=== PATIENT | female | born 1945 | race Caucasian/White ===

== ENCOUNTER 2016-04-09 09:36 | Inpatient (IN) | payer OTHER, MEDICARE ==
[~2016-04-09] VITALS: Ht 157.5 cm; Wt 69.3 kg
[2016-04-09] VITALS (13 sets, daily range): BP systolic 173–199; BP diastolic 67–123; PULSE 68–102; RESP 16–20; TEMP 97.8–98.7; O2SAT 93–98
[~2016-04-09 09:36] MED LIST: ACET5SOL5 PO; ASPI325T PO; DIABETES MED
[2016-04-09] MEDS ORDERED: ASPI325T PO (10:23)
[2016-04-09] MEDS ORDERED: SODIUM CHLOR 0.9% 1000 ML INJ 1,000 ML IV ONE (10:30)
[2016-04-09] MEDS ORDERED: SODIUM CHLORIDE 0.9% FLUSH 5 ML FLUSH IVF PRN ×2 (10:30→12:15)
[2016-04-09 10:47] LABS: AUTOMATED NEUTROPHIL # 6.1 TH/MM3 (1.8-7.7); BASOPHIL % 0.6 % (0.0-2.0); EOSINOPHIL # 0.1 TH/MM3 (0-0.4); EOSINOPHIL % 1.2 % (0.0-4.0); HEMATOCRIT 29.4 % (35.0-46.0); HEMO FLAGS DIFF FINAL; LYMPH % 15.7 % (9.0-44.0); LYMPHOCYTE # 1.2 TH/MM3 (1.0-4.8); MEAN CELL VOLUME 88.8 FL (80.0-100.0); MEAN CORPUSCULAR HEMOGLOBIN 30.4 PG (27.0-34.0); MEAN CORPUSCULAR HGB CONC 34.2 % (32.0-36.0); MONO % 6.6 % (0.0-8.0); NEUT % 75.9 % (16.0-70.0); PLATELET COUNT 222 TH/MM3 (150-450); RED BLOOD COUNT 3.32 MIL/MM3 (4.00-5.30); RED CELL DISTRIBUTION WIDTH 11.9 % (11.6-17.2); WHITE BLOOD COUNT 7.9 TH/MM3 (4.0-11.0)
[2016-04-09 10:57] LABS: CHLORIDE 104 MEQ/L (98-107); POTASSIUM 3.7 MEQ/L (3.5-5.1); SODIUM (NA) 141 MEQ/L (136-145)
[2016-04-09 11:00] LABS: ANION GAP 9 MEQ/L (5-15); APTT (PATIENT) 24.4 SEC (24.3-30.1); BLOOD UREA NITROGEN 15 MG/DL (7-18); INTERNATIONAL NORMALIZED RATIO 0.9 RATIO; MAGNESIUM 1.9 MG/DL (1.5-2.5); PROTHROMBIN TIME - PATIENT 9.9 SEC (9.8-11.6)
[2016-04-09 11:03] LABS: ALT (GPT) 12 U/L (10-53); AST (GOT) 12 U/L (15-37)
[2016-04-09 11:04] LABS: GLOMERULAR FILTRATION RATE 93 ML/MIN (>89)
[2016-04-09 11:05] LABS: TOTAL BILIRUBIN ADULT 0.4 MG/DL (0.2-1.0)
[2016-04-09 11:06] LABS: ALKALINE PHOSPHATASE 55 U/L (45-117)
--- NOTE | 2016-04-09 11:14 | RADHPO ---
EXAM DATE/TIME: 04/09/2016 10:49 [facility] COMPARISON: No previous studies available for comparison. INDICATIONS : Dizziness today and bilateral ear pain. RADIATION DOSE: 59.65 CTDIvol (mGy) MEDICAL HISTORY : Stroke. Hypertension. diabetes SURGICAL HISTORY : None. ENCOUNTER: Initial ACUITY: 1 day PAIN SCALE: 1/10 LOCATION: Bilateral ear TECHNIQUE: Multiple contiguous axial images were obtained of the head. Using automated exposure control and adj ustment of the mA and/or kV according to patient size, radiation dose was kept as low as reasonably a chievable to obtain optimal diagnostic quality images. FINDINGS: The examination demonstrates an old area of infarct involving the left temporal cortex. There is colp ocephalic dilation of the anterior horn of the left lateral ventricle. There is no acute intracranial hemorrhage. No mass lesion is identified. The appearance of the posterior fossa is unremarkable. The sinuses are clear. The mastoid air cells are clear. The osseous structures of the skull are intac t. CONCLUSION: Old area of cortical infarct involving the left temporal and parietal cortex. No acute intracranial a bnormality identified. Johnnie Bains MD on April 09, 2016 at 11:10 Board Certified Radiologist. This report was verified electronically.
[2016-04-09] MEDS ORDERED: ASPIRIN 81 MG CHEW TAB CHEW ONE (11:30)
[2016-04-09] MEDS ORDERED: HEPARIN SODIUM - IV 10,000 UNITS/10 ML VIAL IV ONE (11:30)
[2016-04-09] MEDS: HEPARIN-D5W INJ 250 ML IV SCH (12:06)
[2016-04-09] MEDS ORDERED: NITROGLYCERIN-DEXTROSE INJ 250 ML IV SCH (12:15)
[2016-04-09] MEDS ORDERED: DOCUSATE SODIUM 100 MG CAP PO PRN (12:15)
[2016-04-09] MEDS ORDERED: ONDANSETRON HCL 4 MG/2 ML VIAL IV PRN (12:15)
[2016-04-09] MEDS ORDERED: ACETAMINOPHEN 325 MG TAB PO PRN (12:15)
[2016-04-09] MEDS ORDERED: MORPHINE SULFATE 4 MG/ML INJ IV PRN (12:15)
--- NOTE | 2016-04-09 12:16 | PD ---
HPI Chief Complaint: Dizziness Time Seen by Provider: 10:20 Travel History International Travel<30 days: No Contact w/Intl Traveler<30days: No Traveled to known affect area: No History of Present Illness HPI Patient is a 70 year old female who comes in complaining of dizziness. She says that this started yesterday and it has caused her to feel off balance. She says it is a lightheaded feeling and denies a spinning sensation. She says she started to have some ear pain this morning, but she says this has gone away. She also seems to be having some confusion. She denies chest pain or SOB. She has a history of DM and HTN as well as stroke, but she has not been taking any medication for the past 2 years. She denies fever or chills, nausea or vomiting. PFSH Past Medical History Hx Anticoagulant Therapy: Yes (asa 325mg ) Cardiovascular Problems: Yes (htn on meds out of blood pressure meds) High Cholesterol: Yes Cerebrovascular Accident: Yes (CVA) Diabetes: Yes (out of medication) Patient Takes Glucophage: No Diminished Hearing: No Hypertension: Yes Immunizations Current: Yes ?: Not Menopausal: Yes Past Surgical History Surgical History: No Previous Surgery Social History Alcohol Use: No Tobacco Use: No Substance Use: No Allergies-Medications (Allergen,Severity, Reaction): Uncoded Allergies: MOTREL (Allergy, Severe, Rash, 04/09/16) . Reported Meds & Prescriptions Reported Meds & Active Scripts Active Reported Aspirin 325 Mg Tab 325 Mg PO DAILY Review of Systems Except as stated in HPI: all other systems reviewed are Neg General / Constitutional: No: Fever, Chills Eyes: No: Blurred Vision HENT: Positive: Lightheadedness, No: Headaches Cardiovascular: No: Chest Pain or Discomfort Respiratory: No: Shortness of Breath Gastrointestinal: No: Nausea, Vomiting Musculoskeletal: No: Myalgias, Edema Skin: No Rash, No Change in Pigmentation Neurologic: Positive: Dizziness Physical Exam Narrative GENERAL: Awake and alert, in no acute distress. SKIN: Warm and dry. HEAD: Atraumatic. Normocephalic. EYES: Pupils equal and round. No scleral icterus. Extraocular movements intact. Right horizontal nystagmus, extinguishing. ENT: Mucous membranes pink and moist. NECK: Trachea midline. No JVD. CARDIOVASCULAR: Regular rate and rhythm. No murmur appreciated. RESPIRATORY: No accessory muscle use. Clear to auscultation. Breath sounds equal bilaterally. GASTROINTESTINAL: Abdomen soft, non-tender, nondistended. MUSCULOSKELETAL: No obvious deformities. No clubbing. No cyanosis. No edema. NEUROLOGICAL: Awake and alert. No obvious cranial nerve deficits. Motor grossly within normal limits. Normal speech. [id number] test within normal limits. PSYCHIATRIC: Appropriate mood and affect; insight and judgment normal. Data Data Last Documented VS Vital Signs Date Time Temp Pulse Resp B/P Pulse Ox O2 Delivery O2 Flow Rate FiO2 04/09/16 12:31 98 Room Air 04/09/16 12:09 87 18 192/123 04/09/16 10:07 98.7 Orders Electrocardiogram (04/09/16 10:30) Complete Blood Count With Diff (04/09/16 10:30) Comprehensive Metabolic Panel (04/09/16 10:30) Magnesium (Mg) (04/09/16 10:30) Troponin I (04/09/16 10:30) Act Partial Throm Time (Ptt) (04/09/16 10:30) Prothrombin Time / Inr (Pt) (04/09/16 10:30) Urinalysis - C+S If Indicated (04/09/16 10:30) Ua Includes Microscopic (04/09/16 10:30) Chest, Pa & Lat (04/09/16 10:30) Ct Brain W/O Iv Contrast(Rout) (04/09/16 10:30) Ecg Monitoring (04/09/16 10:30) Iv Access Insert/Monitor (04/09/16 10:30) Oximetry (04/09/16 10:30) Sodium Chloride 0.9% Flush (Ns Flush) (04/09/16 10:30) Sodium Chlor 0.9% 1000 Ml Inj (Ns 1000 M (04/09/16 10:30) Aspirin Chew (Aspirin Chew) (04/09/16 11:30) Heparin Infusion DAO.Q1H (04/09/16 11:17) Heparin Inj (Heparin Inj) (04/09/16 11:30) Heparin Inj (Heparin Inj) (04/09/16 17:30) Heparin Inj (Heparin Inj) (04/09/16 17:30) Heparin-D5w Inj (Heparin-D5w Inj) (04/09/16 11:30) Cbc No Diff, Includes Plts (04/12/16 06:00) Act Partial Throm Time (Ptt) (04/09/16 18:17) Occult Blood (Hemoccult) Stool (04/09/16 11:17) Admit To Inpatient (04/09/16 ) Ckmb (Isoenzyme) Profile (04/09/16 12:12) Ckmb (Isoenzyme) Profile (04/09/16 18:12) Ckmb (Isoenzyme) Profile (04/10/16 00:12) Troponin I (04/09/16 12:12) Troponin I (04/09/16 18:12) Troponin I (04/10/16 00:12) Basic Metabolic Panel (Bmp) (04/10/16 06:00) Thyroid Stimulating Hormone (04/09/16 12:12) Lipid Profile (04/09/16 12:12) Complete Blood Count With Diff (04/10/16 06:00) ^ Obtain As Needed (04/09/16 12:12) Diet Full Liquid (04/09/16 Lunch) Activity Bed Rest With Brp (04/09/16 12:12) ^ Notify Of These Side Effects (04/09/16 12:12) ^ Notify Dr: Blood Pressure (04/09/16 12:12) ^ Notify Dr: Heart Rate (04/09/16 12:12) Teaching Record: Cardiac Educa DAO.Q12H (04/09/16 12:12) Sodium Chloride 0.9% Flush (Ns Flush) (04/09/16 21:00) Sodium Chloride 0.9% Flush (Ns Flush) (04/09/16 12:15) Nitroglycerin-Dextrose Inj (Nitroglyceri (04/09/16 12:15) Aspirin Ec (Ecotrin Ec) (04/10/16 09:00) Morphine Inj (Morphine Inj) (04/09/16 12:15) Acetaminophen (Tylenol) (04/09/16 12:15) Docusate Sodium (Colace) (04/09/16 12:15) Ondansetron Inj (Zofran Inj) (04/09/16 12:15) Vital Signs (Adult) DAO.Q4H (04/09/16 12:12) Consult Cardiology (04/09/16 ) Executive Vice President Of Sales / Telemetry (04/09/16 12:12) Metoprolol Tartrate (Lopressor) (04/09/16 21:00) Lisinopril (Prinivil) (04/10/16 09:00) Atorvastatin (Lipitor) (04/09/16 21:00) Scd Bilateral/Knee High DAO.BID (04/09/16 12:12) Inpatient Certification (04/09/16 ) Consult Pt Eval & Tx Oob (04/09/16 12:12) Admit Order (Ed Use Only) (04/09/16 ) Consult Cardiology (04/09/16 ) Pill Splitter (Pill Splitter) (04/09/16 12:45) Labs Laboratory Tests Test 04/09/16 04/09/16 10:40 12:20 White Blood Count 7.9 TH/MM3 Red Blood Count 3.32 MIL/MM3 Hemoglobin 10.1 GM/DL Hematocrit 29.4 % Mean Corpuscular Volume 88.8 FL Mean Corpuscular Hemoglobin 30.4 PG Mean Corpuscular Hemoglobin 34.2 % Concent Red Cell Distribution Width 11.9 % Platelet Count 222 TH/MM3 Mean Platelet Volume 7.8 FL Neutrophils (%) (Auto) 75.9 % Lymphocytes (%) (Auto) 15.7 % Monocytes (%) (Auto) 6.6 % Eosinophils (%) (Auto) 1.2 % Basophils (%) (Auto) 0.6 % Neutrophils # (Auto) 6.1 TH/MM3 Lymphocytes # (Auto) 1.2 TH/MM3 Monocytes # (Auto) 0.5 TH/MM3 Eosinophils # (Auto) 0.1 TH/MM3 Basophils # (Auto) 0.0 TH/MM3 CBC Comment DIFF FINAL Differential Comment Prothrombin Time 9.9 SEC Prothromb Time International 0.9 RATIO Ratio Activated Partial 24.4 SEC Thromboplast Time Sodium Level 141 MEQ/L Potassium Level 3.7 MEQ/L Chloride Level 104 MEQ/L Carbon Dioxide Level 28.0 MEQ/L Anion Gap 9 MEQ/L Blood Urea Nitrogen 15 MG/DL Creatinine 0.63 MG/DL Estimat Glomerular Filtration 93 ML/MIN Rate Random Glucose 282 MG/DL Calcium Level 8.3 MG/DL Magnesium Level 1.9 MG/DL Total Bilirubin 0.4 MG/DL Aspartate Amino Transf 12 U/L (AST/SGOT) Alanine Aminotransferase 12 U/L (ALT/SGPT) Alkaline Phosphatase 55 U/L Troponin I 0.86 NG/ML Total Protein 6.4 GM/DL Albumin 3.2 GM/DL Urine Collection Type CLEAN CATCH Urine Color YELLOW Urine Turbidity SLIGHTY CLOUDY Urine pH 6.0 Urine Specific [place] 1.020 Urine Protein 100 mg/dL Urine Glucose (UA) 1000 OR GREATER mg/dL Urine Ketones TRACE mg/dL Urine Occult Blood LARGE Urine Nitrite NEG Urine Bilirubin NEG Urine Leukocyte Esterase TRACE Urine RBC 25-49 /hpf Urine WBC 3-5 /hpf Urine Squamous Epithelial 0-5 /hpf Cells Microscopic Urinalysis Comment CULT NOT INDICATED MDM Medical Decision Making Medical Screen Exam Complete: Yes Emergency Medical Condition: Yes Medical Record Reviewed: Yes Interpretation(s) ECG shows normal sinus rhythm at 83, T-wave inversions in V3 through V6 as well as 1 and aVL, no ST elevation. Differential Diagnosis Electrolyte abnormality versus ICH versus ACS Narrative Course Patient is a 70-year-old female who comes in complaining of dizziness. She has history of diabetes, hypertension, stroke, but she is not taking any medications. Exam shows no neurologic abnormalities. IV established, patient connected to the security monitor. Labs sent. Head shows no acute abnormalities. Labs concerning for an elevated troponin to 0.86. Patient given aspirin and started on heparin. I spoke with Dr. Alvarez of cardiology, who agrees this plan, but would like the patient transferred to the main hospital for possible catheter. Patient admitted to medicine for further management. Diagnosis Primary Impression: NSTEMI (non-ST elevated myocardial infarction) Admitting Information Admitting Physician Requests: Admit Elva Carbajal MD Apr 09, 2016 12:16
--- NOTE | 2016-04-09 12:27 | RADHPO ---
EXAM DATE/TIME: 04/09/2016 11:33 [facility] COMPARISON: No previous studies available for comparison. INDICATIONS : Chest discomfort. MEDICAL HISTORY : None. SURGICAL HISTORY : None. ENCOUNTER: Initial ACUITY: 1 day PAIN SCORE: 5/10 LOCATION: Bilateral chest FINDINGS: PA and lateral views of the chest. Lung volumes are low. The lungs are clear. Cardiac silhouette mild ly enlarged.. No evidence of pleural effusion or pneumothorax. CONCLUSION: Mildly enlarged cardiac silhouette and low lung volumes. Harry Paredes MD on April 09, 2016 at 12:24 Board Certified Radiologist. This report was verified electronically.
[2016-04-09 12:31] LABS: BLOOD, URINE LARGE (NEG); KETONE, URINE TRACE mg/dL (NEG); NITRITE,URINE NEG (NEG)
[2016-04-09 12:37] LABS: GLUCOSE,URINE 1000 OR GREATER mg/dL (NEG); METHOD OF COLLECTION CLEAN CATCH; URINE COLOR YELLOW (YELLW/STRAW)
[2016-04-09 12:38] LABS: COMMENT (UR) CULT NOT INDICATED; CULTURE IF INDICATED CULT NOT INDICATED; SQUAMOUS EPITHELIAL CELL URINE 0-5 /hpf (0-5)
[2016-04-09] MEDS ORDERED: PILL SPLITTER OTHER PRN (12:45)
[2016-04-09] MEDS ORDERED: HEPARIN SODIUM - IV 10,000 UNITS/10 ML VIAL IV PRN ×2 (17:30)
[2016-04-09 18:28] LABS: APTT (PATIENT) 28.8 SEC (24.3-30.1)
[2016-04-09] MEDS: METOPROLOL TARTRATE 25 MG TAB PO SCH (20:49)
[2016-04-09] MEDS: SODIUM CHLORIDE 0.9% FLUSH 5 ML FLUSH IVF SCH (20:50)
[2016-04-09] MEDS: ATORVASTATIN 10 MG TAB PO SCH (20:50)
[2016-04-09] MEDS ORDERED: GLUCAGON 1 MG/ML VIAL OTHER PRN (21:15)
[2016-04-09] MEDS ORDERED: DEXTROSE 50% IN WATER 50 ML VIAL(D50) IV PUSH PRN (21:15)
--- NOTE | 2016-04-09 22:29 | HHI.HP ---
[facility] Physician Breana Russell Admission Diagnosis NSTEMI Diagnoses: (1) NSTEMI (non-ST elevated myocardial infarction) (2) Type 2 diabetes mellitus (3) Hypertension (4) Hyperlipidemia (5) Anemia Chief Complaint: Dizziness Travel History International Travel<30 Days: No Contact w/Intl Traveler <30 Da: No Traveled to Known Affected Are: No History of Present Illness Ms. Villa is a 70 year-old female with a past medical history of hypertension, hyperlipidemia, CVA, and type 2 diabetes mellitus who presented to the [place] emergency department 04/09/2016 complaining of dizziness. Initial testing in the ER showed T-wave inversions on 12-lead EKG in V3 through V6 as well as lead I and aVL, no ST elevation - 12 lead EKG personally reviewed by me. Troponin I elevated at 0.86 and patient was started on aspirin and heparin. Dr. Arrington, fitter type bar and segment, was notified and had patient transferred to the main hospital for possible cardiac catheterization. Subsequent Troponin I levels were 0.79 and 0.60. Patient also noted to have anemia with hemoglobin 10.1 and hematocrit 29.4. The patient is seen in her room. She states that she was very dizzy earlier today and drove herself to the ER in [place]; she denies any other symptoms - such as chest pain, shortness of breath, paresthesias, or weakness (see ros for full review). States she does not take medications other than aspirin for the past two years and has not seen her primary care physician in 2 years either. She says she treats her diabetes with diet. She reports she had a CVA in 1999 and denies residual weakness from the CVA. Denies cardiac disease, atrial fibrillation, copd, asthma, kidney problems, or blood clots in legs or lungs. Has a history of hepatitis- told she'd have it forever. . Review of Systems Constitutional: COMPLAINS OF: Dizziness, DENIES: Fever Respiratory: DENIES: Cough, Shortness of breath Cardiovascular: DENIES: Chest pain, Dyspnea on Exertion Gastrointestinal: DENIES: Abdominal pain, Black stools, Bloody stools, Nausea, Vomiting Genitourinary: DENIES: Hematuria, Dysuria Neurologic: DENIES: Abnormal gait, Localized weakness, Paresthesias, Seizures Except as stated in HPI: all other systems reviewed are Neg Past Family Social History Past Medical History CVA - 1999 Hypertension Hyperlipidemia Hypertension Type 2 diabetes mellitus Polio . Past Surgical History Denies any prior surgeries . Reported Medications Reported Meds & Active Scripts Active Reported Aspirin 325 Mg Tab 325 Mg PO DAILY . Allergies: Uncoded Allergies: MOTREL (Allergy, Severe, Rash, 04/09/16) . Active Ordered Medications Current Medications IV Flush 2 ml 2 ml UNSCH PRN IVF FLUSH AFTER USING IV ACCESS; Start 04/09/16 at 10:30; Stop 04/09/16 at 12:31; Status DC Sodium Chloride (NS 1000 ml Inj) 1,000 ml @ 1,000 mls/hr Q1H ONCE IV Last administered on 04/09/16 10:43; Start 04/09/16 at 10:30; Stop 04/09/16 at 11:29 ; Status DC Aspirin (Aspirin Chew) 324 mg ONCE ONCE CHEW Last administered on 04/09/16 11 :55; Start 04/09/16 at 11:30; Stop 04/09/16 at 11:31; Status DC Heparin Sodium (Porcine) (Heparin Inj) 3,600 units ONCE ONCE IV Last administered on 04/09/16 11:57; Start 04/09/16 at 11:30; Stop 04/09/16 at 11:31 ; Status DC Heparin Sodium (Porcine) (Heparin Inj) 5,000 units UNSCH PRN IV APTT LESS THAN 25; Start 04/09/16 at 17:30 Heparin Sodium (Porcine) 2500 units 2,500 units UNSCH PRN IV APTT 25 TO 39 Last administered on 04/09/16 18:39; Start 04/09/16 at 17:30 Heparin Sodium/ Dextrose (Heparin-D5W Inj) 250 ml @ 0 mls/hr TITRATE IV Last administered on 04/09/16 12:06; Start 04/09/16 at 11:30 IV Flush (NS Flush) 2 ml BID IVF Last administered on 04/09/16 20:50; Start at 21:00 IV Flush 2 ml 2 ml UNSCH PRN IVF FLUSH AFTER USING IV ACCESS; Start 04/09/16 at 12:15 Nitroglycerin/ Dextrose (Nitroglycerin-Dextrose Inj) 250 ml @ 0 mls/hr TITRATE IV Last administered on 04/09/16 18:56; Start 04/09/16 at 12:15 Aspirin (Ecotrin Ec) 325 mg DAILY PO ; Start 04/10/16 at 09:00 Morphine Sulfate (Morphine Inj) 2 mg Q30M PRN IV CHEST PAIN; Start 04/09/16 at 12:15 Acetaminophen (Tylenol) 650 mg Q6H PRN PO HEADACHE OR TEMP > 101 F; Start 04/09 at 12:15 Docusate Sodium (Colace) 100 mg BID PRN PO CONSTIPATION; Start 04/09/16 at 12: 15 Ondansetron HCl (Zofran Inj) 4 mg Q6H PRN IV NAUSEA OR VOMITING; Start at 12:15 Metoprolol Tartrate (Lopressor) 12.5 mg BID PO Last administered on 04/09/16 20:49; Start 04/09/16 at 21:00 Lisinopril (Prinivil) 5 mg DAILY PO ; Start 04/10/16 at 09:00 Atorvastatin Calcium (Lipitor) 40 mg HS PO Last administered on 04/09/16 20:50 ; Start 04/09/16 at 21:00 Miscellaneous (Pill Splitter) 1 ea UNSCH PRN OTHER SEE LABEL COMMENTS; Start at 12:45 Dextrose (D50w (Vial) Inj) 25 ml UNSCH PRN IV PUSH HYPOGLYCEMIA-SEE COMMENTS; Start 04/09/16 at 21:15 Glucagon (Glucagon Inj) 1 mg UNSCH PRN OTHER HYPOGLYCEMIA-SEE COMMENTS; Start 04/09/16 at 21:15 Insulin Aspart (NovoLOG SUPPLEMENTAL SCALE) 1 ACHS SLIDING SCALE SQ ; Start at 07:00 . Family History Denies any family history of medical problems. . Social History Tobacco: Denies Alcohol: Denies . Physical Exam Vital Signs Vital Signs Date Time Temp Pulse Resp B/P Pulse Ox O2 Delivery O2 Flow Rate FiO2 04/09/16 21:39 97.8 84 191/88 93 04/09/16 17:19 78 18 173/76 94 Room Air 04/09/16 15:56 82 18 182/74 96 Room Air 04/09/16 15:03 95 18 199/80 98 Room Air 04/09/16 12:54 79 20 184/67 97 Room Air 04/09/16 12:31 98 Room Air 04/09/16 12:09 87 18 192/123 95 Room Air 04/09/16 10:19 16 95 Room Air 04/09/16 10:07 98.7 96 16 177/85 Physical Exam GENERAL: This is an elderly female patient, in no apparent distress. SKIN: No lesions noted in areas not covered. Skin is cool and dry. HEAD: Atraumatic. Normocephalic. EYES: No scleral icterus. No injection or drainage. ENT: Nose without bleeding, purulent drainage. NECK: Trachea midline. No JVD or lymphadenopathy. CARDIOVASCULAR: Regular rate and rhythm without gallops or rubs. Systolic murmur auscultated; over tricuspid area and radiating to neck RESPIRATORY: Clear to auscultation. Breath sounds equal bilaterally. No wheezes , rales, or rhonchi. GASTROINTESTINAL: Abdomen soft, non-tender, nondistended. No guarding. MUSCULOSKELETAL: Extremities without clubbing, cyanosis, or edema. No calf tenderness. Left lower extremity with calf muscle atrophy; patient states from polio NEUROLOGICAL: Awake and alert. Motor and sensory grossly within normal limits. Normal speech. . Laboratory Laboratory Tests Test 04/09/16 04/09/16 04/09/16 04/09/16 10:40 12:20 12:48 18:00 White Blood Count 7.9 Red Blood Count 3.32 Hemoglobin 10.1 Hematocrit 29.4 Mean Corpuscular Volume 88.8 Mean Corpuscular Hemoglobin 30.4 Mean Corpuscular Hemoglobin 34.2 Concent Red Cell Distribution Width 11.9 Platelet Count 222 Mean Platelet Volume 7.8 Neutrophils (%) (Auto) 75.9 Lymphocytes (%) (Auto) 15.7 Monocytes (%) (Auto) 6.6 Eosinophils (%) (Auto) 1.2 Basophils (%) (Auto) 0.6 Neutrophils # (Auto) 6.1 Lymphocytes # (Auto) 1.2 Monocytes # (Auto) 0.5 Eosinophils # (Auto) 0.1 Basophils # (Auto) 0.0 CBC Comment DIFF FINAL Differential Comment Prothrombin Time 9.9 Prothromb Time International 0.9 Ratio Activated Partial 24.4 28.8 Thromboplast Time Sodium Level 141 Potassium Level 3.7 Chloride Level 104 Carbon Dioxide Level 28.0 Anion Gap 9 Blood Urea Nitrogen 15 Creatinine 0.63 Estimat Glomerular Filtration 93 Rate Random Glucose 282 Calcium Level 8.3 Magnesium Level 1.9 Total Bilirubin 0.4 Aspartate Amino Transf 12 (AST/SGOT) Alanine Aminotransferase 12 (ALT/SGPT) Alkaline Phosphatase 55 Troponin I 0.86 0.79 0.60 Total Protein 6.4 Albumin 3.2 Urine Collection Type CLEAN CATCH Urine Color YELLOW Urine Turbidity SLIGHTY CLOUDY Urine pH 6.0 Urine Specific [place] 1.020 Urine Protein 100 Urine Glucose (UA) 1000 OR GREATER Urine Ketones TRACE Urine Occult Blood LARGE Urine Nitrite NEG Urine Bilirubin NEG Urine Leukocyte Esterase TRACE Urine RBC 25-49 Urine WBC 3-5 Urine Squamous Epithelial 0-5 Cells Microscopic Urinalysis Comment CULT NOT INDICATED Total Creatine Kinase 57 49 Triglycerides Level 269 Cholesterol Level 191 LDL Cholesterol 91 HDL Cholesterol 46.0 Cholesterol/HDL Ratio 4.15 Thyroid Stimulating Hormone 1.560 3rd Gen Result Diagram: 04/09/16 1040 04/09/16 1040 Imaging Last Impressions Head CT 04/09/16 1030 Signed Impressions: Service Date/Time: Saturday, April 09, 2016 10:49 - CONCLUSION: Old area of cortical infarct involving the left temporal and parietal cortex. No acute intracranial abnormality identified. Johnnie Bains MD Chest X-Ray 04/09/16 1030 Signed Impressions: Service Date/Time: Saturday, April 09, 2016 11:33 - CONCLUSION: Mildly enlarged cardiac silhouette and low lung volumes. Harry Paredes MD . Assessment and Plan Problem List: (1) NSTEMI (non-ST elevated myocardial infarction) ICD Code: I21.4 Status: Acute (2) Type 2 diabetes mellitus ICD Code: E11.9 Status: Chronic (3) Hypertension ICD Code: I10 Status: Chronic (4) Hyperlipidemia ICD Code: E78.5 Status: Chronic (5) Anemia ICD Code: D64.9 Status: Acute Assessment and Plan NSTEMI - Dr. Arrington, fitter type bar and segment, consulted possible cath in a.m. - Nitroglycerin drip - Heparin drip - Continue home aspirin 325 mg by mouth daily - Patient started on Metoprolol 12.5 mg by mouth twice a day beta dhiraj tx - Morphine 2 mg IV every 30 minutes when necessary for chest pain Type 2 diabetes mellitus - Patient has not been taking medications for the management of her diabetes mellitus - Random glucose on admission 282 - Check HgbA1C - Consult machine cell tuber - Accu-Cheks before meals and at bedtime with low-dose NovoLog sliding scale coverage - Protocol for treatment of hypoglycemia ordered Hypertension - Blood pressure 177/85 on arrival with maximum of 199/80 today - Patient started on Lisinopril 5 mg by mouth daily - anticipate decrease with nitroglycerin drip Hyperlipidemia - Patient started on Lipitor 40 mg by mouth daily at bedtime Anemia - Hemoglobin 10.1 and hematocrit 29.4 - no prior labs available for comparison - Recheck CBC in a.m. and follow trends - Check iron profile and ferritin follow results SCD prophylaxis - On heparin drip for now Written by Loyda Ragsdale, acting as scribe for Dr. Terrell on 04/09/16 at 22:27. The documentation accurately reflects the work performed [id number] by me on at 2227 . Discussed Condition With patient, RN, ER physician Physician Certification 2 Midnight Certification Type: Admission for Inpatient Services Order for Inpatient Services The services are ordered in accordance with Medicare regulations or non- Medicare payer requirements, as applicable. In the case of services not specified as inpatient-only, they are appropriately provided as inpatient services in accordance with the 2-midnight benchmark. Estimated LOS (days): 3 days is the estimated time the patient will need to remain in the hospital, assuming treatment plan goals are met and no additional complications. Post-Hospital Plan: Not yet determined Problem Qualifiers (1) Hypertension: Qualified Code: I10 - Essential hypertension (2) Hyperlipidemia: Qualified Code: E78.5 - Hyperlipidemia, unspecified hyperlipidemia type (3) Anemia: Qualified Code: D64.9 - Anemia, unspecified type Loyda Ragsdale Apr 09, 2016 22:29 Lenny Terrell MD Apr 10, 2016 07:37
[2016-04-10] VITALS (27 sets, daily range): BP systolic 130–193; BP diastolic 60–89; PULSE 62–112; RESP 18–20; TEMP 97.4–98.6; O2SAT 93–99
[2016-04-10 01:10] LABS: APTT (PATIENT) 47.6 SEC (24.3-30.1)
[2016-04-10] MEDS: INSULIN ASPART SUPPLEMENTAL SCALE SQ SCH ×4 (06:02→21:00)
[2016-04-10 07:32] LABS: AUTOMATED NEUTROPHIL # 5.7 TH/MM3 (1.8-7.7); BASOPHIL # 0.1 TH/MM3 (0-0.2); EOSINOPHIL # 0.1 TH/MM3 (0-0.4); EOSINOPHIL % 1.7 % (0.0-4.0); HEMATOCRIT 26.1 % (35.0-46.0); HEMO FLAGS DIFF FINAL; LYMPH % 18.3 % (9.0-44.0); LYMPHOCYTE # 1.5 TH/MM3 (1.0-4.8); MEAN CORPUSCULAR HEMOGLOBIN 31.6 PG (27.0-34.0); MEAN CORPUSCULAR HGB CONC 35.5 % (32.0-36.0); MONO % 7.8 % (0.0-8.0); NEUT % 71.2 % (16.0-70.0); PLATELET COUNT 211 TH/MM3 (150-450); RED BLOOD COUNT 2.94 MIL/MM3 (4.00-5.30); RED CELL DISTRIBUTION WIDTH 12.9 % (11.6-17.2)
[2016-04-10 07:35] LABS: APTT (PATIENT) 46.7 SEC (24.3-30.1)
[2016-04-10 07:53] LABS: ANION GAP 6 MEQ/L (5-15); BLOOD UREA NITROGEN 9 MG/DL (7-18); CHLORIDE 105 MEQ/L (98-107); GLOMERULAR FILTRATION RATE 97 ML/MIN (>89); POTASSIUM 3.5 MEQ/L (3.5-5.1); SODIUM (NA) 140 MEQ/L (136-145)
[2016-04-10 07:59] LABS: FERRITIN 53 NG/ML (8-252); TRANSFERRIN IRON PROFILE 198 MG/DL (200-360)
[2016-04-10] MEDS ORDERED: LISINOPRIL 5 MG TAB PO SCH (09:00)
[2016-04-10] MEDS: METOPROLOL TARTRATE 25 MG TAB PO SCH (09:10)
[2016-04-10] MEDS: SODIUM CHLORIDE 0.9% FLUSH 5 ML FLUSH IVF SCH ×2 (09:10→21:00)
[2016-04-10] MEDS: ASPIRIN EC 325 MG TABEC PO SCH (09:10)
--- NOTE | 2016-04-10 14:18 | EKG ---
Date Performed: 04/10/2016 Time Performed: 06:17:06 PTAGE: 70 years EKG: Sinus rhythm . Extensive ST-T changes may be due to myocardial ischemia Abnormal ECG PREVIOUS TRACING : 04/10/2016 00.06 DOCTOR: Miko Snyder Interpretating Date/Time 04/10/2016 14:14:36
--- NOTE | 2016-04-10 14:23 | EKG ---
Date Performed: 04/10/2016 Time Performed: 00:06:44 PTAGE: 70 years EKG: Sinus rhythm . Extensive ST-T changes may be due to myocardial ischemia Abnormal ECG PREVIOUS TRACING : 04/09/2016 10.37 DOCTOR: Miko Snyder Interpretating Date/Time 04/10/2016 14:18:41
--- NOTE | 2016-04-10 14:41 | EKG ---
Date Performed: 04/09/2016 Time Performed: 10:37:40 PTAGE: 70 years EKG: Sinus rhythm Left ventricular hypertrophy Extensive ST-T changes may be due to hypertrophy and/or ischemia Abnorm al ECG PREVIOUS TRACING : 08/14/1999 16.57 DOCTOR: Miko Snyder Interpretating Date/Time 04/10/2016 14:34:56
--- NOTE | 2016-04-10 15:12 | HHI.PR ---
Subjective Remarks Follow-up for dizziness, troponin elevation Patient still complaining of lightheadedness, more confused today than yesterday. Denies any urinary symptoms, cough, diarrhea, abdominal pain, chest pain or palpitations. No headache or neck stiffness. Oriented to place but not to date. He does not know her according to the patient's sister, mildly short of breath. Objective Vitals Vital Signs Date Time Temp Pulse Resp B/P Pulse Ox O2 Delivery O2 Flow Rate FiO2 04/10/16 11:00 97.7 72 20 171/82 96 04/10/16 08:11 97.4 80 20 162/71 97 04/10/16 06:00 74 04/10/16 05:00 66 04/10/16 04:15 97.5 79 166/89 95 04/10/16 04:00 80 04/10/16 03:00 81 04/10/16 02:00 64 04/10/16 01:00 76 04/10/16 00:00 98.0 83 193/86 93 04/10/16 00:00 74 04/09/16 23:00 68 04/09/16 22:00 74 04/09/16 21:39 97.8 84 191/88 93 04/09/16 21:00 96 04/09/16 20:00 86 04/09/16 19:00 102 04/09/16 17:19 78 18 173/76 94 Room Air 04/09/16 15:56 82 18 182/74 96 Room Air I/O 04/09/16 04/09/16 04/09/16 04/10/16 04/10/16 04/10/16 07:00 15:00 23:00 07:00 15:00 23:00 Intake Total 2000 ml 480 ml Output Total 400 ml 200 ml Balance 1600 ml 280 ml Intake Oral 480 ml IV Total 2000 ml Output Urine Total 400 ml 200 ml Result Diagram: 04/10/1634 04/10/1634 Objective Remarks GENERAL: This is an elderly female patient, in no apparent distress. SKIN: No lesions noted in areas not covered. Skin is cool and dry. HEAD: Atraumatic. Normocephalic. EYES: No scleral icterus. No injection or drainage. ENT: Nose without bleeding, purulent drainage. NECK: Trachea midline. No JVD or lymphadenopathy. CARDIOVASCULAR: Regular rate and rhythm without gallops or rubs. Systolic murmur auscultated; 3/6, over tricuspid area and radiating to neck RESPIRATORY: Decreased breath sounds, crackles in the left. GASTROINTESTINAL: Abdomen soft, non-tender, nondistended. No guarding. MUSCULOSKELETAL: Extremities without clubbing, cyanosis, trace edema. No calf tenderness. Left lower extremity with calf muscle atrophy; patient states from [place] NEUROLOGICAL: Awake and alert, oriented to self and place but not to time. Moves extremities, no focal deficits. A/P Problem List: (1) NSTEMI (non-ST elevated myocardial infarction) ICD Code: I21.4 Status: Acute (2) Type 2 diabetes mellitus ICD Code: E11.9 Status: Chronic (3) Hypertension ICD Code: I10 Status: Chronic (4) Hyperlipidemia ICD Code: E78.5 Status: Chronic (5) Anemia ICD Code: D64.9 Status: Acute Assessment and Plan This is a 70-year-old female who presented to the hospital with dizziness NSTEMI - troponin maxed at 0.8, continue heparin drip and nitroglycerin drip, continue aspirin, metoprolol, morphine for pain. Cardiology consulted, awaiting for possible cardiac catheterization. Dizziness and lightheadedness-check echocardiogram, possible aortic stenosis. Congestive heart failure, acute exacerbation-we'll give a dose of Lasix, add BNP , monitor urine output, recheck BMP tomorrow, echocardiogram as above. Type 2 diabetes mellitus-noncompliant with medications, follow up hemoglobin A1c , Accu-Cheks with sliding scale. Acute delirium-patient still dizzy, lightheaded and disoriented, check MRI of the head, patient had a stroke about [address] scan of the head showed old left parietal temporal infarct, continue aspirin and statins. Check TSH, NH4 , LFTs. Hypertension - continue lisinopril, increase metoprolol Hyperlipidemia -continue Lipitor Iron deficiency anemia-iron panel indicates iron deficiency, start ferrous sulfate SCD prophylaxis - On heparin drip for now Discussed with sister Problem Qualifiers (1) Hypertension: Qualified Code: I10 - Essential hypertension (2) Hyperlipidemia: Qualified Code: E78.5 - Hyperlipidemia, unspecified hyperlipidemia type (3) Anemia: Qualified Code: D64.9 - Anemia, unspecified type Miguel Florse MD Apr 10, 2016 15:12
[2016-04-10] MEDS ORDERED: FUROSEMIDE 20 MG/2 ML VIAL IV PUSH ONE (15:15)
[2016-04-10] MEDS: HEPARIN-D5W INJ 250 ML IV SCH (15:45)
[2016-04-10 16:32] LABS: INDIRECT BILIRUBIN 0.2 MG/DL (0.0-0.8); TOTAL BILIRUBIN ADULT 0.3 MG/DL (0.2-1.0)
[2016-04-10 16:43] LABS: HEMOGLOBIN A1a 1.2 %; HEMOGLOBIN A1b 0.9 %; HEMOGLOBIN Ao 77.6 %; HEMOGLOBIN F 1.6 %; HEMOGLOBIN P3 4.9 %
[2016-04-10 17:09] LABS: I-STAT POTASSIUM 3.5 MMOL/L (3.5-4.9)
[2016-04-10 17:14] LABS: AUTOMATED NEUTROPHIL # 9.1 TH/MM3 (1.8-7.7); BASOPHIL % 0.3 % (0.0-2.0); EOSINOPHIL # 0.1 TH/MM3 (0-0.4); EOSINOPHIL % 0.9 % (0.0-4.0); HEMATOCRIT 29.2 % (35.0-46.0); HEMO FLAGS DIFF FINAL; LYMPHOCYTE # 1.8 TH/MM3 (1.0-4.8); MEAN CELL VOLUME 88.3 FL (80.0-100.0); MEAN CORPUSCULAR HEMOGLOBIN 31.3 PG (27.0-34.0); MEAN CORPUSCULAR HGB CONC 35.4 % (32.0-36.0); MONO % 8.7 % (0.0-8.0); NEUT % 75.1 % (16.0-70.0); PLATELET COUNT 257 TH/MM3 (150-450); RED BLOOD COUNT 3.31 MIL/MM3 (4.00-5.30); RED CELL DISTRIBUTION WIDTH 13.3 % (11.6-17.2); WHITE BLOOD COUNT 12.2 TH/MM3 (4.0-11.0)
--- NOTE | 2016-04-10 17:14 | RADRPT ---
EXAM DATE/TIME: 04/10/2016 16:58 [facility] COMPARISON: CT BRAIN W/O CONTRAST, April 09, 2016, 10:49. INDICATIONS : Weakness both lower extremity,slight left facial droop. RADIATION DOSE: 42.91 CTDIvol (mGy) This report was called by Dr Coker to Dr Navarro at 1711 MEDICAL HISTORY : Unable to obtain SURGICAL HISTORY : Unable to obtain ENCOUNTER: Initial ACUITY: 1 day PAIN SCALE: Non-responsive LOCATION: cranial TECHNIQUE: Multiple contiguous axial images were obtained of the head. Using automated exposure control and adj ustment of the mA and/or kV according to patient size, radiation dose was kept as low as reasonably a chievable to obtain optimal diagnostic quality images. 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 Expected dilatation of the left lateral ventricle. The ventricles are normal for age. No misha dence of midline shift, mass lesion, hemorrhage or acute infarction. No extra-axial fluid collection s are seen. POSTERIOR FOSSA: The cerebellum and brainstem are intact. The 4th ventricle is midline. The cerebellopontine angle i s unremarkable. EXTRACRANIAL: The visualized portion of the orbits is intact. SKULL: The calvaria is intact. No evidence of skull fracture. CONCLUSION: 1. No hemorrhage or midline shift. 2. Old left MCA territory infarction. Andre Coker Jr., MD on April 10, 2016 at 17:08 Board Certified Radiologist. This report was verified electronically.
[2016-04-10 17:21] LABS: BLOOD, URINE LARGE (NEG); COMMENT (UR) CULT NOT INDICATED; CULTURE IF INDICATED CULT NOT INDICATED; GLUCOSE,URINE 1000 mg/dL (NEG); KETONE, URINE NEG (NEG); MUCUS URINE FEW /lpf (OCC); NITRITE,URINE NEG (NEG); SQUAMOUS EPITHELIAL CELL URINE <1 /hpf (0-5); URINE COLOR LIGHT-YELLOW (YELLW/STRAW)
[2016-04-10 17:31] LABS: APTT (PATIENT) 32.7 SEC (24.3-30.1); INTERNATIONAL NORMALIZED RATIO 0.9 RATIO
[2016-04-10] MEDS ORDERED: [UNRECOGNIZED DRUG - CODE] (17:54)
[2016-04-10] MEDS ORDERED: METOPROLOL TARTRATE 25 MG TAB PO SCH (21:00)
[2016-04-10] MEDS: ATORVASTATIN 10 MG TAB PO SCH (21:00)
[2016-04-10] MEDS: FERROUS SULFATE 325 MG (65 MG ELEMENTAL IRON) TAB PO SCH (21:00)
--- NOTE | 2016-04-10 23:18 | RADRPT ---
EXAM DATE/TIME: 04/10/2016 21:37 [facility] COMPARISON: No previous studies available for comparison. INDICATIONS : Cerebrovascular accident. MEDICAL HISTORY : Hypercholesterolemia. Hypertension. Myocardial infarction. Anticoagulant therapy, Aspirin. Diabetes. Cerebrovascular accident. Anemia. SURGICAL HISTORY : None. ENCOUNTER: Initial ACUITY: 2 days PAIN SCORE: 0/10 LOCATION: Bilateral neck PEAK SYSTOLIC VELOCITIES (cm/sec): ICA/CCA RATIO: Right: 1.6 Left: Unable to determine. ICA: Right: 123 Left: Occluded. CCA: Right: 76 Left: 70 ECA: Right: 105 Left: 151 VERTEBRAL: Right: 61 antegrade Left: 93 antegrade Elevated flow velocities and ICA/CCA ratios have been found to correlate with increased degrees of vessel stenosis, calculated as percentage of diameter relative to a normal segment of distal ICA/CCA FINDINGS: RIGHT CAROTID: There is mild to moderate plaque at the carotid bulb region. No significant stenosis is visualized. The waveforms are within normal limits. Elevated peak systolic velocity is not seen. LEFT CAROTID: Left internal carotid artery appears occluded. VERTEBRAL ARTERIES: Antegrade flow is seen in both vertebral arteries. MISCELLANEOUS: None. CONCLUSION: 1. Occlusion of the left internal carotid artery 2. Mild to moderate plaque in the carotid bulb region on the grayscale images but not confirmed with elevated velocity. This suggests this is likely not hemodynamically significant. Darion Rodriguez MD on April 10, 2016 at 23:15 Board Certified Radiologist. This report was verified electronically.
[2016-04-11] VITALS (28 sets, daily range): BP systolic 148–184; BP diastolic 70–85; PULSE 56–87; RESP 16–18; TEMP 93.7–98.7; O2SAT 93–98
[2016-04-11 01:10] LABS: APTT (PATIENT) 41.5 SEC (24.3-30.1)
[2016-04-11 06:20] LABS: AUTOMATED NEUTROPHIL # 7.1 TH/MM3 (1.8-7.7); BASOPHIL # 0.1 TH/MM3 (0-0.2); BASOPHIL % 0.7 % (0.0-2.0); EOSINOPHIL # 0.1 TH/MM3 (0-0.4); EOSINOPHIL % 1.3 % (0.0-4.0); HEMATOCRIT 28.2 % (35.0-46.0); HEMO FLAGS DIFF FINAL; LYMPH % 16.1 % (9.0-44.0); LYMPHOCYTE # 1.6 TH/MM3 (1.0-4.8); MEAN CELL VOLUME 88.5 FL (80.0-100.0); MEAN CORPUSCULAR HEMOGLOBIN 31.5 PG (27.0-34.0); MEAN CORPUSCULAR HGB CONC 35.6 % (32.0-36.0); MONO % 9.3 % (0.0-8.0); NEUT % 72.6 % (16.0-70.0); PLATELET COUNT 236 TH/MM3 (150-450); RED BLOOD COUNT 3.18 MIL/MM3 (4.00-5.30); RED CELL DISTRIBUTION WIDTH 13.5 % (11.6-17.2); WHITE BLOOD COUNT 9.8 TH/MM3 (4.0-11.0)
[2016-04-11 06:30] LABS: APTT (PATIENT) 44.6 SEC (24.3-30.1)
[2016-04-11 06:51] LABS: BICARBONATE 29.3 MEQ/L (21.0-32.0); MAGNESIUM 1.8 MG/DL (1.5-2.5); POTASSIUM 3.4 MEQ/L (3.5-5.1)
[2016-04-11] MEDS: INSULIN ASPART SUPPLEMENTAL SCALE SQ SCH ×4 (07:00→22:40)
--- NOTE | 2016-04-11 07:10 | MB ---
cc: JOHN PRATER M.D. DATE OF CONSULTATION 04/10/2016 DATE OF 1945 AGE [age] years old REASON FOR CONSULTATION Stroke Alert. HISTORY OF PRESENT ILLNESS The patient is a 70-year-old woman who was admitted with a non-ST elevated PA on 04/09. Today she was in her usual state of health, sitting in a chair, all of a sudden became weak, was unable to stand, slumped over to the left side. A Stroke Alert was called. She was taken to CT, placed back on the bed, head of bed flat. Labs were ordered. Patient is already on standing order of heparin. PTT was 46.7 and on full-dose aspirin. Hence, she is not a candidate for T-PA due to be on anticoagulation. First CT of the head on 04/09 showed old left temporal parietal infarct. CT today shows the same, no acute findings. She was noted in the chair to be hypotensive 81/51 and then lying down systolic was 111. Currently her blood pressure went up into the 140s. PAST MEDICAL HISTORY 1. She has a history of type 2 diabetes. 2. Hypertension. 3. Hyperlipidemia 4. Anemia. 5. History of polio. SOCIAL HISTORY No tobacco or alcohol. FAMILY HISTORY Noncontributory. PHYSICAL EXAMINATION VITALS: As stated. NECK: Supple. No bruits. HEART: She has a diffuse murmur best auscultated over the right sternal border, 3-4/6. No radiation to the carotids, regular. NEUROLOGIC: She is awake and alert, somewhat slow to respond. She was able to tell me her name. She knows it is March 2016. She follows simple commands. She has maybe an attenuated left nasolabial fold. She can close her eyes and maintain against resistance. Tongue is midline. Motor: No drift. Upper extremities 5/5. Questionable leg lag on the left but at best she is a 5-/5. Sensory is normal to all modalities. Gait is withheld. LABS White count is 12.2, hemoglobin 10.3, platelets 257,000. PTT is 46.7, then it and came down to 32.7. INR 0.9. antigen 389. Urine culture is not indicated. Her glucose also was 335. IMPRESSION A 70-year-old woman with what sounds like stroke-like symptoms, likely due to hypoperfusion. However, certainly with a little facial asymmetry. She may have had a small infarct. RECOMMENDATIONS 1. Recommend at this point in time bedrest. 2. Maintain adequate blood pressure. Keep her blood pressure over 130 systolic, 130-140. 3. Keep her on the heparin as well as her aspirin. 4. We will get an MRI of the brain. 5. Monitor her neuro status. 6. Maintain bed rest today. 7. MRI is already on order. Depending on what that shows, further recommendations will be made accordingly. As stated, she is not a T-PA candidate due to already being on heparin infusion. I believe most of her symptoms were from her hypoperfusion. I believe she already had an echo ordered. We will get that report. Continue current recommendations. MD DENILSON Winters/SINCERE /5:42 PM /7:01 AM
[2016-04-11] MEDS: FERROUS SULFATE 325 MG (65 MG ELEMENTAL IRON) TAB PO SCH ×2 (08:48→22:35)
[2016-04-11] MEDS: ASPIRIN EC 325 MG TABEC PO SCH (08:48)
[2016-04-11] MEDS: SODIUM CHLORIDE 0.9% FLUSH 5 ML FLUSH IVF SCH ×2 (08:54→22:35)
[2016-04-11] MEDS: LISINOPRIL 5 MG TAB PO SCH (10:52)
--- NOTE | 2016-04-11 10:59 | HHI.PR ---
Subjective Remarks f/u dizziness, weakness, ams AMS resolved, back to baseline per sister, not confused anymore, no focal weakness, no dizziness or lightheadedness, numbness, headache, nausea or vomiting. A stroke alert was called yesterday, seen by neurology. Patient denies any chest pain, shortness of breath. Objective Vitals Vital Signs Date Time Temp Pulse Resp B/P Pulse Ox O2 Delivery O2 Flow Rate FiO2 04/11/16 08:55 97.3 78 18 176/75 97 04/11/16 06:00 71 18 153/74 94 04/11/16 06:00 83 04/11/16 05:00 70 04/11/16 04:00 84 04/11/16 04:00 97.6 72 16 164/84 96 04/11/16 03:00 74 04/11/16 02:00 84 16 159/85 97 04/11/16 02:00 64 04/11/16 01:00 77 04/11/16 00:53 97.5 80 18 163/76 97 04/11/16 00:43 94 Nasal Cannula 1.50 04/11/16 00:00 72 04/10/16 23:00 70 04/10/16 23:00 62 18 161/82 04/10/16 22:00 74 04/10/16 21:00 98.1 77 18 141/76 98 04/10/16 21:00 74 04/10/16 20:00 74 04/10/16 19:00 70 04/10/16 19:00 98.0 84 18 130/60 99 04/10/16 18:00 85 04/10/16 17:50 185/83 04/10/16 17:00 89 04/10/16 16:00 112 04/10/16 15:38 91 04/10/16 15:38 98.6 100 18 168/83 97 04/10/16 14:00 87 04/10/16 13:00 76 04/10/16 12:00 74 04/10/16 11:00 73 04/10/16 11:00 97.7 72 20 171/82 96 I/O 04/10/16 04/10/16 04/10/16 04/11/16 04/11/16 04/11/16 07:00 15:00 23:00 07:00 15:00 23:00 Intake Total 600 ml Balance 600 ml Intake Oral 600 ml # Voids 1 1 # Bowel Movements 0 Result Diagram: 04/11/16 0606 04/11/16 0606 Imaging Last Impressions Head CT 04/10/16 0000 Signed Impressions: Service Date/Time: Sunday, April 10, 2016 16:58 - CONCLUSION: 1. No hemorrhage or midline shift. 2. Old left MCA territory infarction. Andre Coker Jr., MD Carotid Artery Ultrasound 04/10/16 0000 Signed Impressions: Service Date/Time: Sunday, April 10, 2016 21:37 - CONCLUSION: 1. Occlusion of the left internal carotid artery 2. Mild to moderate plaque in the carotid bulb region on the grayscale images but not confirmed with elevated velocity. This suggests this is likely not hemodynamically significant. Darion Rodriguez MD Chest X-Ray 04/09/16 1030 Signed Impressions: Service Date/Time: Saturday, April 09, 2016 11:33 - CONCLUSION: Mildly enlarged cardiac silhouette and low lung volumes. Harry Paredes MD Objective Remarks GENERAL: This is an elderly female patient, in no apparent distress. SKIN: No lesions noted in areas not covered. Skin is cool and dry. HEAD: Atraumatic. Normocephalic. EYES: No scleral icterus. No injection or drainage. ENT: Nose without bleeding, purulent drainage. NECK: Trachea midline. No JVD or lymphadenopathy. CARDIOVASCULAR: Regular rate and rhythm without gallops or rubs. Systolic murmur auscultated; 3/6, over tricuspid area and radiating to neck RESPIRATORY: Decreased breath sounds, crackles in the left -better. GASTROINTESTINAL: Abdomen soft, non-tender, nondistended. No guarding. MUSCULOSKELETAL: Extremities without clubbing, cyanosis, trace edema. No calf tenderness. Left lower extremity with calf muscle atrophy; patient states from [place] NEUROLOGICAL: Awake and alert, oriented to self, place, time. Moves extremities , positive for generalized weakness but symmetrical over, no sensory deficits. No meningeal signs. No cranial nerve deficits, no facial asymmetry. A/P Problem List: (1) NSTEMI (non-ST elevated myocardial infarction) ICD Code: I21.4 Status: Acute (2) Type 2 diabetes mellitus ICD Code: E11.9 Status: Chronic (3) Hypertension ICD Code: I10 Status: Chronic (4) Hyperlipidemia ICD Code: E78.5 Status: Chronic (5) Anemia ICD Code: D64.9 Status: Acute Assessment and Plan This is a 70-year-old female who presented to the hospital with dizziness NSTEMI - troponin maxed at 0.8, continue heparin drip and nitroglycerin drip, continue aspirin, restart metoprolol, morphine for pain. Cardiology consulted, awaiting for possible cardiac catheterization. Reconsult cardiology if it didnt got through Dizziness and lightheadedness-check echocardiogram, possible aortic stenosis. Echocardiogram pending. Congestive heart failure, acute exacerbation- fair response to Lasix, BNP is elevated, will give a dose of Lasix today, follow-up echocardiogram, recheck BMP tomorrow. Type 2 diabetes mellitus-noncompliant with medications, hemoglobin A1c is 10.7, continue sliding scale insulin, will start Levemir 10 units. Possibly start metformin on discharge. Acute delirium- mental status better, ammonia is normal, TSH is normal. CT scan of the head unremarkable other than old left parietal temporal infarct. Stroke alert was called yesterday, rule out CVA, neurology consulted, for MRI, MRA of the head and neck. Continue aspirin and statin. Keep blood pressure between 130 to 140 per neurology. Could be from hypoperfusion. Continue heparin Possible hypertensive emergency- uncontrolled, per neurology, keep blood pressure between 130 to 140. Antihypertensives were held because of transient hypotension, could be vasovagal, restart lisinopril and metoprolol. T Hyperlipidemia -continue Lipitor Iron deficiency anemia-iron panel indicates iron deficiency, continue ferrous sulfate SCD prophylaxis - On heparin drip for now Discussed with sisters Problem Qualifiers (1) Hypertension: Qualified Code: I10 - Essential hypertension (2) Hyperlipidemia: Qualified Code: E78.5 - Hyperlipidemia, unspecified hyperlipidemia type (3) Anemia: Qualified Code: D64.9 - Anemia, unspecified type Miguel Flores MD Apr 11, 2016 10:59
[2016-04-11] MEDS ORDERED: FUROSEMIDE 20 MG/2 ML VIAL IV PUSH ONE (11:00)
[2016-04-11] MEDS ORDERED: POTASSIUM CL 40 MEQ/30 ML LIQ UDC PO ONE (11:00)
[2016-04-11] MEDS: METOPROLOL TARTRATE 25 MG TAB PO SCH ×2 (11:00→22:35)
[2016-04-11] MEDS: INSULIN DETEMIR 100 UNITS/ML VIAL SQ SCH (11:47)
--- NOTE | 2016-04-11 12:29 | EC ---
Study Study Date:04/10/2016 STUDY CONCLUSIONS SUMMARY - Left ventricle: The cavity size was normal. Wall thickness was normal. Systolic function was normal. The estimated ejection fraction was in the range of 55% to 60%. Wall motion was normal; there were no regional wall motion abnormalities. - Aortic valve: Moderately calcified annulus. Trileaflet; normal thickness leaflets. Transvalvular velocity was increased. There was mild to moderate stenosis. Trace regurgitation. Valve area: 0.56cm^2(VTI). Valve area: 0.56cm^2 (Vmax). - Pulmonary arteries: PA peak pressure: 39mm Hg (S). If LV function is below 40, please consider prescribing an ACEI or ARB or document rationale for non-use. PROCEDURE DATA STUDY STATUS: Elective. Procedure: Transthoracic echocardiography. Image quality was good. Scanning was performed from the parasternal, apical, and subcostal acoustic windows. Study completion: The patient tolerated the procedure well. Transthoracic echocardiography. M-mode, complete 2D, complete spectral Doppler, and color Doppler. Height: Height: 62in. Weight: Weight: 148.7lb. Body mass index: BMI: 27.3kg/m^2. Body surface area: BSA: 1.69m^2. Patient status: Inpatient. CARDIAC ANATOMY LEFT VENTRICLE: The cavity size was normal. Wall thickness was normal. Systolic function was normal. The estimated ejection fraction was in the range of 55% to 60%. Wall motion was normal; there were no regional wall motion abnormalities. AORTIC VALVE: Moderately calcified annulus. Trileaflet; normal thickness leaflets. Doppler: Transvalvular velocity was increased. There was mild to moderate stenosis. Trace regurgitation. Valve area: 0.56cm^2(VTI). Indexed valve area: 0.33cm^2/m^2 (VTI). Valve area: 0.56cm^2 (Vmax). Indexed valve area: 0.33cm^2/m^2 (Vmax). Mean gradient: 20mm Hg (S). Peak gradient: 50mm Hg (S). AORTA: Aortic root: The aortic root was normal in size. MITRAL VALVE: Structurally normal valve. Doppler: Transvalvular velocity was within the normal range. There was no evidence for stenosis. No regurgitation. Peak gradient: 2mm Hg (D). LEFT ATRIUM: The atrium was normal in size. RIGHT VENTRICLE: The cavity size was normal. Wall thickness was normal. PULMONIC VALVE: Doppler: Transvalvular velocity was within the normal range. There was no evidence for stenosis. No regurgitation. TRICUSPID VALVE: Structurally normal valve. Doppler: Transvalvular velocity was within the normal range. No regurgitation. PULMONARY ARTERY: The main pulmonary artery was normal-sized. Systolic pressure was within the normal range. RIGHT ATRIUM: The atrium was normal in size. PERICARDIUM: There was no pericardial effusion. SYSTEMIC VEINS: Inferior vena cava: The vessel was normal in size. Patient weight: 148.7lb _Ejection fraction:_ 65-75% _Fractional shortening:_ 32% up to 5Kg 5-11.5Kg 11.6-22.9Kg 23-45Kg 45-57Kg Aortic Root 7-13 <17 13-22 17-27 17-27 LA diam 6-13 <23 24-38 33-47 37-40 RVID 10-17 7-15 7-15 7-18 8-17 LVIDd 12-22 <32 24-38 33-47 37-40 LVPW 2-4 3-6 5-7 6-8 7-8 IVS 2-4 3-6 5-7 6-8 7-8 BASIC MEASUREMENTS ADULT NORMAL Left ventricle LV internal dimension, ED, chordal *41.8 mm 43-52 level, PLAX LV internal dimension, ES, chordal 26.2 mm 23-38 level, PLAX Fractional shortening, chordal level, 37 % >29 PLAX LV posterior wall thickness, ED 9.73 mm IVS/LVPW ratio, ED 1 <1.3 Ventricular septum Septal thickness, ED 9.75 mm Aorta Root diameter, ED 23 mm Left atrium Anterior-posterior dimension 31 mm Anterior-posterior dimension index 1.83 cm/m^2 <2.2 DOPPLER MEASUREMENTS ADULT NORMAL Main pulmonary artery Pressure, S *39 mm Hg =30 Aortic valve Peak velocity, S 303 cm/s Mean velocity, S 200 cm/s VTI, S 70.7 cm Mean gradient, S 20 mm Hg Peak gradient, S 50 mm Hg Valve area, VTI 0.56 cm^2 Valve area index, VTI 0.33 cm^2/m^2 Valve area, Vmax 0.56 cm^2 Valve area index, Vmax 0.33 cm^2/m^2 Mitral valve Peak E-wave velocity 73.1 cm/s Peak A-wave velocity 93.3 cm/s Deceleration time 225 ms 150-230 Peak gradient, D 2 mm Hg Peak E/A ratio 0.8 Tricuspid valve Regurgitant peak velocity 303 cm/s Peak RV-RA gradient, S 37 mm Hg Maximal regurgitant velocity 303 cm/s Systemic veins Estimated CVP 5 mm Hg Right ventricle RV pressure, S *42 mm Hg <30 Pulmonic valve Peak velocity, S 85 cm/s LEGEND: Mean values are shown as u=mean value. Asterisk (*) de [place] values outside specified normal range. Prepared and signed by Miko Snyder [id number]
[2016-04-11] MEDS ORDERED: GADODIAMIDE PF 287 MG/ML 20 ML VIAL (for RAD MRI) IV ONE (13:25)
--- NOTE | 2016-04-11 13:29 | RADRPT ---
EXAM DATE/TIME: 04/11/2016 12:30 [facility] COMPARISON: CT BRAIN W/O CONTRAST, April 10, 2016, 16:58. INDICATIONS : Dizziness. CONTRAST: 20 cc Omniscan (gadodiamide) IV MEDICAL HISTORY : Diabetes mellitus type 2. Hypertension. Stroke SURGICAL HISTORY : Tubal ligation. ENCOUNTER: Subsequent ACUITY: 2 day PAIN SCORE: 0/10 LOCATION: cranial TECHNIQUE: Multiplanar, multisequence MRI of the brain was performed both prior to and following the administrat ion of paramagnetic contrast. FINDINGS: CEREBRUM: Old left middle cerebral artery distribution infarct. Small areas of T2 abnormality within the right frontal/parietal parafalcine region consistent with multifocal acute infarcts. The ventricles are nor mal for age. No evidence of mass lesion or hemorrhage. No extraaxial fluid collections are seen. T he pituitary gland and suprasellar cistern are normal in configuration. WHITE MATTER: No significant signal abnormalities are seen in the white matter. POSTERIOR FOSSA: The cerebellum and brainstem are intact. The 4th ventricle is midline. The cerebellopontine angle is unremarkable. The cerebellar tonsils are normal in position. DIFFUSION IMAGING: Multifocal areas of restricted diffusion are seen in the right frontal para falcine region. EXTRACRANIAL: The visualized portions of the orbits and paranasal sinuses are unremarkable. POST-CONTRAST: No abnormal areas of parenchymal or dural enhancement. No evidence of blood-brain barrier breakdown. CONCLUSION: 1. Multifocal acute infarcts in the right frontal/parietal parafalcine region. No midline shift or ma ss effect. 2. Old left MCA distribution infarct. Dexter Pate MD on April 11, 2016 at 13:08 Board Certified Radiologist. This report was verified electronically.
--- NOTE | 2016-04-11 15:09 | RADRPT ---
EXAM DATE/TIME: 04/11/2016 12:30 [facility] COMPARISON: No previous studies available for comparison. INDICATIONS : Dizziness. MEDICAL HISTORY : Diabetes mellitus type 2. Hypertension. Stroke SURGICAL HISTORY : Tubal ligation. ENCOUNTER: Subsequent ACUITY: 2 day PAIN SCORE: 0/10 LOCATION: cranial Please note a normal MRA of the brain does not entirely exclude the possibility of a small aneurysm, nor the possibility of distal intracranial vessel disease. TECHNIQUE: 3D time of flight MRA was performed. Source images, multiplanar STS MIP, and 3D volume MIP reconstru ctions were reviewed. FINDINGS: The left internal carotid artery is totally occluded. The right internal carotid artery is widely pat ent into the brain. The anterior cerebral vessels are unremarkable other than slight relative hypopla mirta of the left A1 segment relative to the right. There is reasonable reconstitution of the left MCA vessels post previous stroke. In the right MCA, a moderate focal concentric stenosis is present just proximal to the bifurcation. The MCA branch vessels are intact and unremarkable. The posterior circul ation vessels are intact. CONCLUSION: Left internal carotid artery is occluded. Moderate focal concentric stenosis in the proximal right MCA. Darion Jefferson MD on April 11, 2016 at 14:43 Board Certified Radiologist. This report was verified electronically.
--- NOTE | 2016-04-11 15:12 | RADRPT ---
EXAM DATE/TIME: 04/11/2016 12:30 [place] COMPARISON: No previous studies available for comparison. INDICATIONS : Dizziness. CONTRAST: 20 cc Omniscan (gadodiamide) IV MEDICAL HISTORY : Diabetes mellitus type 2. Hypertension. Stroke SURGICAL HISTORY : Tubal ligation. ENCOUNTER: Subsequent ACUITY: 2 day PAIN SCORE: 0/10 LOCATION: cranial Percent stenosis is calculated using the diameter of the stenotic region over the diameter of the nor mal distal internal carotid artery. TECHNIQUE: Bolus infused MRA of the extracranial circulation was performed using a neurovascular coil. Post pro cessing was performed including rotationg subvolume maximum intensity projections of each carotid art deepika, rotating full volume maximum intensity projections of both carotid arteries, sagittal and pollack l sliding thin slab reformations of each carotid artery, and left oblique sliding thin slab reformati on through the aortic arch to include the origin of the arch branch vessels. FINDINGS: AORTIC ARCH: There is a three vessel origin of the great vessels from the aorta. No evidence of ostial narrowing. RIGHT CAROTID: The common carotid artery is intact. The carotid bulb has a normal configuration without ulceration or narrowing. The internal carotid artery lumen is smooth without stenosis. The external carotid ar dara is intact. LEFT CAROTID: The left internal carotid artery is totally occluded. VERTEBRALS: The vertebral arteries have a symmetric diameter. No stenotic lesions are seen. 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 No significant right carotid stenosis. Vertebral s are intact. Darion Jefferson MD on April 11, 2016 at 15:08 Board Certified Radiologist. This report was verified electronically.
[2016-04-11] MEDS: HEPARIN-D5W INJ 250 ML IV SCH (18:19)
[2016-04-11] MEDS: ATORVASTATIN 10 MG TAB PO SCH (22:35)
[2016-04-12] VITALS (24 sets, daily range): BP systolic 79–167; BP diastolic 58–87; PULSE 56–86; RESP 16–20; TEMP 97.9–98.6; O2SAT 97–99
[2016-04-12] MEDS: ENALAPRILAT 1.25 MG/ML VIAL IV PUSH PRN (03:27)
[2016-04-12 05:15] LABS: AUTOMATED NEUTROPHIL # 7.7 TH/MM3 (1.8-7.7); BASOPHIL # 0.1 TH/MM3 (0-0.2); EOSINOPHIL # 0.2 TH/MM3 (0-0.4); EOSINOPHIL % 1.7 % (0.0-4.0); HEMATOCRIT 28.2 % (35.0-46.0); HEMO FLAGS DIFF FINAL; LYMPH % 15.6 % (9.0-44.0); LYMPHOCYTE # 1.7 TH/MM3 (1.0-4.8); MEAN CELL VOLUME 89.5 FL (80.0-100.0); MEAN CORPUSCULAR HEMOGLOBIN 31.7 PG (27.0-34.0); MEAN CORPUSCULAR HGB CONC 35.4 % (32.0-36.0); MONO % 10.8 % (0.0-8.0); NEUT % 70.9 % (16.0-70.0); PLATELET COUNT 261 TH/MM3 (150-450); RED BLOOD COUNT 3.15 MIL/MM3 (4.00-5.30); RED CELL DISTRIBUTION WIDTH 13.4 % (11.6-17.2); WHITE BLOOD COUNT 10.9 TH/MM3 (4.0-11.0)
[2016-04-12 05:24] LABS: APTT (PATIENT) 43.1 SEC (24.3-30.1)
--- NOTE | 2016-04-12 05:34 | MB ---
cc: CAITY MUNOZ M.D., MICHELLE S. MD HENSGEN, KELLY J. DATE OF CONSULTATION 04/12/2016 HISTORY OF PRESENT ILLNESS Mrs. Villa is a 70-year-old female with history of CVA admitted at [facility] on Sunday due to dizziness. She states she it felt like no balance, felt like head spinning. During hospitalization troponin was 0.65. There was some the shortness of breath. I was called by the ER doctor. I recommended the patient to be transferred to the main hospital for ischemic workup. Sunday at around 5-6 p.m. the patient was not transferred yet. No official consult was requested. Today I was consulted again for evaluation. The chart was reviewed. The patient was evaluated. I did talk to Mrs. Villa and her sister. Multiple obtained for sister. ALLERGIES MOTRIN. SOCIAL HISTORY Negative for smoking. Drinks occasionally. FAMILY HISTORY noncontributory to her current medical condition. MEDICATIONS 1. Metoprolol 25 mg twice a day. 2. She is on Levemir. 3. Lisinopril 5 mg a day. 4. Ferrous sulfate. 5. Aspirin. 6. Insulin p.r.n. 7. Lipitor 40 mg a day. 8. Tylenol p.r.n. REVIEW OF SYSTEMS The patient refers no chest pain, no chest discomfort, no fever. PHYSICAL EXAMINATION GENERAL: Alert, apparently oriented to person and space. There is some slurring of speech. She is taking a lot of time to structure a phrase. VITAL SIGNS: Blood pressure on evaluation 168/79, pulse 76. Respiratory rate 18. LUNGS: Ventilated. CARDIOVASCULAR: S1, S2, regular. No gallop. I did detect a systolic ejection murmur. ABDOMEN: Soft. No mass. No bruit. EXTREMITIES: With no significant weakness. No edema. ELECTROCARDIOGRAM Sinus rhythm. LVH. Diffuse ST changes. LABORATORY DATA Hemoglobin 10.0, white blood cell 9.8. Potassium 3.4. Troponin yesterday was 0.62. Creatinine 0.65. ASSESSMENT AND RECOMMENDATIONS Mrs. Villa currently has no chest pain, no chest discomfort. She has slurred speech. She was evaluated by Neurology. MRI done today indicated multifocal acute infarct in the right frontal and parietal lobe. Her troponin is coming down. There is no active ST elevation. Echocardiogram indicated an aortic valve area of 0.56 with normal ejection fraction but the gradient is normal. I am not sure this is the real valve area. At this point my recommendation is to continue current management. Repeat echo in six months. No need at this point for ischemic workup. I will follow the patient during her hospitalization. MD JEFFERSON Saenz/SINCERE /11:53 PM /5:15 AM
[2016-04-12 05:40] LABS: BICARBONATE 31.1 MEQ/L (21.0-32.0); POTASSIUM 3.9 MEQ/L (3.5-5.1)
[2016-04-12] MEDS: INSULIN ASPART SUPPLEMENTAL SCALE SQ SCH ×4 (06:21→20:53)
--- NOTE | 2016-04-12 06:57 | EKG ---
Date Performed: 04/10/2016 Time Performed: 17:23:22 PTAGE: 70 years EKG: Sinus rhythm Left ventricular hypertrophy Lateral ST-T changes are probably due to ventricular hypertrophy Consid er anterolateral ischemia Abnormal ECG PREVIOUS TRACING : 04/10/2016 06.17 DOCTOR: Seth Watson Interpretating Date/Time 04/12/2016 06:56:34
--- NOTE | 2016-04-12 06:57 | EKG ---
Date Performed: 04/11/2016 Time Performed: 09:38:36 PTAGE: 70 years EKG: Sinus rhythm Left ventricular hypertrophy Anterolateral ST-T changes may be due to hypertrophy and/or ischemia Co mpared to prior tracing no significant change Abnormal ECG PREVIOUS TRACING : 04/10/2016 17.23 DOCTOR: Seth Watson Interpretating Date/Time 04/12/2016 06:56:46
[2016-04-12] MEDS: LISINOPRIL 5 MG TAB PO SCH (08:31)
[2016-04-12] MEDS: METOPROLOL TARTRATE 25 MG TAB PO SCH ×2 (08:31→20:51)
[2016-04-12] MEDS: FERROUS SULFATE 325 MG (65 MG ELEMENTAL IRON) TAB PO SCH ×2 (08:31→20:51)
[2016-04-12] MEDS: ASPIRIN EC 325 MG TABEC PO SCH (08:31)
[2016-04-12] MEDS: INSULIN DETEMIR 100 UNITS/ML VIAL SQ SCH (08:31)
[2016-04-12] MEDS: SODIUM CHLORIDE 0.9% FLUSH 5 ML FLUSH IVF SCH ×2 (08:32→20:53)
[2016-04-12] MEDS ORDERED: LISINOPRIL 5 MG TAB PO ONE (10:00)
--- NOTE | 2016-04-12 13:01 | HHI.PR ---
Subjective Remarks The patient is hungrily eating lunch and declines to stop eating lunch in order for me to do a neurologic exam. Her sisters are at bedside. The patient denies pain. Her sisters note that she is speaking less than she used to although she has chronic A. fib from her previous stroke. They also note that she seems generally weaker than before. According to her sister she became angry over Drs. Landeros and simply stopped taking any medication 2 years ago and has not seen a physician since. Objective Vitals Vital Signs Date Time Temp Pulse Resp B/P Pulse Ox O2 Delivery O2 Flow Rate FiO2 04/12/16 11:00 97.9 86 18 151/72 97 04/12/16 11:00 71 04/12/16 08:34 56 04/12/16 08:33 98.6 60 16 163/87 99 04/12/16 07:48 97 Nasal Cannula 1.00 04/12/16 07:23 60 04/12/16 04:00 67 04/12/16 03:00 98.6 76 18 151/77 97 04/12/16 00:00 98.3 74 18 167/78 97 04/12/16 00:00 62 04/11/16 20:00 86 04/11/16 19:00 93.7 87 18 148/70 97 04/11/16 18:08 93 21 04/11/16 18:00 84 04/11/16 17:00 76 04/11/16 16:46 98.7 76 17 158/79 93 04/11/16 16:00 76 04/11/16 15:00 80 04/11/16 14:00 68 I/O 04/11/16 04/11/16 04/11/16 04/12/16 04/12/16 04/12/16 07:00 15:00 23:00 07:00 15:00 23:00 Intake Total 400 ml 240 ml Balance 400 ml 240 ml Intake Oral 280 ml 240 ml IV Total 120 ml # Voids 1 2 3 # Bowel Movements 0 1 Result Diagram: 04/12/1644704/12/16447 Objective Remarks GENERAL: Well-nourished, well-developed elderly female patient. SKIN: Warm and dry. HEAD: Normocephalic. EYES: No scleral icterus. No injection or drainage. NECK: Supple, trachea midline. No JVD or lymphadenopathy. CARDIOVASCULAR: Regular rate and rhythm without murmurs, gallops, or rubs. RESPIRATORY: Breath sounds equal and clear to auscultation bilaterally. No accessory muscle use. GASTROINTESTINAL: Bowel sounds present. Abdomen soft, non-tender, nondistended. EXTREMITIES: No cyanosis, or edema. NEUROLOGICAL: Awake, alert. Non-focal. appears to have expressive aphasia but appears to understand. She is feeding herself with her right hand. She will not stop eating to cooperate with neuro exam. A/P Problem List: (1) Acute CVA (cerebrovascular accident) ICD Code: I63.9 Status: Acute (2) Type 2 diabetes mellitus ICD Code: E11.9 Status: Chronic (3) Hypertension ICD Code: I10 Status: Chronic (4) Hyperlipidemia ICD Code: E78.5 Status: Chronic (5) Anemia ICD Code: D64.9 Status: Acute (6) NSTEMI (non-ST elevated myocardial infarction) ICD Code: I21.4 Status: Acute (7) Noncompliance ICD Code: Z91.19 Status: Chronic (8) Elevated troponin ICD Code: R74.8 Status: Acute (9) Vertigo ICD Code: R42 Status: Resolved (10) Aortic stenosis, moderate ICD Code: I35.0 Status: Chronic (11) Aphasia as late effect of cerebrovascular accident ICD Code: I69.320 Status: Chronic (12) Occlusion of left internal carotid artery ICD Code: I65.22 Status: Chronic Assessment and Plan -Acute multiple CVA in the right frontal and right parietal region. Previous history of left MCA stroke with residual aphasia. Noncompliant patient who has not been taking any medications for the past 2 years. Doppler carotid showing occlusion of the left internal carotid artery which was previously known, right internal carotid artery without stenosis. Brain MRA showing stenosis of the right middle cerebral artery. She currently is on heparin drip which was started by cardiology for a possible an STEMI. I discussed with neurology Dr.. She recommended anticoagulation with any of the novel anticoagulates. Patient is a poor Coumadin choice due to her noncompliance. After discussion with her sisters at bedside we will start Eliquis 5 mg twice a day. DC heparin drip. The patient does not have elevated LDL. There is been no A. fib on telemetry. Continue PT OT ST. She will require extended rehabilitation after discharge. -Elevated troponin, possible an STEMI. Seen by cardiology who recommended medical management at this time an outpatient cardiology follow-up. She also has moderate to severe aortic stenosis seen on her 2-D echocardiogram but with preserved left ventricular ejection fraction. Discussed with daughters that she will require outpatient cardiology follow-up. -Type 2 diabetes. Continue Levemir and sliding scale insulin. -Hypertension, uncontrolled. I will increase lisinopril to 10 mg daily and continue metoprolol 25 mg by mouth twice a day. Caution with preload reduction due to the aortic stenosis. -Iron deficiency anemia. Continue iron supplementation. -Vertigo. Was the presenting complaint. Patient not currently complaining of this. -DVT prophylaxis with anticoagulation as above. Discharge Planning Rehabilitation in 1-2 days. Problem Qualifiers (1) Hypertension: Qualified Code: I10 - Essential hypertension (2) Hyperlipidemia: Qualified Code: E78.5 - Hyperlipidemia, unspecified hyperlipidemia type (3) Anemia: Qualified Code: D50.9 - Iron deficiency anemia, unspecified iron deficiency anemia type Janett Covington MD Apr 12, 2016 13:01
--- NOTE | 2016-04-12 14:59 | PD.CARD.PN ---
Subjective Subjective Remarks No chest pain/SOB. Objective Medications Current Medications Medications (Trade) Dose Ordered Sig/Leila Route Start Time Stop Time Status Last Admin (Heparin Inj) 5,000 units UNSCH PRN IV 04/09/16 17:30 04/12/16 21:00 Heparin Sodium (Porcine) 2500 units 2,500 units UNSCH PRN IV 04/09/16 17:30 04/12/16 21:00 04/09/16 18:39 (Heparin-D5W Inj) 250 ml @ 0 mls/hr TITRATE IV 04/09/16 11:30 04/12/16 21:00 04/11/16 18:19 (NS Flush) 2 ml BID IVF 04/09/16 21:00 04/12/16 08:32 (NS Flush) 2 ml UNSCH PRN IVF 04/09/16 12:15 (Ecotrin Ec) 325 mg DAILY PO 04/10/16 09:00 04/12/16 08:31 (Morphine Inj) 2 mg Q30M PRN IV 04/09/16 12:15 (Tylenol) 650 mg Q6H PRN PO 04/09/16 12:15 (Colace) 100 mg BID PRN PO 04/09/16 12:15 (Zofran Inj) 4 mg Q6H PRN IV 04/09/16 12:15 (Lipitor) 40 mg HS PO 04/09/16 21:00 04/11/16 22:35 (Pill Splitter) 1 ea UNSCH PRN OTHER 04/09/16 12:45 (D50w (Vial) Inj) 25 ml UNSCH PRN IV PUSH 04/09/16 21:15 (Glucagon Inj) 1 mg UNSCH PRN OTHER 04/09/16 21:15 (Ferrous Sulfate) 325 mg BID PO 04/10/16 21:00 04/12/16 08:31 (Vasotec Inj) 1.25 mg Q6H PRN IV PUSH 04/10/16 15:15 04/12/16 03:27 (Levemir Inj) 10 units DAILY SQ 04/11/16 11:00 04/12/16 08:31 (Lopressor) 25 mg Q12HR PO 04/11/16 11:00 04/12/16 08:31 (Prinivil) 10 mg DAILY PO 04/13/16 09:00 (Eliquis) 5 mg BID PO 04/12/16 21:00 UNV Vital Signs / I&O Vital Signs Date Time Temp Pulse Resp B/P Pulse Ox O2 Delivery O2 Flow Rate FiO2 04/12/16 14:00 74 04/12/16 13:00 80 04/12/16 12:00 78 04/12/16 11:00 97.9 86 18 151/72 97 04/12/16 11:00 71 04/12/16 10:00 76 04/12/16 09:00 86 04/12/16 08:34 56 04/12/16 08:33 98.6 60 16 163/87 99 04/12/16 08:00 62 04/12/16 07:48 97 Nasal Cannula 1.00 04/12/16 07:23 60 04/12/16 04:00 67 04/12/16 03:00 98.6 76 18 151/77 97 04/12/16 00:00 98.3 74 18 167/78 97 04/12/16 00:00 62 04/11/16 20:00 86 04/11/16 19:00 93.7 87 18 148/70 97 04/11/16 18:08 93 21 04/11/16 18:00 84 04/11/16 17:00 76 04/11/16 16:46 98.7 76 17 158/79 93 04/11/16 16:00 76 04/11/16 15:00 80 I/O 04/11/16 04/11/16 04/11/16 04/12/16 04/12/16 04/12/16 07:00 15:00 23:00 07:00 15:00 23:00 Intake Total 400 ml 240 ml Balance 400 ml 240 ml Intake Oral 280 ml 240 ml IV Total 120 ml # Voids 1 2 3 # Bowel Movements 0 1 Physical Exam GENERAL: Well-nourished, well-developed patient. SKIN: Warm and dry. HEAD: Normocephalic. EYES: No scleral icterus. No injection or drainage. NECK: Supple, trachea midline. No JVD or lymphadenopathy. CARDIOVASCULAR: Regular rate and rhythm without murmurs, gallops, or rubs. RESPIRATORY: Breath sounds equal bilaterally. No accessory muscle use. GASTROINTESTINAL: Abdomen soft, non-tender, nondistended. EXTREMITIES: No cyanosis, or edema. NEUROLOGICAL: Awake, alert, and oriented to self, place.Difficulty with speech, slurred. Laboratory Laboratory Tests Test 04/12/16 04:48 White Blood Count 10.9 TH/MM3 Red Blood Count 3.15 MIL/MM3 Hemoglobin 10.0 GM/DL Hematocrit 28.2 % Mean Corpuscular Volume 89.5 FL Mean Corpuscular Hemoglobin 31.7 PG Mean Corpuscular Hemoglobin 35.4 % Concent Red Cell Distribution Width 13.4 % Platelet Count 261 TH/MM3 Mean Platelet Volume 8.3 FL Neutrophils (%) (Auto) 70.9 % Lymphocytes (%) (Auto) 15.6 % Monocytes (%) (Auto) 10.8 % Eosinophils (%) (Auto) 1.7 % Basophils (%) (Auto) 1.0 % Neutrophils # (Auto) 7.7 TH/MM3 Lymphocytes # (Auto) 1.7 TH/MM3 Monocytes # (Auto) 1.2 TH/MM3 Eosinophils # (Auto) 0.2 TH/MM3 Basophils # (Auto) 0.1 TH/MM3 CBC Comment DIFF FINAL Differential Comment Activated Partial 43.1 SEC Thromboplast Time Sodium Level 140 MEQ/L Potassium Level 3.9 MEQ/L Chloride Level 103 MEQ/L Carbon Dioxide Level 31.1 MEQ/L Anion Gap 6 MEQ/L Blood Urea Nitrogen 13 MG/DL Creatinine 0.70 MG/DL Estimat Glomerular Filtration 83 ML/MIN Rate Random Glucose 197 MG/DL Calcium Level 9.0 MG/DL Imaging Last Impressions Neck Magnetic Resonance Angiography 04/11/16 0056 Signed Impressions: Service Date/Time: Monday, April 11, 2016 12:30 - CONCLUSION: 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 No significant right carotid stenosis. Vertebrals are intact. Darion Jefferson MD Head Magnetic Resonance Angiography 04/11/16 0000 Signed Impressions: Service Date/Time: Monday, April 11, 2016 12:30 - CONCLUSION: Left internal carotid artery is occluded. Moderate focal concentric stenosis in the proximal right MCA. Darion Jefferson MD Brain MRI 04/11/16 0000 Signed Impressions: Service Date/Time: Monday, April 11, 2016 12:30 - CONCLUSION: 1. Multifocal acute infarcts in the right frontal/parietal parafalcine region. No midline shift or mass effect. 2. Old left MCA distribution infarct. Dexter Pate MD Head CT 04/10/16 0000 Signed Impressions: Service Date/Time: Sunday, April 10, 2016 16:58 - CONCLUSION: 1. No hemorrhage or midline shift. 2. Old left MCA territory infarction. Andre Coker Jr., MD Carotid Artery Ultrasound 04/10/16 0000 Signed Impressions: Service Date/Time: Sunday, April 10, 2016 21:37 - CONCLUSION: 1. Occlusion of the left internal carotid artery 2. Mild to moderate plaque in the carotid bulb region on the grayscale images but not confirmed with elevated velocity. This suggests this is likely not hemodynamically significant. Darion Rodriguez MD Chest X-Ray 04/09/16 1030 Signed Impressions: Service Date/Time: Saturday, April 09, 2016 11:33 - CONCLUSION: Mildly enlarged cardiac silhouette and low lung volumes. Harry Paredes MD Assessment and Plan Problem List: (1) Elevated troponin Assessment and Plan: Essentially flat, no ST elevation, no chest pain, pressure or discomfort. EF 55-60% with aortic stenosis, recheck in 6 months. No ischemic workup planned per Dr. Arrington. (2) Acute CVA (cerebrovascular accident) Assessment and Plan: Care per neuro, permissive hypertension. Assessment and Plan Assessment and plan per my d/w Dr. Arrington. Fatemeh Alejandre Apr 12, 2016 14:59
[2016-04-12] MEDS: cloNIDine HCL 0.1 MG TAB PO PRN (17:33)
[2016-04-12] MEDS: ATORVASTATIN 10 MG TAB PO SCH (20:51)
[2016-04-12] MEDS: APIXABAN 5 MG TABLET PO SCH (20:51)
[2016-04-13] VITALS (22 sets, daily range): BP systolic 122–188; BP diastolic 69–86; PULSE 60–100; RESP 16–20; TEMP 98.2–98.7; O2SAT 90–98
[2016-04-13 04:41] LABS: APTT (PATIENT) 27.9 SEC (24.3-30.1)
[2016-04-13] MEDS: INSULIN ASPART SUPPLEMENTAL SCALE SQ SCH ×4 (05:58→21:28)
[2016-04-13] MEDS: METOPROLOL TARTRATE 25 MG TAB PO SCH ×2 (08:52→21:22)
[2016-04-13] MEDS: ASPIRIN EC 325 MG TABEC PO SCH (08:52)
[2016-04-13] MEDS: APIXABAN 5 MG TABLET PO SCH ×2 (08:52→21:22)
[2016-04-13] MEDS: FERROUS SULFATE 325 MG (65 MG ELEMENTAL IRON) TAB PO SCH ×2 (08:52→21:22)
[2016-04-13] MEDS: INSULIN DETEMIR 100 UNITS/ML VIAL SQ SCH ×2 (08:53→21:22)
[2016-04-13] MEDS: SODIUM CHLORIDE 0.9% FLUSH 5 ML FLUSH IVF SCH ×2 (09:00→21:22)
[2016-04-13] MEDS ORDERED: LISINOPRIL 10 MG TAB PO SCH (09:00)
--- NOTE | 2016-04-13 12:44 | HHI.PR ---
Subjective Remarks Patient denies pain. Blood pressure control is improved. She worked with physical therapy this morning and is tired. Discussed with sister at bedside. Objective Vitals Vital Signs Date Time Temp Pulse Resp B/P Pulse Ox O2 Delivery O2 Flow Rate FiO2 04/13/16 12:04 98.4 75 20 169/79 94 04/13/16 09:00 74 04/13/16 08:03 98.7 82 16 156/75 90 04/13/16 06:00 72 04/13/16 05:00 68 04/13/16 04:00 98.4 72 20 122/69 98 04/13/16 04:00 69 04/13/16 03:00 66 04/13/16 02:00 72 04/13/16 01:00 69 04/13/16 00:00 65 04/13/16 00:00 98.2 60 20 145/75 98 04/12/16 23:00 68 04/12/16 22:00 70 04/12/16 21:00 78 04/12/16 20:00 98.5 82 20 113/58 98 04/12/16 20:00 79 04/12/16 19:00 68 04/12/16 18:12 97 Nasal Cannula 1.00 04/12/16 18:00 81 04/12/16 17:00 70 04/12/16 16:34 72 04/12/16 15:00 71 04/12/16 15:00 98.6 76 18 79/ 97 04/12/16 14:00 74 04/12/16 13:00 80 I/O 04/12/16 04/12/16 04/12/16 04/13/16 04/13/16 04/13/16 07:00 15:00 23:00 07:00 15:00 23:00 Intake Total 240 ml 820 ml 320 ml Output Total 1500 ml 3 ml Balance 240 ml -680 ml 317 ml Intake Oral 240 ml 700 ml 320 ml IV Total 120 ml Output Urine Total 1500 ml 3 ml # Voids 3 # Bowel Movements 1 1 0 Result Diagram: 04/12/1644704/12/16447 Objective Remarks GENERAL: Well-nourished, well-developed elderly female patient. SKIN: Warm and dry. HEAD: Normocephalic. EYES: No scleral icterus. No injection or drainage. NECK: Supple, trachea midline. No JVD or lymphadenopathy. CARDIOVASCULAR: Regular rate and rhythm without murmurs, gallops, or rubs. RESPIRATORY: Breath sounds equal and clear to auscultation bilaterally. No accessory muscle use. GASTROINTESTINAL: Bowel sounds present. Abdomen soft, non-tender, nondistended. EXTREMITIES: No cyanosis, or edema. NEUROLOGICAL: Awake, alert. Non-focal. appears to have expressive and receptive aphasia but follows commands slowly, moves all 4 extremities. A/P Problem List: (1) Acute CVA (cerebrovascular accident) ICD Code: I63.9 Status: Acute (2) Type 2 diabetes mellitus ICD Code: E11.9 Status: Chronic (3) Hypertension ICD Code: I10 Status: Chronic (4) Hyperlipidemia ICD Code: E78.5 Status: Chronic (5) Anemia ICD Code: D64.9 Status: Acute (6) NSTEMI (non-ST elevated myocardial infarction) ICD Code: I21.4 Status: Acute (7) Noncompliance ICD Code: Z91.19 Status: Chronic (8) Elevated troponin ICD Code: R74.8 Status: Acute (9) Vertigo ICD Code: R42 Status: Resolved (10) Aortic stenosis, moderate ICD Code: I35.0 Status: Chronic (11) Aphasia as late effect of cerebrovascular accident ICD Code: I69.320 Status: Chronic (12) Occlusion of left internal carotid artery ICD Code: I65.22 Status: Chronic Assessment and Plan -Acute multiple CVA in the right frontal and right parietal region. Previous history of left MCA stroke with residual aphasia. Noncompliant patient who has not been taking any medications for the past 2 years. Doppler carotid showing occlusion of the left internal carotid artery which was previously known, right internal carotid artery without stenosis. Brain MRA showing stenosis of the right middle cerebral artery. She currently is on heparin drip which was started by cardiology for a possible an STEMI. I discussed with neurology DrByron. She recommended anticoagulation with any of the novel anticoagulates. Patient is a poor Coumadin choice due to her noncompliance. After discussion with her sisters, we have initiated Eliquis 5 mg twice a day. The patient does not have elevated LDL. There is been no A. fib on telemetry. Continue PT OT ST. She will require extended rehabilitation after discharge. -Elevated troponin, possible NSTEMI. Seen by cardiology who recommended medical management at this time an outpatient cardiology follow-up. She also has moderate to severe aortic stenosis seen on her 2-D echocardiogram but with preserved left ventricular ejection fraction. Discussed with daughters that she will require outpatient cardiology follow-up. -Type 2 diabetes. Continue Levemir and sliding scale insulin. -Hypertension, uncontrolled, but improving. Increase lisinopril 10->20mg daily and continue metoprolol 25 mg by mouth twice a day. Caution with preload reduction due to the aortic stenosis. -Iron deficiency anemia. Continue iron supplementation. -Vertigo. Was the presenting complaint. Patient not currently complaining of this. -DVT prophylaxis with anticoagulation as above. Discharge Planning [place] versus inpatient rehabilitation. Currently awaiting authorization from [facility] for CIR. Problem Qualifiers (1) Hypertension: Qualified Code: I10 - Essential hypertension (2) Hyperlipidemia: Qualified Code: E78.5 - Hyperlipidemia, unspecified hyperlipidemia type (3) Anemia: Qualified Code: D50.9 - Iron deficiency anemia, unspecified iron deficiency anemia type Janett Covington MD Apr 13, 2016 12:44
[2016-04-13] MEDS: ENALAPRILAT 1.25 MG/ML VIAL IV PUSH PRN (16:27)
[2016-04-13] MEDS: cloNIDine HCL 0.1 MG TAB PO PRN (17:43)
[2016-04-14] VITALS (23 sets, daily range): BP systolic 133–180; BP diastolic 55–78; PULSE 58–88; RESP 16–18; TEMP 98–98.4; O2SAT 96–99
[2016-04-14] MEDS: INSULIN ASPART SUPPLEMENTAL SCALE SQ SCH ×3 (06:42→16:00)
[2016-04-14 07:32] LABS: APTT (PATIENT) 29.2 SEC (24.3-30.1)
[2016-04-14] MEDS: INSULIN DETEMIR 100 UNITS/ML VIAL SQ SCH (09:00)
[2016-04-14] MEDS ORDERED: ASPIRIN EC 81 MG TABEC PO SCH (09:00)
[2016-04-14] MEDS ORDERED: LISINOPRIL 20 MG TAB PO SCH (09:00)
[2016-04-14] MEDS: APIXABAN 5 MG TABLET PO SCH (09:18)
[2016-04-14] MEDS: METOPROLOL TARTRATE 25 MG TAB PO SCH (09:18)
[2016-04-14] MEDS: FERROUS SULFATE 325 MG (65 MG ELEMENTAL IRON) TAB PO SCH (09:18)
[2016-04-14] MEDS: SODIUM CHLORIDE 0.9% FLUSH 5 ML FLUSH IVF SCH (09:19)
--- NOTE | 2016-04-14 13:17 | HHI.PR ---
Subjective Remarks Follow up for multifocal infarction, NSTEMI, severe aortic stenosis. Ms. Villa is doing well. Does not talk much. Denies any chest pain, fever, chills. Objective Vitals Vital Signs Date Time Temp Pulse Resp B/P Pulse Ox O2 Delivery O2 Flow Rate FiO2 04/14/16 07:30 98.4 58 18 142/55 97 04/14/16 06:00 60 04/14/16 05:00 65 04/14/16 04:00 60 04/14/16 03:00 62 16 152/60 99 04/14/16 03:00 76 04/14/16 02:00 60 04/14/16 01:00 62 04/14/16 00:00 70 04/13/16 23:00 78 04/13/16 22:00 98 04/13/16 20:00 100 04/13/16 19:34 90 Nasal Cannula 04/13/16 19:00 98.4 100 16 148/69 94 04/13/16 17:00 92 04/13/16 16:39 97 04/13/16 16:28 98.7 76 20 188/86 98 04/13/16 15:00 98 04/13/16 14:00 96 I/O 04/13/16 04/13/16 04/13/16 04/14/16 04/14/16 04/14/16 07:00 15:00 23:00 07:00 15:00 23:00 Intake Total 320 ml 120 ml 480 ml Output Total 3 ml Balance 317 ml 120 ml 480 ml Intake Oral 320 ml 120 ml 480 ml IV Total 0 ml Output Urine Total 3 ml # Voids 2 2 # Bowel Movements 0 1 1 Result Diagram: 04/12/16 0448 04/12/16 0448 Imaging Last Impressions Neck Magnetic Resonance Angiography 04/11/16 0056 Signed Impressions: Service Date/Time: Monday, April 11, 2016 12:30 - CONCLUSION: 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 No significant right carotid stenosis. Vertebrals are intact. Darion Jefferson MD Head Magnetic Resonance Angiography 04/11/16 0000 Signed Impressions: Service Date/Time: Monday, April 11, 2016 12:30 - CONCLUSION: Left internal carotid artery is occluded. Moderate focal concentric stenosis in the proximal right MCA. Darion Jefferson MD Brain MRI 04/11/16 0000 Signed Impressions: Service Date/Time: Monday, April 11, 2016 12:30 - CONCLUSION: 1. Multifocal acute infarcts in the right frontal/parietal parafalcine region. No midline shift or mass effect. 2. Old left MCA distribution infarct. Dexter Pate MD Head CT 04/10/16 0000 Signed Impressions: Service Date/Time: Sunday, April 10, 2016 16:58 - CONCLUSION: 1. No hemorrhage or midline shift. 2. Old left MCA territory infarction. Andre Coker Jr., MD Carotid Artery Ultrasound 04/10/16 0000 Signed Impressions: Service Date/Time: Sunday, April 10, 2016 21:37 - CONCLUSION: 1. Occlusion of the left internal carotid artery 2. Mild to moderate plaque in the carotid bulb region on the grayscale images but not confirmed with elevated velocity. This suggests this is likely not hemodynamically significant. Darion Rodriguez MD Chest X-Ray 04/09/16 1030 Signed Impressions: Service Date/Time: Saturday, April 09, 2016 11:33 - CONCLUSION: Mildly enlarged cardiac silhouette and low lung volumes. Harry Paredes MD Objective Remarks GENERAL: Alert, NAD. SKIN: Warm and dry. HEAD: Normocephalic. EYES: No scleral icterus. No injection or drainage. NECK: Supple, trachea midline. No JVD or lymphadenopathy. CARDIOVASCULAR: Regular rate and rhythm without, gallops, or rubs. Systolic ejection murmur present. RESPIRATORY: Breath sounds equal bilaterally. No accessory muscle use. GASTROINTESTINAL: Abdomen soft, non-tender, nondistended. MUSCULOSKELETAL: No cyanosis, or edema. BACK: Nontender without obvious deformity. No CVA tenderness. Procedures Echo 04/10/2016 - Left ventricle: The cavity size was normal. Wall thickness was normal. Systolic function was normal. The estimated ejection fraction was in the range of 55% to 60%. Wall motion was normal; there were no regional wall motion abnormalities. - Aortic valve: Moderately calcified annulus. Trileaflet; normal thickness leaflets. Transvalvular velocity was increased. There was mild to moderate stenosis. Trace regurgitation. Valve area: 0.56cm^2(VTI). Valve area: 0.56cm^2 (Vmax). - Pulmonary arteries: PA peak pressure: 39mm Hg (S). A/P Problem List: (1) Acute CVA (cerebrovascular accident) ICD Code: I63.9 Status: Acute (2) Type 2 diabetes mellitus ICD Code: E11.9 Status: Chronic (3) Hypertension ICD Code: I10 Status: Chronic (4) Hyperlipidemia ICD Code: E78.5 Status: Chronic (5) Anemia ICD Code: D64.9 Status: Acute (6) NSTEMI (non-ST elevated myocardial infarction) ICD Code: I21.4 Status: Acute (7) Noncompliance ICD Code: Z91.19 Status: Chronic (8) Elevated troponin ICD Code: R74.8 Status: Acute (9) Vertigo ICD Code: R42 Status: Resolved (10) Aortic stenosis, moderate ICD Code: I35.0 Status: Chronic (11) Aphasia as late effect of cerebrovascular accident ICD Code: I69.320 Status: Chronic (12) 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 Villa is a 70 year-old female with a past medical history of hypertension, hyperlipidemia, CVA, and type 2 diabetes mellitus who presented to the [place] emergency department 04/09/2016 complaining of dizziness. Initial work up indicated troponins 0.79, 0.60. On 04/11/2016, a stroke alert was called after patient became weak, unable to stand and slumped over to the left side. She was hypotensive sitting in her chair (BP around 81/51). Neurology recommended against tPA since patient was already on heparin drip due to NSTEMI. Cardiology evaluated patient after patient and recommended conservative management. Echo showed severe aortic stenosis with preserved EF. Acute right frontal and right parietal multifocal infarction - Per neurology recommendations, continue Apixaban 5mg BID. - NSTEMI - Severe aortic stenosis - No invasive work up. Outpatient follow up with cardiology. - Continue aspirin 81mg Qday - Recheck Echo in 6 months. Diabetes mellitus - Change Levemir from 10mg BID to 15 units QHS and continue sliding scale insulin. - Add pre-meal insulin Aspart 4 units TIDAC. Hypertension Continue Lisinopril 20mg Qday, Metoprolol 25mg Q12hrs Full code. Apixaban. Pending insurance approval, patient can be discharged to [facility]. Problem Qualifiers (1) Hypertension: Qualified Code: I10 - Essential hypertension (2) Hyperlipidemia: Qualified Code: E78.5 - Hyperlipidemia, unspecified hyperlipidemia type (3) Anemia: Qualified Code: D50.9 - Iron deficiency anemia, unspecified iron deficiency anemia type Estephania Hunter DO Apr 14, 2016 1:16 pm
[2016-04-14] MEDS ORDERED: ASPI81TA11 PO (15:08)
[2016-04-14] MEDS ORDERED: FERR325T PO (15:08)
[2016-04-14] MEDS ORDERED: NOVOLOGP2 SQ ×2 (15:08)
[2016-04-14] MEDS ORDERED: METO25TA3 PO (15:08)
[2016-04-14] MEDS ORDERED: APIX5TAB PO (15:08)
[2016-04-14] MEDS ORDERED: LISI-515 PO (15:08)
[2016-04-14] MEDS ORDERED: LEVEMIR SQ (15:08)
--- NOTE | 2016-04-14 15:09 | HHI.DS ---
Discharge Summary Admission Date Apr 09, 2016 at 12:17 Discharge Date: Apr 14, 2016 Admitting Diagnosis NSTEMI (1) Acute CVA (cerebrovascular accident) ICD Code: I63.9 (2) Type 2 diabetes mellitus ICD Code: E11.9 (3) Hypertension ICD Code: I10 (4) Hyperlipidemia ICD Code: E78.5 (5) Anemia ICD Code: D64.9 (6) NSTEMI (non-ST elevated myocardial infarction) ICD Code: I21.4 (7) Noncompliance ICD Code: Z91.19 (8) Elevated troponin ICD Code: R74.8 (9) Vertigo ICD Code: R42 (10) Aortic stenosis, moderate ICD Code: I35.0 (11) Aphasia as late effect of cerebrovascular accident ICD Code: I69.320 (12) Occlusion of left internal carotid artery ICD Code: I65.22 Procedures Echo 04/10/2016 - Left ventricle: The cavity size was normal. Wall thickness was normal. Systolic function was normal. The estimated ejection fraction was in the range of 55% to 60%. Wall motion was normal; there were no regional wall motion abnormalities. - Aortic valve: Moderately calcified annulus. Trileaflet; normal thickness leaflets. Transvalvular velocity was increased. There was mild to moderate stenosis. Trace regurgitation. Valve area: 0.56cm^2(VTI). Valve area: 0.56cm^2 (Vmax). - Pulmonary arteries: PA peak pressure: 39mm Hg (S). Brief History - From Admission Ms. Villa is a 70 year-old female with a past medical history of hypertension, hyperlipidemia, CVA, and type 2 diabetes mellitus who presented to the [place] emergency department 04/09/2016 complaining of dizziness. Initial testing in the ER showed T-wave inversions on 12-lead EKG in V3 through V6 as well as lead I and aVL, no ST elevation - 12 lead EKG personally reviewed by me. Troponin I elevated at 0.86 and patient was started on aspirin and heparin. Dr. Arrington, acute care nurse practitioner, was notified and had patient transferred to the main hospital for possible cardiac catheterization. Subsequent Troponin I levels were 0.79 and 0.60. Patient also noted to have anemia with hemoglobin 10.1 and hematocrit 29.4. The patient is seen in her room. She states that she was very dizzy earlier today and drove herself to the ER in [place]; she denies any other symptoms - such as chest pain, shortness of breath, paresthesias, or weakness (see ros for full review). States she does not take medications other than aspirin for the past two years and has not seen her primary care physician in 2 years either. She says she treats her diabetes with diet. She reports she had a CVA in 1999 and denies residual weakness from the CVA. Denies cardiac disease, atrial fibrillation, copd, asthma, kidney problems, or blood clots in legs or lungs. Has a history of hepatitis- told she'd have it forever. . CBC/BMP: 04/12/168 04/12/168 Significant Findings Laboratory Tests Test 04/12/16 04:48 Red Blood Count 3.15 MIL/MM3 (4.00-5.30) Hemoglobin 10.0 GM/DL (11.6-15.3) Hematocrit 28.2 % (35.0-46.0) Neutrophils (%) (Auto) 70.9 % (16.0-70.0) Monocytes (%) (Auto) 10.8 % (0.0-8.0) Monocytes # (Auto) 1.2 TH/MM3 (0-0.9) Activated Partial 43.1 SEC Thromboplast Time (24.3-30.1) Estimat Glomerular Filtration 83 ML/MIN (>89) Rate Random Glucose 197 MG/DL (74-106) Imaging Last Impressions Neck Magnetic Resonance Angiography 04/11/16 0056 Signed Impressions: Service Date/Time: Monday, April 11, 2016 12:30 - CONCLUSION: 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 No significant right carotid stenosis. Vertebrals are intact. Darion Jefferson MD Head Magnetic Resonance Angiography 04/11/16 0000 Signed Impressions: Service Date/Time: Monday, April 11, 2016 12:30 - CONCLUSION: Left internal carotid artery is occluded. Moderate focal concentric stenosis in the proximal right MCA. Darion Jefferson MD Brain MRI 04/11/16 0000 Signed Impressions: Service Date/Time: Monday, April 11, 2016 12:30 - CONCLUSION: 1. Multifocal acute infarcts in the right frontal/parietal parafalcine region. No midline shift or mass effect. 2. Old left MCA distribution infarct. Dexter Pate MD Head CT 04/10/16 0000 Signed Impressions: Service Date/Time: Sunday, April 10, 2016 16:58 - CONCLUSION: 1. No hemorrhage or midline shift. 2. Old left MCA territory infarction. Andre Coker Jr., MD Carotid Artery Ultrasound 04/10/16 0000 Signed Impressions: Service Date/Time: Sunday, April 10, 2016 21:37 - CONCLUSION: 1. Occlusion of the left internal carotid artery 2. Mild to moderate plaque in the carotid bulb region on the grayscale images but not confirmed with elevated velocity. This suggests this is likely not hemodynamically significant. Darion Rodriguez MD Chest X-Ray 04/09/16 1030 Signed Impressions: Service Date/Time: Saturday, April 09, 2016 11:33 - CONCLUSION: Mildly enlarged cardiac silhouette and low lung volumes. Harry Paredes MD PE at Discharge GENERAL: Alert, NAD. SKIN: Warm and dry. HEAD: Normocephalic. EYES: No scleral icterus. No injection or drainage. NECK: Supple, trachea midline. No JVD or lymphadenopathy. CARDIOVASCULAR: Regular rate and rhythm without, gallops, or rubs. Systolic ejection murmur present. RESPIRATORY: Breath sounds equal bilaterally. No accessory muscle use. GASTROINTESTINAL: Abdomen soft, non-tender, nondistended. MUSCULOSKELETAL: No cyanosis, or edema. BACK: Nontender without obvious deformity. No CVA tenderness. Pt update on day of discharge Patient is doing well. No chest pain, SOB, fever, chills. Hospital Course Ms. Villa is a 70 year-old female with a past medical history of hypertension, hyperlipidemia, CVA, and type 2 diabetes mellitus who presented to the [place] emergency department 04/09/2016 complaining of dizziness. Initial work up indicated troponins 0.79, 0.60. On 04/11/2016, a stroke alert was called after patient became weak, unable to stand and slumped over to the left side. She was hypotensive sitting in her chair (BP around 81/51). Neurology recommended against tPA since patient was already on heparin drip due to NSTEMI. Cardiology evaluated patient after patient and recommended conservative management. Echo showed severe aortic stenosis with preserved EF. Acute right frontal and right parietal multifocal infarction - Per neurology recommendations, continue Apixaban 5mg BID. - NSTEMI - Severe aortic stenosis - No invasive work up. Outpatient follow up with cardiology. - Continue aspirin 81mg Qday - Recheck Echo in 6 months. Diabetes mellitus - Levemir 15 units QHS and continue sliding scale insulin. - Add pre-meal insulin Aspart 4 units TIDAC. Hypertension Continue Lisinopril 20mg Qday, Metoprolol 25mg Q12hrs Patient is discharged to [facility]. Pt Condition on Discharge: Good Discharge Disposition: Rehab Inpatient Discharge Time: > 30 minutes Discharge Instructions DIET: Follow Instructions for: Diabetic Diet Speech Therapy-Diet Recommends: Mechanical Soft Activities you can perform: Regular-No Restrictions New Medications: Insulin Aspart Inj (Novolog Inj) 1,000 Unit/10 Ml Vial 1-9 UNITS SQ ACHS Max dose at bedtime:( )units; sugars less than 70,(0)units; sugars 150-199,(1) unit; sugars 200-249,(3) units; sugars 250-299,(5) units; sugars 300-349,(7) units; sugars greater than 349,(9) units Blood Sugar Management #10 Ref 0 ML Apixaban (Eliquis) 5 Mg Tab 5 MG PO BID Blood Clot Prevention #[address] (Aspirin EC) 81 Mg Tabdr 81 MG PO DAILY Blood Clot Prevention #30 TAB Ferrous Sulfate (Ferrous Sulfate) 325 Mg Tab 325 MG PO BID Iron supp #30 TAB Insulin Aspart Inj (Novolog Inj) 1,000 Unit/10 Ml Vial 4 UNITS SQ TIDAC Blood Sugar Management Days 30 INJECTION Insulin Detemir Inj (Levemir Inj) 1,000 unit/ 10 ML Vial 15 UNITS SQ HS Blood Sugar Management Days 30 INJECTION Lisinopril (Lisinopril) 20 Mg Tab 20 MG PO DAILY Blood Pressure Management #30 TAB Metoprolol Tartrate (Metoprolol Tartrate) 25 Mg Tab 25 MG PO Q12HR Blood Pressure Management #60 TAB Discontinued Medications: Aspirin (Aspirin) 325 Mg Tab 325 MG PO DAILY #30 Ref 0 TAB Phenazopyridine-Cranberry (Azo Urinary Tract Health 95 & 250-30 mg) 1 Tab DAILY Estephania Hunter DO Apr 14, 2016 15:09
[2016-04-14] MEDS ORDERED: INSULIN ASPART 1,000 UNITS/10 ML VIAL SQ SCH (17:00)
[2016-04-14] MEDS ORDERED: INSULIN DETEMIR 100 UNITS/ML VIAL SQ SCH (21:00)
--- NOTE | 2016-04-26 08:27 | PQ ---
Physician Query Response Document PATIENT: RENE PADILLA : 1945 ADMIT DATE: 04/09/2016 12:17 PM DISCH DATE: 04/14/2016 5:29 PM RESPONDING PROVIDER #: [email or web address] QUERY TEXT: Diabetes Type Diabetes is documented in the Medical Record. Please specify the type Such as: -- Type I diabetes mellitus, controlled -- Type I diabetes mellitus, uncontrolled -- Type II diabetes mellitus, contolled -- Type II diabetes mellitus, uncontrolled The patient's Clinical Indicators include: H Type 2 diabetes mellitus - Patient has not been taking medications for the management of her diabetes mellitus - Random glucose on admission 282 Query created by: Khadar Monaco on 04/24/2016 3:23 PM RESPONSE TEXT: Diabetes mellitus type II, uncontrolled. Electronically signed by: Liborio Hunter DO 04/26/2016 8:23 AM
[2016-04-28] MEDS ORDERED: DOCU1CAP39 PO (09:10)
[2016-04-28] MEDS ORDERED: ACET325T PO (09:10)
[2016-04-28] MEDS ORDERED: AMLO5 PO (09:10)
[2016-04-28] MEDS ORDERED: METO25TA3 PO (09:10)
[2016-04-28] MEDS ORDERED: FERR325T PO (09:10)
[2016-04-28] MEDS ORDERED: LEVEMIR SQ (09:10)
[2016-04-28] MEDS ORDERED: Aspirin Chew PO (09:10)
[2016-04-28] MEDS ORDERED: NOVOLOGP2 SQ (09:10)
[2016-04-28] MEDS ORDERED: MILKSUS PO (09:10)
[2016-04-28] MEDS ORDERED: LISI-515 PO (09:10)
[2016-04-28] MEDS ORDERED: APIX5TAB PO (09:10)
== END 2016-04-14 17:29 | DRG 282 ==
LOC: PHED 09:36 → PHEDA 12:17 → HCIS 18:40
PROVIDERS: ADMIT Hospitalist; ATTEND Hospitalist
DX: I21.4 Non-ST elevation (NSTEMI) myocardial infarction (principal); E11.65 Type 2 diabetes mellitus with hyperglycemia; I50.9 Heart failure, unspecified; I10 Essential (primary) hypertension; D50.9 Iron deficiency anemia, unspecified; I65.22 Occlusion and stenosis of left carotid artery; I69.320 Aphasia following cerebral infarction; I35.0 Nonrheumatic aortic (valve) stenosis; E78.00 Pure hypercholesterolemia, unspecified; R47.81 Slurred speech; E78.5 Hyperlipidemia, unspecified; Z86.12 Personal history of poliomyelitis; Z91.19 Patient's noncompliance with other medical treatment and regimen; Z79.4 Long term (current) use of insulin
CPT/HCPCS: 70450; 70544; 70548; 70553; 71020; 80048; 80053; 80061; 80076; 81001; 82140; 82435; 82550; 82565; 82728; 82947; 82948; 83036; 83540; 83550; 83735; 83880; 84132; 84295; 84443; 84484; 84520; 85025; 85384; 85610; 85730; 86850; 86900; 86901; 93005; 93306; 93880; 96361; 96374; 96376; A9579; J1644; J1815; J1940; J7030

== ENCOUNTER 2016-06-05 23:23 | Observation (INO) | payer OTHER ==
[~2016-06-05] VITALS: Ht 157.5 cm; Wt 66.8 kg
[~2016-06-05 23:23] MED LIST changes: +ACET325T PO; -ACET5SOL5 PO; +AMLO5 PO; +APIX5TAB PO; -ASPI325T PO; +ASPI81TA11 PO; +Aspirin Chew PO; -DIABETES MED; +DOCU1CAP39 PO; +FERR325T PO; +LEVEMIR SQ; +LISI-515 PO; +METO25TA3 PO; +MILKSUS PO; +NOVOLOGP2 SQ
[2016-06-05 23:34] VITALS: BP 156/73; PULSE 67; RESP 14; TEMP 98.4; O2SAT 93
[2016-06-06] VITALS (10 sets, daily range): BP systolic 127–210; BP diastolic 60–91; PULSE 72–85; RESP 16–20; TEMP 96–99; O2SAT 92–98
[2016-06-06] MEDS ORDERED: METF500T PO (00:21)
[2016-06-06] MEDS ORDERED: ATOR20TA15 PO (00:21)
[2016-06-06] MEDS ORDERED: NITR1CAP36 PO (00:21)
[2016-06-06] MEDS ORDERED: SODIUM CHLOR 0.9% 1000 ML INJ 1,000 ML IV SCH (00:27)
--- NOTE | 2016-06-06 00:27 | PD ---
HPI Chief Complaint: Abdominal Pain Time Seen by Provider: 00:24 Travel History International Travel<30 days: No Contact w/Intl Traveler<30days: No Traveled to known affect area: No History of Present Illness HPI The patient is a 70-year-old female that complains of midline epigastric pain for approximately 9 hours. She denies any fever, or vomiting but does have nausea. She denies any melanotic or bloody stools. The pain makes the stomach feel like it's bloating operable wound blowing inside and it's a 7/10. She states she has never had this pain before. She still has her gallbladder and appendix. PFSH Past Medical History Hx Anticoagulant Therapy: Yes (asa 325mg ) Arthritis: No Asthma: No Autoimmune Disease: No Heart Rhythm Problems: No Cancer: No Cardiovascular Problems: Yes (HTN and NSTEMI) High Cholesterol: Yes Chemotherapy: No Chest Pain: No Congestive Heart Failure: No COPD: No Cerebrovascular Accident: Yes (CVA) Diabetes: Yes Patient Takes Glucophage: Yes (06/05/16 1800) Diminished Hearing: No GERD: No Genitourinary: No Hiatal Hernia: No Hypertension: Yes Immune Disorder: No Musculoskeletal: No Neurologic: Yes Psychiatric: No Reproductive: No Respiratory: No Immunizations Current: Yes Radiation Therapy: No Renal Failure: No Sickle Cell Disease: No Sleep Apnea: Yes (possible) Thyroid Disease: No Ulcer: No Tetanus Vaccination: > 5 Years Influenza Vaccination: Yes ?: Not Menopausal: Yes Past Surgical History AICD: No Arteriovenous Shunt: No Insulin Pump: No Joint Replacement: No Oral Surgery: Yes (teeth extractions) Social History Alcohol Use: No Tobacco Use: No Substance Use: No Allergies-Medications (Allergen,Severity, Reaction): Uncoded Allergies: MOTREL (Adverse Reaction, Severe, Rash, 06/06/16) . Reported Meds & Prescriptions Reported Meds & Active Scripts Active Zofran (Ondansetron HCl) 8 Mg Tab 8 Mg PO TID Prilosec (Omeprazole) 20 Mg Cap 20 Mg PO DAILY Norvasc (Amlodipine Besylate) 5 Mg Tab 5 Mg PO DAILY 30 Days Novolog Inj (Insulin Aspart) 1,000 Unit/10 Ml Vial 1-9 Units SQ ACHS Max dose at bedtime:( )units; sugars less than 70,(0)units; sugars 150-199,(1) unit; sugars 200-249,(3) units; sugars 250-299,(5) units; sugars 300-349,(7) units; sugars greater than 349,(9) units Metoprolol Tartrate 25 Mg Tab 25 Mg PO Q12HR Lisinopril 20 Mg Tab 20 Mg PO DAILY Eliquis (Apixaban) 5 Mg Tab 5 Mg PO BID Reported Nitrofurantoin Macrocrystal 100 Mg Cap 100 Mg PO BID Atorvastatin (Atorvastatin Calcium) 20 Mg Tab 20 Mg PO HS Metformin (Metformin HCl) 500 Mg Tab 500 Mg PO BIDPC With meals Review of Systems Except as stated in HPI: all other systems reviewed are Neg Physical Exam Narrative GENERAL: The patient is alert, oriented 3 and slight apparent distress with her abdominal discomfort. Her blood pressure is 156/73 and the rest her vital signs are normal. SKIN: Focused skin assessment warm/dry. HEAD: Atraumatic. Normocephalic. EYES: Pupils equal and round. No scleral icterus. No injection or drainage. ENT: No nasal bleeding or discharge. Mucous membranes pink and moist. NECK: Trachea midline. No JVD. CARDIOVASCULAR: Regular rate and rhythm. No murmur appreciated. RESPIRATORY: No accessory muscle use. Clear to auscultation. Breath sounds equal bilaterally. GASTROINTESTINAL: Abdomen soft, with tenderness to direct palpation in the midline epigastrium, nondistended. Hepatic and splenic margins not palpable. No guarding or rebound is present. Palpating the gallbladder and appendix causes no tenderness at all. Thompson sign is negative. MUSCULOSKELETAL: No obvious deformities. No clubbing. No cyanosis. No edema. NEUROLOGICAL: Awake and alert. No obvious cranial nerve deficits. Motor grossly within normal limits. Normal speech. PSYCHIATRIC: Appropriate mood and affect; insight and judgment normal. Data Data Last Documented VS Vital Signs Date Time Temp Pulse Resp B/P Pulse Ox O2 Delivery O2 Flow Rate FiO2 06/06/16 02:28 74 18 159/65 98 Room Air 06/05/16 23:34 98.4 Orders Complete Blood Count With Diff (06/06/16 00:27) Comprehensive Metabolic Panel (06/06/16 00:27) Lipase (06/06/16 00:27) Urinalysis - C+S If Indicated (06/06/16 00:27) Iv Access Insert/Monitor (06/06/16 00:27) Ecg Monitoring (06/06/16 00:27) Oximetry (06/06/16 00:27) Ondansetron Inj (Zofran Inj) (06/06/16 00:30) Pantoprazole Inj (Protonix Inj) (06/06/16 00:30) Sodium Chlor 0.9% 1000 Ml Inj (Ns 1000 M (06/06/16 00:27) Sodium Chloride 0.9% Flush (Ns Flush) (06/06/16 00:30) Famotidine Inj (Pepcid Inj) (06/06/16 00:30) Al-Mag Hy-Si 40-40-4 Mg/Ml Liq (Mag-Al P (06/06/16 00:30) Lidocaine 2% Viscous (Xylocaine 2% Visco (06/06/16 00:30) Ondansetron Inj (Zofran Inj) (06/06/16 02:30) Prochlorperazine Inj (Compazine Inj) (06/06/16 03:45) Labs Laboratory Tests Test 06/06/16 00:40 White Blood Count 14.4 TH/MM3 Red Blood Count 4.22 MIL/MM3 Hemoglobin 13.2 GM/DL Hematocrit 37.5 % Mean Corpuscular Volume 88.8 FL Mean Corpuscular Hemoglobin 31.3 PG Mean Corpuscular Hemoglobin 35.2 % Concent Red Cell Distribution Width 12.3 % Platelet Count 238 TH/MM3 Mean Platelet Volume 8.7 FL Neutrophils (%) (Auto) 87.3 % Lymphocytes (%) (Auto) 6.4 % Monocytes (%) (Auto) 3.9 % Eosinophils (%) (Auto) 0.1 % Basophils (%) (Auto) 2.3 % Neutrophils # (Auto) 12.6 TH/MM3 Lymphocytes # (Auto) 0.9 TH/MM3 Monocytes # (Auto) 0.6 TH/MM3 Eosinophils # (Auto) 0.0 TH/MM3 Basophils # (Auto) 0.3 TH/MM3 CBC Comment DIFF FINAL Differential Comment Sodium Level 140 MEQ/L Potassium Level 4.1 MEQ/L Chloride Level 103 MEQ/L Carbon Dioxide Level 25.6 MEQ/L Anion Gap 11 MEQ/L Blood Urea Nitrogen 23 MG/DL Creatinine 0.96 MG/DL Estimat Glomerular Filtration 57 ML/MIN Rate Random Glucose 197 MG/DL Calcium Level 9.3 MG/DL Total Bilirubin 0.4 MG/DL Aspartate Amino Transf 15 U/L (AST/SGOT) Alanine Aminotransferase 16 U/L (ALT/SGPT) Alkaline Phosphatase 49 U/L Total Protein 7.3 GM/DL Albumin 3.6 GM/DL Lipase 361 U/L MDM Medical Decision Making Medical Screen Exam Complete: Yes Emergency Medical Condition: Yes Medical Record Reviewed: Yes Interpretation(s) The CBC shows a white count of 14,400 with 87% neutrophils but is otherwise unremarkable. The complete metabolic profile shows a BUN of 23, GFR 57, glucose 197 but is otherwise normal. The lipase is normal. Differential Diagnosis Reflux esophagitis, ulcer pain, cholecystitis, colitis Narrative Course It is now 0330 and the patient has no nausea or abdominal pain and wants to go home. It is now 0339 and the patient is developing nausea again. The patient appears to have intractable nausea/vomiting. Plan: The patient will be admitted to the [facility]. Procedures EKG Prior to Arrival: No EKG Not Completed: EKG Not Medically Necessary Physician Communication Physician Communication I discussed the patient with Dr. Terrell. Diagnosis Primary Impression: Intractable nausea and vomiting Additional Impression: GERD (gastroesophageal reflux disease) Additional Instructions: As we discussed, elevate head of the bed so that the acid has to go up towards to get to the esophagus. The Prilosec can be taken one tablet twice daily for the first day or 2 and then it becomes one tablet daily. The Zofran is one tablet 3 times a day for the first day or 2 to avoid nausea and then it becomes a an as needed drug. Follow-up with her primary care physician this week. Med/Other Pt SpecificInfo: Prescription(s) given Scripts Ondansetron (Zofran)8 Mg Tab8 Mg PO TID #28 TAB Ref 0 Prov:Evgeny Tsai MD 06/06/16 Omeprazole (Prilosec)20 Mg Cap20 Mg PO DAILY #30 CAP Ref 0 Prov:Evgeny Tsai MD 06/06/16 Disposition: 01 DISCHARGE HOME Condition: Stable Evgeny Tsai MD Jun 06, 2016 00:27
[2016-06-06] MEDS ORDERED: ALUMINUM/MAGNESIUM/SIMETH 30 ML CUP PO ONE (00:30)
[2016-06-06] MEDS ORDERED: FAMOTIDINE 20 MG/2 ML VIAL IV PUSH ONE (00:30)
[2016-06-06] MEDS ORDERED: SODIUM CHLORIDE 0.9% FLUSH 10 ML FLUSH IV FLUSH PRN ×2 (00:30→04:15)
[2016-06-06] MEDS ORDERED: PANTOPRAZOLE SODIUM 40 MG VIAL IVP ONE (00:30)
[2016-06-06] MEDS ORDERED: ONDANSETRON HCL 4 MG/2 ML VIAL IVP ONE (00:30)
[2016-06-06] MEDS ORDERED: LIDOCAINE VISCOUS 2% SOLN 15 ML UDC PO ONE (00:30)
[2016-06-06 01:17] LABS: CHLORIDE 103 MEQ/L (98-107); POTASSIUM 4.1 MEQ/L (3.5-5.1); SODIUM (NA) 140 MEQ/L (136-145)
[2016-06-06 01:21] LABS: ANION GAP 11 MEQ/L (5-15); AUTOMATED NEUTROPHIL # 12.6 TH/MM3 (1.8-7.7); BASOPHIL # 0.3 TH/MM3 (0-0.2); BASOPHIL % 2.3 % (0.0-2.0); BICARBONATE 25.6 MEQ/L (21.0-32.0); BLOOD UREA NITROGEN 23 MG/DL (7-18); EOSINOPHIL % 0.1 % (0.0-4.0); HEMATOCRIT 37.5 % (35.0-46.0); HEMO FLAGS DIFF FINAL; LYMPH % 6.4 % (9.0-44.0); LYMPHOCYTE # 0.9 TH/MM3 (1.0-4.8); MEAN CELL VOLUME 88.8 FL (80.0-100.0); MEAN CORPUSCULAR HEMOGLOBIN 31.3 PG (27.0-34.0); MEAN CORPUSCULAR HGB CONC 35.2 % (32.0-36.0); MONO % 3.9 % (0.0-8.0); NEUT % 87.3 % (16.0-70.0); PLATELET COUNT 238 TH/MM3 (150-450); RED BLOOD COUNT 4.22 MIL/MM3 (4.00-5.30); RED CELL DISTRIBUTION WIDTH 12.3 % (11.6-17.2); WHITE BLOOD COUNT 14.4 TH/MM3 (4.0-11.0)
[2016-06-06 01:24] LABS: ALT (GPT) 16 U/L (10-53); AST (GOT) 15 U/L (15-37); GLOMERULAR FILTRATION RATE 57 ML/MIN (>89)
[2016-06-06 01:25] LABS: TOTAL BILIRUBIN ADULT 0.4 MG/DL (0.2-1.0)
[2016-06-06 01:26] LABS: ALKALINE PHOSPHATASE 49 U/L (45-117)
[2016-06-06] MEDS ORDERED: ONDANSETRON HCL 4 MG/2 ML VIAL IV ONE (02:30)
[2016-06-06] MEDS ORDERED: ZOFR8TAB PO (03:33)
[2016-06-06] MEDS ORDERED: PRIL20CA9 PO (03:33)
[2016-06-06] MEDS ORDERED: PROCHLORPERAZINE INJ 10 MG/2 ML VIAL IV PUSH ONE (03:45)
[2016-06-06 04:12] LABS: BLOOD, URINE LARGE (NEG); GLUCOSE,URINE 500 mg/dL (NEG); KETONE, URINE 15 mg/dL (NEG); NITRITE,URINE NEG (NEG)
[2016-06-06] MEDS ORDERED: NALOXONE HCL 0.4 MG/ML AMP IV PRN (04:15)
[2016-06-06 04:23] LABS: MUCUS URINE OCC /lpf (OCC); URINE COLOR YELLOW (YELLW/STRAW)
[2016-06-06 04:24] LABS: COMMENT (UR) CULT NOT INDICATED; CULTURE IF INDICATED CULT NOT INDICATED; SQUAMOUS EPITHELIAL CELL URINE 0-5 /hpf (0-5)
[2016-06-06] MEDS ORDERED: DOCUSATE SODIUM 50 MG/SENNA 8.6 MG TAB PO PRN (06:30)
[2016-06-06] MEDS ORDERED: SODIUM CHLOR 0.9% 1000 ML INJ 1,000 ML IV PRN (06:30)
[2016-06-06] MEDS ORDERED: DEXTROSE 50% IN WATER 50 ML VIAL(D50) IV PUSH PRN (06:30)
[2016-06-06] MEDS ORDERED: GLUCAGON 1 MG/ML VIAL OTHER PRN (06:30)
[2016-06-06] MEDS ORDERED: ALUMINUM/MAGNESIUM/SIMETH 30 ML CUP PO PRN (06:30)
[2016-06-06] MEDS ORDERED: MORPHINE SULFATE 4 MG/ML INJ IV PRN (06:30)
[2016-06-06] MEDS ORDERED: ACETAMINOPHEN 325 MG TAB PO PRN (06:30)
[2016-06-06] MEDS ORDERED: ACETAMINOPHEN/HYDROcodone 325 MG/7.5 MG TAB PO PRN (06:30)
[2016-06-06] MEDS ORDERED: ACETAMINOPHEN/HYDROcodone 325 MG/5 MG TAB PO PRN (06:30)
[2016-06-06] MEDS: DEXT 5%-NACL 0.45% 1000 ML INJ 1,000 ML IV SCH ×3 (06:30→18:43)
[2016-06-06] MEDS ORDERED: MAGNESIUM HYDROXIDE SUSP 30 ML CUP PO PRN (06:30)
[2016-06-06] MEDS ORDERED: cloNIDine HCL 0.1 MG TAB PO PRN (06:30)
[2016-06-06] MEDS ORDERED: hydrALAZINE HCL 20 MG/ML VIAL IV PRN (06:30)
[2016-06-06] MEDS ORDERED: ONDANSETRON HCL 4 MG/2 ML VIAL IVP PRN (06:30)
[2016-06-06] MEDS ORDERED: DOCUSATE SODIUM 100 MG CAP PO PRN (06:30)
[2016-06-06] MEDS ORDERED: ENALAPRILAT 1.25 MG/ML VIAL IV PRN (06:30)
[2016-06-06] MEDS: INSULIN ASPART SUPPLEMENTAL SCALE SQ SCH ×4 (06:34→20:46)
[2016-06-06 07:30] LABS: AUTOMATED NEUTROPHIL # 16.1 TH/MM3 (1.8-7.7); BASOPHIL % 0.2 % (0.0-2.0); HEMATOCRIT 38.5 % (35.0-46.0); LYMPH % 2.8 % (9.0-44.0); LYMPHOCYTE # 0.5 TH/MM3 (1.0-4.8); MEAN CELL VOLUME 90.2 FL (80.0-100.0); MEAN CORPUSCULAR HEMOGLOBIN 30.8 PG (27.0-34.0); MEAN CORPUSCULAR HGB CONC 34.1 % (32.0-36.0); MONO % 1.2 % (0.0-8.0); NEUT % 95.8 % (16.0-70.0); PLATELET COUNT 234 TH/MM3 (150-450); RED BLOOD COUNT 4.26 MIL/MM3 (4.00-5.30); RED CELL DISTRIBUTION WIDTH 12.4 % (11.6-17.2); WHITE BLOOD COUNT 16.8 TH/MM3 (4.0-11.0)
[2016-06-06 07:34] LABS: HEMO FLAGS DIFF FINAL
[2016-06-06 07:42] LABS: POTASSIUM 3.6 MEQ/L (3.5-5.1)
[2016-06-06 07:47] LABS: BICARBONATE 21.9 MEQ/L (21.0-32.0); MAGNESIUM 1.5 MG/DL (1.5-2.5)
--- NOTE | 2016-06-06 09:48 | HHI.HP ---
[facility] MANUEL Bennett Admission Diagnosis intractable nausea and vomiting Diagnoses: Chief Complaint: Abdominal pain Travel History International Travel<30 Days: No Contact w/Intl Traveler <30 Da: No Traveled to Known Affected Are: No History of Present Illness 70-year-old female with a past medical history of CVA with dysarthria, DM, CAD, HTN, HLD, arrhythmia presented with abdominal pain. The patient has a history of CVA with residual dysarthria, and does have problems communicating. The patient states that yesterday she began having upper abdominal pain. She has associated nausea which has improved some, no vomiting. She denies any diarrhea , constipation, dark stools. She reports she had urinary symptoms, has been on Macrobid for 2 days, no urinary symptoms currently. She denies any NSAID use. She is unclear when asked if she takes an aspirin. She is on Xarelto. She denies any NSAID use. She denies any heartburn. She denies any PPI use. Review of Systems Except as stated in HPI: all other systems reviewed are Neg Past Family Social History Past Medical History Hypertension Hyperlipidemia Diabetes mellitus Coronary artery disease Stroke with residual dysarthria She reports history of arrhythmia Past Surgical History Oral surgery Reported Medications Zofran (Ondansetron HCl) 8 Mg Tab 8 Mg PO TID Prilosec (Omeprazole) 20 Mg Cap 20 Mg PO DAILY Norvasc (Amlodipine Besylate) 5 Mg Tab 5 Mg PO DAILY 30 Days Novolog Inj (Insulin Aspart) 1,000 Unit/10 Ml Vial 1-9 Units SQ ACHS Max dose at bedtime:( )units; sugars less than 70,(0)units; sugars 150-199,(1) unit; sugars 200-249,(3) units; sugars 250-299,(5) units; sugars 300-349,(7) units; sugars greater than 349,(9) units Metoprolol Tartrate 25 Mg Tab 25 Mg PO Q12HR Lisinopril 20 Mg Tab 20 Mg PO DAILY Eliquis (Apixaban) 5 Mg Tab 5 Mg PO BID Nitrofurantoin Macrocrystal 100 Mg Cap 100 Mg PO BID Atorvastatin (Atorvastatin Calcium) 20 Mg Tab 20 Mg PO HS Metformin (Metformin HCl) 500 Mg Tab 500 Mg PO BIDPC With meals Allergies: Uncoded Allergies: MOTREL (Adverse Reaction, Severe, Rash, 06/06/16) . Active Ordered Medications Current Medications Medications (Trade) Dose Ordered Sig/Leila Route Start Time Stop Time Status Last Admin (NS Flush) 2 ml UNSCH PRN IV FLUSH 06/06/16 04:15 (NS Flush) 2 ml BID IV FLUSH 06/06/16 09:00 Naloxone HCl 0.4 mg 0.4 mg UNSCH PRN IV 06/06/16 04:15 (D5W-02/20 NS 1000 ml Inj) 1,000 ml @ 84 mls/hr [id number] IV 06/06/16 04:15 06/06/16 06:30 (Apresoline Inj) 10 mg Q6H PRN IV 06/06/16 06:30 06/06/16 06:43 (Catapres) 0.1 mg Q6H PRN PO 06/06/16 06:30 (D50w (Vial) Inj) 25 ml UNSCH PRN IV PUSH 06/06/16 06:30 Glucagon 1 mg 1 mg UNSCH PRN OTHER 06/06/16 06:30 (NS 1000 ml Inj) 1,000 ml @ 84 mls/hr [id number] PRN IV 06/06/16 06:30 (Protonix Inj) 40 mg Q24H IV PUSH 06/07/16 08:00 (Zofran Inj) 4 mg Q6H PRN IVP 06/06/16 06:30 (Tylenol) 650 mg Q6H PRN PO 06/06/16 06:30 ([place] 5-325 Mg) 1 tab Q4H PRN PO 06/06/16 06:30 ([place] 7.5-325 Mg) 1 tab Q4H PRN PO 06/06/16 06:30 (Morphine Inj) 1 mg Q3H PRN IV 06/06/16 06:30 (Colace) 100 mg BID PRN PO 06/06/16 06:30 (Mirta-Colace) 1 tab BID PRN PO 06/06/16 06:30 (Milk Of Magnesia Liq) 30 ml DAILY PRN PO 06/06/16 06:30 (Mag-Al Plus Susp Liq) 30 ml Q6H PRN PO 06/06/16 06:30 (Prinivil) 20 mg DAILY PO 06/06/16 09:00 (Norvasc) 5 mg DAILY PO 06/06/16 09:00 (Lipitor) 20 mg HS PO 06/06/16 21:00 (Lopressor) 25 mg Q12HR PO 06/06/16 09:00 (Macrobid) 100 mg BID PO 06/06/16 10:00 Family History Diabetes, high blood pressure Social History Denies alcohol or tobacco use Lives at home with her family Physical Exam Vital Signs Vital Signs Date Time Temp Pulse Resp B/P Pulse Ox O2 Delivery O2 Flow Rate FiO2 06/06/16 08:00 97.9 76 18 147/67 92 06/06/16 06:38 98.6 85 20 210/91 93 06/06/16 05:30 96.0 85 20 194/86 94 06/06/16 05:06 72 16 170/80 95 06/06/16 04:14 98.8 72 20 150/70 96 Room Air 06/06/16 02:28 74 18 159/65 98 Room Air 06/06/16 00:30 96 Room Air 06/05/16 23:34 98.4 67 14 156/73 93 Room Air Physical Exam GENERAL: Well-developed well-nourished. In no acute distress. SKIN: Warm and dry. No lesions noted. HEENT: Normocephalic. Pupils equal and round. Mucous membranes pink and moist. CARDIOVASCULAR: Regular rate and rhythm. No murmur appreciated. RESPIRATORY: No accessory muscle use. Clear to auscultation. Breath sounds equal bilaterally. GASTROINTESTINAL: Abdomen soft, mild epigastric TTP, nondistended. Bowel sounds x4. Negative Thompson sign. MUSCULOSKELETAL: No obvious deformities. No clubbing or cyanosis. No edema. NEUROLOGICAL: Awake and alert. No focal neurological deficits. Moves upper and lower extremities spontaneously. Dysarthria. PSYCHIATRIC: Appropriate mood and affect; insight and judgment normal. Laboratory Laboratory Tests Test 06/06/16 06/06/16 06/06/16 00:40 04:00 07:07 White Blood Count 14.4 16.8 Red Blood Count 4.22 4.26 Hemoglobin 13.2 13.1 Hematocrit 37.5 38.5 Mean Corpuscular Volume 88.8 90.2 Mean Corpuscular Hemoglobin 31.3 30.8 Mean Corpuscular Hemoglobin 35.2 34.1 Concent Red Cell Distribution Width 12.3 12.4 Platelet Count 238 234 Mean Platelet Volume 8.7 8.6 Neutrophils (%) (Auto) 87.3 95.8 Lymphocytes (%) (Auto) 6.4 2.8 Monocytes (%) (Auto) 3.9 1.2 Eosinophils (%) (Auto) 0.1 0.0 Basophils (%) (Auto) 2.3 0.2 Neutrophils # (Auto) 12.6 16.1 Lymphocytes # (Auto) 0.9 0.5 Monocytes # (Auto) 0.6 0.2 Eosinophils # (Auto) 0.0 0.0 Basophils # (Auto) 0.3 0.0 CBC Comment DIFF FINAL DIFF FINAL Differential Comment Sodium Level 140 139 Potassium Level 4.1 3.6 Chloride Level 103 102 Carbon Dioxide Level 25.6 21.9 Anion Gap 11 15 Blood Urea Nitrogen 23 20 Creatinine 0.96 1.10 Estimat Glomerular Filtration 57 49 Rate Random Glucose 197 286 Calcium Level 9.3 9.4 Total Bilirubin 0.4 Aspartate Amino Transf 15 (AST/SGOT) Alanine Aminotransferase 16 (ALT/SGPT) Alkaline Phosphatase 49 Total Protein 7.3 Albumin 3.6 Lipase 361 Urine Color YELLOW Urine Turbidity SLIGHT Urine pH 6.0 Urine Specific [place] 1.011 Urine Protein TRACE Urine Glucose (UA) 500 Urine Ketones 15 Urine Occult Blood LARGE Urine Nitrite NEG Urine Bilirubin NEG Urine Leukocyte Esterase NEG Urine RBC 50-99 Urine Squamous Epithelial 0-5 Cells Urine Mucus OCC Microscopic Urinalysis Comment CULT NOT INDICATED Magnesium Level 1.5 Result Diagram: 06/06/16 0707 06/06/16 0707 Assessment and Plan Assessment and Plan 70-year-old female with a past medical history of CVA with dysarthria, DM, CAD, HTN, HLD, arrhythmia presented with abdominal pain Epigastric pain: Lipase and LFTs within normal limits. Check abdominal ultrasound to assess gallbladder. Consider GI consult, may need EGD. IV Protonix. IVF. Clear liquids for now. Antiemetics as needed. On intravenous narcotics as needed for pain. Subacute UTI with hematuria: Urinary symptoms improving. UA with large occult blood, culture not indicated. Has been on Macrobid for 2 days, will continue. Follow-up renal and bladder findings on ultrasound as above. History of CVA with dysarthria: Hold Eliquis for now, may need EGD. Continue statin. Speech therapy consult. Diabetes mellitus: Hold home metformin for now. SSI with Accu-Cheks. Hypertension: Chronic. Continue home amlodipine, metoprolol, lisinopril. DVT prophylaxis: Eliquis was resumed. SCDs. Written by Panchito Ruff, acting as scribe for Dr. Curtis on 06/06/16 at 09:47. This note was transcribed by scribe []. I, Dr. Farhad Curtis personally performed the history, physical exam, and medical decision making; and confirmed the accuracy of the information in the transcribed note. Authenticated by Dr. Farhad Curtis on 06/06/16 at 21:32. Discussed Condition With Patient Panchito Ruff Jun 06, 2016 09:47 Farhad Curtis MD Jun 06, 2016 21:32
[2016-06-06] MEDS: LISINOPRIL 20 MG TAB PO SCH (10:30)
[2016-06-06] MEDS: METOPROLOL TARTRATE 25 MG TAB PO SCH ×2 (10:31→20:42)
[2016-06-06] MEDS: amLODIPine BESYLATE 5 MG TAB PO SCH (10:31)
[2016-06-06] MEDS: SODIUM CHLORIDE 0.9% FLUSH 10 ML FLUSH IV FLUSH SCH ×2 (10:32→20:41)
[2016-06-06] MEDS: NITROFURANTOIN MONOHYD MACROCR 100 MG CAP PO SCH ×2 (10:37→20:42)
[2016-06-06] MEDS ORDERED: MAGNESIUM SULFATE 1 GM PREMIX 100 ML IV ONE (11:00)
--- NOTE | 2016-06-06 13:57 | RADHPO ---
EXAM DATE/TIME: 06/06/2016 10:08 [facility] COMPARISON: No previous studies available for comparison. INDICATIONS : Abdomen pain. MEDICAL HISTORY : Hypercholesterolemia. Hypertension. Osteoporosis. CVA. Diabetes. SURGICAL HISTORY : Teeth extractions. ENCOUNTER: Initial ACUITY: 2 days PAIN SCORE: 4/10 LOCATION: Bilateral upper quadrant MEASUREMENTS: LIVER: 16.1 cm length COMMON DUCT: 7 mm RIGHT KIDNEY: 12.2 x 6.1 x 6.8 cm LEFT KIDNEY: 12.0 x 7.3 x 6.9 cm SPLEEN: Not visualized. AORTA: 2.3cm maximal FINDINGS: LIVER: The liver is diffusely hyperechoic there is no focal lesions or evidence of biliary duct dilatation. COMMON DUCT: No intraluminal mass or stone visualized. GALLBLADDER: Mild thickening of the gallbladder wall in the fundus is noted. Gallbladder wall is hyperechoic and d emonstrates small bright echoes with comet tail reverberation. There is no evidence of pericholecysti c fluid. PANCREAS: The visualized portions are within normal limits. RIGHT KIDNEY: The right renal collecting system is mildly distended. Hyperechoic structure in the renal pelvis is c haracteristic of a renal stone. It measures 1.4 cm in greatest dimension. A 2.4 cm cyst is noted off the upper pole of the kidney. LEFT KIDNEY: A 2.6 cm cyst is identified centrally in the medullary portion of the kidney. No hydronephrosis, ston e or mass. SPLEEN: No focal lesion. AORTA: Non aneurysmal. IVC: Within normal limits. CONCLUSION: Mild gallbladder wall thickening which is hyperechoic and contains small reverberation artifact asya cteristic of a hyperplastic cholecystosis. Right renal calculus with mild hydronephrosis. Hyperechoic liver characteristic of steatosis. Taj Nicholson MD on June 06, 2016 at 13:36 Board Certified Radiologist. This report was verified electronically.
[2016-06-06] MEDS: SODIUM CHLOR 0.9% 1000 ML INJ 1,000 ML IV SCH ×2 (20:32→21:46)
[2016-06-06] MEDS ORDERED: ATORVASTATIN 20 MG TAB PO SCH (21:00)
[2016-06-07] VITALS: BP 142/68; PULSE 67; RESP 16; TEMP 97.9; O2SAT 93
[2016-06-07 04:03] VITALS: BP 122/63; PULSE 57; RESP 16; TEMP 97.8; O2SAT 95
[2016-06-07] MEDS: INSULIN ASPART SUPPLEMENTAL SCALE SQ SCH ×2 (06:25→11:22)
[2016-06-07 06:39] LABS: AUTOMATED NEUTROPHIL # 7.8 TH/MM3 (1.8-7.7); BASOPHIL # 0.1 TH/MM3 (0-0.2); BASOPHIL % 0.5 % (0.0-2.0); EOSINOPHIL # 0.1 TH/MM3 (0-0.4); HEMATOCRIT 34.4 % (35.0-46.0); HEMO FLAGS DIFF FINAL; LYMPH % 16.3 % (9.0-44.0); LYMPHOCYTE # 1.8 TH/MM3 (1.0-4.8); MEAN CELL VOLUME 91.7 FL (80.0-100.0); MEAN CORPUSCULAR HEMOGLOBIN 31.4 PG (27.0-34.0); MEAN CORPUSCULAR HGB CONC 34.2 % (32.0-36.0); MONO % 10.5 % (0.0-8.0); NEUT % 71.7 % (16.0-70.0); PLATELET COUNT 213 TH/MM3 (150-450); RED BLOOD COUNT 3.76 MIL/MM3 (4.00-5.30); RED CELL DISTRIBUTION WIDTH 12.2 % (11.6-17.2)
[2016-06-07 06:50] LABS: BICARBONATE 26.8 MEQ/L (21.0-32.0)
[2016-06-07 08:00] VITALS: BP 140/93; PULSE 69; RESP 16; TEMP 96.5; O2SAT 90
[2016-06-07] MEDS ORDERED: PANTOPRAZOLE SODIUM 40 MG VIAL IV PUSH SCH (08:00)
[2016-06-07] MEDS: LISINOPRIL 20 MG TAB PO SCH (08:35)
[2016-06-07] MEDS: NITROFURANTOIN MONOHYD MACROCR 100 MG CAP PO SCH (08:35)
[2016-06-07] MEDS: METOPROLOL TARTRATE 25 MG TAB PO SCH (08:36)
[2016-06-07] MEDS: SODIUM CHLORIDE 0.9% FLUSH 10 ML FLUSH IV FLUSH SCH (08:40)
[2016-06-07] MEDS: amLODIPine BESYLATE 5 MG TAB PO SCH (08:43)
[2016-06-07] MEDS ORDERED: POTASSIUM CHLORIDE 10 MEQ CONTROLLED RELEASE TAB PO ONE (08:45)
[2016-06-07] MEDS ORDERED: RESP: ALBUTEROL 0.63 MG/3 ML NEB (PRN) NEB (08:45)
--- NOTE | 2016-06-07 09:15 | RADHPO ---
EXAM DATE/TIME: 06/07/2016 08:53 [facility] COMPARISON: No previous studies available for comparison. INDICATIONS : Congestion. MEDICAL HISTORY : Hypercholesterolemia. Hypertension. Osteoporosis. CVA. Diabetes. SURGICAL HISTORY : Teeth extractions. ENCOUNTER: Subsequent ACUITY: 4 - 6 days PAIN SCORE: 0/10 LOCATION: chest FINDINGS: A single view of the chest demonstrates the lungs to be symmetrically aerated without evidence of mas s, infiltrate or effusion. The cardiomediastinal contours are unremarkable for AP technique. Osseou s structures are intact. CONCLUSION: No infiltrates seen. Andre Garcia MD on June 07, 2016 at 9:13 Board Certified Radiologist. This report was verified electronically.
--- NOTE | 2016-06-07 09:26 | HHI.PR ---
Subjective Remarks Follow-up abdominal pain. She denies any abdominal pain and tolerating diet. She wants to go home. Discussed with RN Objective Vitals Vital Signs Date Time Temp Pulse Resp B/P Pulse Ox O2 Delivery O2 Flow Rate FiO2 06/07/16 04:03 97.8 57 16 122/63 95 06/07/16 00:00 97.9 67 16 142/68 93 06/06/16 20:00 97.6 83 16 127/68 95 06/06/16 16:00 99.0 85 16 160/72 92 06/06/16 12:00 97.0 73 16 141/60 98 I/O 06/06/16 06/06/16 06/06/16 06/07/16 06/07/16 06/07/16 06:59 14:59 22:59 06:59 14:59 22:59 Intake Total 1000 ml 1322 ml 459 ml Balance 1000 ml 1322 ml 459 ml Intake Oral 680 ml IV Total 1000 ml 642 ml 459 ml # Voids 2 3 3 2 # Bowel Movements 0 Result Diagram: 06/07/16 0550 06/07/16 0550 Imaging Last Impressions Chest X-Ray 06/07/16 0000 Signed Impressions: Service Date/Time: Tuesday, June 07, 2016 08:53 - CONCLUSION: No infiltrates seen. Andre Garcia MD Abdomen Ultrasound 06/06/16 0000 Signed Impressions: Service Date/Time: Monday, June 06, 2016 10:08 - CONCLUSION: Mild gallbladder wall thickening which is hyperechoic and contains small reverberation artifact characteristic of a hyperplastic cholecystosis. Right renal calculus with mild hydronephrosis. Hyperechoic liver characteristic of steatosis. Taj Nicholson MD Objective Remarks GENERAL: Well-developed well-nourished. In no acute distress. SKIN: Warm and dry. No lesions noted. HEENT: Normocephalic. Pupils equal and round. Mucous membranes pink and moist. CARDIOVASCULAR: Regular rate and rhythm. No murmur appreciated. RESPIRATORY: No accessory muscle use. Clear to auscultation. Breath sounds equal bilaterally. GASTROINTESTINAL: Abdomen soft, nontender, nondistended. Bowel sounds x4. Negative Thompson sign. MUSCULOSKELETAL: No obvious deformities. No clubbing or cyanosis. No edema. NEUROLOGICAL: Awake and alert. No focal neurological deficits. Moves upper and lower extremities spontaneously. Dysarthria. PSYCHIATRIC: Appropriate mood and affect; insight and judgment normal. Procedures none A/P Problem List: (1) Abdominal pain ICD Code: R10.9 Status: Acute Assessment and Plan 70-year-old female with a past medical history of CVA with dysarthria, DM, CAD , HTN, HLD, arrhythmia presented with abdominal pain Epigastric pain: Lipase and LFTs within normal limits. Abdominal ultrasound to assess gallbladder with Mild gallbladder wall thickening which is hyperechoic and contains small reverberation artifact characteristic of a hyperplastic cholecystosis. She is feeling much better without abdominal pain tolerating diet and wants to go home. Etiology not clear but patient not a good historian also. Discharge home and continue PPI. Antiemetics as needed. Subacute UTI with hematuria: Urinary symptoms improving. UA with large occult blood, culture not indicated. Has been on Macrobid for 2 days, will continue. Sonogram shows Right renal calculus with mild hydronephrosis. Outpatient follow -up History of CVA with dysarthria: Continue statin. Speech therapy consult. Diabetes mellitus: Restart metformin. SSI with Accu-Cheks. Hypertension: Chronic. Continue home amlodipine, metoprolol, lisinopril. DVT prophylaxis: Eliquis was resumed. SCDs. Discharge Planning Discharge patient to home Condition on discharge: Improved Regular Diet as tolerated Ad Shannon activity Rx written: Potassium Follow-up with primary care physician in one week. Repeat BMP and magnesium June 09 Spent over 30 minutes arranging discharge for this patient discussed with correctional counselor/case manager and RN. Farhad Curtis MD Jun 07, 2016 09:26 Monocytes # (Auto) 0.6 0.2 Eosinophils # (Auto) 0.0 0.0 Basophils # (Auto) 0.3 0.0 CBC Comment DIFF FINAL DIFF FINAL Differential Comment Sodium Level 140 139 Potassium Level 4.1 3.6 Chloride Level 103 102 Carbon Dioxide Level 25.6 21.9 Anion Gap 11 15 Blood Urea Nitrogen 23 20 Creatinine 0.96 1.10 Estimat Glomerular Filtration 57 49 Rate Random Glucose 197 286 Calcium Level 9.3 9.4 Total Bilirubin 0.4 Aspartate Amino Transf 15 (AST/SGOT) Alanine Aminotransferase 16 (ALT/SGPT) Alkaline Phosphatase 49 Total Protein 7.3 Albumin 3.6 Lipase 361 Urine Color YELLOW Urine Turbidity SLIGHT Urine pH 6.0 Urine Specific [place] 1.011 Urine Protein TRACE Urine Glucose (UA) 500 Urine Ketones 15 Urine Occult Blood LARGE Urine Nitrite NEG Urine Bilirubin NEG Urine Leukocyte Esterase NEG Urine RBC 50-99 Urine Squamous Epithelial 0-5 Cells Urine Mucus OCC Microscopic Urinalysis Comment CULT NOT INDICATED Magnesium Level 1.5 Result Diagram: 06/06/16 0707 06/06/1607 Septic Shock Reassessment Septic Shock Reassessment Assessment and Plan Assessment and Plan Assessment and Plan Farhad Curtis MD Jun 07, 2016 09:26
[2016-06-07] MEDS ORDERED: APIXABAN 5 MG TABLET PO SCH (10:00)
--- NOTE | 2016-06-07 10:00 | HHI.DCPOC ---
Discharge Care Plan Diagnosis: (1) Abdominal pain Your Health Problems Are: Difficulty with ADL Exercise Tolerance Goals to Promote Your Health * To prevent worsening of your condition and complications * To maintain your health at the optimal level Directions to Meet Your Goals Take your medications as prescribed Follow your dietary instruction Follow activity as directed Keep your appointments as scheduled Take your immunizations and boosters as scheduled If your symptoms worsen call your PCP, if no PCP go to Urgent Care Center or Emergency Room Smoking is Dangerous to Your Health. Avoid second hand smoke Call the 24-hour hour crisis hotline for domestic abuse at Farhad Curtis MD Jun 07, 2016 10:00
[2016-06-07] MEDS ORDERED: POTA10SO12 PO (10:02)
== END 2016-06-07 12:15 | disposition home or self-care (01) ==
LOC: PHED 23:23 → PHEDA 06-06 04:03 → PH3B 06-06 05:15
PROVIDERS: ADMIT Internal Medicine; ATTEND Internal Medicine
DX: R10.13 Epigastric pain (principal); N39.0 Urinary tract infection, site not specified; R31.9 Hematuria, unspecified; I10 Essential (primary) hypertension; I25.10 Atherosclerotic heart disease of native coronary artery without angina pectoris; R47.1 Dysarthria and anarthria; E11.9 Type 2 diabetes mellitus without complications; E78.00 Pure hypercholesterolemia, unspecified; E78.5 Hyperlipidemia, unspecified; K21.9 Gastro-esophageal reflux disease without esophagitis; Z79.4 Long term (current) use of insulin; Z86.73 Personal history of transient ischemic attack (TIA), and cerebral infarction without residual deficits; Z79.01 Long term (current) use of anticoagulants; Z88.8 Allergy status to other drugs, medicaments and biological substances
CPT/HCPCS: 71010; 76700; 80048; 80053; 81001; 82948; 83690; 83735; 85025; 92610; 96361; 96374; 96375; 96376; 99284; C9113; G0378; G8996; G8997; G8998; J0360; J0780; J1815; J2405; J3475; J7030

== ENCOUNTER 2016-07-30 17:33 | Emergency (ER) | payer OTHER ==
[~2016-07-30] VITALS: Ht 157.5 cm; Wt 66.0 kg
[~2016-07-30 17:33] MED LIST changes: -ACET325T PO; -ASPI81TA11 PO; +ATOR20TA15 PO; -Aspirin Chew PO; -DOCU1CAP39 PO; -FERR325T PO; -LEVEMIR SQ; +METF500T PO; -MILKSUS PO; +NITR1CAP36 PO; +POTA10SO12 PO; +PRIL20CA9 PO; +ZOFR8TAB PO
[2016-07-30 17:36] VITALS: BP 172/65; PULSE 67; RESP 18; TEMP 97.6; O2SAT 92
--- NOTE | 2016-07-30 17:57 | PD ---
HPI Chief Complaint: General Weakness Time Seen by Provider: 17:45 Travel History International Travel<30 days: No Contact w/Intl Traveler<30days: No Traveled to known affect area: No History of Present Illness HPI The patient was seen and examined in the presence of the nurse. This patient is brought in by her daughter because the patient has been lethargic today. She has history of CVA with dysarthria and has chronic difficulty communicating. She denies any specific medical complaint other than saying she feels shaky. No pain or headache or injury. She does take Xarelto blood thinner. She is diabetic but sugars have been running normal today, 125 according to the daughter. Symptoms severity is moderate. No alleviating factors. She just seems to have no energy and is sitting around and not doing much. Duration one day PFSH Past Medical History Hx Anticoagulant Therapy: Yes (eliquis) Arthritis: No Asthma: No Autoimmune Disease: No Heart Rhythm Problems: No Cancer: No Cardiovascular Problems: Yes (HTN and NSTEMI) High Cholesterol: Yes Chemotherapy: No Chest Pain: No Congestive Heart Failure: No COPD: No Cerebrovascular Accident: Yes (CVA) Diabetes: Yes Patient Takes Glucophage: Yes Diminished Hearing: No Gastrointestinal Disorders: No GERD: No Genitourinary: No Hiatal Hernia: No Heparin Induced Thrombocytopen: No Hypertension: Yes Immune Disorder: No Implanted Vascular Access Dvce: No Musculoskeletal: No Neurologic: Yes Psychiatric: No Reproductive: No Respiratory: No Immunizations Current: Yes Radiation Therapy: No Renal Failure: No Sickle Cell Disease: No Sleep Apnea: Yes (possible) Thyroid Disease: No Ulcer: No Tetanus Vaccination: < 5 Years ?: Not Menopausal: Yes Past Surgical History AICD: No Arteriovenous Shunt: No Insulin Pump: No Joint Replacement: No Oral Surgery: Yes (teeth extractions) Other Surgery: No Social History Alcohol Use: No Tobacco Use: No Substance Use: No Allergies-Medications (Allergen,Severity, Reaction): Uncoded Allergies: MOTREL (Adverse Reaction, Severe, Rash, 06/06/16) . Reported Meds & Prescriptions Reported Meds & Active Scripts Active Bactrim DS (Sulfamethoxazole-Trimethoprim) 800-160 Mg Tab 1 Tab PO BID Reported Amlodipine (Amlodipine Besylate) 10 Mg Tab 10 Mg PO DAILY Humalog Inj (Insulin Human Lispro) 1,000 Unit/10 Ml Vial 2 Units SQ ACHS Max dose at bedtime:( )units; sugars< 70,(0)units; sugars 150-199,(1)unit; sugars 200-249,(3)units; sugars 250-299,(5)units; sugars 300-349,(7)units; sugars more than 349,(9)units. Lisinopril 20 Mg Tab 20 Mg PO DAILY Eliquis (Apixaban) 5 Mg Tab 5 Mg PO BID Metoprolol Tartrate 25 Mg Tab 25 Mg PO BID Myrbetriq (Mirabegron) 25 Mg Tab 25 Mg PO DAILY Metformin (Metformin HCl) 500 Mg Tab 500 Mg PO BIDPC With meals Paroxetine (Paroxetine HCl) 20 Mg Tab 20 Mg PO DAILY Review of Systems General / Constitutional: No: Fever Eyes: No: Visual changes HENT: No: Headaches Cardiovascular: No: Chest Pain or Discomfort Respiratory: No: Shortness of Breath Gastrointestinal: No: Abdominal Pain Genitourinary: No: Dysuria Musculoskeletal: Positive: Weakness, No: Pain Skin: No Rash Neurologic: Positive: Weakness Psychiatric: No: Depression Endocrine: No: Polydipsia Hematologic/Lymphatic: No: Easy Bruising Physical Exam Narrative GENERAL: Well-nourished, well-developed patient in no apparent distress. SKIN: Focused skin assessment reveals no rash and nodules. Skin is Warm and dry. HEAD: Atraumatic. Normocephalic. EYES: Pupils equal and round. No scleral icterus. No injection or drainage. ENT: No nasal bleeding or discharge. Mucous membranes pink and moist. NECK: Trachea midline. No JVD. No meningeal signs CARDIOVASCULAR: Regular rate and rhythm. No murmur appreciated. RESPIRATORY: No accessory muscle use. Clear to auscultation. Breath sounds equal bilaterally. GASTROINTESTINAL: Abdomen soft, non-tender, nondistended. Hepatic and splenic margins not palpable. MUSCULOSKELETAL: No obvious deformities. No clubbing. No cyanosis. No edema. NEUROLOGICAL: Awake but mildly lethargic. No obvious cranial nerve deficits. Motor grossly within normal limits. Awkward but understandable speech. PSYCHIATRIC: Appropriate mood and affect; insight and judgment reduced . Data Data Last Documented VS Vital Signs Date Time Temp Pulse Resp B/P Pulse Ox O2 Delivery O2 Flow Rate FiO2 07/30/16 18:42 90 Nasal Cannula 2 07/30/16 17:45 18 07/30/16 17:36 97.6 67 172/65 Orders Complete Blood Count With Diff (07/30/16 17:52) Comprehensive Metabolic Panel (07/30/16 17:52) Urinalysis - C+S If Indicated (07/30/16 17:52) Ct Brain W/O Iv Contrast(Rout) (07/30/16 17:52) Iv Access Insert/Monitor (07/30/16 17:52) Cath For Specimen (07/30/16 17:52) Sodium Chloride 0.9% Flush (Ns Flush) (07/30/16 18:00) Urine Culture (07/30/16 18:36) Labs Laboratory Tests Test 07/30/16 07/30/16 18:00 18:36 White Blood Count 10.0 TH/MM3 Red Blood Count 4.11 MIL/MM3 Hemoglobin 12.7 GM/DL Hematocrit 36.2 % Mean Corpuscular Volume 87.9 FL Mean Corpuscular Hemoglobin 30.9 PG Mean Corpuscular Hemoglobin 35.1 % Concent Red Cell Distribution Width 12.0 % Platelet Count 274 TH/MM3 Mean Platelet Volume 8.2 FL Neutrophils (%) (Auto) 72.9 % Lymphocytes (%) (Auto) 15.5 % Monocytes (%) (Auto) 8.4 % Eosinophils (%) (Auto) 2.3 % Basophils (%) (Auto) 0.9 % Neutrophils # (Auto) 7.4 TH/MM3 Lymphocytes # (Auto) 1.5 TH/MM3 Monocytes # (Auto) 0.8 TH/MM3 Eosinophils # (Auto) 0.2 TH/MM3 Basophils # (Auto) 0.1 TH/MM3 CBC Comment DIFF FINAL Differential Comment Sodium Level 136 MEQ/L Potassium Level 4.4 MEQ/L Chloride Level 101 MEQ/L Carbon Dioxide Level 25.7 MEQ/L Anion Gap 9 MEQ/L Blood Urea Nitrogen 29 MG/DL Creatinine 1.00 MG/DL Estimat Glomerular Filtration 55 ML/MIN Rate Random Glucose 144 MG/DL Calcium Level 9.3 MG/DL Total Bilirubin 0.4 MG/DL Aspartate Amino Transf 12 U/L (AST/SGOT) Alanine Aminotransferase 17 U/L (ALT/SGPT) Alkaline Phosphatase 45 U/L Total Protein 7.3 GM/DL Albumin 3.6 GM/DL Urine Collection Type CATH Urine Color YELLOW Urine Turbidity MOD Urine pH 5.5 Urine Specific [place] 1.014 Urine Protein 30 mg/dL Urine Glucose (UA) NEG mg/dL Urine Ketones NEG mg/dL Urine Occult Blood LARGE Urine Nitrite NEG Urine Bilirubin NEG Urine Leukocyte Esterase SMALL Urine RBC 100-200 /hpf Urine WBC 3-5 /hpf Urine Squamous Epithelial 0-5 /hpf Cells Urine Amorphous Sediment FEW Urine Bacteria RARE /hpf Microscopic Urinalysis Comment CATH-CULTURE IND MDM Medical Decision Making Medical Screen Exam Complete: Yes Emergency Medical Condition: Yes Medical Record Reviewed: Yes Differential Diagnosis Hypoglycemia, electrolyte abnormality, UTI Narrative Course I have reviewed the patient's electronic medical record. Was hospitalized for stroke in the past IV placed CBC is normal metabolic profile is normal other than minimal elevation of BUN LFT's are normal Brain CT shows encephalomalacia of old left-sided stroke but no acute findings Catheterized urine shows hematuria but she has a known kidney stone so that is expected. No sign of infection. Patient is awake and talking and following commands. Her lethargy seems very mild and I don't feel it rises to a level of hospitalization. She does not look septic or toxic. No evidence of acute neurologic event. Recommending her daughter called primary physician tomorrow for follow-up. Return should she worsen. She does not take any sedating medication. Discussed at length with family Diagnosis Primary Impression: Lethargy Additional Impression: Generalized weakness Additional Instructions: The patient was advised to follow up with their physician and return if they worsen. Call tomorrow for a follow-up appointment Med/Other Pt SpecificInfo: Other Scripts Sulfamethoxazole-Trimethoprim (Bactrim DS)800-160 Mg Tab1 Tab PO BID #10 TAB Ref 0 Prov:Wil Garcia MD 07/30/16 Disposition: 01 DISCHARGE HOME Condition: Stable Wil Garcia MD Jul 30, 2016 17:57
[2016-07-30] MEDS ORDERED: SODIUM CHLORIDE 0.9% FLUSH 5 ML FLUSH IV FLUSH PRN (18:00)
[2016-07-30 18:08] LABS: AUTOMATED NEUTROPHIL # 7.4 TH/MM3 (1.8-7.7); BASOPHIL # 0.1 TH/MM3 (0-0.2); BASOPHIL % 0.9 % (0.0-2.0); EOSINOPHIL # 0.2 TH/MM3 (0-0.4); EOSINOPHIL % 2.3 % (0.0-4.0); HEMATOCRIT 36.2 % (35.0-46.0); HEMO FLAGS DIFF FINAL; LYMPH % 15.5 % (9.0-44.0); LYMPHOCYTE # 1.5 TH/MM3 (1.0-4.8); MEAN CELL VOLUME 87.9 FL (80.0-100.0); MEAN CORPUSCULAR HEMOGLOBIN 30.9 PG (27.0-34.0); MEAN CORPUSCULAR HGB CONC 35.1 % (32.0-36.0); MONO % 8.4 % (0.0-8.0); NEUT % 72.9 % (16.0-70.0); PLATELET COUNT 274 TH/MM3 (150-450); RED BLOOD COUNT 4.11 MIL/MM3 (4.00-5.30)
[2016-07-30] MEDS ORDERED: APIX5TAB PO (18:17)
[2016-07-30] MEDS ORDERED: PARO20TA2 PO (18:17)
[2016-07-30] MEDS ORDERED: LISI-515 PO (18:17)
[2016-07-30] MEDS ORDERED: METO25TA3 PO (18:17)
[2016-07-30] MEDS ORDERED: HUMALOG SQ (18:17)
[2016-07-30] MEDS ORDERED: METF500T PO (18:17)
[2016-07-30] MEDS ORDERED: AMLO10TA2 PO (18:17)
[2016-07-30] MEDS ORDERED: MIRA25TA PO (18:17)
[2016-07-30 18:19] LABS: CHLORIDE 101 MEQ/L (98-107); POTASSIUM 4.4 MEQ/L (3.5-5.1); SODIUM (NA) 136 MEQ/L (136-145)
[2016-07-30 18:22] LABS: ANION GAP 9 MEQ/L (5-15); BICARBONATE 25.7 MEQ/L (21.0-32.0)
[2016-07-30 18:23] LABS: BLOOD UREA NITROGEN 29 MG/DL (7-18)
[2016-07-30 18:25] LABS: ALT (GPT) 17 U/L (10-53); AST (GOT) 12 U/L (15-37)
--- NOTE | 2016-07-30 18:25 | RADHPO ---
EXAM DATE/TIME: 07/30/2016 18:08 [facility] COMPARISON: MRI BRAIN W & W/O CONTRAST, April 11, 2016, 12:30. CT BRAIN W/O CONTRAST, April 10, 2016, 16: 58. INDICATIONS : Weakness. RADIATION DOSE: 59.63 CTDIvol (mGy) MEDICAL HISTORY : Cerebrovascular disease. Hypertension. Myocardial infarction.Diabetes. SURGICAL HISTORY : None. ENCOUNTER: Initial ACUITY: 1 day PAIN SCALE: 0/10 LOCATION: cranial TECHNIQUE: Multiple contiguous axial images were obtained of the head. Using automated exposure control and adj ustment of the mA and/or kV according to patient size, radiation dose was kept as low as reasonably a chievable to obtain optimal diagnostic quality images. FINDINGS: CEREBRUM: The ventricles are normal for age. No evidence of midline shift, mass lesion, hemorrhage or acute in farction. No extra-axial fluid collections are seen. Encephalomalacia related to an old infarct agai n seen of the left frontal lobe. There are scattered small foci of chronic white matter ischemic flowers ge. POSTERIOR FOSSA: The cerebellum and brainstem are intact. The 4th ventricle is midline. The cerebellopontine angle i s unremarkable. EXTRACRANIAL: The visualized portion of the orbits is intact. SKULL: The calvaria is intact. No evidence of skull fracture. CONCLUSION: 1. No bleed or other acute intracranial abnormality demonstrated. 2. Chronic infarct changes as above. No convincing evidence of an acute ischemic event. Darion Aldrich MD on July 30, 2016 at 18:22 Board Certified Radiologist. This report was verified electronically.
[2016-07-30 18:26] LABS: GLOMERULAR FILTRATION RATE 55 ML/MIN (>89)
[2016-07-30 18:27] LABS: TOTAL BILIRUBIN ADULT 0.4 MG/DL (0.2-1.0)
[2016-07-30 18:28] LABS: ALKALINE PHOSPHATASE 45 U/L (45-117)
[2016-07-30] MEDS ORDERED: BACT800T5 PO (18:46)
[2016-07-30 18:47] LABS: BLOOD, URINE LARGE (NEG); GLUCOSE,URINE NEG (NEG); KETONE, URINE NEG (NEG); NITRITE,URINE NEG (NEG); PH, URINE 5.5 (5.0-8.5)
[2016-07-30 18:53] LABS: METHOD OF COLLECTION CATH; URINE COLOR YELLOW (YELLW/STRAW)
[2016-07-30 18:54] LABS: RBC, URINE 100-200 /hpf (0-3)
[2016-07-30 18:55] LABS: SQUAMOUS EPITHELIAL CELL URINE 0-5 /hpf (0-5)
[2016-07-30 18:56] LABS: BACTERIA, URINE RARE /hpf; COMMENT (UR) CATH-CULTURE IND; CULTURE IF INDICATED CATH CULTURE IND
[2016-07-30 19:15] VITALS: BP 136/63
== END 2016-07-30 19:25 | disposition home or self-care (01) ==
LOC: PHED 17:33
DX: R53.1 Weakness (principal); R53.83 Other fatigue; I25.2 Old myocardial infarction; I10 Essential (primary) hypertension; E78.00 Pure hypercholesterolemia, unspecified; E11.9 Type 2 diabetes mellitus without complications; Z86.73 Personal history of transient ischemic attack (TIA), and cerebral infarction without residual deficits; Z79.01 Long term (current) use of anticoagulants
CPT/HCPCS: 70450; 80053; 81001; 85025; 87086; 99284; P9612

== ENCOUNTER 2016-08-10 16:34 | Inpatient (IN) | payer OTHER, MEDICARE ==
[~2016-08-10] VITALS: Ht 157.5 cm; Wt 66.2 kg
[~2016-08-10 16:34] MED LIST changes: +AMLO10TA2 PO; -AMLO5 PO; -ATOR20TA15 PO; +BACT800T5 PO; +HUMALOG SQ; +MIRA25TA PO; -NITR1CAP36 PO; -NOVOLOGP2 SQ; +PARO20TA2 PO; -POTA10SO12 PO; -PRIL20CA9 PO; -ZOFR8TAB PO
[2016-08-10 16:38] VITALS: BP 191/80; PULSE 95; RESP 24; TEMP 101.3; O2SAT 92
[2016-08-10 16:45] VITALS: RESP 22; O2SAT 93
[2016-08-10 16:47] VITALS: BP 166/72; PULSE 88; RESP 22; TEMP 101.3; O2SAT 93
[2016-08-10 17:24] LABS: AUTOMATED NEUTROPHIL # 19.9 TH/MM3 (1.8-7.7); BASOPHIL # 0.1 TH/MM3 (0-0.2); BASOPHIL % 0.6 % (0.0-2.0); EOSINOPHIL % 0.1 % (0.0-4.0); HEMATOCRIT 33.9 % (35.0-46.0); HEMO FLAGS DIFF FINAL; LYMPH % 1.5 % (9.0-44.0); LYMPHOCYTE # 0.3 TH/MM3 (1.0-4.8); MEAN CELL VOLUME 86.9 FL (80.0-100.0); MEAN CORPUSCULAR HGB CONC 34.6 % (32.0-36.0); MONO % 7.4 % (0.0-8.0); NEUT % 90.4 % (16.0-70.0); PLATELET COUNT 278 TH/MM3 (150-450); RED CELL DISTRIBUTION WIDTH 13.4 % (11.6-17.2)
--- NOTE | 2016-08-10 17:24 | PD ---
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 When paramedics arrived initial concern was for a stroke. When they arrived, they found the patient awake and answering questions with no obvious focal deficits other than the right sided facial droop that was new. The patient was lethargic. She was found to have a temperature of 102.6. There is no reported respiratory symptoms. There is no reported urinary symptoms. PFSH Past Medical History Hx Anticoagulant Therapy: Yes (ELIQUIS) Arthritis: No Asthma: No Autoimmune Disease: No Heart Rhythm Problems: No Cancer: No Cardiovascular Problems: Yes ([place]) High Cholesterol: Yes Chemotherapy: No Chest Pain: No Congestive Heart Failure: No COPD: No Cerebrovascular Accident: Yes (STROKE ) Diabetes: Yes (TYPE II ) Patient Takes Glucophage: No Diminished Hearing: No Gastrointestinal Disorders: No GERD: No Genitourinary: No Hiatal Hernia: No Heparin Induced Thrombocytopen: No Hypertension: Yes Immune Disorder: No Implanted Vascular Access Dvce: No Musculoskeletal: No Neurologic: Yes Psychiatric: No Reproductive: No Respiratory: No Immunizations Current: Yes Radiation Therapy: No Renal Failure: No Sickle Cell Disease: No Sleep Apnea: Yes (possible) Thyroid Disease: No Ulcer: No Menopausal: Yes Past Surgical History AICD: No Arteriovenous Shunt: No Insulin Pump: No Joint Replacement: No Oral Surgery: Yes (teeth extractions) Other Surgery: No Social History Alcohol Use: No Tobacco Use: No Substance Use: No Allergies-Medications (Allergen,Severity, Reaction): Uncoded Allergies: MOTREL (Adverse Reaction, Severe, Rash, 06/06/16) . Reported Meds & Prescriptions Reported Meds & Active Scripts Active Reported Metformin (Metformin HCl) 1,000 Mg Tab 1,000 Mg PO BID With meals Amlodipine (Amlodipine Besylate) 10 Mg Tab 10 Mg PO DAILY Humalog Inj (Insulin Human Lispro) 1,000 Unit/10 Ml Vial 2 Units SQ TIDAC Max dose at bedtime:( )units; sugars< 70,(0)units; sugars 150-199,(1)unit; sugars 200-249,(3)units; sugars 250-299,(5)units; sugars 300-349,(7)units; sugars more than 349,(9)units. Lisinopril 20 Mg Tab 20 Mg PO DAILY Eliquis (Apixaban) 5 Mg Tab 5 Mg PO BID Metoprolol Tartrate 25 Mg Tab 25 Mg PO BID Myrbetriq (Mirabegron) 25 Mg Tab 25 Mg PO DAILY Paroxetine (Paroxetine HCl) 20 Mg Tab 20 Mg PO DAILY Review of Systems Except as stated in HPI: all other systems reviewed are Neg General / Constitutional: Positive: Fever, No: Chills HENT: No: Headaches, Neck Pain Cardiovascular: No: Chest Pain or Discomfort Respiratory: No: Cough, Shortness of Breath Gastrointestinal: No: Nausea, Vomiting, Abdominal Pain Genitourinary: No: Dysuria, Incontinence Musculoskeletal: Positive: Weakness (generalized), No: Pain Neurologic: Positive: Weakness (generalized), Change in Mentation (lethargic), Other (residual right sided facial droop that is not new.), No: Headache, Sensory Disturbance Physical Exam Narrative GENERAL: Well-developed well-nourished female who appears lethargic and weak. She does acknowledge me when I entered the room. SKIN: Focused skin assessment warm/dry. HEAD: Atraumatic. Normocephalic. EYES: No scleral icterus. No injection or drainage. ENT: No nasal bleeding or discharge. Mucous membranes dry and pink NECK: Trachea midline. Supple. CARDIOVASCULAR: Tachycardic with normal rhythm. No murmur appreciated. RESPIRATORY: No accessory muscle use. Clear to auscultation. Breath sounds equal bilaterally. Decreased respiratory effort. GASTROINTESTINAL: Abdomen soft, non-tender, nondistended. Hepatic and splenic margins not palpable. MUSCULOSKELETAL: No obvious deformities. No clubbing. No cyanosis. No edema. Mild skin tenting noted NEUROLOGICAL: Awake and lethargic. Would answer questions asked. No obvious cranial nerve deficits. Motor grossly within normal limits. Normal speech. Data Data Last Documented VS Vital Signs Date Time Temp Pulse Resp B/P Pulse Ox O2 Delivery O2 Flow Rate FiO2 08/10/16 16:47 101.3 88 22 166/72 93 Nasal Cannula 2 Orders Complete Blood Count With Diff (08/10/16 16:38) Comprehensive Metabolic Panel (08/10/16 16:38) Lactic Acid Sepsis Protocol (08/10/16 16:38) Urinalysis - C+S If Indicated (08/10/16 16:38) Blood Culture (08/10/16 16:38) Chest, Single Ap (08/10/16 16:38) Blood Glucose (08/10/16 16:38) Ecg Monitoring (08/10/16 16:38) Iv Access Insert/Monitor (08/10/16 16:38) Oximetry (08/10/16 16:38) Oxygen Administration (08/10/16 16:38) Urine Culture (08/10/16 17:10) Admit Order (Ed Use Only) (08/10/16 18:32) Labs Laboratory Tests Test 08/10/16 08/10/16 16:50 17:10 White Blood Count 22.0 TH/MM3 Red Blood Count 3.90 MIL/MM3 Hemoglobin 11.7 GM/DL Hematocrit 33.9 % Mean Corpuscular Volume 86.9 FL Mean Corpuscular Hemoglobin 30.0 PG Mean Corpuscular Hemoglobin 34.6 % Concent Red Cell Distribution Width 13.4 % Platelet Count 278 TH/MM3 Mean Platelet Volume 8.3 FL Neutrophils (%) (Auto) 90.4 % Lymphocytes (%) (Auto) 1.5 % Monocytes (%) (Auto) 7.4 % Eosinophils (%) (Auto) 0.1 % Basophils (%) (Auto) 0.6 % Neutrophils # (Auto) 19.9 TH/MM3 Lymphocytes # (Auto) 0.3 TH/MM3 Monocytes # (Auto) 1.6 TH/MM3 Eosinophils # (Auto) 0.0 TH/MM3 Basophils # (Auto) 0.1 TH/MM3 CBC Comment DIFF FINAL Differential Comment Sodium Level 133 MEQ/L Potassium Level 4.6 MEQ/L Chloride Level 101 MEQ/L Carbon Dioxide Level 22.6 MEQ/L Anion Gap 9 MEQ/L Blood Urea Nitrogen 29 MG/DL Creatinine 0.94 MG/DL Estimat Glomerular Filtration 59 ML/MIN Rate Random Glucose 190 MG/DL Lactic Acid Level 1.2 mmol/L Calcium Level 9.0 MG/DL Total Bilirubin 0.4 MG/DL Aspartate Amino Transf 11 U/L (AST/SGOT) Alanine Aminotransferase 16 U/L (ALT/SGPT) Alkaline Phosphatase 51 U/L Troponin I LESS THAN 0.02 NG/ML Total Protein 7.2 GM/DL Albumin 3.4 GM/DL Urine Color YELLOW Urine Turbidity CLEAR Urine pH 5.0 Urine Specific [place] 1.016 Urine Protein 30 mg/dL Urine Glucose (UA) 150 mg/dL Urine Ketones NEG mg/dL Urine Occult Blood MOD Urine Nitrite NEG Urine Bilirubin NEG Urine Urobilinogen LESS THAN 2.0 MG/DL Urine Leukocyte Esterase SMALL Urine RBC 23 /hpf Urine WBC 9 /hpf Urine Squamous Epithelial 1 /hpf Cells Urine Bacteria FEW /hpf Microscopic Urinalysis Comment CATH-CULTURE IND MDM Medical Decision Making Medical Screen Exam Complete: Yes Emergency Medical Condition: Yes Differential Diagnosis Sepsis versus pneumonia versus UTI versus metabolic arrangement Narrative Course 70-year-old female presents via EMS for lethargy, weakness, altered mental status. The patient was noted to have a temperature 102.6. The patient has urinary tract infection. Her white count was 22,000. Lactic acid is 1.2. Patient also has evidence of dehydration. She'll be admitted to the medical service. Dr. Olivas, [facility], has coming to see the patient and will admit to his service. Diagnosis Primary Impression: Sepsis Additional Impressions: UTI (urinary tract infection) Dehydration Impaired cognition Lethargy Bereket Broussard MD Aug 10, 2016 17:24
[2016-08-10 17:30] LABS: BACTERIA, URINE FEW /hpf; BLOOD, URINE MOD (NEG); GLUCOSE,URINE 150 mg/dL (NEG); KETONE, URINE NEG (NEG); NITRITE,URINE NEG (NEG); SQUAMOUS EPITHELIAL CELL URINE 1 /hpf (0-5); URINE COLOR YELLOW (YELLW/STRAW)
[2016-08-10 17:31] LABS: COMMENT (UR) CATH-CULTURE IND; CULTURE IF INDICATED CATH CULTURE IND
--- NOTE | 2016-08-10 17:35 | RADRPT ---
EXAM DATE/TIME: 08/10/2016 16:54 [facility] COMPARISON: CHEST SINGLE AP, June 07, 2016, 8:53. INDICATIONS : Fever MEDICAL HISTORY : Hypercholesterolemia. Hypertension. Osteoporosis. CVA. Diabetes. SURGICAL HISTORY : Teeth extractions. ENCOUNTER: Initial ACUITY: 1 day PAIN SCORE: 0/10 LOCATION: chest FINDINGS: A single view of the chest demonstrates the lungs to be symmetrically aerated without evidence of mas s, infiltrate or effusion. The cardiomediastinal contours are unremarkable. Osseous structures are intact. CONCLUSION: No acute disease. No significant change has occurred. Arthur Tirado MD on August 10, 2016 at 17:32 Board Certified Radiologist. This report was verified electronically.
[2016-08-10 17:41] LABS: ALT (GPT) 16 U/L (10-53); ANION GAP 9 MEQ/L (5-15); AST (GOT) 11 U/L (15-37); BICARBONATE 22.6 MEQ/L (21.0-32.0); BLOOD UREA NITROGEN 29 MG/DL (7-18); CHLORIDE 101 MEQ/L (98-107); GLOMERULAR FILTRATION RATE 59 ML/MIN (>89); POTASSIUM 4.6 MEQ/L (3.5-5.1); SODIUM (NA) 133 MEQ/L (136-145)
[2016-08-10 17:46] LABS: ALKALINE PHOSPHATASE 51 U/L (45-117); TOTAL BILIRUBIN ADULT 0.4 MG/DL (0.2-1.0)
[2016-08-10] MEDS ORDERED: ACETAMINOPHEN 325 MG TAB PO PRN (19:00)
[2016-08-10] MEDS ORDERED: SODIUM CHLORIDE 0.9% FLUSH 10 ML FLUSH IV FLUSH PRN (19:00)
[2016-08-10] MEDS ORDERED: SODIUM CHLOR 0.9% 1000 ML INJ 1,000 ML IV SCH (19:00)
[2016-08-10] MEDS ORDERED: NALOXONE HCL 0.4 MG/ML AMP IV PRN (19:00)
[2016-08-10] MEDS ORDERED: METF1000 PO (19:09)
[2016-08-10 19:29] VITALS: O2SAT 95
[2016-08-10] MEDS: SODIUM CHLOR 0.9% 1000 ML INJ 1,000 ML IV SCH (19:35)
[2016-08-10] MEDS: PIPERACIL-TAZO 4.5 GM PREMIX 100 ML IV SCH (19:36)
[2016-08-10 19:42] VITALS: BP 181/78; PULSE 89; RESP 14; TEMP 100.2; O2SAT 98
[2016-08-10 20:00] VITALS: BP 149/70; PULSE 95; RESP 20; TEMP 102
[2016-08-10] MEDS: SODIUM CHLORIDE 0.9% FLUSH 10 ML FLUSH IV FLUSH SCH (21:00)
--- NOTE | 2016-08-10 21:04 | HHI.HP ---
[facility] Admission Diagnosis SEPSIS, uti, dehydration Diagnoses: Chief Complaint: lethargy Travel History International Travel<30 Days: No Contact w/Intl Traveler <30 Da: No Traveled to Known Affected Are: No Sepsis Criteria SIRS Criteria (2 or more): Temp > 100.9 or < 96.8, Heart rate over 90, RR > 20 or PaCO2 < 32, WBC > 73753, < 4000 or > 10% bands Sepsis Criteria (SIRS+source): Infect source susp/known History of Present Illness Written by Mary Carmen Bush, acting as scribe for Dr. Terrell on 08/10/16 at 21: 04. 70-year-old female with a past medical history of CVA with dysarthria, DM, CAD, HTN, HLD, Atrial fibrillation. Patient appears weak and slow to answer questions. Patient is A&O to person, place and month also able to tell that Annalise is the president. The patient has a history of CVA with residual dysarthria which limited ability to communicate, information gathered from patient and prior charting. Patient's family member called 911 because patient was lethargic at home. Patient is currently able to awake to voice noted to be slow to respond but does appear oriented. Patient endorses fevers and shortness of breath. Patient unable to elaborate on further details Patient denies N/V, abdominal pain, black tarry stool, red blood per rectum, or recent travel. Upon arrival patient noted to have temp 101.3, HR 95, RR24, WBC 22.0, blood glucose 190 Additional history was obtained from patient's daughter over the phone. Daughter reported that patient was at her baseline in the morning and had her breakfast. At lunchtime, when daughter came back from work, she stated that her mom was up and making plans for herself and had her lunch. She was also walking around and was socializing with patient's daughter and her friend. When patient's daughter was ready to go back to work, patient told the daughter that she doesn't think she would be able to walk around. When the daughter pointed to her that she has been walking around the whole afternoon with them, patient seems to not and distended. The daughter advised her to walk with a walker and did not think much about it and had to return back to work. This was around 12:45 PM. However the daughter stated she was monitoring her mom through video camera, while at work. She stated that through the video camera, she noted her mom was not moving at all from her couch for the next 2-1/2 hours. Daughter's was also back to the house by then and he noted that mom was not getting out of the couch and when he tries talking to her, she was not answering back appropriately or engaging in conversation. The daughter therefore came back to the house immediately. This was around 3 PM. She then called 911 and arrived hospital. Daughter reported that patient has been weak since Sunday. She has had CT of the abdomen with contrast as an outpatient on Sunday. Reportedly this was for kidney stones. Patient has had chronic significant hematuria. [facility] and had CT done on Sunday. Daughter also stated patient was found to have Hemoccult positive as outpatient and since she was on anticoagulation, she has had some kind of barium studies as an outpatient and was planned for colonoscopy a week from tomorrow. She states on July 30, 2016, she did bring the patient to ER for some generalized weakness and lethargy and was discharged from here. Review of medical records shows patient was not lethargic on examination and found to have mild UTI for which ER physician had prescribed Bactrim. However daughter stated that they never knew she was prescribed Bactrim and did not receive any prescriptions upon discharge. Patient was not on any antibiotics at home. The last time she ever received antibiotics was while she was in hospital as an inpatient. This was back around June 07, 2016 Hospital stay. Patient also had episodes of falls at home. Daughter stated this happened on a Sunday last week, and then on Sunday and Sunday. Most of the falls were not witnessed although daughter immediately came into the room when she fell. Once was in the shower. Unknown whether she had her head or not. The daughter as for as she knows, patient was not complaining of any symptoms in the past few days to weeks. She did not have any fever/nausea/vomiting/ diarrhea/blood in stool or urine/chest pain/shortness of breath/syncopal episodes. She states mom is incontinent and wears a brief period Review of Systems ROS Limitations: Clinical Condition, Poor Historian Past Family Social History Past Medical History Hypertension Hyperlipidemia Diabetes mellitus Coronary artery disease CVA with residual dysarthria Atrial Fibrillation Polio Past Surgical History Oral surgery Reported Medications Metformin (Metformin HCl) 1,000 Mg Tab 1,000 Mg PO BID With meals Amlodipine (Amlodipine Besylate) 10 Mg Tab 10 Mg PO DAILY Humalog Inj (Insulin Human Lispro) 1,000 Unit/10 Ml Vial 2 Units SQ TIDAC Max dose at bedtime:( )units; sugars< 70,(0)units; sugars 150-199,(1)unit; sugars 200-249,(3)units; sugars 250-299,(5)units; sugars 300-349,(7)units; sugars more than 349,(9)units. Lisinopril 20 Mg Tab 20 Mg PO DAILY Eliquis (Apixaban) 5 Mg Tab 5 Mg PO BID Metoprolol Tartrate 25 Mg Tab 25 Mg PO BID Myrbetriq (Mirabegron) 25 Mg Tab 25 Mg PO DAILY Paroxetine (Paroxetine HCl) 20 Mg Tab 20 Mg PO DAILY Allergies: Uncoded Allergies: MOTREL (Adverse Reaction, Severe, Rash, 06/06/16) . Active Ordered Medications Current Medications Medications (Trade) Dose Ordered Sig/Leila Route Start Time Stop Time Status Last Admin (NS 1000 ml Inj) 1,000 ml @ 100 mls/hr Q10H IV 08/10/16 20:00 08/10/16 19:35 (NS Flush) 2 ml UNSCH PRN IV FLUSH 08/10/16 19:00 (NS Flush) 2 ml BID IV FLUSH 08/10/16 21:00 (Tylenol) 650 mg Q4H PRN PO 08/10/16 19:00 (Tylenol) 650 mg Q6H PRN PO 08/10/16 19:00 Naloxone HCl 0.4 mg 0.4 mg UNSCH PRN IV 08/10/16 19:00 (Zosyn 4.5 Gm Premix) 100 ml @ 200 mls/hr Q6H IV 08/10/16 20:00 08/10/16 19:36 Family History Diabetes, high blood pressure Social History Denies alcohol or tobacco use Lives at home with her family Physical Exam Vital Signs Vital Signs Date Time Temp Pulse Resp B/P Pulse Ox O2 Delivery O2 Flow Rate FiO2 08/10/16 19:42 100.2 89 14 181/78 98 Room Air 08/10/16 19:29 95 Nasal Cannula 2.00 08/10/16 16:47 101.3 88 22 166/72 93 Nasal Cannula 2 08/10/16 16:45 22 93 2 08/10/16 16:45 93 Nasal Cannula 2 08/10/16 16:38 101.3 95 24 191/80 92 Physical Exam GENERAL: This is a well-nourished, well-developed patient who appears drowsy with slow verbal response SKIN: No rashes, ecchymoses or lesions. Cool and dry. Oral mucosa dry HEAD: Atraumatic. Normocephalic. No temporal or scalp tenderness. EYES: Extraocular motions intact. No scleral icterus. No injection or drainage. CARDIOVASCULAR: Regular rate and rhythm with 4/6 systolic murmur which radiates to the neck. RESPIRATORY: diminished through out GASTROINTESTINAL: Abdomen soft, non-tender, nondistended. abdominal bruit noted MUSCULOSKELETAL: RLE > L NEUROLOGICAL: drowsy able to awake to voice. Motor and sensory grossly within normal limits. 3 out of 5 muscle strength in all muscle groups. slow speech. Laboratory Laboratory Tests Test 08/10/16 08/10/16 16:50 17:10 White Blood Count 22.0 Red Blood Count 3.90 Hemoglobin 11.7 Hematocrit 33.9 Mean Corpuscular Volume 86.9 Mean Corpuscular Hemoglobin 30.0 Mean Corpuscular Hemoglobin 34.6 Concent Red Cell Distribution Width 13.4 Platelet Count 278 Mean Platelet Volume 8.3 Neutrophils (%) (Auto) 90.4 Lymphocytes (%) (Auto) 1.5 Monocytes (%) (Auto) 7.4 Eosinophils (%) (Auto) 0.1 Basophils (%) (Auto) 0.6 Neutrophils # (Auto) 19.9 Lymphocytes # (Auto) 0.3 Monocytes # (Auto) 1.6 Eosinophils # (Auto) 0.0 Basophils # (Auto) 0.1 CBC Comment DIFF FINAL Differential Comment Sodium Level 133 Potassium Level 4.6 Chloride Level 101 Carbon Dioxide Level 22.6 Anion Gap 9 Blood Urea Nitrogen 29 Creatinine 0.94 Estimat Glomerular Filtration 59 Rate Random Glucose 190 Lactic Acid Level 1.2 Calcium Level 9.0 Total Bilirubin 0.4 Aspartate Amino Transf 11 (AST/SGOT) Alanine Aminotransferase 16 (ALT/SGPT) Alkaline Phosphatase 51 Troponin I LESS THAN 0.02 Total Protein 7.2 Albumin 3.4 Urine Color YELLOW Urine Turbidity CLEAR Urine pH 5.0 Urine Specific [place] 1.016 Urine Protein 30 Urine Glucose (UA) 150 Urine Ketones NEG Urine Occult Blood MOD Urine Nitrite NEG Urine Bilirubin NEG Urine Urobilinogen LESS THAN 2.0 Urine Leukocyte Esterase SMALL Urine RBC 23 Urine WBC 9 Urine Squamous Epithelial 1 Cells Urine Bacteria FEW Microscopic Urinalysis Comment CATH-CULTURE IND Date/Time Procedure Status Source Growth 08/10/16 17:10 Urine Culture Received Urine Catheterized Urine Pending 08/10/16 16:55 Aerobic Blood Culture Received Blood Peripheral Pending 08/10/16 16:55 Anaerobic Blood Culture Received Blood Peripheral Pending Result Diagram: 08/10/16 1650 08/10/16 1650 Imaging Last Impressions Chest X-Ray 08/10/16 1638 Signed Impressions: Service Date/Time: , August 10, 2016 16:54 - CONCLUSION: No acute disease. No significant change has occurred. Arthur Tirado MD Septic Shock Reassessment Heart: Regular rate and rhythm, Murmur Lungs: Diminished Skin: Cold, Dry Peripheral Pulses: Weak Right Dorsalis Pedis Weak Left Dorsalis Pedis Bounding Right Radial Bounding Left Radial Assessment and Plan Problem List: (1) Sepsis ICD Code: A41.9 Status: Acute (2) Metabolic encephalopathy ICD Code: G93.41 Status: Acute (3) UTI (urinary tract infection) ICD Code: N39.0 Status: Acute (4) Dehydration ICD Code: E86.0 Status: Acute (5) Generalized weakness ICD Code: R53.1 Status: Acute Assessment and Plan 70-year-old female with a past medical history of CVA with dysarthria, DM, CAD, HTN, HLD, Atrial fibrillation. Patient's family member called 911 because patient was lethargic at home. Patient is currently able to awake to voice noted to be slow to respond but does appear oriented. Patient endorses fevers and shortness of breath. Sepsis (temp 101.3, HR 95, RR24, WBC 22.0 suspected source UTI) Metabolic encephalopathy Frequent falls while on anticoagulation Recent multifocal infarct/CVA CT head ordered. If negative, would pursue MRI studies Blood culture x2 obtained and pending Urine culture pending Zosyn IV add Vanco with pharmacy to dose dehydration- acute NS 100ml/h RLE edema > LLE US ordered to R/O DVT Abdominal bruitwould evaluate with aorta ultrasound for possible aortic aneurysm DM- chronic hold oral diabetic medication accu check with SI coverage A fib- hx currently in SR continue Eliquis HTN- chronic continue home medications including lisinopril, metoprolol, amlodipine continue to monitor BP trend DVT prophylaxis patient on Eliquis Discussed with nursing and patient We need to get imaging studies reports from [facility] [place] imaging regarding CT abdomen and barium studies\ This note was transcribed by scribe [Sara Bush]. I, Dr. Lenny Terrell personally performed the history, physical exam, and medical decision making; and confirmed the accuracy of the information in the transcribed note. Authenticated by Dr. Lenny Terrell on 08/10/16 at 21:04. Discussed Condition With ER staff. ICU nurse, Physician Certification 2 Midnight Certification Type: Admission for Inpatient Services Order for Inpatient Services The services are ordered in accordance with Medicare regulations or non- Medicare payer requirements, as applicable. In the case of services not specified as inpatient-only, they are appropriately provided as inpatient services in accordance with the 2-midnight benchmark. Estimated LOS (days): 4 days is the estimated time the patient will need to remain in the hospital, assuming treatment plan goals are met and no additional complications. Post-Hospital Plan: Not yet determined Mary Carmen Bush Aug 10, 2016 21:04 Lenny Terrell MD Aug 10, 2016 22:54
[2016-08-10] MEDS ORDERED: DEXTROSE 50% IN WATER 50 ML VIAL(D50) IV PRN (21:30)
[2016-08-10] MEDS ORDERED: GLUCAGON 1 MG/ML VIAL OTHER PRN (21:30)
[2016-08-10] MEDS ORDERED: Vancomycin Consult Pharmacy 1 EA OTHER SCH (22:15)
--- NOTE | 2016-08-10 22:24 | RADRPT ---
EXAM DATE/TIME: 08/10/2016 21:54 [facility] COMPARISON: No previous studies available for comparison. INDICATIONS : Bilateral leg swelling. MEDICAL HISTORY : Myocardial infarction. Hypercholesterolemia. Hypertension. Coronary artery disease. Cerebrovascular a ccident. Anticoagulant therapy, Eliquis. Afib. Sleep apnea. Diabetes. Osteoporosis. Polio. SURGICAL HISTORY : Oral surgery. ENCOUNTER: Initial ACUITY: 1 day PAIN SCORE: 0/10 LOCATION: Bilateral legs. TECHNIQUE: Venous ultrasound of the left and right leg was performed from the inguinal ligament to the proximal calf. Real-time, color Doppler and spectral tracing, compression and augmentation techniques were us ed. FINDINGS: RIGHT LEG: There is normal compressibility of the deep venous system from the inguinal region to the proximal ca lf. No echogenic clot is seen in the lumen of the common femoral, femoral, popliteal, and posterior tibial veins. There is a normal response of the venous system to proximal and distal augmentation an d respiration. LEFT LEG: There is normal compressibility of the deep venous system from the inguinal region to the proximal ca lf. No echogenic clot is seen in the lumen of the common femoral, femoral, popliteal, and posterior tibial veins. There is a normal response of the venous system to proximal and distal augmentation an d respiration. CONCLUSION: Negative exam with no evidence of deep venous thrombosis. Cheko Villanueva MD on August 10, 2016 at 22:20 Board Certified Radiologist. This report was verified electronically.
--- NOTE | 2016-08-10 22:33 | RADRPT ---
EXAM DATE/TIME: 08/10/2016 22:26 [facility] COMPARISON: CT BRAIN W/O CONTRAST, July 30, 2016, 18:08. INDICATIONS : Altered mental status. Patient with encephalopathy. RADIATION DOSE: 38.98 CTDIvol (mGy) MEDICAL HISTORY : Cardiovascular disease. Cerebrovascular disease. Hypertension. SURGICAL HISTORY : None. ENCOUNTER: Initial ACUITY: 1 day PAIN SCALE: 0/10 LOCATION: cranial TECHNIQUE: Multiple contiguous axial images were obtained of the head. Using automated exposure control and adj ustment of the mA and/or kV according to patient size, radiation dose was kept as low as reasonably a chievable to obtain optimal diagnostic quality images. DICOM format image data is available electro nically for review and comparison. FINDINGS: CEREBRUM: The ventricles are normal for age. No evidence of midline shift, mass lesion, hemorrhage or acute in farction. Is a stable area encephalomalacia involving the left frontal and parietal lobes. No extra-a xial fluid collections are seen. POSTERIOR FOSSA: The cerebellum and brainstem are intact. The 4th ventricle is midline. The cerebellopontine angle i s unremarkable. EXTRACRANIAL: The visualized portion of the orbits is intact. SKULL: The calvaria is intact. No evidence of skull fracture. CONCLUSION: 1. No acute hemorrhage, mass or infarction. 2. Chronic encephalomalacia Cheko Villanueva MD on August 10, 2016 at 22:28 Board Certified Radiologist. This report was verified electronically.
[2016-08-10] MEDS: METOPROLOL TARTRATE 25 MG TAB PO SCH (22:55)
[2016-08-10] MEDS: APIXABAN 5 MG TABLET PO SCH (22:55)
[2016-08-10] MEDS: ACETAMINOPHEN 325 MG TAB PO PRN (22:55)
[2016-08-10] MEDS ORDERED: VANCOMYCIN INJ 1,300 MG in SODIUM CHLORID 0.9% 500 ML INJ 500 ML IV ONE (23:00)
[2016-08-11] VITALS (31 sets, daily range): BP systolic 112–163; BP diastolic 52–82; PULSE 59–101; RESP 16–32; TEMP 97.5–102; O2SAT 84–96
[2016-08-11] MEDS: PIPERACIL-TAZO 4.5 GM PREMIX 100 ML IV SCH ×4 (02:30→21:11)
[2016-08-11 03:04] LABS: AUTOMATED NEUTROPHIL # 19.4 TH/MM3 (1.8-7.7); BASOPHIL # 0.1 TH/MM3 (0-0.2); BASOPHIL % 0.4 % (0.0-2.0); HEMATOCRIT 29.7 % (35.0-46.0); HEMO FLAGS DIFF FINAL; LYMPH % 1.4 % (9.0-44.0); LYMPHOCYTE # 0.3 TH/MM3 (1.0-4.8); MEAN CELL VOLUME 86.6 FL (80.0-100.0); MEAN CORPUSCULAR HEMOGLOBIN 29.8 PG (27.0-34.0); MEAN CORPUSCULAR HGB CONC 34.4 % (32.0-36.0); MONO % 4.4 % (0.0-8.0); NEUT % 93.8 % (16.0-70.0); PLATELET COUNT 232 TH/MM3 (150-450); RED BLOOD COUNT 3.43 MIL/MM3 (4.00-5.30); RED CELL DISTRIBUTION WIDTH 13.1 % (11.6-17.2); WHITE BLOOD COUNT 20.7 TH/MM3 (4.0-11.0)
[2016-08-11 03:40] LABS: ALKALINE PHOSPHATASE 44 U/L (45-117); ALT (GPT) 13 U/L (10-53); ANION GAP 8 MEQ/L (5-15); AST (GOT) 14 U/L (15-37); BICARBONATE 26.1 MEQ/L (21.0-32.0); BLOOD UREA NITROGEN 23 MG/DL (7-18); CHLORIDE 103 MEQ/L (98-107); GLOMERULAR FILTRATION RATE 50 ML/MIN (>89); SODIUM (NA) 137 MEQ/L (136-145); TOTAL BILIRUBIN ADULT 0.7 MG/DL (0.2-1.0)
[2016-08-11] MEDS: SODIUM CHLOR 0.9% 1000 ML INJ 1,000 ML IV SCH ×2 (06:00→13:45)
[2016-08-11] MEDS: INSULIN ASPART SUPPLEMENTAL SCALE SQ SCH ×4 (06:19→21:14)
[2016-08-11] MEDS: PARoxetine HCL 20 MG TAB PO SCH (08:51)
[2016-08-11] MEDS: METOPROLOL TARTRATE 25 MG TAB PO SCH ×2 (08:51→21:11)
[2016-08-11] MEDS: SODIUM CHLORIDE 0.9% FLUSH 10 ML FLUSH IV FLUSH SCH ×2 (08:51→21:11)
[2016-08-11] MEDS: LISINOPRIL 20 MG TAB PO SCH (08:51)
[2016-08-11] MEDS: APIXABAN 5 MG TABLET PO SCH (08:51)
[2016-08-11] MEDS ORDERED: NON-FORMULARY DRUG (Mirabegron (Myrbetriq) 25 MG) PO SCH (09:00)
[2016-08-11] MEDS: TOLTERODINE TARTRATE 2 MG CAP LA PO SCH (09:14)
[2016-08-11] MEDS ORDERED: SODIUM CHLORID 0.9% 500 ML INJ 500 ML IV ONE (09:30)
[2016-08-11] MEDS ORDERED: ASPIRIN 81 MG CHEW TAB CHEW ONE (09:30)
--- NOTE | 2016-08-11 09:39 | RADRPT ---
EXAM DATE/TIME: 08/11/2016 08:00 [facility] COMPARISON: US LEG BILATERAL VENOUS DOPPLER, August 10, 2016, 21:54. EXTERNAL COMPARISON : [facility], CT ABDOMEN & PELVIS W/O CONTRAST, July 10, 2016 INDICATIONS : Bruit. MEDICAL HISTORY : Myocardial infarction. Hypercholesterolemia. Diabetes mellitus type 2. CVA. Facial numbness. Sleep ap yulissa. HTN. Osteoporosis. Anticoagulant therpay, Eliquis. SURGICAL HISTORY : Oral surgery, teeth extractions. ENCOUNTER: Initial ACUITY: 1 day PAIN SCORE: 0/10 LOCATION: Abdomen. MEASUREMENTS: (AP x TRANSVERSE) PROXIMAL: 1.9 x 2.1 cm MID: 1.5 x 1.3 cm DISTAL: 1.0 x 1.1 cm RIGHT ILIAC: 0.8 x 0.9 cm LEFT ILIAC: 0.7 x 0.9 cm FINDINGS: AORTA: No significant atherosclerotic disease. Doppler evaluation within normal limits. IVC: Within normal limits. CONCLUSION: 1. No abdominal aortic aneurysm identified. Johnnie Bains MD on August 11, 2016 at 9:31 Board Certified Radiologist. This report was verified electronically.
--- NOTE | 2016-08-11 10:25 | HHI.PR ---
Subjective Remarks Patient laying in bed awake alert she's oriented to time place and person She's talking slowly Her sister and son and grandson went at the bedside I also discussed with her daughter "Letty"over the phone, she told me patient is following with the urologist and she had a CT with contrast for the kidney recently and she was to drink lots of water but she did not. This morning blood pressure is trending down comparing to 190/80 when she first came which is consistent with continuing sepsis, troponin elevated today to 1.39 , I was notified by the nurse that blood culture showed 4 out of 4 tubes gram- positive cocci. Patient is on Zosyn and Vanco we will continue, she is on 100 cc of normal saline now we'll give her another 500 cc bolus and drip stat lactic acid, I will hold off on doing MRI with gadolinium now due to her dehydration sepsis and kidney worsening, according to the sister and the patient the mild weakness in her legs is not new. Since March when she had the stroke with this being said I don't see an urgent need to expose patient to gadolinium at this point. We'll give aspirin full dose, continue cycling cardiac enzyme, stat EKG, consult cardiology"The sister requested to consulting different finance mgr since the one who saw the patient last time stated "he did not have more to offer "and the patient agreed" Patient had hemoglobin of 10, I will repeat H&H possible decrease with hydration , patient denied any chest anal, we may need to transfuse if it goes below 8 or patient had chest pain consult urology, CT abdomen and pelvic without contrast, repeat blood culture, Objective Vitals Vital Signs Date Time Temp Pulse Resp B/P Pulse Ox O2 Delivery O2 Flow Rate FiO2 08/11/16 09:00 68 08/11/16 08:00 64 08/11/16 07:00 61 08/11/16 07:00 97.5 66 16 119/60 95 08/11/16 06:22 60 08/11/16 05:00 62 08/11/16 04:00 62 08/11/16 03:28 98.8 64 112/54 96 08/11/16 03:00 62 08/11/16 02:00 62 08/11/16 01:00 64 08/11/16 00:56 98.3 76 121/59 95 08/11/16 00:24 69 08/11/16 00:00 74 08/10/16 20:00 102.0 95 20 149/70 08/10/16 19:42 100.2 89 14 181/78 98 Room Air 08/10/16 19:29 95 Nasal Cannula 2.00 08/10/16 16:47 101.3 88 22 166/72 93 Nasal Cannula 2 08/10/16 16:45 22 93 2 08/10/16 16:45 93 Nasal Cannula 2 08/10/16 16:38 101.3 95 24 191/80 92 Result Diagram: 08/11/1625208/11/163 Objective Remarks - GENERAL: This is a well-nourished, frail 70 years old female well-developed patient, in no apparent distress. SKIN: No rashes, warm and dry HEAD: Atraumatic. Normocephalic. EYES: Pupils equal round and reactive. Extraocular motions intact. No scleral icterus. ENT: Nose without bleeding, or drainage, Airway patent. NECK: Trachea midline. Supple CARDIOVASCULAR: Regular rate and rhythm positive systolic murmur 4 out of 6 best heard in the aortic area RESPIRATORY: Fair air entry bilaterally. No wheezes, rales, or rhonchi. GASTROINTESTINAL: Abdomen soft, non-tender, nondistended. Positive bowel sounds MUSCULOSKELETAL: Extremities without clubbing, cyanosis, or edema. Pedal pulses appreciated NEUROLOGICAL: Awake and alert. Cranial nerves II-12 intact except mild right facial droop , Moves all extremity 4 out of 5 in upper extremity, 3 out of 5 in the lower extremity. Normal speech but slow. A/P Problem List: (1) Sepsis ICD Code: A41.9 Status: Acute (2) Metabolic encephalopathy ICD Code: G93.41 Status: Acute (3) UTI (urinary tract infection) ICD Code: N39.0 Status: Acute (4) Dehydration ICD Code: E86.0 Status: Acute (5) Generalized weakness ICD Code: R53.1 Status: Acute Assessment and Plan 08/11 : -Septicemia with UTI, Decreased blood pressure consistent with ongoing severe sepsis>> repeat lactic acid stat, 500 cc and as bolus, continue iv fluid, continue Zosyn and Vanco, repeat blood culture, CT abdomen with pelvic without contrast, consult urology -Anemia dropped to 10 expect more increase with hydration>> stat CBC, transfuse if less than 8 or symptomatic with chest pain -Elevated troponin could be due to sepsis, 0.02>> 1.39 with new mild T inversion in III&AVF >> consult cardiology, aspirin, start pravastatin, fasting lipid profile, check EKG, continue cycling cardiac enzyme -KENISHA with dehydration Patient is on Zosyn and Vanco we will continue, she is on 100 cc of normal saline now we'll give her another 500 cc bolus and drip stat lactic acid, I will hold off on doing MRI with gadolinium now due to her dehydration sepsis and kidney worsening, according to the sister and the patient the mild weakness in her legs is not new. Since March when she had the stroke with this being said I don't see an urgent need to expose patient to gadolinium at this point. We'll give aspirin full dose, continue cycling cardiac enzyme, stat EKG, consult cardiology"The sister requested to consulting different finance mgr since the one who saw the patient last time stated "he did not have more to offer "and the patient agreed" Patient had hemoglobin of 10, I will repeat H&H possible decrease with hydration , patient denied any chest anal, we may need to transfuse if it goes below 8 or patient had chest pain consult urology, CT abdomen and pelvic without contrast, repeat blood culture, Lengthy discussion with the family and the daughter over the phone>> time spent 70 minutes A/P: 70-year-old female with a past medical history of CVA with dysarthria, DM, CAD, HTN, HLD, Atrial fibrillation. Patient's family member called 911 because patient was lethargic at home. Patient is currently able to awake to voice noted to be slow to respond but does appear oriented. Patient endorses fevers and shortness of breath. Sepsis (temp 101.3, HR 95, RR24, WBC 22.0 suspected source UTI) Metabolic encephalopathy Frequent falls while on anticoagulation Recent multifocal infarct/CVA CT head unremarkable, hold off on MRI of the brain due to KENISHA, significant changes to necessitate urgent MRI at this point Blood culture x2 for 2 positive for been positive cocci Zosyn IV and Vanco dehydration- acute NS 100ml/h RLE edema > LLE US lower extremity no DVT Abdominal ultrasound ruled out aneurysm DM- chronic hold oral diabetic medication accu check with SI coverage A fib- hx currently in SR continue Eliquis HTN- chronic continue home medications including lisinopril, metoprolol, amlodipine continue to monitor BP trend DVT prophylaxis patient on Eliquis Discussed with nursing and patient Keiko Atkins MD Aug 11, 2016 10:25
[2016-08-11 11:10] LABS: AUTOMATED NEUTROPHIL # 14.2 TH/MM3 (1.8-7.7); BASOPHIL # 0.1 TH/MM3 (0-0.2); BASOPHIL % 0.4 % (0.0-2.0); HEMATOCRIT 29.6 % (35.0-46.0); HEMO FLAGS DIFF FINAL; LYMPH % 2.2 % (9.0-44.0); LYMPHOCYTE # 0.3 TH/MM3 (1.0-4.8); MEAN CELL VOLUME 87.3 FL (80.0-100.0); MEAN CORPUSCULAR HEMOGLOBIN 30.3 PG (27.0-34.0); MEAN CORPUSCULAR HGB CONC 34.6 % (32.0-36.0); MONO % 4.9 % (0.0-8.0); NEUT % 92.5 % (16.0-70.0); PLATELET COUNT 210 TH/MM3 (150-450); RED BLOOD COUNT 3.39 MIL/MM3 (4.00-5.30); RED CELL DISTRIBUTION WIDTH 13.3 % (11.6-17.2); WHITE BLOOD COUNT 15.4 TH/MM3 (4.0-11.0)
[2016-08-11 12:07] LABS: HDL CHOLESTEROL 49.6 MG/DL (40.0-60.0)
--- NOTE | 2016-08-11 12:51 | RADRPT ---
EXAM DATE/TIME: 08/11/2016 11:55 [facility] COMPARISON: No previous studies available for comparison. INDICATIONS : Sepsis. UTI. Dehydration. Hydronephrosis. ORAL CONTRAST: No oral contrast ingested. RADIATION DOSE: 6.76 CTDIvol (mGy) MEDICAL HISTORY : Cardiovascular disease. Cerebrovascular disease. Hypertension.Diabetic SURGICAL HISTORY : None. ENCOUNTER: Initial ACUITY: 1 day PAIN SCALE: 0/10 LOCATION: Abdomen TECHNIQUE: Volumetric scanning of the abdomen and pelvis was performed. Using automated exposure control and ad justment of the mA and/or kV according to patient size, radiation dose was kept as low as reasonably achievable to obtain optimal diagnostic quality images. DICOM format image data is available electro nically for review and comparison. FINDINGS: There are small bilateral pleural effusions and dependent atelectasis at the lung bases. No acute findings in the liver, spleen, adrenals and pancreas. There is a 16mm by 11 mm calculus in right renal pelvis without definite obstructive uropathy. Additi onal tiny nonobstructing calcifications also present in the right kidney. There is moderate to severe hydronephrosis in the left renal collecting system with dense material pr esent in the collecting system. The left ureter has normal caliber. This may be secondary to a UPJ ob struction on the left. There is also a left renal cyst measuring about 3.5 cm in diameter. There is p erinephric stranding bilaterally. No bowel obstruction. No free air or free fluid. CONCLUSION: 1. Moderate to severe left-sided hydronephrosis probably secondary to a left UPJ obstruction. Left ur eter has normal caliber. 2. Nonobstructing 16mm by 11 mm calculus in the right renal pelvis. Perinephric stranding present hamzah aterally. 3. Trace bilateral pleural effusions. No bowel obstruction or free air. Arthur Tirado MD on August 11, 2016 at 12:41 Board Certified Radiologist. This report was verified electronically.
--- NOTE | 2016-08-11 16:23 | EKG ---
Date Performed: 08/11/2016 Time Performed: 10:16:42 PTAGE: 70 years EKG: Sinus rhythm . Inferior and anterior T wave changes are nonspecific Borderline ECG PREVIOUS TRACING 08/10/2016 @ 19.30.10 Compared to prior tracing no significant change DOCTOR: Kim Sheppard Interpretating Date/Time 08/11/2016 16:23:08
--- NOTE | 2016-08-11 16:23 | EKG ---
Date Performed: 08/10/2016 Time Performed: 19:30:10 PTAGE: 70 years EKG: Sinus rhythm MODERATE INTRAVENTRICULAR CONDUCTION DELAY NONSPECIFIC ST & T-WAVE ABNORMALITY BORDERLINE ECG PREVIOUS TRACING : 04/11/2016 09.38 Compared to prior tracing no significant change DOCTOR: Kim Sheppard Interpretating Date/Time 08/11/2016 16:20:37
[2016-08-11] MEDS: PRAVASTATIN SOD 40 MG TAB PO SCH (17:35)
--- NOTE | 2016-08-11 17:42 | ECHRPT ---
Indication: elevated trop CONCLUSIONS Normal left ventricular size. The left ventricular systolic function is low normal with an estimated ejection fraction in the rang e of 50- 55%. Mild mitral valve regurgitation. Moderate thickening of the aortic valve leaflets. Moderate aortic valve stenosis. Aortic valve mean gradient is 31 mmHg. Aortic valve area is 0.74 cm. v max 363 There is mild tricuspid valve regurgitation. BP: / HR: Rhythm: MEASUREMENTS (Male / Female) Normal Values Technical Quality:Good 2D ECHO LV Diastolic Diameter PLAX 4.2 cm 4.2 - 5.9 / 3.9 - 5.3 cm LV Systolic Diameter PLAX 3.3 cm IVS Diastolic Thickness 1.3 cm 0.6 - 1.0 / 0.6 - 0.9 cm LVPW Diastolic Thickness 1.1 cm 0.6 - 1.0 / 0.6 - 0.9 cm LV Relative Wall Thickness 0.5 RV Internal Dim ED PLAX 2.8 cm M-MODE LA Systolic Diameter MM 3.3 cm LA Ao Ratio MM 1.0 AV Cusp Separation MM 1.3 cm DOPPLER AV Peak Velocity 344.2 cm/s AV Peak Gradient 47.4 mmHg AV Mean Gradient 31.0 mmHg AV Velocity Time Integral 87.7 cm LVOT Peak Velocity 85.7 cm/s LVOT Peak Gradient 2.9 mmHg LVOT Velocity Time Integral 22.7 cm AV Area Cont Eq vti 0.7 cm AV Area Cont Eq pk 0.7 cm Mitral E Point Velocity 85.4 cm/s Mitral A Point Velocity 86.4 cm/s Mitral E to A Ratio 1.0 LV E' Lateral Velocity 13.6 cm/s Mitral E to LV E' Lateral Ratio 6.3 LV E' Septal Velocity 9.6 cm/s Mitral E to LV E' Septal Ratio 8.9 TR Peak Velocity 274.0 cm/s TR Peak Gradient 30.0 mmHg FINDINGS LEFT VENTRICLE Normal left ventricular size. The left ventricular systolic function is low normal with an estimated ejection fraction in the rang e of 50- 55%. RIGHT VENTRICLE Normal right ventricular size and systolic function. LEFT ATRIUM The left atrial size is normal. RIGHT ATRIUM The right atrial size is normal. ATRIAL SEPTUM Normal atrial septal thickness without atrial level shunting by limited color doppler interrogation. AORTA The aortic root and proximal ascending aorta are normal in size on limited imaging. MITRAL VALVE Structurally normal mitral valve. Mild mitral valve regurgitation. AORTIC VALVE Moderate thickening of the aortic valve leaflets. Moderate aortic valve stenosis. Aortic valve mean gradient is 31 mmHg. Aortic valve area is 0.74 cm. v max 363 TRICUSPID VALVE Structurally normal tricuspid valve. There is mild tricuspid valve regurgitation. PULMONARY VALVE The pulmonary valve is not well visualized. VESSELS The inferior vena cava is normal in size. PERICARDIUM No pericardial effusion. Miko Snyder MD (Electronically Signed) Final Date:11 August 2016 17:41
[2016-08-11] MEDS ORDERED: PRAVASTATIN SOD 40 MG TAB PO SCH (19:15)
--- NOTE | 2016-08-11 19:44 | MB ---
cc: THEODORA ROBISON MD DATE OF CONSULTATION 08/11/16 HISTORY OF PRESENT ILLNESS Ms. Villa is a 70-year-old white female with history of CVA, coronary artery disease, hypertension, diabetes mellitus, dyslipidemia and atrial fibrillation. She has had residual dysarthria. She was lethargic at home and was brought to the emergency room. She denies any chest pain or shortness of breath. She was diagnosed with sepsis, metabolic encephalopathy and UTI and dehydration. Her troponin is elevated but she has not had any cardiac symptoms. PAST MEDICAL HISTORY Past medical history was positive for hypertension, dyslipidemia, diabetes mellitus, coronary artery disease, CVA with residual dysarthria, atrial fibrillation and previous history of ___, history of oral surgery. MEDICATIONS 1. Paroxatine. 2. Myrbetriq. 3. Metoprolol 25 milligrams twice a day. 4. Eliquis 5 milligrams twice a day. 5. Lisinopril. 6. Insulin. 7. Amlodipine. 8. Metformin. ALLERGIES MOTREL. SOCIAL HISTORY The patient does not smoke. She does not drink alcohol. FAMILY HISTORY Positive for heart disease. REVIEW OF SYSTEMS Review of systems is otherwise negative. PHYSICAL EXAMINATION VITAL SIGNS: Blood pressure 116/52, pulse 65 regular. HEENT: Negative. 2+ carotid upstrokes. No bruits. LUNGS: Clear. HEART: Regular with 3/6 ___ murmur at the right upper sternal border radiating to the carotid arteries. No gallop. ABDOMEN: Soft, nontender. EXTREMITIES: Without edema. 1+ distal pulses. NEUROLOGIC: Grossly nonfocal. The patient has generalized weakness. CARDIOLOGY STUDIES EKG was reviewed and showed normal sinus rhythm at 63 per minute and nonspecific ST-T changes. LABORATORY DATA Hemoglobin 10.3, potassium 4.0 and creatinine of 0.94 and 1.09. Troponin less than 0.02 and 1.39, LDL 53, HDL 50. CARDIOLOGY STUDIES Echocardiogram shows borderline normal left ventricular systolic function with an ejection fraction of 50-55%, mild mitral regurgitation and moderate aortic stenosis. DIAGNOSIS 1. Sepsis. 2. Elevated troponin. 3. Coronary artery disease. 4. CVA with residual dysarthria. 5. Paroxysmal atrial fibrillation. 6. Hypertension. 7. Dyslipidemia. 8. Moderate aortic stenosis. DISPOSITION Mrs. Villa will be monitored on telemetry. Troponin mildly elevated and her EKG was mildly abnormal. She has not had any chest pain or significant dyspnea. She is scheduled for adenosine myocardial perfusion study to evaluate for ischemia. She will be ____ for her for cardiology during hospitalization. MD ONESIMO Medeiros/BARBARA /6:28 PM /7:20 PM
[2016-08-11] MEDS: HEPARIN-D5W INJ 250 ML IV SCH (21:21)
[2016-08-11 21:38] LABS: HEMATOCRIT 31.3 % (35.0-46.0); MEAN CELL VOLUME 87.4 FL (80.0-100.0); MEAN CORPUSCULAR HEMOGLOBIN 30.3 PG (27.0-34.0); MEAN CORPUSCULAR HGB CONC 34.6 % (32.0-36.0); PLATELET COUNT 218 TH/MM3 (150-450); RED BLOOD COUNT 3.58 MIL/MM3 (4.00-5.30); RED CELL DISTRIBUTION WIDTH 13.4 % (11.6-17.2); REVIEW FLAG FINAL; WHITE BLOOD COUNT 10.1 TH/MM3 (4.0-11.0)
[2016-08-11 21:57] LABS: APTT (PATIENT) 37.4 SEC (24.3-30.1); PROTHROMBIN TIME - PATIENT 10.7 SEC (9.8-11.6)
[2016-08-11] MEDS ORDERED: RESP: ALBUTEROL 2.5 MG/IPRATROPIUM 0.5 MG NEB (SCH) NEB STA (22:06)
[2016-08-11] MEDS ORDERED: RESP: ALBUTEROL 2.5 MG/IPRATROPIUM 0.5 MG NEB (PRN) NEB (22:15)
--- NOTE | 2016-08-11 22:26 | RADRPT ---
EXAM DATE/TIME: 08/11/2016 22:13 [facility] COMPARISON: CHEST SINGLE AP, August 10, 2016, 16:54. INDICATIONS : Shortness of breath. MEDICAL HISTORY : Myocardial infarction. Hypercholesterolemia. Diabetes mellitus type 2. CVA. Facial numbness. Sleep ap yulissa. HTN. Osteoporosis. Anticoagulant therpay, Eliquis. SURGICAL HISTORY : Oral surgery, teeth extractions. ENCOUNTER: Subsequent ACUITY: 1 day PAIN SCORE: 0/10 LOCATION: Bilateral chest FINDINGS: A single portable frontal view the chest shows bibasilar consolidation. This is new from the prior st udy. No effusions. Heart is normal in size. A degenerative mildly scoliotic spine. CONCLUSION: New bibasilar consolidations. Differential diagnostic considerations include edema versus infectious infiltrates. Andre Coker Jr., MD on August 11, 2016 at 22:23 Board Certified Radiologist. This report was verified electronically.
[2016-08-11 22:32] LABS: BLOOD GAS BASE EXCESS -3.2 mmol/L (-2-2); BLOOD GAS CARBOXYHEMOGLOBIN 1.7 % (0-4); BLOOD GAS HCO3 21 mmol/L (22-26); BLOOD GAS METHEMOGLOBIN 1.1 % (0-2); BLOOD GAS O2 HGB SATURATION 91 % (90-100); BLOOD GAS OXYGEN CONTENT 12.8 Vol % (12.0-20.0); BLOOD GAS PCO2 34 mmHg (38-42); BLOOD GAS PO2 66 mmHg (61-120); TEMP CORR TO 98.6
[2016-08-11 22:33] LABS: CRITICAL VALUE NO; DRAW SITE RT RADIAL; FIO2 50 %; LITER FLOW 6 L/M; NUMBER OF ARTERIAL PUNCTURES 1; OXYGEN DEVICE Venti Mask; STAT YES; ULNAR PULSE PRESENT
[2016-08-11] MEDS ORDERED: FUROSEMIDE 40 MG/4 ML VIAL IV PUSH ONE (23:00)
[2016-08-12] VITALS (17 sets, daily range): BP systolic 143–178; BP diastolic 64–84; PULSE 62–102; RESP 15–28; TEMP 98.4–101.3; O2SAT 93–98
[2016-08-12] MEDS: ACETAMINOPHEN 325 MG TAB PO PRN ×2 (00:15→23:04)
[2016-08-12 01:58] LABS: BLOOD GAS BASE EXCESS -2.6 mmol/L (-2-2); BLOOD GAS CARBOXYHEMOGLOBIN 1.5 % (0-4); BLOOD GAS HCO3 21 mmol/L (22-26); BLOOD GAS METHEMOGLOBIN 1.2 % (0-2); BLOOD GAS O2 HGB SATURATION 94 % (90-100); BLOOD GAS OXYGEN CONTENT 17.9 Vol % (12.0-20.0); BLOOD GAS PCO2 33 mmHg (38-42); BLOOD GAS PO2 85 mmHg (61-120); BLOOD GAS TOTAL HGB 13.5 G/DL (12.0-16.0); CRITICAL VALUE NO; DRAW SITE RT RADIAL; FIO2 50 %; NUMBER OF ARTERIAL PUNCTURES 1; OXYGEN DEVICE BiPAP; STAT NO; TEMP CORR TO 98.6; ULNAR PULSE PRESENT; VENT SETTINGS 12IPAP/5EPAP
[2016-08-12] MEDS: PIPERACIL-TAZO 4.5 GM PREMIX 100 ML IV SCH ×2 (02:00→08:00)
[2016-08-12] MEDS: SODIUM CHLOR 0.9% 1000 ML INJ 1,000 ML IV SCH (05:02)
[2016-08-12 05:18] LABS: APTT (PATIENT) 61.8 SEC (24.3-30.1)
[2016-08-12] MEDS ORDERED: VANCOMYCIN 1,000 MG/NS 250 ML IV SCH ×2 (06:00)
[2016-08-12] MEDS: INSULIN ASPART SUPPLEMENTAL SCALE SQ SCH ×4 (07:19→20:30)
[2016-08-12] MEDS: SODIUM CHLORIDE 0.9% FLUSH 10 ML FLUSH IV FLUSH SCH ×2 (08:00→20:33)
--- NOTE | 2016-08-12 08:48 | PD.CARD.PN ---
Subjective Subjective Remarks No distress. Denies CP or SOB. Hypoxemia. On BiPAP , . 50 fiO2 Febrile last night. Objective Medications Current Medications Medications (Trade) Dose Ordered Sig/Leila Route PRN Reason Start Time Stop Time Status Last Admin Dose Admin Sodium Chloride (NS 1000 ml Inj) 1,000 ml @ 50 mls/hr Q20H IV 08/10/16 20:00 08/12/16 05:02 Sodium Chloride (NS Flush) 2 ml UNSCH PRN IV FLUSH FLUSH AFTER USING IV ACCESS 08/10/16 19:00 Sodium Chloride (NS Flush) 2 ml BID IV FLUSH 08/10/16 21:00 08/11/16 21:11 Acetaminophen (Tylenol) 650 mg Q4H PRN PO TEMP > 100.4 08/10/16 19:00 08/12/16 00:15 Acetaminophen (Tylenol) 650 mg Q6H PRN PO PAIN SCALE 1 TO 2 08/10/16 19:00 Naloxone HCl 0.4 mg 0.4 mg UNSCH PRN IV SEE LABEL COMMENTS 08/10/16 19:00 Piperacillin Sod/ Tazobactam Sod (Zosyn 4.5 Gm Premix) 100 ml @ 200 mls/hr Q6H IV 08/10/16 20:00 08/12/16 08:00 Amlodipine Besylate (Norvasc) 10 mg DAILY PO 08/11/16 09:00 08/11/16 08:51 Lisinopril (Prinivil) 20 mg DAILY PO 08/11/16 09:00 08/11/16 08:51 Metoprolol Tartrate (Lopressor) 25 mg BID PO 08/10/16 21:30 08/11/16 21:11 Paroxetine HCl (Paxil) 20 mg DAILY PO 08/11/16 09:00 08/11/16 08:51 Dextrose (D50w (Vial) Inj) 50 ml UNSCH PRN IV HYPOGLYCEMIA-SEE COMMENTS 08/10/16 21:30 Glucagon (Glucagon Inj) 1 mg UNSCH PRN OTHER HYPOGLYCEMIA-SEE COMMENTS 08/10/16 21:30 Tolterodine Tartrate 2 mg 2 mg DAILY PO 08/11/16 09:00 08/11/16 09:14 Pharmacy Profile Note 0 ml @ 0 mls/hr UNSCH OTHER 08/10/16 22:15 Vancomycin HCl/ Sodium Chloride (Vancomycin Inj/ NS 250 ml Inj) 250 ml @ 250 mls/hr Q24H IV 08/12/16 06:00 08/12/16 05:51 Miscellaneous Information SPECIFIC LAB TO BE ... ONCE ONCE .XX 08/15/16 05:45 08/15/16 05:46 Pravastatin Sodium 10 mg 10 mg DAILY@18 PO 08/11/16 18:00 08/11/16 17:35 Heparin Sodium/ Dextrose (Heparin-D5W Inj) 250 ml @ 0 mls/hr TITRATE IV 08/11/16 21:00 08/11/16 21:21 Vital Signs / I&O Vital Signs Date Time Temp Pulse Resp B/P Pulse Ox O2 Delivery O2 Flow Rate FiO2 08/12/16 07:00 72 08/12/16 07:00 98.7 64 21 149/68 97 08/12/16 07:00 97 Bi-Pap 50 08/12/16 04:00 95 Bi-Pap 50 08/12/16 04:00 98.5 67 26 151/68 95 08/12/16 04:00 67 08/12/16 03:50 98 50 08/12/16 03:10 95 50 08/12/16 03:00 70 08/12/16 02:00 98 08/12/16 02:00 76 08/12/16 01:31 101.3 76 28 166/74 98 08/12/16 01:00 84 08/12/16 01:00 95 08/12/16 00:45 90 08/12/16 00:45 93 50 08/12/16 00:00 82 08/12/16 00:00 91 Nasal Cannula 3.00 08/11/16 23:00 94 Nasal Cannula 3.00 08/11/16 23:00 82 08/11/16 22:00 94 Nasal Cannula 3.00 08/11/16 22:00 94 08/11/16 22:00 102.0 82 32 163/68 90 08/11/16 21:29 95 Venturi Mask 6.00 50 08/11/16 21:00 97 08/11/16 21:00 84 Nasal Cannula 3.00 08/11/16 20:52 97.5 97 24 163/82 84 08/11/16 20:00 97 08/11/16 19:00 91 Nasal Cannula 3.00 08/11/16 19:00 97 08/11/16 18:00 101 08/11/16 17:00 75 08/11/16 16:00 67 08/11/16 15:00 99.0 65 18 116/52 94 08/11/16 15:00 59 08/11/16 14:20 93 Nasal Cannula 3.00 08/11/16 14:00 65 08/11/16 13:00 73 08/11/16 12:00 60 08/11/16 11:39 93 Nasal Cannula 3.00 08/11/16 11:00 97.6 63 16 120/56 93 08/11/16 11:00 62 08/11/16 10:00 62 08/11/16 09:00 68 I/O 08/11/16 08/11/16 08/11/16 08/12/16 08/12/16 08/12/16 07:00 15:00 23:00 07:00 15:00 23:00 Intake Total 2974 ml 242 ml Balance 2974 ml 242 ml Intake Oral 240 ml 0 ml IV Total 2734 ml 242 ml # Voids 3 3 2 # Bowel Movements 1 0 Physical Exam VSS, afebrile this AM. No JVD Lungs: CTA Heart: Irreg. CRISELDA Ext: No C/C/E Laboratory Laboratory Tests Test 08/11/16 08/11/16 08/11/16 08/11/16 10:25 11:31 17:10 21:19 White Blood Count 15.4 TH/MM3 10.1 TH/MM3 Red Blood Count 3.39 MIL/MM3 3.58 MIL/MM3 Hemoglobin 10.3 GM/DL 10.8 GM/DL Hematocrit 29.6 % 31.3 % Mean Corpuscular Volume 87.3 FL 87.4 FL Mean Corpuscular Hemoglobin 30.3 PG 30.3 PG Mean Corpuscular Hemoglobin 34.6 % 34.6 % Concent Red Cell Distribution Width 13.3 % 13.4 % Platelet Count 210 TH/MM3 218 TH/MM3 Mean Platelet Volume 8.0 FL 8.2 FL Neutrophils (%) (Auto) 92.5 % Lymphocytes (%) (Auto) 2.2 % Monocytes (%) (Auto) 4.9 % Eosinophils (%) (Auto) 0.0 % Basophils (%) (Auto) 0.4 % Neutrophils # (Auto) 14.2 TH/MM3 Lymphocytes # (Auto) 0.3 TH/MM3 Monocytes # (Auto) 0.8 TH/MM3 Eosinophils # (Auto) 0.0 TH/MM3 Basophils # (Auto) 0.1 TH/MM3 CBC Comment DIFF FINAL Differential Comment Lactic Acid Level 1.0 mmol/L Total Creatine Kinase 55 U/L Troponin I 1.28 NG/ML Prothrombin Time 10.7 SEC Prothromb Time International 1.0 RATIO Ratio Activated Partial 37.4 SEC Thromboplast Time Test 08/11/16 08/12/16 08/12/16 22:19 01:45 04:13 Blood Gas Puncture Site RT RADIAL RT RADIAL Blood Gas Patient Temperature 98.6 98.6 Blood Gas HCO3 21 mmol/L 21 mmol/L Blood Gas Base Excess -3.2 mmol/L -2.6 mmol/L Blood Gas Oxygen Saturation 91 % 94 % Arterial Blood pH 7.41 7.43 Arterial Blood Partial 34 mmHg 33 mmHg Pressure CO2 Arterial Blood Partial 66 mmHg 85 mmHg Pressure O2 Arterial Blood Oxygen Content 12.8 Vol % 17.9 Vol % Arterial Blood 1.7 % 1.5 % Carboxyhemoglobin Arterial Blood Methemoglobin 1.1 % 1.2 % Blood Gas Hemoglobin 10.0 G/DL 13.5 G/DL Oxygen Delivery Device Venti Mask BiPAP Blood Gas Liter Flow 6 L/M Blood Gas Inspired Oxygen 50 % 50 % Blood Gas Ventilator Setting 12IPAP/5EPAP Activated Partial 61.8 SEC Thromboplast Time Imaging Last 48 hours Impressions Chest X-Ray 08/11/16 0000 Signed Impressions: Service Date/Time: Thursday, August 11, 2016 22:13 - CONCLUSION: New bibasilar consolidations. Differential diagnostic considerations include edema versus infectious infiltrates. Andre Coker Jr., MD Aorta Ultrasound 08/11/16 0000 Signed Impressions: Service Date/Time: Thursday, August 11, 2016 08:00 - CONCLUSION: 1. No abdominal aortic aneurysm identified. Johnnie Bains MD Abdomen/Pelvis CT 08/11/16 0000 Signed Impressions: Service Date/Time: Thursday, August 11, 2016 11:55 - CONCLUSION: 1. Moderate to severe left-sided hydronephrosis probably secondary to a left UPJ obstruction. Left ureter has normal caliber. 2. Nonobstructing 16mm by 11 mm calculus in the right renal pelvis. Perinephric stranding present bilaterally. 3. Trace bilateral pleural effusions. No bowel obstruction or free air. Arthur Tirado MD Chest X-Ray 08/10/16 0838 Signed Impressions: Service Date/Time: , August 10, 2016 16:54 - CONCLUSION: No acute disease. No significant change has occurred. Arthur Tirado MD Assessment and Plan Problem List: (1) Elevated troponin (2) Aortic stenosis, moderate (3) Hypertension (4) Sepsis Assessment and Plan CV stable. No CP. Continue Rx for underlying sepsis. Awaiting Pharm-MPI. Will reschedule for tomorrow if O2 sats improved and no recurrent fever. Discussed with patient and medical staff credentialing coordinator. Yoel Wu MD Aug 12, 2016 08:48
[2016-08-12] MEDS: LISINOPRIL 20 MG TAB PO SCH (09:11)
[2016-08-12] MEDS: METOPROLOL TARTRATE 25 MG TAB PO SCH ×2 (09:11→20:29)
--- NOTE | 2016-08-12 09:47 | HHI.PR ---
Subjective Remarks Patient transferred to CVICU overnight due to respiratory distress She was placed on BiPAP, her ABG showed slight alkalosis no hypercapnia Patient resting comfortably and alert, she has simple questions, she is oriented to her name Denied any chest pain, any short of breath fever or chills She placed on simple nasal cannula today however her O2 sat dropped to 88, will placed on high flow oxygen Objective Vitals Vital Signs Date Time Temp Pulse Resp B/P Pulse Ox O2 Delivery O2 Flow Rate FiO2 08/12/16 07:00 72 08/12/16 07:00 98.7 64 21 149/68 97 08/12/16 07:00 97 Bi-Pap 50 08/12/16 04:00 95 Bi-Pap 50 08/12/16 04:00 98.5 67 26 151/68 95 08/12/16 04:00 67 08/12/16 03:50 98 50 08/12/16 03:10 95 50 08/12/16 03:00 70 08/12/16 02:00 98 08/12/16 02:00 76 08/12/16 01:31 101.3 76 28 166/74 98 08/12/16 01:00 84 08/12/16 01:00 95 08/12/16 00:45 90 08/12/16 00:45 93 50 08/12/16 00:00 82 08/12/16 00:00 91 Nasal Cannula 3.00 08/11/16 23:00 94 Nasal Cannula 3.00 08/11/16 23:00 82 08/11/16 22:00 94 Nasal Cannula 3.00 08/11/16 22:00 94 08/11/16 22:00 102.0 82 32 163/68 90 08/11/16 21:29 95 Venturi Mask 6.00 50 08/11/16 21:00 97 08/11/16 21:00 84 Nasal Cannula 3.00 08/11/16 20:52 97.5 97 24 163/82 84 08/11/16 20:00 97 08/11/16 19:00 91 Nasal Cannula 3.00 08/11/16 19:00 97 08/11/16 18:00 101 08/11/16 17:00 75 08/11/16 16:00 67 08/11/16 15:00 99.0 65 18 116/52 94 08/11/16 15:00 59 08/11/16 14:20 93 Nasal Cannula 3.00 08/11/16 14:00 65 08/11/16 13:00 73 08/11/16 12:00 60 08/11/16 11:39 93 Nasal Cannula 3.00 08/11/16 11:00 97.6 63 16 120/56 93 08/11/16 11:00 62 08/11/16 10:00 62 I/O 08/11/16 08/11/16 08/11/16 08/12/16 08/12/16 08/12/16 07:00 15:00 23:00 07:00 15:00 23:00 Intake Total 2974 ml 242 ml Balance 2974 ml 242 ml Intake Oral 240 ml 0 ml IV Total 2734 ml 242 ml # Voids 3 3 2 # Bowel Movements 1 0 Result Diagram: 08/11/16211808/11/16 0253 Objective Remarks - GENERAL: This is a well-nourished, frail 70 years old female well-developed patient, in no apparent distress. SKIN: No rashes, warm and dry HEAD: Atraumatic. Normocephalic. EYES: Pupils equal round and reactive. Extraocular motions intact. No scleral icterus. ENT: Nose without bleeding, or drainage, Airway patent. NECK: Trachea midline. Supple CARDIOVASCULAR: Regular rate and rhythm positive systolic murmur 4 out of 6 best heard in the aortic area RESPIRATORY: Positive rales bibasilar GASTROINTESTINAL: Abdomen soft, non-tender, nondistended. Positive bowel sounds MUSCULOSKELETAL: Extremities without clubbing, cyanosis, or edema. Pedal pulses appreciated NEUROLOGICAL: Awake and alert. Cranial nerves II-12 intact except mild right facial droop , Moves all extremity 4 out of 5 in upper extremity, 3 out of 5 in the lower extremity. Normal speech but slow. A/P Problem List: (1) Sepsis ICD Code: A41.9 Status: Acute (2) Metabolic encephalopathy ICD Code: G93.41 Status: Acute (3) UTI (urinary tract infection) ICD Code: N39.0 Status: Acute (4) Dehydration ICD Code: E86.0 Status: Acute (5) Generalized weakness ICD Code: R53.1 Status: Acute Assessment and Plan 08/11 : -Septicemia with UTI, Decreased blood pressure consistent with ongoing severe sepsis>> repeat lactic acid stat, 500 cc and as bolus, continue iv fluid, continue Zosyn and Vanco, repeat blood culture, CT abdomen with pelvic without contrast, consult urology -Anemia dropped to 10 expect more increase with hydration>> stat CBC, transfuse if less than 8 or symptomatic with chest pain -Elevated troponin could be due to sepsis, 0.02>> 1.39 with new mild T inversion in III&AVF >> consult cardiology, aspirin, start pravastatin, fasting lipid profile, check EKG, continue cycling cardiac enzyme -KENISHA with dehydration Patient is on Zosyn and Vanco we will continue, she is on 100 cc of normal saline now we'll give her another 500 cc bolus and drip stat lactic acid, I will hold off on doing MRI with gadolinium now due to her dehydration sepsis and kidney worsening, according to the sister and the patient the mild weakness in her legs is not new. Since March when she had the stroke with this being said I don't see an urgent need to expose patient to gadolinium at this point. We'll give aspirin full dose, continue cycling cardiac enzyme, stat EKG, consult cardiology"The sister requested to consulting different commercial baker helper since the one who saw the patient last time stated "he did not have more to offer "and the patient agreed" Patient had hemoglobin of 10, I will repeat H&H possible decrease with hydration , patient denied any chest anal, we may need to transfuse if it goes below 8 or patient had chest pain consult urology, CT abdomen and pelvic without contrast, repeat blood culture, Lengthy discussion with the family and the daughter over the phone>> time spent 70 minutes 08/12: Hypoxic Respiratory failure Started on O2 and BiPAP, ABG reviewed by me showing pH 7.43, PCO2 33, pO2 85, patient started on heparin drip since last night, unlikely to be due to PE since patient has been fully anticoagulated Repeat chest x-ray, patient was given Lasix overnight, will continue on monitor BMP, BNP in a.m. Positive blood culture for gram-positive cocci, leukocytosis resolved, consult ID, awaiting 2-D echo, continue iv antibiotic Vanco and Zosyn Patient cardiology note, patient will need stress test to assess ischemia, awaiting 2-D echo A/P: 70-year-old female with a past medical history of CVA with dysarthria, DM, CAD, HTN, HLD, Atrial fibrillation. Patient's family member called 911 because patient was lethargic at home. Patient is currently able to awake to voice noted to be slow to respond but does appear oriented. Patient endorses fevers and shortness of breath. Sepsis (temp 101.3, HR 95, RR24, WBC 22.0 suspected source UTI) Metabolic encephalopathy Frequent falls while on anticoagulation Recent multifocal infarct/CVA CT head unremarkable, hold off on MRI of the brain due to KENISHA, significant changes to necessitate urgent MRI at this point Blood culture x2 for 2 positive for been positive cocci Zosyn IV and Vanco dehydration- acute>>resolved , now qith volume overload , pulmonary congestion dc ivf , iv lasix , monitor bmp RLE edema > LLE US lower extremity no DVT Abdominal ultrasound ruled out aneurysm DM- chronic hold oral diabetic medication accu check with SI coverage A fib- hx currently in SR continue Eliquis HTN- chronic continue home medications including lisinopril, metoprolol, amlodipine continue to monitor BP trend DVT prophylaxis patient on Eliquis Discussed with nursing and patient Keiko Atkins MD Aug 12, 2016 09:47
--- NOTE | 2016-08-12 10:06 | RADRPT ---
EXAM DATE/TIME: 08/12/2016 09:51 CORRECTION Corrected on: August 13, 2016; [facility] COMPARISON: CHEST SINGLE AP, August 11, 2016, 22:13. INDICATIONS : Shortness of breath. MEDICAL HISTORY : Myocardial infarction. Hypercholesterolemia. Diabetes mellitus type 2. CVA. Facial numbness. Sleep ap yulissa. HTN. Osteoporosis. Anticoagulant therpay, Eliquis. SURGICAL HISTORY : Oral surgery, teeth extractions. ENCOUNTER: [facility] ACUITY: 2 days PAIN SCORE: 0/10 LOCATION: Bilateral chest FINDINGS: Stable increased interstitial markings bilaterally suggestive of most likely pulmonary edema. No new infiltrates are seen. No significant pleural effusions. The heart size is stable. The bony structures are stable. CONCLUSION: No significant interval change. David Walker MD on August 12, 2016 at 10:03 Board Certified Radiologist. This report was verified electronically. David Walker MD on August 13, 2016 at 11:34 Board Certified Radiologist. This report was verified electronically.
[2016-08-12] MEDS: PARoxetine HCL 20 MG TAB PO SCH (10:09)
[2016-08-12] MEDS: TOLTERODINE TARTRATE 2 MG CAP LA PO SCH (10:09)
--- NOTE | 2016-08-12 10:25 | PD.CONS ---
History of Present Illness Service Infectious disease Consult Requested By Dr Atkins Reason for Consult Evaluate patient with positive blood culture Primary Care Physician Unknown Diagnoses: History of Present Illness Patient seen and examined. Records reviewed. Patient is a 70-year-old female, brought into the hospital for evaluation of altered mental status. She was apparently not responding appropriately to some questions and at times not answering. She has been noted to be not moving much at home which is not her usual. There is mention that she was having fevers and shortness of breath. She was initially admitted to [facility], and had some shortness of breath and transferred to the intensive care unit. Currently she is on nasal O2. She denies any congestion or cough. No chest pain. She said she's not had any nausea or vomiting or abdominal pain. Denies any back pain. There is some mention that she had some dysuria, but patient denies any hematuria. Patient is not sure whether she has had kidney stones. She apparently has seen a urologist, and I can't really get a detailed history as to why she saw a urologist as an outpatient. During my exam, patient is awake and alert, and she is able to answer most of my questions although a little bit slow to respond. She seems to be oriented. Patient had an abnormal urinalysis. All her blood cultures are growing enterococcus. CT of the abdomen and pelvis is showing some stones in the kidney on the right with no obstruction, and she has significant hydronephrosis on the left side. Infectious disease consultation requested to evaluate the patient. Review of Systems Constitutional: COMPLAINS OF: Fatigue, Fever, Change in appetite Eyes: DENIES: Eye pain Ears, nose, mouth, throat: DENIES: Nasal discharge, Oral lesions, Throat pain, Ear Pain, Sinus Pain Respiratory: COMPLAINS OF: Shortness of breath, DENIES: Cough, Sputum production Cardiovascular: DENIES: Chest pain, Palpitations, Syncope Gastrointestinal: DENIES: Abdominal pain, Nausea, Vomiting Genitourinary: COMPLAINS OF: Dysuria, DENIES: Hematuria Musculoskeletal: DENIES: Joint pain, Joint Swelling, Back pain Integumentary: DENIES: Rash Neurologic: DENIES: Headache Psychiatric: COMPLAINS OF: Confusion Past Family Social History Allergies: Uncoded Allergies: MOTREL (Adverse Reaction, Severe, Rash, 06/06/16) . Past Medical History Hypertension Hyperlipidemia Diabetes mellitus Coronary artery disease CVA with residual dysarthria Atrial Fibrillation Polio 3 pregnancies and normal delivery Past Surgical History Oral surgery Active Ordered Medications Tylenol Albuterol Norvasc Heparin Insulin Prinivil Lopressor Paxil Zosyn Pravachol Detrol Vancomycin Family History Diabetes Hypertension Social History Lives at home with family Ex-smoker quit when she was in her 60s No alcohol abuse No illicit drugs Physical Exam Vital Signs Vital Signs Date Time Temp Pulse Resp B/P Pulse Ox O2 Delivery O2 Flow Rate FiO2 08/12/16 07:00 72 08/12/16 07:00 98.7 64 21 149/68 97 08/12/16 07:00 97 Bi-Pap 50 08/12/16 04:00 95 Bi-Pap 50 08/12/16 04:00 98.5 67 26 151/68 95 08/12/16 04:00 67 08/12/16 03:50 98 50 08/12/16 03:10 95 50 08/12/16 03:00 70 08/12/16 02:00 98 08/12/16 02:00 76 08/12/16 01:31 101.3 76 28 166/74 98 08/12/16 01:00 84 08/12/16 01:00 95 08/12/16 00:45 90 08/12/16 00:45 93 50 08/12/16 00:00 82 08/12/16 00:00 91 Nasal Cannula 3.00 08/11/16 23:00 94 Nasal Cannula 3.00 08/11/16 23:00 82 08/11/16 22:00 94 Nasal Cannula 3.00 08/11/16 22:00 94 08/11/16 22:00 102.0 82 32 163/68 90 08/11/16 21:29 95 Venturi Mask 6.00 50 08/11/16 21:00 97 08/11/16 21:00 84 Nasal Cannula 3.00 08/11/16 20:52 97.5 97 24 163/82 84 08/11/16 20:00 97 08/11/16 19:00 91 Nasal Cannula 3.00 08/11/16 19:00 97 08/11/16 18:00 101 08/11/16 17:00 75 08/11/16 16:00 67 08/11/16 15:00 99.0 65 18 116/52 94 08/11/16 15:00 59 08/11/16 14:20 93 Nasal Cannula 3.00 08/11/16 14:00 65 08/11/16 13:00 73 08/11/16 12:00 60 08/11/16 11:39 93 Nasal Cannula 3.00 08/11/16 11:00 97.6 63 16 120/56 93 08/11/16 11:00 62 Physical Exam GENERAL: Patient is a well-nourished, well-developed CF, awake and alert, not in respiratory distress. On nasal O2. Answered all my questions, but slow to respond, speech seems clear SKIN: Warm and dry. No generalized rash, no ecchymoses and no evidence of embolic lesions. HEAD: Atraumatic. Normocephalic. No temporal wasting, or tenderness. EYES: [place] conjunctiva. No petechia or hemorrhage. Pupils equal, round and reactive to light. Extraocular movements full and intact. No scleral icterus. No injection or drainage. EARS, NOSE AND THROAT: Nose without bleeding or purulent nasal discharge. No sinus tenderness. Mucous membranes pink and moist. No oral lesions noted. No exudate. No oral thrush. Slightly decreased nasolabial fold on L. NECK: Trachea midline. Supple and not tender, no meningeal signs CARDIOVASCULAR: Regular rate and rhythm. Has systolic murmur at base of the heart. No rub RESPIRATORY: Clear to auscultation. Breath sounds equal bilaterally. No rales , wheezing or rhonchi. Decreased BS at bases ABDOMEN: Soft, non-tender, nondistended. Bowel sounds present and normoactive. No guarding. No rebound. No organomegaly. EXTREMITIES: No clubbing, cyanosis, or edema. No joint effusion, has good ROM. No calf tenderness. Well perfused and warm. RLE larger compared to L NEUROLOGICAL: Awake and alert. Mild decreased nasolabial fold on L, full EOM, tongue midline. Motor grossly within normal limits. PSYCHIATRIC: Normal affect, calm and cooperative. LINE: No evidence of infection Laboratory Laboratory Tests Test 08/11/16 08/11/16 08/11/16 08/11/16 10:25 11:31 17:10 21:19 White Blood Count 15.4 10.1 Red Blood Count 3.39 3.58 Hemoglobin 10.3 10.8 Hematocrit 29.6 31.3 Mean Corpuscular Volume 87.3 87.4 Mean Corpuscular Hemoglobin 30.3 30.3 Mean Corpuscular Hemoglobin 34.6 34.6 Concent Red Cell Distribution Width 13.3 13.4 Platelet Count 210 218 Mean Platelet Volume 8.0 8.2 Neutrophils (%) (Auto) 92.5 Lymphocytes (%) (Auto) 2.2 Monocytes (%) (Auto) 4.9 Eosinophils (%) (Auto) 0.0 Basophils (%) (Auto) 0.4 Neutrophils # (Auto) 14.2 Lymphocytes # (Auto) 0.3 Monocytes # (Auto) 0.8 Eosinophils # (Auto) 0.0 Basophils # (Auto) 0.1 CBC Comment DIFF FINAL Differential Comment Lactic Acid Level 1.0 Total Creatine Kinase 55 Troponin I 1.28 Prothrombin Time 10.7 Prothromb Time International 1.0 Ratio Activated Partial 37.4 Thromboplast Time Test 08/11/16 08/12/16 08/12/16 22:19 01:45 04:13 Blood Gas Puncture Site RT RADIAL RT RADIAL Blood Gas Patient Temperature 98.6 98.6 Blood Gas HCO3 21 21 Blood Gas Base Excess -3.2 -2.6 Blood Gas Oxygen Saturation 91 94 Arterial Blood pH 7.41 7.43 Arterial Blood Partial 34 33 Pressure CO2 Arterial Blood Partial 66 85 Pressure O2 Arterial Blood Oxygen Content 12.8 17.9 Arterial Blood 1.7 1.5 Carboxyhemoglobin Arterial Blood Methemoglobin 1.1 1.2 Blood Gas Hemoglobin 10.0 13.5 Oxygen Delivery Device Venti Mask BiPAP Blood Gas Liter Flow 6 Blood Gas Inspired Oxygen 50 50 Blood Gas Ventilator Setting 12IPAP/5EPAP Activated Partial 61.8 Thromboplast Time Date/Time Procedure Status Source Growth 08/11/16 11:31 Aerobic Blood Culture - Preliminary Resulted Blood Peripheral Gram Positive Cocci 08/11/16 11:31 Anaerobic Blood Culture Resulted Blood Peripheral Pending 08/10/16 17:10 Urine Culture - Preliminary Resulted Urine Catheterized Urine Group D Enterococcus Result Diagram: 08/11/16211808/11/16 0253 Imaging RADIOLOGY STUDIES/FILMS REVIEWED Last Impressions Chest X-Ray 08/11/16 0000 Signed Impressions: Service Date/Time: Thursday, August 11, 2016 22:13 - CONCLUSION: New bibasilar consolidations. Differential diagnostic considerations include edema versus infectious infiltrates. Andre Coker Jr., MD Aorta Ultrasound 08/11/16 0000 Signed Impressions: Service Date/Time: Thursday, August 11, 2016 08:00 - CONCLUSION: 1. No abdominal aortic aneurysm identified. Johnnie Bains MD Abdomen/Pelvis CT 08/11/16 0000 Signed Impressions: Service Date/Time: Thursday, August 11, 2016 11:55 - CONCLUSION: 1. Moderate to severe left-sided hydronephrosis probably secondary to a left UPJ obstruction. Left ureter has normal caliber. 2. Nonobstructing 16mm by 11 mm calculus in the right renal pelvis. Perinephric stranding present bilaterally. 3. Trace bilateral pleural effusions. No bowel obstruction or free air. Arthur Tirado MD Lower Extremity Ultrasound 08/10/16 0000 Signed Impressions: Service Date/Time: July 21:54 - CONCLUSION: Negative exam with no evidence of deep venous thrombosis. Cheko Villanueva MD Head CT 08/10/16 0000 Signed Impressions: Service Date/Time: July 22:26 - CONCLUSION: 1. No acute hemorrhage, mass or infarction. 2. Chronic encephalomalacia Cheko Villanueva MD Assessment and Plan Assessment and Plan IMPRESSION High grade Enterococcal bacteremia, has UTI with L hydronephrosis - concern with seeding of her valve, has valvular heart disease, has mod on echo SOB, due to ?pulmonary edema, seems better Previous Hx CVA RECOMMENDATION IV PCN for Enterococcus Add Levaquin for additional GNR coverage while C/S pending Agree with urology consult - will need to clear obstruction especially since she is septic Will order more BC to document clearing May need ANGIE Follow C/S Monitor temps Monitor progress I will determine course of Rx once work-up completed I will follow along with you Thank you for this consultation Discussed Condition With D/W Dr Atkins D/W Janette Kincaid MD Aug 12, 2016 10:25
[2016-08-12] MEDS: LEVOFLOXACIN 750 MG PREMIX INJ 150 ML IV SCH (10:27)
[2016-08-12] MEDS ORDERED: FUROSEMIDE 20 MG/2 ML VIAL IV PUSH ONE ×2 (10:30→20:15)
[2016-08-12 11:07] LABS: APTT (PATIENT) 51.4 SEC (24.3-30.1)
[2016-08-12 11:11] LABS: BICARBONATE 25.6 MEQ/L (21.0-32.0); POTASSIUM 3.6 MEQ/L (3.5-5.1)
[2016-08-12] MEDS: PENICILLIN G POTASSIUM INJ 3,000,000 UNITS in SODIUM CHLORIDE 0.9% INJ 100 ML IV SCH ×4 (12:06→23:46)
--- NOTE | 2016-08-12 14:04 | PD.CONS ---
HPI Service Urology Consult Requested By Reason for Consult Left hydronephrosis Primary Care Physician Unknown Diagnosis: (1) Sepsis ICD Code: A41.9 (2) Metabolic encephalopathy ICD Code: G93.41 (3) UTI (urinary tract infection) ICD Code: N39.0 (4) Dehydration ICD Code: E86.0 (5) Generalized weakness ICD Code: R53.1 History of Present Illness 70 year-old female with history multiple medical problems who was admitted for further management of sepsis with mental status changes. Patient has a prior urologic history of right sided nephrolithiasis and is under the care of Dr. Chairez. During her present hospitalization a CT scan study was performed that once again demonstrated an approximately 1.5 cm nonobstructing right renal calculus however there was new onset of markedly left hydronephrosis of indeterminate etiology. No obstructing stones were seen on the CT scan and the left ureter was not dilated. Findings were consistent with a left ureteropelvic junction obstruction. A urology consult was placed regarding this finding. At the time of consultation the patient was resting comfortably in bed and in no acute distress. She was not very verbal however she was responsive to questioning. She denied any flank pain or gross hematuria. Recent blood cultures were positive for gram positive cocci and urine culture was positive for group D enterococcus. BUN/creatinine were 16 and 1.09 respectively. Review of Systems ROS Limitations: Poor Historian Constitutional: DENIES: Fatigue, Fever Gastrointestinal: DENIES: Abdominal pain Genitourinary: DENIES: Hematuria Musculoskeletal: DENIES: Back pain Psychiatric: COMPLAINS OF: Confusion Except as stated in HPI: all other systems reviewed are Neg Past Family Social History Past Medical History Status post CVA with subsequent dysarthria Hypertension Hyperlipidemia Diabetes mellitus Coronary artery disease Atrial fibrillation History poliomyelitis Past Surgical History Some type of oral surgical procedure Reported Medications Refer to EMR Allergies: Uncoded Allergies: MOTREL (Adverse Reaction, Severe, Rash, 06/06/16) . Active Ordered Medications Refer to EMR Family History Hypertension Diabetes mellitus Social History Former smoker who quit while in her 60s Denies alcohol or illicit drug usage Physical Exam Vital Signs Date Time Temp Pulse Resp B/P Pulse Ox O2 Delivery O2 Flow Rate FiO2 08/12/16 11:00 96 60 08/12/16 11:00 65 08/12/16 11:00 98.4 62 18 143/68 96 08/12/16 10:08 93 High Flow Nasal Cannula 30.00 60 08/12/16 07:00 72 08/12/16 07:00 98.7 64 21 149/68 97 08/12/16 07:00 97 Bi-Pap 50 08/12/16 04:00 95 Bi-Pap 50 08/12/16 04:00 98.5 67 26 151/68 95 08/12/16 04:00 67 08/12/16 03:50 98 50 08/12/16 03:10 95 50 08/12/16 03:00 70 08/12/16 02:00 98 08/12/16 02:00 76 08/12/16 01:31 101.3 76 28 166/74 98 08/12/16 01:00 84 08/12/16 01:00 95 08/12/16 00:45 90 08/12/16 00:45 93 50 08/12/16 00:00 82 08/12/16 00:00 91 Nasal Cannula 3.00 08/11/16 23:00 94 Nasal Cannula 3.00 08/11/16 23:00 82 08/11/16 22:00 94 Nasal Cannula 3.00 08/11/16 22:00 94 08/11/16 22:00 102.0 82 32 163/68 90 08/11/16 21:29 95 Venturi Mask 6.00 50 08/11/16 21:00 97 08/11/16 21:00 84 Nasal Cannula 3.00 08/11/16 20:52 97.5 97 24 163/82 84 08/11/16 20:00 97 08/11/16 19:00 91 Nasal Cannula 3.00 08/11/16 19:00 97 08/11/16 18:00 101 08/11/16 17:00 75 08/11/16 16:00 67 08/11/16 15:00 99.0 65 18 116/52 94 08/11/16 15:00 59 08/11/16 14:20 93 Nasal Cannula 3.00 Physical Exam GENERAL: Appears stated age and in no apparent distress. SKIN: No rashes, ecchymoses or lesions. Cool and dry. HEAD: Atraumatic. Normocephalic. No temporal or scalp tenderness. EYES: Pupils equal round and reactive. Extraocular motions intact. No scleral icterus. No injection or drainage. ENT: Nose without bleeding, purulent drainage or septal hematoma. Throat without erythema, tonsillar hypertrophy or exudate. Uvula midline. Airway patent. NECK: Trachea midline. No JVD or lymphadenopathy. Supple, nontender, no meningeal signs. CARDIOVASCULAR: Regular rate and rhythm RESPIRATORY: Breath sounds equal bilaterally. No wheezes, rales, or rhonchi. GASTROINTESTINAL: Abdomen soft, non-tender, nondistended. No hepato-splenomegaly , or palpable masses. No guarding. GENITOURINARY: No CVA tenderness MUSCULOSKELETAL: Extremities without clubbing, cyanosis, or edema. No joint tenderness, effusion, or edema noted. No calf tenderness. Negative Homans sign bilaterally. NEUROLOGICAL: Awake and alert. Cranial nerves II through XII intact. Motor and sensory grossly within normal limits. Five out of 5 muscle strength in all muscle groups. Normal speech. Laboratory Tests Test 08/11/16 08/11/16 08/11/16 08/12/16 17:10 21:19 22:19 01:45 Total Creatine Kinase 55 Troponin I 1.28 White Blood Count 10.1 Red Blood Count 3.58 Hemoglobin 10.8 Hematocrit 31.3 Mean Corpuscular Volume 87.4 Mean Corpuscular Hemoglobin 30.3 Mean Corpuscular Hemoglobin 34.6 Concent Red Cell Distribution Width 13.4 Platelet Count 218 Mean Platelet Volume 8.2 Prothrombin Time 10.7 Prothromb Time International 1.0 Ratio Activated Partial 37.4 Thromboplast Time Blood Gas Puncture Site RT RADIAL RT RADIAL Blood Gas Patient Temperature 98.6 98.6 Blood Gas HCO3 21 21 Blood Gas Base Excess -3.2 -2.6 Blood Gas Oxygen Saturation 91 94 Arterial Blood pH 7.41 7.43 Arterial Blood Partial 34 33 Pressure CO2 Arterial Blood Partial 66 85 Pressure O2 Arterial Blood Oxygen Content 12.8 17.9 Arterial Blood 1.7 1.5 Carboxyhemoglobin Arterial Blood Methemoglobin 1.1 1.2 Blood Gas Hemoglobin 10.0 13.5 Oxygen Delivery Device Venti Mask BiPAP Blood Gas Liter Flow 6 Blood Gas Inspired Oxygen 50 50 Blood Gas Ventilator Setting 12IPAP/5EPAP Test 08/12/16 08/12/16 04:13 10:06 Activated Partial 61.8 51.4 Thromboplast Time Sodium Level 136 Potassium Level 3.6 Chloride Level 102 Carbon Dioxide Level 25.6 Anion Gap 8 Blood Urea Nitrogen 16 Creatinine 1.09 Estimat Glomerular Filtration 50 Rate Random Glucose 165 Calcium Level 7.9 Date/Time Procedure Status Source Growth 08/12/16 11:50 Aerobic Blood Culture Received Blood Peripheral Pending 08/12/16 11:50 Anaerobic Blood Culture Received Blood Peripheral Pending 08/11/16 11:31 Aerobic Blood Culture - Preliminary Resulted Blood Peripheral Gram Positive Cocci 08/11/16 11:31 Anaerobic Blood Culture - Preliminary Resulted Blood Peripheral NO GROWTH IN 1 DAY 08/10/16 17:10 Urine Culture - Preliminary Resulted Urine Catheterized Urine Group D Enterococcus Result Diagram: 08/11/16211808/12/16 1006 Imaging Last Impressions Chest X-Ray 08/12/16 0000 Signed Impressions: Service Date/Time: Friday, August 12, 2016 09:51 - CONCLUSION: No significant dural change. David Walker MD Aorta Ultrasound 08/11/16 0000 Signed Impressions: Service Date/Time: Thursday, August 11, 2016 08:00 - CONCLUSION: 1. No abdominal aortic aneurysm identified. Johnnie Bains MD Abdomen/Pelvis CT 08/11/16 0000 Signed Impressions: Service Date/Time: Thursday, August 11, 2016 11:55 - CONCLUSION: 1. Moderate to severe left-sided hydronephrosis probably secondary to a left UPJ obstruction. Left ureter has normal caliber. 2. Nonobstructing 16mm by 11 mm calculus in the right renal pelvis. Perinephric stranding present bilaterally. 3. Trace bilateral pleural effusions. No bowel obstruction or free air. Arthur Tirado MD Lower Extremity Ultrasound 08/10/16 0000 Signed Impressions: Service Date/Time: July 21:54 - CONCLUSION: Negative exam with no evidence of deep venous thrombosis. Cheko Villanueva MD Head CT 08/10/16 0000 Signed Impressions: Service Date/Time: July 22:26 - CONCLUSION: 1. No acute hemorrhage, mass or infarction. 2. Chronic encephalomalacia Cheko Villanueva MD Personally reviewed CT scan images and concur with the radiologist's report. Assessment and Plan Assessment and Plan Urologic impression: #1 urosepsis responding to antibiotic therapy #2 left hydronephrosis secondary to ureteropelvic junction obstruction of indeterminate etiology #3 nonobstructing 1.5 cm right renal calculus Plan: #1 keep patient nothing by mouth after midnight except meds #2 patient scheduled for cystoscopy, left retrograde pyelogram and left ureteral stent placement tomorrow morning Murali Lyon MD Aug 12, 2016 14:04
[2016-08-12] MEDS: PRAVASTATIN SOD 40 MG TAB PO SCH (17:48)
[2016-08-13] VITALS (15 sets, daily range): BP systolic 100–164; BP diastolic 45–77; PULSE 56–84; RESP 13–19; TEMP 98.2–99.5; O2SAT 93–99
[2016-08-13] MEDS: PENICILLIN G POTASSIUM INJ 3,000,000 UNITS in SODIUM CHLORIDE 0.9% INJ 100 ML IV SCH ×5 (04:38→19:45)
[2016-08-13] MEDS: SODIUM CHLOR 0.9% 1000 ML INJ 1,000 ML IV SCH (04:38)
[2016-08-13 05:20] LABS: AUTOMATED NEUTROPHIL # 7.7 TH/MM3 (1.8-7.7); BASOPHIL # 0.1 TH/MM3 (0-0.2); BASOPHIL % 0.7 % (0.0-2.0); EOSINOPHIL % 0.1 % (0.0-4.0); HEMATOCRIT 27.6 % (35.0-46.0); HEMO FLAGS DIFF FINAL; LYMPH % 5.6 % (9.0-44.0); LYMPHOCYTE # 0.5 TH/MM3 (1.0-4.8); MEAN CELL VOLUME 85.5 FL (80.0-100.0); MEAN CORPUSCULAR HEMOGLOBIN 30.6 PG (27.0-34.0); MEAN CORPUSCULAR HGB CONC 35.8 % (32.0-36.0); MONO % 12.4 % (0.0-8.0); NEUT % 81.2 % (16.0-70.0); PLATELET COUNT 180 TH/MM3 (150-450); RED BLOOD COUNT 3.23 MIL/MM3 (4.00-5.30); RED CELL DISTRIBUTION WIDTH 13.3 % (11.6-17.2); WHITE BLOOD COUNT 9.5 TH/MM3 (4.0-11.0)
[2016-08-13 05:29] LABS: APTT (PATIENT) 54.2 SEC (24.3-30.1)
[2016-08-13 05:42] LABS: POTASSIUM 3.3 MEQ/L (3.5-5.1)
[2016-08-13] MEDS: INSULIN ASPART SUPPLEMENTAL SCALE SQ SCH ×4 (06:12→20:43)
[2016-08-13] MEDS: POTASSIUM CHLOR 10 MEQ PREMIX 100 ML IV SCH ×3 (06:42→11:56)
--- NOTE | 2016-08-13 07:28 | PD.CARD.PN ---
Subjective Subjective Remarks Awake and alert. Still slow responding but improving. Objective Medications Current Medications Medications (Trade) Dose Ordered Sig/Leila Route PRN Reason Start Time Stop Time Status Last Admin Dose Admin Sodium Chloride (NS 1000 ml Inj) 1,000 ml @ 50 mls/hr Q20H IV 08/10/16 20:00 08/13/16 04:38 Sodium Chloride (NS Flush) 2 ml UNSCH PRN IV FLUSH FLUSH AFTER USING IV ACCESS 08/10/16 19:00 Sodium Chloride (NS Flush) 2 ml BID IV FLUSH 08/10/16 21:00 08/12/16 20:33 Acetaminophen (Tylenol) 650 mg Q4H PRN PO TEMP > 100.4 08/10/16 19:00 08/12/16 23:04 Acetaminophen (Tylenol) 650 mg Q6H PRN PO PAIN SCALE 1 TO 2 08/10/16 19:00 Naloxone HCl (Narcan Inj) 0.4 mg UNSCH PRN IV SEE LABEL COMMENTS 08/10/16 19:00 Amlodipine Besylate (Norvasc) 10 mg DAILY PO 08/11/16 09:00 08/12/16 09:11 Metoprolol Tartrate (Lopressor) 25 mg BID PO 08/10/16 21:30 08/12/16 20:29 Paroxetine HCl (Paxil) 20 mg DAILY PO 08/11/16 09:00 08/12/16 10:09 Dextrose (D50w (Vial) Inj) 50 ml UNSCH PRN IV HYPOGLYCEMIA-SEE COMMENTS 08/10/16 21:30 Glucagon (Glucagon Inj) 1 mg UNSCH PRN OTHER HYPOGLYCEMIA-SEE COMMENTS 08/10/16 21:30 Tolterodine Tartrate (Detrol La) 2 mg DAILY PO 08/11/16 09:00 08/12/16 10:09 Miscellaneous Information SPECIFIC LAB TO BE BETH... ONCE ONCE .XX 08/15/16 05:45 08/15/16 05:46 Pravastatin Sodium 10 mg 10 mg DAILY@18 PO 08/11/16 18:00 08/12/16 17:48 Heparin Sodium/ Dextrose 250 ml @ 0 mls/hr TITRATE IV 08/11/16 21:00 08/11/16 21:21 Penicillin G Potassium 8221782 units/Sodium Chloride 100 ml @ 100 mls/hr Q4H IV 08/12/16 12:00 08/13/16 04:38 Levofloxacin/ Dextrose 150 ml @ 100 mls/hr Q24H IV 08/12/16 11:00 08/12/16 10:27 Potassium Chloride (KCl 10 Meq Premix Inj) 100 ml @ 100 mls/hr Q1H IV 08/13/16 07:00 08/13/16 09:59 08/13/16 06:42 Potassium Chloride (KCl) 20 meq ONCE ONCE PO 08/13/16 07:30 08/13/16 07:31 UNV Lisinopril (Prinivil) 40 mg DAILY PO 08/13/16 09:00 UNV Vital Signs / I&O Vital Signs Date Time Temp Pulse Resp B/P Pulse Ox O2 Delivery O2 Flow Rate FiO2 08/13/16 03:13 62 08/13/16 03:13 95 60 08/13/16 03:13 98.2 62 16 149/72 95 08/12/16 23:28 94 08/12/16 23:28 100.8 93 15 178/84 95 08/12/16 23:28 95 60 08/12/16 21:05 94 High Flow Nasal Cannula 30.00 60 08/12/16 19:31 99.6 102 17 178/79 95 08/12/16 19:31 95 60 08/12/16 19:00 100 08/12/16 15:00 75 08/12/16 15:00 98.6 74 18 159/64 96 08/12/16 15:00 96 60 08/12/16 11:00 96 60 08/12/16 11:00 65 08/12/16 11:00 98.4 62 18 143/68 96 08/12/16 10:08 93 High Flow Nasal Cannula 30.00 60 I/O 08/12/16 08/12/16 08/12/16 08/13/16 08/13/16 08/13/16 07:00 15:00 23:00 07:00 15:00 23:00 Intake Total 242 ml 1308 ml 1321 ml Balance 242 ml 1308 ml 1321 ml Intake Oral 0 ml 480 ml 480 ml IV Total 242 ml 828 ml 841 ml # Voids 2 4 5 # Bowel Movements 0 1 0 Physical Exam VSS, afebrile this AM. No JVD Lungs: CTA Heart: Irreg. CRIESLDA Ext: No C/C/E Laboratory Laboratory Tests Test 08/12/16 08/13/16 10:06 05:00 Activated Partial 51.4 SEC 54.2 SEC Thromboplast Time Sodium Level 136 MEQ/L 133 MEQ/L Potassium Level 3.6 MEQ/L 3.3 MEQ/L Chloride Level 102 MEQ/L 97 MEQ/L Carbon Dioxide Level 25.6 MEQ/L 26.0 MEQ/L Anion Gap 8 MEQ/L 10 MEQ/L Blood Urea Nitrogen 16 MG/DL 14 MG/DL Creatinine 1.09 MG/DL 0.86 MG/DL Estimat Glomerular Filtration 50 ML/MIN 65 ML/MIN Rate Random Glucose 165 MG/DL 185 MG/DL Calcium Level 7.9 MG/DL 8.2 MG/DL White Blood Count 9.5 TH/MM3 Red Blood Count 3.23 MIL/MM3 Hemoglobin 9.9 GM/DL Hematocrit 27.6 % Mean Corpuscular Volume 85.5 FL Mean Corpuscular Hemoglobin 30.6 PG Mean Corpuscular Hemoglobin 35.8 % Concent Red Cell Distribution Width 13.3 % Platelet Count 180 TH/MM3 Mean Platelet Volume 7.7 FL Neutrophils (%) (Auto) 81.2 % Lymphocytes (%) (Auto) 5.6 % Monocytes (%) (Auto) 12.4 % Eosinophils (%) (Auto) 0.1 % Basophils (%) (Auto) 0.7 % Neutrophils # (Auto) 7.7 TH/MM3 Lymphocytes # (Auto) 0.5 TH/MM3 Monocytes # (Auto) 1.2 TH/MM3 Eosinophils # (Auto) 0.0 TH/MM3 Basophils # (Auto) 0.1 TH/MM3 CBC Comment DIFF FINAL Differential Comment Magnesium Level 1.6 MG/DL B-Type Natriuretic Peptide 960 PG/ML Imaging Last 48 hours Impressions Chest X-Ray 08/12/16 0000 Signed Impressions: Service Date/Time: Friday, August 12, 2016 09:51 - CONCLUSION: No significant dural change. David Walker MD Assessment and Plan Problem List: (1) Elevated troponin (2) Aortic stenosis, moderate (3) Hypertension Assessment and Plan: Need more aggressive control. (4) Sepsis Assessment and Plan: Urosepsis (5) Metabolic encephalopathy (6) Hydronephrosis (7) Hypokalemia Assessment and Plan: Replacing. Assessment and Plan CV stable. No CP. MS slow improvement. Replace potassium to 4.0. Increase Lisinopril 40 mg daily for BP control. Continue Rx for underlying urosepsis. Plans for cystoscopy today and possible ureteral stent. Still febrile last night. Will postpone Pharm-MPI for now. Discussed with patient and wait staff and Dr. Sanchez. Dr. Morrissey will see tomorrow. Yoel Wu MD Aug 13, 2016 07:28
[2016-08-13] MEDS ORDERED: POTASSIUM CHLORIDE 20 MEQ CONTROLLED RELEASE TAB PO ONE (08:00)
[2016-08-13] MEDS: SODIUM CHLORIDE 0.9% FLUSH 10 ML FLUSH IV FLUSH SCH ×2 (08:07→19:46)
[2016-08-13] MEDS: HEPARIN-D5W INJ 250 ML IV SCH ×2 (08:40→14:19)
[2016-08-13] MEDS: METOPROLOL TARTRATE 25 MG TAB PO SCH ×2 (09:00→19:47)
[2016-08-13] MEDS ORDERED: MAGNESIUM OXIDE 400 MG TAB PO ONE (09:00)
[2016-08-13] MEDS: LISINOPRIL 20 MG TAB PO SCH (09:00)
[2016-08-13] MEDS: TOLTERODINE TARTRATE 2 MG CAP LA PO SCH (09:00)
[2016-08-13] MEDS: PARoxetine HCL 20 MG TAB PO SCH (09:00)
--- NOTE | 2016-08-13 10:13 | PD.OP ---
Operative Report Date of Surgery: Aug 13, 2016 Preoperative Diagnosis: (1) Ureteropelvic junction (UPJ) obstruction Postoperative Diagnosis: (1) Ureteropelvic junction (UPJ) obstruction Procedure: Cystoscopy, left retrograde pyelogram and left long term care pharmacist ureteral stent placement Anesthesia: General Surgeon: Murali Lyon Information Support Project Manager(s): None Operation and Findings: Indication for procedure: Case of a pleasant 70-year-old female admitted with urosepsis and discovered to have a left ureteropelvic junction obstruction. Patient presents now for cystoscopy, left retrograde pyelogram and left ureteral stent placement. Operative procedure in detail: Patient was brought to the operating suite and placed supine on the OR table. She was then placed under general endotracheal anesthesia. She was then repositioned in the dorsal lithotomy position and prepped and draped in normal sterile fashion. After an appropriate timeout was undertaken have proceeded with cystoscopic evaluation utilizing the rigid cystoscope with the 20 Maldivian sheath and the 30 lens. Both right and left ureteral orifices were correct anatomic position. There was clear reflux of urine on the right and no reflux noted on the left side. A 6 Maldivian open-ended catheter was utilized and a left retrograde was performed consistent with a left ureteropelvic junction obstruction. No calculi were seen along the course of the left ureter or the left kidney. I next advanced a sensor 0.035 wire through the open-ended catheter was able to advance this wire through the ureteropelvic junction and into the left kidney. The open-ended catheter was then advanced over the wire into the left kidney and the wire was withdrawn. Urine was cloudy and a sample was submitted for culture and sensitivity via the open-ended ureteral catheter from the left renal pelvis. Next the guidewire was reintroduced and fully advanced into the left kidney and the open-ended catheter was next exchanged for a halfway 6 Maldivian 24 cm Laplace stent. The stent was placed on the both cystoscopic and fluoroscopic guidance without any difficulty. Once the stent was in proper position, the trailing string was removed. A 16 Maldivian 10 cc Llanos catheter was next placed and connected to gravity drainage. The patient tolerated the procedures without complications. She remained intubated after the procedure and was transferred back to the ICU. Murali Lyon MD Aug 13, 2016 10:13
[2016-08-13] MEDS ORDERED: PROPOFOL 500 MG/50 ML INJ 50 ML ONE ×2 (10:27→11:49)
[2016-08-13 10:48] LABS: BLOOD GAS CARBOXYHEMOGLOBIN 1.6 % (0-4); BLOOD GAS HCO3 21 mmol/L (22-26); BLOOD GAS METHEMOGLOBIN 1.1 % (0-2); BLOOD GAS O2 HGB SATURATION 96 % (90-100); BLOOD GAS OXYGEN CONTENT 13.5 Vol % (12.0-20.0); BLOOD GAS PCO2 35 mmHg (38-42); BLOOD GAS PO2 107 mmHg (61-120); BLOOD GAS TOTAL HGB 9.9 G/DL (12.0-16.0); CRITICAL VALUE NO; DRAW SITE ART LINE; FIO2 100 %; OXYGEN DEVICE VENTILATOR; STAT YES; TEMP CORR TO 98.6; VENT SETTINGS A/C 550/10/8PEEP
[2016-08-13] MEDS ORDERED: FUROSEMIDE 40 MG/4 ML VIAL ONE (11:07)
--- NOTE | 2016-08-13 11:32 | RADRPT ---
EXAM DATE/TIME: 08/13/2016 10:58 [facility] COMPARISON: CHEST SINGLE AP, August 12, 2016, 9:51. INDICATIONS : Endotracheal tube. MEDICAL HISTORY : Myocardial infarction. Hypercholesterolemia. Diabetes mellitus type II. CVA. Facial numbness. Sle ep apnea. HTN. Osteoporosis. SURGICAL HISTORY : None. ENCOUNTER: Initial ACUITY: 1 day PAIN SCORE: Non-responsive. LOCATION: Bilateral chest FINDINGS: Status post placement of an endotracheal tube and NG tube which appear to be in good position. No misha dence of pneumothorax. There is increased pulmonary vasculature suggestive of pulmonary venous conges tion. This has not significant change compared to the prior study. The heart size is stable. No signi ficant pleural effusions. The bony structures are stable. CONCLUSION: The endotracheal tube and NG tube appear to be in good position. No pneumothorax. David Walker MD on August 13, 2016 at 11:29 Board Certified Radiologist. This report was verified electronically.
--- NOTE | 2016-08-13 11:36 | PD.CONS ---
[facility] Service Critical Care Medicine Consult Requested By Dr. Glover Reason for Consult Acute hypoxemic respiratory failure Severe sepsis Primary Care Physician Unknown History of Present Illness Patient is a 70-year-old female with past medical history significant for hypertension, diabetes, chronic atrial fibrillation on Eliquis, depression who was admitted to the hospitalist service with metabolic encephalopathy and severe sepsis secondary to enterococcal bacteremia. Source of sepsis was UTI. Patient was placed on antibiotics per ID recommendation (penicillin G and Levaquin). CT of the abdomen and pelvis showed moderate to severe hydronephrosis on the left side, secondary to left UPJ obstruction. Patient also had mild troponin elevation for which Dr. morrissey was consulted. 2D Echo showed ef 50- 55%. Moderate aortic valve stenosis, mean gradient 31 mmHg, and Aortic valve area is 0.74 cm. plan was to get a myocardial perfusion study. In the interim patient continued to require more oxygen, was started on IV Lasix. Prior to OR today patient was on high flow nasal cannula. Patient underwent left ureteral stent placement by urology Dr. Lyon today. Apparently throughout the procedure patient was hypoxemic 80-85% on 100% oxygen. Critical care medicine was consulted for acute hypoxemic resp failure and I evaluated the patient postop in the CV ICU. At the time of my evaluation she was on 100% oxygen with a PEEP of 8, PaO2 was only 130 on ABG. Chest x-ray shows pulmonary edema, patient is received 20 mg IV Lasix and I have given additional IV 40mg. Schedule IV Lasix 40 mg every 12. Currently patient is receiving IV heparin metoprolol and lisinopril. Continue the same along with antibiotics per ID. Once sepsis is cleared we'll discuss with Dr. morrissey regarding cardiac catheterization to evaluate for CAD and Review of Systems ROS Limitations: Clinical Condition, Intubated Past Family Social History Allergies: Uncoded Allergies: MOTREL (Adverse Reaction, Severe, Rash, 06/06/16) . Past Medical History Hypertension Hyperlipidemia Diabetes mellitus Coronary artery disease CVA with residual dysarthria Atrial Fibrillation History of Polio Past Surgical History History of oral surgery Reported Medications Metformin (Metformin HCl) 1,000 Mg Tab 1,000 Mg PO BID Amlodipine (Amlodipine Besylate) 10 Mg Tab 10 Mg PO DAILY Humalog Inj (Insulin Human Lispro) SSI Lisinopril 20 Mg Tab 20 Mg PO DAILY Eliquis (Apixaban) 5 Mg Tab 5 Mg PO BID Metoprolol Tartrate 25 Mg Tab 25 Mg PO BID Myrbetriq (Mirabegron) 25 Mg Tab 25 Mg PO DAILY Paroxetine (Paroxetine HCl) 20 Mg Tab 20 Mg PO DAILY Active Ordered Medications Reviewed all active medications Family History Hypertension and diabetes and family Social History No alcohol or tobacco use Physical Exam Vital Signs Vital Signs Date Time Temp Pulse Resp B/P Pulse Ox O2 Delivery O2 Flow Rate FiO2 08/13/16 10:40 98 100 08/13/16 08:30 98 High Flow Nasal Cannula 30.00 55 08/13/16 07:00 94 55 08/13/16 07:00 63 08/13/16 07:00 98.3 80 18 151/77 94 08/13/16 03:13 62 08/13/16 03:13 95 60 08/13/16 03:13 98.2 62 16 149/72 95 08/12/16 23:28 94 08/12/16 23:28 100.8 93 15 178/84 95 08/12/16 23:28 95 60 08/12/16 21:05 94 High Flow Nasal Cannula 30.00 60 08/12/16 19:31 99.6 102 17 178/79 95 08/12/16 19:31 95 60 08/12/16 19:00 100 08/12/16 15:00 75 08/12/16 15:00 98.6 74 18 159/64 96 08/12/16 15:00 96 60 Physical Exam GENERAL: Patient is a well-nourished, well-developed female who is intubated severely hypoxemic SKIN: Warm and dry. HEAD: Atraumatic. Normocephalic. EYES: Pupils equal, round and reactive to light. Extraocular movements full and intact. EARS, NOSE AND THROAT: Orotracheally intubated NECK: Trachea midline. Supple and not tender, no meningeal signs CARDIOVASCULAR: Regular rate and rhythm. Systolic murmur best heard in the right upper sternal border radiating to the carotids RESPIRATORY: Bibasilar crackles, no rhonchi or wheezes ABDOMEN: Soft, non-tender, nondistended. No organomegaly. EXTREMITIES: No clubbing, cyanosis, or edema. NEUROLOGICAL: Intubated sedated for ventilator synchrony. Wakes up follows commands Laboratory Laboratory Tests Test 08/13/16 08/13/16 05:00 10:40 White Blood Count 9.5 Red Blood Count 3.23 Hemoglobin 9.9 Hematocrit 27.6 Mean Corpuscular Volume 85.5 Mean Corpuscular Hemoglobin 30.6 Mean Corpuscular Hemoglobin 35.8 Concent Red Cell Distribution Width 13.3 Platelet Count 180 Mean Platelet Volume 7.7 Neutrophils (%) (Auto) 81.2 Lymphocytes (%) (Auto) 5.6 Monocytes (%) (Auto) 12.4 Eosinophils (%) (Auto) 0.1 Basophils (%) (Auto) 0.7 Neutrophils # (Auto) 7.7 Lymphocytes # (Auto) 0.5 Monocytes # (Auto) 1.2 Eosinophils # (Auto) 0.0 Basophils # (Auto) 0.1 CBC Comment DIFF FINAL Differential Comment Activated Partial 54.2 Thromboplast Time Sodium Level 133 Potassium Level 3.3 Chloride Level 97 Carbon Dioxide Level 26.0 Anion Gap 10 Blood Urea Nitrogen 14 Creatinine 0.86 Estimat Glomerular Filtration 65 Rate Random Glucose 185 Calcium Level 8.2 Magnesium Level 1.6 B-Type Natriuretic Peptide 960 Blood Gas Puncture Site ART LINE Blood Gas Patient Temperature 98.6 Blood Gas HCO3 21 Blood Gas Base Excess -3.0 Blood Gas Oxygen Saturation 96 Arterial Blood pH 7.40 Arterial Blood Partial 35 Pressure CO2 Arterial Blood Partial 107 Pressure O2 Arterial Blood Oxygen Content 13.5 Arterial Blood 1.6 Carboxyhemoglobin Arterial Blood Methemoglobin 1.1 Blood Gas Hemoglobin 9.9 Oxygen Delivery Device VENTILATOR Blood Gas Ventilator Setting A/C 550/10/8PEEP Blood Gas Inspired Oxygen 100 Date/Time Procedure Status Source Growth 08/13/16 10:00 Urine Culture Received Urine Other Pending 08/13/16 05:00 Aerobic Blood Culture Received Blood Peripheral Pending 08/13/16 05:00 Anaerobic Blood Culture Received Blood Peripheral Pending 08/12/16 11:50 Aerobic Blood Culture - Preliminary Resulted Blood Peripheral NO GROWTH IN 1 DAY 08/12/16 11:50 Anaerobic Blood Culture - Preliminary Resulted Blood Peripheral NO GROWTH IN 1 DAY 08/11/16 11:31 Aerobic Blood Culture - Final Resulted Blood Peripheral Enterococcus Faecalis 08/11/16 11:31 Anaerobic Blood Culture - Preliminary Resulted Blood Peripheral NO GROWTH IN 2 DAYS 08/10/16 17:10 Urine Culture - Final Complete Urine Catheterized Urine Enterococcus Faecalis Result Diagram: 08/13/16 0500 08/13/16 0500 Imaging Chest x-ray 08/13/[address] abdomen pelvis 08/11/16 shows moderate to severe left hydronephrosis secondary to left UPJ obstruction Septic Shock Reassessment Heart: Regular rate and rhythm Lungs: Crackles Skin: Warm Peripheral Pulses: Bounding Right Radial Bounding Left Radial Capillary Refill: Brisk Assessment and Plan Assessment and Plan ASSESSMENT Acute hypoxemic respiratory failure CHF/Pulmonary edema NSTEMI Moderate aortic stenosis Severe sepsis High-grade enterococcal bacteremia UTI Left hydronephrosis status post left ureteral stent today 08/13/16 History of atrial fibrillation on Eliquis Hypertension Diabetes PLAN: NEURO: - Propofol for sedation and ventilator synchrony - No sedation vacation until hypoxia is improved RESP: - Continue full ventilatory support ACV tidal volume 550, respiratory rate 14, PEEP of 10, FiO2 85% titrate - DuoNeb every 6 hours and when necessary - Diurese with Lasix as below - Ventilator bundle CV: - Currently receiving IV heparin metoprolol and lisinopril for NSTEMI - Continue IV heparin transition to Eliquis once more stable - Start aspirin 81 mg daily - 08/11 2D Echo LVEF 50-55%, Moderate , mean gradient is 31 mmHg, and Aortic valve area is 0.74 cm. - Per Dr. Morrissey Adenosine myocardial perfusion study when stable - IV Lasix total 60 mg x1 and 40 mg IV q12 - Will discuss with Dr. Morrissey re: cardiac cath GI: - NPO, IV Protonix. Colace 100 mg BID - Start tube feeds in 24 hours if not extubated : - Status post left ureteral stent by Dr. Lyon. - Monitor renal function closely. Monitor urine output closely - IV Lasix as above ID: - High-grade enterococcal bacteremia, currently on penicillin G and Levaquin per ID - Source appears to be UTI - Status post left ureteral stent for hydronephrosis - Blood cx 08/10, 08/11 Enterococcus - Urine cx 08/10 Enterococcus HEME: - Monitor CBC, CMP, coags - Continue IV heparin transition to Eliquis once more stable ENDO: - Replace electrolytes per protocol PROPH: - Bilateral lower extremity SCDs. IV Heparin, Protonix 40 mg IV daily LINES: - Utilize peripheral IVs, central line if needed CC time 78 min This time patient is admitted to the ICU with acute hypoxemic respiratory failure. Most likely reason for this is CHF and pulmonary edema secondary to aortic stenosis. Patient is also severely septic and still spiking fever. Remains critical at this time Code Status Full Discussed Condition With Rebeca Lassiter MD Aug 13, 2016 11:36
[2016-08-13] MEDS ORDERED: fentaNYL DRIP 250 ML IV SCH (11:45)
[2016-08-13] MEDS: LEVOFLOXACIN 750 MG PREMIX INJ 150 ML IV SCH (11:55)
[2016-08-13] MEDS ORDERED: FUROSEMIDE 40 MG/4 ML VIAL IV PUSH ONE (12:00)
[2016-08-13] MEDS ORDERED: POTASSIUM PHOSPHATE INJ 30 MMOL in SODIUM CHLOR 0.9% 250 ML INJ 250 ML IV PRN (12:00)
[2016-08-13] MEDS ORDERED: MAGNESIUM SULFATE INJ 2 GM in SODIUM CHLORIDE 0.9% INJ 96 ML IV PRN (12:00)
[2016-08-13] MEDS ORDERED: POTASSIUM CHLOR 20 MEQ PREMIX 100 ML IV PRN ×2 (12:00)
[2016-08-13] MEDS ORDERED: POTASSIUM PHOSPHATE MONOBASIC 500 MG TAB PO PRN (12:00)
[2016-08-13] MEDS ORDERED: ENOXAPARIN SODIUM 40 MG/0.4 ML SYRINGE SQ SCH (12:00)
[2016-08-13] MEDS ORDERED: MAGNESIUM OXIDE 400 MG TAB PO PRN (12:00)
[2016-08-13] MEDS ORDERED: MAGNESIUM SULFATE INJ 4 GM in SODIUM CHLORIDE 0.9% INJ 92 ML IV PRN (12:00)
[2016-08-13] MEDS ORDERED: ETOMIDATE 20 MG/10 ML VIAL IV PUSH ONE (12:00)
[2016-08-13] MEDS ORDERED: MAGNESIUM SULFATE 1 GM PREMIX 100 ML IV ONE (12:00)
[2016-08-13] MEDS ORDERED: POTASSIUM PHOSPHATE MONOBASIC 500 MG TAB PO/TUBE PRN (12:00)
[2016-08-13] MEDS ORDERED: IOHEXOL 300 MG/ML 50 ML BTL (for RAD DIAG) ONE (12:00)
[2016-08-13] MEDS ORDERED: SODIUM PHOSPHATE INJ 30 MMOL in SODIUM CHLOR 0.9% 250 ML INJ 240 ML IV PRN (12:00)
[2016-08-13] MEDS ORDERED: PHENYLEPH/NS 1000 MCG/10 ML SYR IV ONE (12:00)
[2016-08-13] MEDS ORDERED: POTASSIUM CHLOR 40 MEQ PREMIX 100 ML IV PRN ×2 (12:00)
[2016-08-13] MEDS ORDERED: POTASSIUM CHLORIDE 25 MEQ EFFERVESCENT TAB PO PRN (12:00)
[2016-08-13 12:37] LABS: MAGNESIUM 1.4 MG/DL (1.5-2.5)
[2016-08-13] MEDS: POTASSIUM CHLORIDE 25 MEQ EFFERVESCENT TAB PO SCH (13:03)
[2016-08-13] MEDS: ASPIRIN 81 MG CHEW TAB CHEW SCH (13:03)
[2016-08-13] MEDS: DOCUSATE SODIUM 100 MG/10 ML UDC PO SCH ×2 (13:03→19:47)
[2016-08-13] MEDS: PANTOPRAZOLE SODIUM 40 MG VIAL IV PUSH SCH (13:03)
[2016-08-13 13:44] LABS: HEMATOCRIT 26.3 % (35.0-46.0); MEAN CORPUSCULAR HEMOGLOBIN 30.8 PG (27.0-34.0); MEAN CORPUSCULAR HGB CONC 35.9 % (32.0-36.0); PLATELET COUNT 168 TH/MM3 (150-450); RED BLOOD COUNT 3.06 MIL/MM3 (4.00-5.30); RED CELL DISTRIBUTION WIDTH 13.5 % (11.6-17.2); REVIEW FLAG FINAL; WHITE BLOOD COUNT 9.2 TH/MM3 (4.0-11.0)
--- NOTE | 2016-08-13 13:46 | HHI.IDPN ---
Subjective Subjective Remarks Patient is a 70-year-old female, brought into the hospital for evaluation of altered mental status. She was apparently not responding appropriately to some questions and at times not answering. She has been noted to be not moving much at home which is not her usual. There is mention that she was having fevers and shortness of breath. She was initially admitted to [facility], and had some shortness of breath and transferred to the intensive care unit. Currently she is on nasal O2. She denies any congestion or cough. No chest pain. She said she's not had any nausea or vomiting or abdominal pain. Denies any back pain. There is some mention that she had some dysuria, but patient denies any hematuria. Patient is not sure whether she has had kidney stones. She apparently has seen a urologist, and I can't really get a detailed history as to why she saw a urologist as an outpatient. During my exam, patient is awake and alert, and she is able to answer most of my questions although a little bit slow to respond. She seems to be oriented. Patient had an abnormal urinalysis. All her blood cultures are growing enterococcus. CT of the abdomen and pelvis is showing some stones in the kidney on the right with no obstruction, and she has significant hydronephrosis on the left side. Notes reviewed D/W RN Had urologic procedure today Remained on vent post-procedure Llanos in place, urine blood tinged BC 08/10, 08/11 with Enterococcus, Gent synergy R; Strep synergy S First UC with E faecalis Antibiotics IV PCN Levaquin Lines PIV Past Medical History Hypertension Hyperlipidemia Diabetes mellitus Coronary artery disease CVA with residual dysarthria Atrial Fibrillation Polio 3 pregnancies and normal delivery Past Surgical History Oral surgery Allergies: Uncoded Allergies: MOTREL (Adverse Reaction, Severe, Rash, 06/06/16) . Objective . Vital Signs Date Time Temp Pulse Resp B/P Pulse Ox O2 Delivery O2 Flow Rate FiO2 08/13/16 12:15 95 55 08/13/16 11:00 99 Mechanical Ventilator 85 08/13/16 10:40 98 100 08/13/16 10:30 84 Mechanical Ventilator 100 08/13/16 08:30 98 High Flow Nasal Cannula 30.00 55 08/13/16 07:00 94 55 08/13/16 07:00 63 08/13/16 07:00 98.3 80 18 151/77 94 08/13/16 03:13 62 08/13/16 03:13 95 60 08/13/16 03:13 98.2 62 16 149/72 95 08/12/16 23:28 94 08/12/16 23:28 100.8 93 15 178/84 95 08/12/16 23:28 95 60 08/12/16 21:05 94 High Flow Nasal Cannula 30.00 60 08/12/16 19:31 99.6 102 17 178/79 95 08/12/16 19:31 95 60 08/12/16 19:00 100 08/12/16 15:00 75 08/12/16 15:00 98.6 74 18 159/64 96 08/12/16 15:00 96 60 08/12/16 08/12/16 08/13/16 15:00 23:00 07:00 Intake Total 1308 ml 1321 ml Balance 1308 ml 1321 ml Intake Oral 480 ml 480 ml IV Total 828 ml 841 ml # Voids 4 5 # Bowel Movements 1 0 . Laboratory Tests Test 08/11/16 08/13/16 21:19 05:00 White Blood Count 10.1 TH/MM3 9.5 TH/MM3 Red Blood Count 3.58 MIL/MM3 3.23 MIL/MM3 Hemoglobin 10.8 GM/DL 9.9 GM/DL Hematocrit 31.3 % 27.6 % Mean Corpuscular Volume 87.4 FL 85.5 FL Mean Corpuscular Hemoglobin 30.3 PG 30.6 PG Mean Corpuscular Hemoglobin 34.6 % 35.8 % Concent Red Cell Distribution Width 13.4 % 13.3 % Platelet Count 218 TH/MM3 180 TH/MM3 Mean Platelet Volume 8.2 FL 7.7 FL Neutrophils (%) (Auto) 81.2 % Lymphocytes (%) (Auto) 5.6 % Monocytes (%) (Auto) 12.4 % Eosinophils (%) (Auto) 0.1 % Basophils (%) (Auto) 0.7 % Neutrophils # (Auto) 7.7 TH/MM3 Lymphocytes # (Auto) 0.5 TH/MM3 Monocytes # (Auto) 1.2 TH/MM3 Eosinophils # (Auto) 0.0 TH/MM3 Basophils # (Auto) 0.1 TH/MM3 CBC Comment DIFF FINAL Differential Comment Laboratory Tests Test 608/12/16 08/13/16 08/13/16 17:10 10:06 05:00 12:05 Total Creatine Kinase 55 U/L Troponin I 1.28 NG/ML 0.83 NG/ML Sodium Level 136 MEQ/L 133 MEQ/L Potassium Level 3.6 MEQ/L 3.3 MEQ/L Chloride Level 102 MEQ/L 97 MEQ/L Carbon Dioxide Level 25.6 MEQ/L 26.0 MEQ/L Anion Gap 8 MEQ/L 10 MEQ/L Blood Urea Nitrogen 16 MG/DL 14 MG/DL Creatinine 1.09 MG/DL 0.86 MG/DL Estimat Glomerular Filtration 50 ML/MIN 65 ML/MIN Rate Random Glucose 165 MG/DL 185 MG/DL Calcium Level 7.9 MG/DL 8.2 MG/DL Magnesium Level 1.6 MG/DL 1.4 MG/DL B-Type Natriuretic Peptide 960 PG/ML Lactic Acid Level 1.0 mmol/L Phosphorus Level 2.5 MG/DL Microbiology Date/Time Procedure Status Source Growth 08/10/16 16:50 Aerobic Blood Culture - Final Complete Blood Peripheral Enterococcus Faecalis 08/10/16 16:50 Anaerobic Blood Culture - Final Complete Enterococcus Faecalis 08/10/16 16:55 Aerobic Blood Culture - Final Complete Blood Peripheral Enterococcus Faecalis 08/10/16 16:55 Anaerobic Blood Culture - Final Complete Enterococcus Faecalis 08/10/16 17:10 Urine Culture - Final Complete Urine Catheterized Urine Enterococcus Faecalis 08/11/16 11:25 Aerobic Blood Culture - Final Resulted Blood Peripheral Enterococcus Faecalis 08/11/16 11:25 Anaerobic Blood Culture - Preliminary Resulted Blood Peripheral NO GROWTH IN 2 DAYS 08/11/16 11:31 Aerobic Blood Culture - Final Resulted Blood Peripheral Enterococcus Faecalis 08/11/16 11:31 Anaerobic Blood Culture - Preliminary Resulted Blood Peripheral NO GROWTH IN 2 DAYS 08/12/16 11:50 Aerobic Blood Culture - Preliminary Resulted Blood Peripheral NO GROWTH IN 1 DAY 08/12/16 11:50 Anaerobic Blood Culture - Preliminary Resulted Blood Peripheral NO GROWTH IN 1 DAY 08/13/16 05:00 Aerobic Blood Culture Received Blood Peripheral Pending 08/13/16 05:00 Anaerobic Blood Culture Received Blood Peripheral Pending 08/13/16 10:00 Urine Culture Received Urine Other Pending Imaging Chest X-Ray 08/13/16 0000 Signed Impressions: Service Date/Time: Saturday, August 13, 2016 10:58 - CONCLUSION: The endotracheal tube and NG tube appear to be in good position. No pneumothorax. David Walker MD Aorta Ultrasound 08/11/16 Signed Impressions: Service Date/Time: Thursday, August 11, 2016 08:00 - CONCLUSION: 1. No abdominal aortic aneurysm identified. Johnnie Bains MD Abdomen/Pelvis CT 08/11/16 Signed Impressions: Service Date/Time: Thursday, August 11, 2016 11:55 - CONCLUSION: 1. Moderate to severe left-sided hydronephrosis probably secondary to a left UPJ obstruction. Left ureter has normal caliber. 2. Nonobstructing 16mm by 11 mm calculus in the right renal pelvis. Perinephric stranding present bilaterally. 3. Trace bilateral pleural effusions. No bowel obstruction or free air. Arthur Tirado MD Lower Extremity Ultrasound 08/10/16 Signed Impressions: Service Date/Time: July 21:54 - CONCLUSION: Negative exam with no evidence of deep venous thrombosis. Cheko Villnaueva MD Head CT 08/10/16 Signed Impressions: Service Date/Time: July 22:26 - CONCLUSION: 1. No acute hemorrhage, mass or infarction. 2. Chronic encephalomalacia Chkeo Villanueva MD Physical Exam GENERAL: Sedated on the vent, NAD SKIN: Warm and dry. No generalized rash, no ecchymoses and no evidence of embolic lesions. HEAD: Atraumatic. Normocephalic. No temporal wasting, or tenderness. EYES: [place] conjunctiva. No petechia or hemorrhage. Pupils equal, round and reactive to light. No scleral icterus. No injection or drainage. EARS, NOSE AND THROAT: Nose without bleeding or purulent nasal discharge. No sinus tenderness. Orally intubated. NECK: Trachea midline. Supple and not tender, no meningeal signs CARDIOVASCULAR: Regular rate and rhythm. Has systolic murmur at base of the heart. No rub RESPIRATORY: Breath sounds equal bilaterally. Decreased BS at bases ABDOMEN: Soft, non-tender, nondistended. Bowel sounds present and normoactive. No guarding. No rebound. No organomegaly. EXTREMITIES: No clubbing, cyanosis, or edema. No joint effusion, has good ROM. No calf tenderness. Well perfused and warm. RLE larger compared to L NEUROLOGICAL: Sedated PSYCHIATRIC: Unable to assess : Llanos in place, urine is blood tinged LINE: No evidence of infection Assessment & Plan Remarks IMPRESSION High grade Enterococcal bacteremia, has UTI with L hydronephrosis - concern with seeding of her valve, has valvular heart disease, has mod on echo SOB, due to ?pulmonary edema Previous Hx CVA RECOMMENDATION Continue IV PCN for Enterococcus Continue Levaquin for additional GNR coverage while C/S pending Follow C/S May need ANGIE Follow C/S Monitor temps Monitor progress Janette Mariscal MD Aug 13, 2016 13:46
[2016-08-13 13:53] LABS: APTT (PATIENT) 41.8 SEC (24.3-30.1); INTERNATIONAL NORMALIZED RATIO 0.9 RATIO; PROTHROMBIN TIME - PATIENT 10.4 SEC (9.8-11.6)
[2016-08-13] MEDS: RESP: ALBUTEROL 2.5 MG/IPRATROPIUM 0.5 MG NEB (SCH) NEB ×2 (16:00→21:04)
[2016-08-13] MEDS: PRAVASTATIN SOD 40 MG TAB PO SCH (17:30)
[2016-08-13] MEDS: FUROSEMIDE 40 MG/4 ML VIAL IV PUSH SCH (17:30)
[2016-08-13] MEDS: CHLORHEXIDINE GLUCONATE 0.12% 15 ML CUP SCH (19:47)
[2016-08-13 20:12] LABS: APTT (PATIENT) 71.1 SEC (24.3-30.1)
[2016-08-14] VITALS (17 sets, daily range): BP systolic 103–150; BP diastolic 42–72; PULSE 58–80; RESP 12–19; TEMP 98.5–99.4; O2SAT 92–99
[2016-08-14] MEDS: PENICILLIN G POTASSIUM INJ 3,000,000 UNITS in SODIUM CHLORIDE 0.9% INJ 100 ML IV SCH ×7 (00:45→23:16)
[2016-08-14] MEDS: RESP: ALBUTEROL 2.5 MG/IPRATROPIUM 0.5 MG NEB (SCH) NEB ×4 (04:01→22:44)
[2016-08-14 04:17] LABS: APTT (PATIENT) 59.8 SEC (24.3-30.1)
[2016-08-14] MEDS: PROPOFOL 1000 MG/100 ML IV SCH ×2 (05:06→21:59)
[2016-08-14] MEDS: INSULIN ASPART SUPPLEMENTAL SCALE SQ SCH ×4 (06:16→21:00)
[2016-08-14 07:36] LABS: BICARBONATE 24.9 MEQ/L (21.0-32.0); MAGNESIUM 1.9 MG/DL (1.5-2.5); POTASSIUM 3.7 MEQ/L (3.5-5.1)
[2016-08-14] MEDS: CHLORHEXIDINE GLUCONATE 0.12% 15 ML CUP SCH ×2 (08:00→20:00)
--- NOTE | 2016-08-14 08:46 | HHI.CCPN ---
Subjective Remarks/Hospital Course Patient is a 70-year-old female with past medical history significant for hypertension, diabetes, chronic atrial fibrillation on Eliquis, depression who was admitted to the hospitalist service with metabolic encephalopathy and severe sepsis secondary to enterococcal bacteremia. Source of sepsis was UTI. Patient was placed on antibiotics per ID recommendation (penicillin G and Levaquin). CT of the abdomen and pelvis showed moderate to severe hydronephrosis on the left side, secondary to left UPJ obstruction. Patient also had mild troponin elevation for which Dr. morrissey was consulted. 2D Echo showed ef 50- 55%. Moderate aortic valve stenosis, mean gradient 31 mmHg, and Aortic valve area is 0.74 cm. plan was to get a myocardial perfusion study. In the interim patient continued to require more oxygen, was started on IV Lasix. Prior to OR today patient was on high flow nasal cannula. Patient underwent left ureteral stent placement by urology Dr. Lyon today. Apparently throughout the procedure patient was hypoxemic 80-85% on 100% oxygen. Critical care medicine was consulted for acute hypoxemic resp failure and I evaluated the patient postop in the CV ICU. At the time of my evaluation she was on 100% oxygen with a PEEP of 8, PaO2 was only 130 on ABG. Chest x-ray shows pulmonary edema, patient is received 20 mg IV Lasix and I have given additional IV 40mg. Schedule IV Lasix 40 mg every 12. Currently patient is receiving IV heparin metoprolol and lisinopril. Continue the same along with antibiotics per ID. Once sepsis is cleared we'll discuss with Dr. morrissey regarding cardiac catheterization to evaluate for CAD and . Subjective: 08/14: Afebrile. The patient diuresed well on the last 24 hours, with approximately 2 kg fluid loss. Patient well oxygenated, currently being weaned. Plan for CPAP trials this a.m. Objective Vital Signs Date Time Temp Pulse Resp B/P Pulse Ox O2 Delivery O2 Flow Rate FiO2 08/14/16 08:15 98 40 08/14/16 07:00 98.9 69 14 126/62 121/48 08/14/16 07:00 Mechanical Ventilator 08/13/16 08:30 30.00 Intake and Output 08/13/16 08/13/16 08/14/16 08:00 16:00 00:00 Intake Total 1321 ml 1277 ml Output Total 1150 ml Balance 1321 ml 127 ml Result Diagram: 08/13/16 1256 08/14/16 0654 Other Results Laboratory Tests Test 08/13/16 10:40 Blood Gas Puncture Site ART LINE Blood Gas Patient Temperature 98.6 Blood Gas HCO3 21 mmol/L (22-26) Blood Gas Base Excess -3.0 mmol/L (-2-2) Blood Gas Oxygen Saturation 96 % (90-100) Arterial Blood pH 7.40 (7.380-7.420) Arterial Blood Partial 35 mmHg (38-42) Pressure CO2 Arterial Blood Partial 107 mmHg Pressure O2 (61-120) Arterial Blood Oxygen Content 13.5 Vol % (12.0-20.0) Arterial Blood 1.6 % (0-4) Carboxyhemoglobin Arterial Blood Methemoglobin 1.1 % (0-2) Blood Gas Hemoglobin 9.9 G/DL (12.0-16.0) Oxygen Delivery Device VENTILATOR Blood Gas Ventilator Setting A/C 550/10/8PEEP Blood Gas Inspired Oxygen 100 % Imaging Chest x-ray 08/13/[address] abdomen pelvis 08/11/16 shows moderate to severe left hydronephrosis secondary to left UPJ obstruction Objective Remarks GENERAL: Patient is a well-nourished, well-developed female who is intubated. Awake, nodding to yes and no questions SKIN: Warm and dry. HEAD: Atraumatic. Normocephalic. EYES: Pupils equal, round and reactive to light. Extraocular movements full and intact. EARS, NOSE AND THROAT: Orotracheally intubated NECK: Trachea midline. Supple and not tender, no meningeal signs CARDIOVASCULAR: Regular rate and rhythm. Systolic murmur best heard in the right upper sternal border radiating to the carotids RESPIRATORY: Bibasilar crackles, no rhonchi or wheezes ABDOMEN: Soft, non-tender, nondistended. No organomegaly. OGTT to low intermittent wall suction EXTREMITIES: No clubbing, cyanosis, or edema. NEUROLOGICAL: Intubated sedated for ventilator synchrony. Following commands movement of extremities 4 Urinary Catheter: Yes Assessment to: Continue Llanos insert reason: Measure Accurate Output Date of Insertion: Aug 13, 2016 A/P Assessment and Plan ASSESSMENT Acute hypoxemic respiratory failure CHF/Pulmonary edema NSTEMI Moderate aortic stenosis Severe sepsis High-grade enterococcal bacteremia UTI Left hydronephrosis status post left ureteral stent today 08/13/16 History of atrial fibrillation on Eliquis Hypertension Diabetes PLAN: NEURO: - Propofol for sedation and ventilator synchrony. Discontinue fentanyl infusion - Begin sedation vacation today RESP: - Continue full ventilatory support ACV tidal volume 550, respiratory rate 14 PEEP 8, FIO2 .40 - DuoNeb every 6 hours and when necessary - Continue Lasix - Ventilator bundle - Begin CPAP trials today CV: - Currently receiving IV heparin metoprolol and lisinopril for NSTEMI - Continue IV heparin transition to Eliquis once more stable - Start aspirin 81 mg daily - 08/11 2D Echo LVEF 50-55%, Moderate , mean gradient is 31 mmHg, and Aortic valve area is 0.74 cm. - Per Dr. Morrissey Adenosine myocardial perfusion study when stable - IV Lasix continue 40 mg IV q12 - Will discuss with Dr. Morrissey re: cardiac cath GI: - NPO, IV Protonix. Colace 100 mg BID - Will initiate tube feeds today if not extubated : - Status post left ureteral stent by Dr. Lyon. - Monitor renal function closely. Monitor urine output closely - IV Lasix as above ID: - High-grade enterococcal bacteremia, currently on penicillin G and Levaquin per ID - Source appears to be UTI - Status post left ureteral stent for hydronephrosis - Blood cx 08/10, 08/11 Enterococcus - Urine cx 08/10 Enterococcus - ID following- Dr. Mariscal HEME: - Monitor CBC, CMP, coags - Continue IV heparin transition to Eliquis once more stable ENDO: - Replace electrolytes per protocol PROPH: - Bilateral lower extremity SCDs. IV Heparin, Protonix 40 mg IV daily LINES: - Utilize peripheral IVs, central line if needed This patient remains critically ill with one or more organ systems which are or may become a threat to life. I have spent in excess of 30 minutes discontinuously in the care and management of this patient. This time is exclusive of procedures, and includes, but is not limited to, evaluation of the patient, review of the medical record, discussions with family, consultants, nursing staff, or respiratory therapy, and documentation in the medical record. Physician Leila Chavarria MD Aug 14, 2016 08:46
[2016-08-14] MEDS: POTASSIUM CHLORIDE 25 MEQ EFFERVESCENT TAB PO SCH ×2 (09:00→09:02)
[2016-08-14] MEDS: LISINOPRIL 20 MG TAB PO SCH (09:02)
[2016-08-14] MEDS: DOCUSATE SODIUM 100 MG/10 ML UDC PO SCH ×2 (09:02→20:53)
[2016-08-14] MEDS: METOPROLOL TARTRATE 25 MG TAB PO SCH ×2 (09:02→20:53)
[2016-08-14] MEDS: PARoxetine HCL 20 MG TAB PO SCH (09:02)
[2016-08-14] MEDS: ASPIRIN 81 MG CHEW TAB CHEW SCH (09:02)
[2016-08-14] MEDS: TOLTERODINE TARTRATE 2 MG CAP LA PO SCH (09:02)
[2016-08-14] MEDS: PANTOPRAZOLE SODIUM 40 MG VIAL IV PUSH SCH (09:03)
[2016-08-14] MEDS: FUROSEMIDE 40 MG/4 ML VIAL IV PUSH SCH ×2 (09:04→18:34)
[2016-08-14] MEDS: SODIUM CHLORIDE 0.9% FLUSH 10 ML FLUSH IV FLUSH SCH ×2 (09:04→20:55)
--- NOTE | 2016-08-14 10:36 | HHI.IDPN ---
Subjective Subjective Remarks Patient is a 70-year-old female, brought into the hospital for evaluation of altered mental status. She was apparently not responding appropriately to some questions and at times not answering. She has been noted to be not moving much at home which is not her usual. There is mention that she was having fevers and shortness of breath. She was initially admitted to [facility], and had some shortness of breath and transferred to the intensive care unit. Currently she is on nasal O2. She denies any congestion or cough. No chest pain. She said she's not had any nausea or vomiting or abdominal pain. Denies any back pain. There is some mention that she had some dysuria, but patient denies any hematuria. Patient is not sure whether she has had kidney stones. She apparently has seen a urologist, and I can't really get a detailed history as to why she saw a urologist as an outpatient. During my exam, patient is awake and alert, and she is able to answer most of my questions although a little bit slow to respond. She seems to be oriented. Patient had an abnormal urinalysis. All her blood cultures are growing enterococcus. CT of the abdomen and pelvis is showing some stones in the kidney on the right with no obstruction, and she has significant hydronephrosis on the left side. Notes reviewed D/W RN On the vent, on CPAP S/P urologic procedure 08/13 Llanos has blood tinged urine Has one new (+) BC 08/13 with GPC in chains BC 08/10, 08/11 with Enterococcus, Gent synergy R; Strep synergy S First UC with E faecalis Antibiotics IV PCN Levaquin Lines PIV Past Medical History Hypertension Hyperlipidemia Diabetes mellitus Coronary artery disease CVA with residual dysarthria Atrial Fibrillation Polio 3 pregnancies and normal delivery Past Surgical History Oral surgery Allergies: Uncoded Allergies: MOTREL (Adverse Reaction, Severe, Rash, 06/06/16) . Objective . Vital Signs Date Time Temp Pulse Resp B/P Pulse Ox O2 Delivery O2 Flow Rate FiO2 08/14/16 09:36 95 40 08/14/16 09:36 40 08/14/16 09:18 97 40 08/14/16 08:15 98 40 08/14/16 07:06 98 40 08/14/16 07:00 98.9 69 14 126/62 97 121/48 08/14/16 07:00 70 08/14/16 07:00 40 08/14/16 07:00 97 Mechanical Ventilator 40 08/14/16 04:02 99 40 08/14/16 03:34 40 08/14/16 03:29 58 08/14/16 03:29 98.5 58 14 123/48 98 103/56 08/14/16 03:29 98 Mechanical Ventilator 40 08/14/16 01:28 98 40 08/13/16 23:20 45 08/13/16 23:18 99.0 60 14 116/60 97 114/45 08/13/16 23:18 79 08/13/16 23:18 97 Mechanical Ventilator 45 08/13/16 22:12 97 45 08/13/16 20:29 94 45 08/13/16 19:31 98.9 64 14 100/56 95 115/46 08/13/16 19:31 95 Mechanical Ventilator 45 08/13/16 19:00 64 08/13/16 19:00 45 08/13/16 16:06 93 45 08/13/16 16:00 45 08/13/16 15:00 99.5 64 14 108/57 94 114/46 08/13/16 15:00 96 Mechanical Ventilator 45 08/13/16 15:00 72 08/13/16 13:00 45 08/13/16 13:00 70 08/13/16 12:15 95 55 08/13/16 11:00 99.4 78 19 142/72 99 143/52 08/13/16 11:00 99 Mechanical Ventilator 85 08/13/16 11:00 85 08/13/16 10:40 98 100 08/13/16 08/13/16 08/14/16 15:00 23:00 07:00 Intake Total 1277 ml 481 ml Output Total 1150 ml 635 ml Balance 127 ml -154 ml Intake Oral 0 ml IV Total 1217 ml 481 ml Tube Irrigant 60 ml Output Urine Total 1050 ml 585 ml Gastric Drainage Total 100 ml 50 ml # Bowel Movements 0 1 . Laboratory Tests Test 08/13/16 08/13/16 05:00 12:56 White Blood Count 9.5 TH/MM3 9.2 TH/MM3 Red Blood Count 3.23 MIL/MM3 3.06 MIL/MM3 Hemoglobin 9.9 GM/DL 9.4 GM/DL Hematocrit 27.6 % 26.3 % Mean Corpuscular Volume 85.5 FL 86.0 FL Mean Corpuscular Hemoglobin 30.6 PG 30.8 PG Mean Corpuscular Hemoglobin 35.8 % 35.9 % Concent Red Cell Distribution Width 13.3 % 13.5 % Platelet Count 180 TH/MM3 168 TH/MM3 Mean Platelet Volume 7.7 FL 8.1 FL Neutrophils (%) (Auto) 81.2 % Lymphocytes (%) (Auto) 5.6 % Monocytes (%) (Auto) 12.4 % Eosinophils (%) (Auto) 0.1 % Basophils (%) (Auto) 0.7 % Neutrophils # (Auto) 7.7 TH/MM3 Lymphocytes # (Auto) 0.5 TH/MM3 Monocytes # (Auto) 1.2 TH/MM3 Eosinophils # (Auto) 0.0 TH/MM3 Basophils # (Auto) 0.1 TH/MM3 CBC Comment DIFF FINAL Differential Comment Laboratory Tests Test 08/13/16 08/13/16 08/14/16 05:00 12:05 06:54 Sodium Level 133 MEQ/L 136 MEQ/L Potassium Level 3.3 MEQ/L 3.7 MEQ/L Chloride Level 97 MEQ/L 102 MEQ/L Carbon Dioxide Level 26.0 MEQ/L 24.9 MEQ/L Anion Gap 10 MEQ/L 9 MEQ/L Blood Urea Nitrogen 14 MG/DL 18 MG/DL Creatinine 0.86 MG/DL 0.86 MG/DL Estimat Glomerular Filtration 65 ML/MIN 65 ML/MIN Rate Random Glucose 185 MG/DL 159 MG/DL Calcium Level 8.2 MG/DL 8.1 MG/DL Magnesium Level 1.6 MG/DL 1.4 MG/DL 1.9 MG/DL B-Type Natriuretic Peptide 960 PG/ML 217 PG/ML Lactic Acid Level 1.0 mmol/L Phosphorus Level 2.5 MG/DL 2.2 MG/DL Troponin I 0.83 NG/ML Microbiology Date/Time Procedure Status Source Growth 08/11/16 11:25 Aerobic Blood Culture - Final Resulted Blood Peripheral Enterococcus Faecalis 08/11/16 11:25 Anaerobic Blood Culture - Preliminary Resulted Blood Peripheral NO GROWTH IN 2 DAYS 08/11/16 11:31 Aerobic Blood Culture - Final Resulted Blood Peripheral Enterococcus Faecalis 08/11/16 11:31 Anaerobic Blood Culture - Preliminary Resulted Blood Peripheral NO GROWTH IN 2 DAYS 08/12/16 11:50 Aerobic Blood Culture - Preliminary Resulted Blood Peripheral NO GROWTH IN 1 DAY 08/12/16 11:50 Anaerobic Blood Culture - Preliminary Resulted Blood Peripheral NO GROWTH IN 1 DAY 08/13/16 05:00 Aerobic Blood Culture - Preliminary Resulted Blood Peripheral Gram Positive Cocci 08/13/16 05:00 Anaerobic Blood Culture Resulted Blood Peripheral Pending 08/13/16 10:00 Urine Culture Received Urine Other Pending 08/13/16 11:30 Gram Stain - Final Resulted Sputum Oral Tracheal Aspirate 08/13/16 11:30 Sputum Culture Resulted Sputum Oral Tracheal Aspirate Pending 08/14/16 05:50 Aerobic Blood Culture Received Blood Peripheral Pending 08/14/16 05:50 Anaerobic Blood Culture Received Blood Peripheral Pending Imaging Chest X-Ray 08/13/16 0000 Signed Impressions: Service Date/Time: Saturday, August 13, 2016 10:58 - CONCLUSION: The endotracheal tube and NG tube appear to be in good position. No pneumothorax. David Walker MD Aorta Ultrasound 08/11/16 0000 Signed Impressions: Service Date/Time: Thursday, August 11, 2016 08:00 - CONCLUSION: 1. No abdominal aortic aneurysm identified. Johnnie Bains MD Abdomen/Pelvis CT 08/11/16 0000 Signed Impressions: Service Date/Time: Thursday, August 11, 2016 11:55 - CONCLUSION: 1. Moderate to severe left-sided hydronephrosis probably secondary to a left UPJ obstruction. Left ureter has normal caliber. 2. Nonobstructing 16mm by 11 mm calculus in the right renal pelvis. Perinephric stranding present bilaterally. 3. Trace bilateral pleural effusions. No bowel obstruction or free air. Arthur Tirado MD Lower Extremity Ultrasound 08/10/16 0000 Signed Impressions: Service Date/Time: July 21:54 - CONCLUSION: Negative exam with no evidence of deep venous thrombosis. Cheko Villanueva MD Head CT 08/10/16 0000 Signed Impressions: Service Date/Time: July 22:26 - CONCLUSION: 1. No acute hemorrhage, mass or infarction. 2. Chronic encephalomalacia Cheko Villanueva MD Physical Exam GENERAL: Awake, responding, on CPAP, NAD SKIN: Warm and dry. No generalized rash, no ecchymoses and no evidence of embolic lesions. HEAD: Atraumatic. Normocephalic. No temporal wasting, or tenderness. EYES: Hoffman conjunctiva. No petechia or hemorrhage. Pupils equal, round and reactive to light. No scleral icterus. No injection or drainage. EARS, NOSE AND THROAT: Nose without bleeding or purulent nasal discharge. No sinus tenderness. Orally intubated. NECK: Trachea midline. Supple and not tender, no meningeal signs CARDIOVASCULAR: Regular rate and rhythm. Has systolic murmur at base of the heart. No rub RESPIRATORY: Breath sounds equal bilaterally. Decreased BS at bases ABDOMEN: Soft, non-tender, nondistended. Bowel sounds present and normoactive. No guarding. No rebound. No organomegaly. EXTREMITIES: No clubbing, cyanosis, or edema. No joint effusion, has good ROM. No calf tenderness. Well perfused and warm. RLE larger compared to L NEUROLOGICAL: Following commands PSYCHIATRIC: Unable to assess : Llanos in place, urine is blood tinged LINE: No evidence of infection Assessment & Plan Remarks IMPRESSION High grade Enterococcal bacteremia, has UTI with L hydronephrosis - concern with seeding of her valve, has valvular heart disease, has mod on echo - BC still (+) from 08/13, that is date of her urologic procedure SOB, due to ?pulmonary edema Previous Hx CVA RECOMMENDATION Continue IV PCN for Enterococcus Continue Levaquin for additional GNR coverage while C/S pending Follow C/S May need ANGIE - will D/W cardiology Repeat BC tomorrow Monitor temps Monitor progress Weaning per CCM D/W Dr Owens D/W RN Janette Mariscal MD Aug 14, 2016 10:36
[2016-08-14] MEDS: LEVOFLOXACIN 750 MG PREMIX INJ 150 ML IV SCH (11:35)
--- NOTE | 2016-08-14 11:55 | HHI.PR ---
Subjective Patient symptoms today Remains intubated Responsive to commands Objective Vital Signs Vital Signs Date Time Temp Pulse Resp B/P Pulse Ox O2 Delivery O2 Flow Rate FiO2 08/14/16 11:00 70 08/14/16 11:00 99.3 77 19 140/66 96 150/55 08/14/16 11:00 95 Mechanical Ventilator 40 08/14/16 11:00 40 08/14/16 09:36 95 40 08/14/16 09:36 40 08/14/16 09:18 97 40 08/14/16 08:15 98 40 08/14/16 07:06 98 40 08/14/16 07:00 98.9 69 14 126/62 97 121/48 08/14/16 07:00 70 08/14/16 07:00 40 08/14/16 07:00 97 Mechanical Ventilator 40 08/14/16 04:02 99 40 08/14/16 03:34 40 08/14/16 03:29 58 08/14/16 03:29 98.5 58 14 123/48 98 103/56 08/14/16 03:29 98 Mechanical Ventilator 40 08/14/16 01:28 98 40 08/13/16 23:20 45 08/13/16 23:18 99.0 60 14 116/60 97 114/45 08/13/16 23:18 79 08/13/16 23:18 97 Mechanical Ventilator 45 08/13/16 22:12 97 45 08/13/16 20:29 94 45 08/13/16 19:31 98.9 64 14 100/56 95 115/46 08/13/16 19:31 95 Mechanical Ventilator 45 08/13/16 19:00 64 08/13/16 19:00 45 08/13/16 16:06 93 45 08/13/16 16:00 45 08/13/16 15:00 99.5 64 14 108/57 94 114/46 08/13/16 15:00 96 Mechanical Ventilator 45 08/13/16 15:00 72 08/13/16 13:00 45 08/13/16 13:00 70 08/13/16 12:15 95 55 Intake & Output 08/14/16 08/14/16 07:00 19:00 Intake Total 481 ml Output Total 635 ml Balance -154 ml IV Total 481 ml Output Urine Total 585 ml Gastric Drainage Total 50 ml # Bowel Movements 1 Result Diagram: 08/13/16 1256 08/14/16 0654 Objective Remarks Llanos catheter in place draining blood tinged urine with excellent output Medications and IVs Current Medications Medications (Trade) Dose Ordered Sig/Leila Route Start Time Stop Time Status Last Admin (NS Flush) 2 ml UNSCH PRN IV FLUSH 08/10/16 19:00 (NS Flush) 2 ml BID IV FLUSH 08/10/16 21:00 08/14/16 09:04 (Tylenol) 650 mg Q4H PRN PO 08/10/16 19:00 08/12/16 23:04 (Tylenol) 650 mg Q6H PRN PO 08/10/16 19:00 (Narcan Inj) 0.4 mg UNSCH PRN IV 08/10/16 19:00 (Norvasc) 10 mg DAILY PO 08/11/16 09:00 08/14/16 09:02 (Lopressor) 25 mg BID PO 08/10/16 21:30 08/14/16 09:02 (Paxil) 20 mg DAILY PO 08/11/16 09:00 08/14/16 09:02 (D50w (Vial) Inj) 50 ml UNSCH PRN IV 08/10/16 21:30 (Glucagon Inj) 1 mg UNSCH PRN OTHER 08/10/16 21:30 (Detrol La) 2 mg DAILY PO 08/11/16 09:00 08/14/16 09:02 Pravastatin Sodium 10 mg 10 mg DAILY@18 PO 08/11/16 18:00 08/13/16 17:30 Penicillin G Potassium 3079484 units/Sodium Chloride 100 ml @ 100 mls/hr Q4H IV 08/12/16 12:00 08/14/16 09:04 (Levaquin 750 Mg Premix Inj) 150 ml @ 100 mls/hr Q24H IV 08/12/16 11:00 08/14/16 11:35 (Prinivil) 40 mg DAILY PO 08/13/16 09:00 08/14/16 09:02 (Aspirin Chew) 81 mg DAILY CHEW 08/13/16 11:45 08/14/16 09:02 Chlorhexidine Gluconate 15 ml 15 ml BID@08,20 .XX 08/13/16 20:00 08/14/16 08:00 (fentaNYL DRIP) 250 ml @ 0 mls/hr TITRATE IV 08/13/16 11:45 08/13/16 12:08 (Lasix Inj) 40 mg BID@09,18 IV PUSH 08/13/16 18:00 08/14/16 09:04 Potassium Bicarb/ Potassium Chloride 25 meq 25 meq DAILY PO 08/13/16 12:00 08/13/16 13:03 Potassium Chloride 100 ml @ 50 mls/hr Q2H PRN IV 08/13/16 12:00 (KCl 20 Meq Premix Inj) 100 ml @ 50 mls/hr Q2H PRN IV 08/13/16 12:00 Potassium Bicarb/ Potassium Chloride 50 meq 50 meq UNSCH PRN PO 08/13/16 12:00 Potassium Chloride 100 ml @ 25 mls/hr UNSCH PRN IV 08/13/16 12:00 Potassium Chloride 100 ml @ 50 mls/hr Q2H PRN IV 08/13/16 12:00 Propofol 100 ml @ 0 mls/hr TITRATE IV 08/13/16 12:00 08/14/16 05:06 (Magnesium Sulfate Inj/NS Inj) 100 ml @ 50 mls/hr UNSCH PRN IV 08/13/16 12:00 Magnesium Oxide 800 mg 800 mg UNSCH PRN PO 08/13/16 12:00 (Magnesium Sulfate Inj/NS Inj) 100 ml @ 50 mls/hr UNSCH PRN IV 08/13/16 12:00 Potassium Phosphate 2000 mg 2,000 mg Q4H PRN PO 08/13/16 12:00 (Sodium Phosphate Inj/NS 250 ml Inj) 250 ml @ 42 mls/hr UNSCH PRN IV 08/13/16 12:00 Potassium Phosphate 2000 mg 2,000 mg UNSCH PRN PO/TUBE 08/13/16 12:00 (Potassium Phosphate Inj/NS 250 ml Inj) 260 ml @ 42 mls/hr UNSCH PRN IV 08/13/16 12:00 (K-Lyte Cl Eff) 25 meq DAILY PO 08/14/16 09:00 08/14/16 09:02 (Protonix Inj) 40 mg DAILY IV PUSH 08/13/16 12:00 08/14/16 09:03 Docusate Sodium 100 mg 100 mg Q12HR PO 08/13/16 12:00 08/14/16 09:02 (Heparin-D5W Inj) 250 ml @ 0 mls/hr TITRATE IV 08/13/16 14:00 08/13/16 14:19 Assessment and Plan Assessment and Plan Urologic impression: #1 urosepsis responding to antibiotic therapy #2 left hydronephrosis secondary to ureteropelvic junction obstruction of indeterminate etiology and status post placement of a termite control technician left sided ureteral stent. #3 nonobstructing 1.5 cm right renal calculus Plan: #1 continue with Llanos catheter to gravity drainage #2 may DC Llanos catheter once hematuria resolves and patient extubated / ambulatory Murali Lyon MD Aug 14, 2016 11:55
--- NOTE | 2016-08-14 13:37 | PD.CARD.PN ---
Subjective Subjective Remarks Intubated, awake, no CP or SOB Objective Medications Current Medications Medications (Trade) Dose Ordered Sig/Leila Route Start Time Stop Time Status Last Admin (NS Flush) 2 ml UNSCH PRN IV FLUSH 08/10/16 19:00 (NS Flush) 2 ml BID IV FLUSH 08/10/16 21:00 08/14/16 09:04 (Tylenol) 650 mg Q4H PRN PO 08/10/16 19:00 08/12/16 23:04 (Tylenol) 650 mg Q6H PRN PO 08/10/16 19:00 (Narcan Inj) 0.4 mg UNSCH PRN IV 08/10/16 19:00 (Norvasc) 10 mg DAILY PO 08/11/16 09:00 08/14/16 09:02 (Lopressor) 25 mg BID PO 08/10/16 21:30 08/14/16 09:02 (Paxil) 20 mg DAILY PO 08/11/16 09:00 08/14/16 09:02 (D50w (Vial) Inj) 50 ml UNSCH PRN IV 08/10/16 21:30 (Glucagon Inj) 1 mg UNSCH PRN OTHER 08/10/16 21:30 (Detrol La) 2 mg DAILY PO 08/11/16 09:00 08/14/16 09:02 Pravastatin Sodium 10 mg 10 mg DAILY@18 PO 08/11/16 18:00 08/13/16 17:30 Penicillin G Potassium [id number] units/Sodium Chloride 100 ml @ 100 mls/hr Q4H IV 08/12/16 12:00 08/14/16 13:09 (Levaquin 750 Mg Premix Inj) 150 ml @ 100 mls/hr Q24H IV 08/12/16 11:00 08/14/16 11:35 (Prinivil) 40 mg DAILY PO 08/13/16 09:00 08/14/16 09:02 (Aspirin Chew) 81 mg DAILY CHEW 08/13/16 11:45 08/14/16 09:02 Chlorhexidine Gluconate 15 ml 15 ml BID@08,20 .XX 08/13/16 20:00 08/14/16 08:00 (fentaNYL DRIP) 250 ml @ 0 mls/hr TITRATE IV 08/13/16 11:45 08/13/16 12:08 (Lasix Inj) 40 mg BID@09,18 IV PUSH 08/13/16 18:00 08/14/16 09:04 Potassium Bicarb/ Potassium Chloride 25 meq 25 meq DAILY PO 08/13/16 12:00 08/13/16 13:03 Potassium Chloride 100 ml @ 50 mls/hr Q2H PRN IV 08/13/16 12:00 (KCl 20 Meq Premix Inj) 100 ml @ 50 mls/hr Q2H PRN IV 08/13/16 12:00 Potassium Bicarb/ Potassium Chloride 50 meq 50 meq UNSCH PRN PO 08/13/16 12:00 Potassium Chloride 100 ml @ 25 mls/hr UNSCH PRN IV 08/13/16 12:00 Potassium Chloride 100 ml @ 50 mls/hr Q2H PRN IV 08/13/16 12:00 Propofol 100 ml @ 0 mls/hr TITRATE IV 08/13/16 12:00 08/14/16 05:06 (Magnesium Sulfate Inj/NS Inj) 100 ml @ 50 mls/hr UNSCH PRN IV 08/13/16 12:00 Magnesium Oxide 800 mg 800 mg UNSCH PRN PO 08/13/16 12:00 (Magnesium Sulfate Inj/NS Inj) 100 ml @ 50 mls/hr UNSCH PRN IV 08/13/16 12:00 Potassium Phosphate 2000 mg 2,000 mg Q4H PRN PO 08/13/16 12:00 (Sodium Phosphate Inj/NS 250 ml Inj) 250 ml @ 42 mls/hr UNSCH PRN IV 08/13/16 12:00 Potassium Phosphate 2000 mg 2,000 mg UNSCH PRN PO/TUBE 08/13/16 12:00 (Potassium Phosphate Inj/NS 250 ml Inj) 260 ml @ 42 mls/hr UNSCH PRN IV 08/13/16 12:00 (K-Lyte Cl Eff) 25 meq DAILY PO 08/14/16 09:00 08/14/16 09:02 (Protonix Inj) 40 mg DAILY IV PUSH 08/13/16 12:00 08/14/16 09:03 Docusate Sodium 100 mg 100 mg Q12HR PO 08/13/16 12:00 08/14/16 09:02 (Heparin-D5W Inj) 250 ml @ 0 mls/hr TITRATE IV 08/13/16 14:00 08/13/16 14:19 Vital Signs / I&O Vital Signs Date Time Temp Pulse Resp B/P Pulse Ox O2 Delivery O2 Flow Rate FiO2 08/14/16 11:00 70 08/14/16 11:00 99.3 77 19 140/66 96 150/55 08/14/16 11:00 95 Mechanical Ventilator 40 08/14/16 11:00 40 08/14/16 09:36 95 40 08/14/16 09:36 40 08/14/16 09:18 97 40 08/14/16 08:15 98 40 08/14/16 07:06 98 40 08/14/16 07:00 98.9 69 14 126/62 97 121/48 08/14/16 07:00 70 08/14/16 07:00 40 08/14/16 07:00 97 Mechanical Ventilator 40 08/14/16 04:02 99 40 08/14/16 03:34 40 08/14/16 03:29 58 08/14/16 03:29 98.5 58 14 123/48 98 103/56 08/14/16 03:29 98 Mechanical Ventilator 40 08/14/16 01:28 98 40 08/13/16 23:20 45 08/13/16 23:18 99.0 60 14 116/60 97 114/45 08/13/16 23:18 79 08/13/16 23:18 97 Mechanical Ventilator 45 08/13/16 22:12 97 45 08/13/16 20:29 94 45 08/13/16 19:31 98.9 64 14 100/56 95 115/46 08/13/16 19:31 95 Mechanical Ventilator 45 08/13/16 19:00 64 08/13/16 19:00 45 08/13/16 16:06 93 45 08/13/16 16:00 45 08/13/16 15:00 99.5 64 14 108/57 94 114/46 08/13/16 15:00 96 Mechanical Ventilator 45 08/13/16 15:00 72 I/O 08/13/16 08/13/16 08/13/16 08/14/16 08/14/16 08/14/16 07:00 15:00 23:00 07:00 15:00 23:00 Intake Total 1321 ml 1277 ml 481 ml Output Total 1150 ml 635 ml Balance 1321 ml 127 ml -154 ml Intake Oral 480 ml 0 ml IV Total 841 ml 1217 ml 481 ml Tube Irrigant 60 ml Output Urine Total 1050 ml 585 ml Gastric Drainage Total 100 ml 50 ml # Voids 5 # Bowel Movements 0 0 1 Physical Exam GENERAL: Intubated, comfortable SKIN: Warm and dry. HEAD: Normocephalic. EYES: No scleral icterus. No injection or drainage. NECK: Supple, trachea midline. No JVD or lymphadenopathy. CARDIOVASCULAR: Regular rate and rhythm without murmurs, gallops, or rubs. RESPIRATORY: Breath sounds equal bilaterally. No accessory muscle use. GASTROINTESTINAL: Abdomen soft, non-tender, nondistended. MUSCULOSKELETAL: No cyanosis, or edema. Laboratory Laboratory Tests Test 08/13/16 08/14/16 08/14/16 19:45 03:39 06:54 Activated Partial 71.1 SEC 59.8 SEC Thromboplast Time Sodium Level 136 MEQ/L Potassium Level 3.7 MEQ/L Chloride Level 102 MEQ/L Carbon Dioxide Level 24.9 MEQ/L Anion Gap 9 MEQ/L Blood Urea Nitrogen 18 MG/DL Creatinine 0.86 MG/DL Estimat Glomerular Filtration 65 ML/MIN Rate Random Glucose 159 MG/DL Calcium Level 8.1 MG/DL Phosphorus Level 2.2 MG/DL Magnesium Level 1.9 MG/DL B-Type Natriuretic Peptide 217 PG/ML Imaging Last Impressions Chest X-Ray 08/13/16 0000 Signed Impressions: Service Date/Time: Saturday, August 13, 2016 10:58 - CONCLUSION: The endotracheal tube and NG tube appear to be in good position. No pneumothorax. David Walker MD Aorta Ultrasound 08/11/16 0000 Signed Impressions: Service Date/Time: Thursday, August 11, 2016 08:00 - CONCLUSION: 1. No abdominal aortic aneurysm identified. Johnnie Bains MD Abdomen/Pelvis CT 08/11/16 0000 Signed Impressions: Service Date/Time: Thursday, August 11, 2016 11:55 - CONCLUSION: 1. Moderate to severe left-sided hydronephrosis probably secondary to a left UPJ obstruction. Left ureter has normal caliber. 2. Nonobstructing 16mm by 11 mm calculus in the right renal pelvis. Perinephric stranding present bilaterally. 3. Trace bilateral pleural effusions. No bowel obstruction or free air. Arthur Tirado MD Lower Extremity Ultrasound 08/10/16 0000 Signed Impressions: Service Date/Time: July 21:54 - CONCLUSION: Negative exam with no evidence of deep venous thrombosis. Cheko Villanueva MD Head CT 08/10/16 0000 Signed Impressions: Service Date/Time: July 22:26 - CONCLUSION: 1. No acute hemorrhage, mass or infarction. 2. Chronic encephalomalacia Cheko Villanueva MD Assessment and Plan Problem List: (1) Elevated troponin (2) Aortic stenosis, moderate (3) Hypertension (4) Sepsis (5) Metabolic encephalopathy (6) Hydronephrosis (7) Hypokalemia Assessment and Plan No angina or CHF. Continue ICU care. Wean ventilator as tolerated. Continue tx for sepsis. Nuclear stress test later once pt extubated and stable. Claudia Morrissey MD Aug 14, 2016 13:37
--- NOTE | 2016-08-14 15:14 | RADRPT ---
EXAM DATE/TIME: 08/14/2016 14:36 [facility] COMPARISON: CHEST SINGLE AP, August 13, 2016, 10:58. INDICATIONS : Respiratory status. MEDICAL HISTORY : Cerebrovascular disease. Cardiovascular disease. Hypertension. SURGICAL HISTORY : None. ENCOUNTER: Initial ACUITY: 3 days PAIN SCORE: 0/10 LOCATION: Bilateral upper chest FINDINGS: Underinflated AP view the chest demonstrates a normal-sized cardiac silhouette with calcification of the aorta. Nasogastric tube is looped in the stomach. Endotracheal tube tip is at the clavicular head level measuring approximately 4.6 cm from the loren. Lungs are very underinflated and there are bib asilar airspace opacities, left greater than right. No pneumothorax or pleural effusion is identified . CONCLUSION: Very underinflated examination with bibasilar airspace opacities, left greater than right. These like ly represent atelectasis or airspace consolidation. Darion Petersen MD on August 14, 2016 at 15:11 Board Certified Radiologist. This report was verified electronically.
[2016-08-14] MEDS: PRAVASTATIN SOD 40 MG TAB PO SCH (18:35)
[2016-08-14] MEDS: HEPARIN-D5W INJ 250 ML IV SCH (23:16)
[2016-08-15] VITALS (14 sets, daily range): BP systolic 101–155; BP diastolic 41–76; PULSE 63–101; RESP 14–18; TEMP 97.9–98.9; O2SAT 90–99
[2016-08-15] MEDS: RESP: ALBUTEROL 2.5 MG/IPRATROPIUM 0.5 MG NEB (SCH) NEB ×4 (02:57→21:08)
[2016-08-15 04:33] LABS: MEAN CELL VOLUME 85.7 FL (80.0-100.0); MEAN CORPUSCULAR HEMOGLOBIN 30.1 PG (27.0-34.0); MEAN CORPUSCULAR HGB CONC 35.2 % (32.0-36.0); PLATELET COUNT 191 TH/MM3 (150-450); RED BLOOD COUNT 2.92 MIL/MM3 (4.00-5.30); RED CELL DISTRIBUTION WIDTH 13.7 % (11.6-17.2); REVIEW FLAG FINAL; WHITE BLOOD COUNT 5.4 TH/MM3 (4.0-11.0)
[2016-08-15 04:37] LABS: APTT (PATIENT) 43.2 SEC (24.3-30.1)
[2016-08-15 04:52] LABS: BICARBONATE 28.2 MEQ/L (21.0-32.0); MAGNESIUM 1.8 MG/DL (1.5-2.5); POTASSIUM 3.9 MEQ/L (3.5-5.1)
[2016-08-15] MEDS: PENICILLIN G POTASSIUM INJ 3,000,000 UNITS in SODIUM CHLORIDE 0.9% INJ 100 ML IV SCH ×6 (05:29→23:46)
[2016-08-15] MEDS ORDERED: PHARMACY ORDERED LAB ONE (05:45)
[2016-08-15] MEDS: INSULIN ASPART SUPPLEMENTAL SCALE SQ SCH ×4 (06:04→21:29)
--- NOTE | 2016-08-15 06:27 | RADRPT ---
EXAM DATE/TIME: 08/15/2016 04:47 [facility] COMPARISON: CHEST SINGLE AP, August 14, 2016, 14:36. INDICATIONS : Shortness of breath. MEDICAL HISTORY : Cerebrovascular disease. Cardiovascular disease. Hypertension. SURGICAL HISTORY : None. ENCOUNTER: Subsequent ACUITY: 1 week PAIN SCORE: 0/10 LOCATION: Bilateral chest FINDINGS: ET tube tip well above the loren. Gastric tube tip projects within the stomach. The right lung is clear. Consolidation of left lung base with loss of delineation left hemidiaphragm stable from prior . The heart is normal size. CONCLUSION: Stable left lower lobe consolidation. Andre Garcia MD on August 15, 2016 at 6:26 Board Certified Radiologist. This report was verified electronically.
[2016-08-15] MEDS: CHLORHEXIDINE GLUCONATE 0.12% 15 ML CUP SCH ×2 (08:00→20:00)
[2016-08-15] MEDS: SODIUM CHLORIDE 0.9% FLUSH 10 ML FLUSH IV FLUSH SCH ×2 (08:03→20:07)
[2016-08-15] MEDS: TOLTERODINE TARTRATE 2 MG CAP LA PO SCH (08:41)
[2016-08-15] MEDS: FUROSEMIDE 40 MG/4 ML VIAL IV PUSH SCH ×2 (08:41→18:17)
[2016-08-15] MEDS: PANTOPRAZOLE SODIUM 40 MG VIAL IV PUSH SCH (08:41)
[2016-08-15] MEDS: LISINOPRIL 20 MG TAB PO SCH (08:41)
[2016-08-15] MEDS: METOPROLOL TARTRATE 25 MG TAB PO SCH ×2 (08:41→20:06)
[2016-08-15] MEDS: ASPIRIN 81 MG CHEW TAB CHEW SCH (08:41)
[2016-08-15] MEDS: POTASSIUM CHLORIDE 25 MEQ EFFERVESCENT TAB PO SCH ×2 (08:42)
[2016-08-15] MEDS: DOCUSATE SODIUM 100 MG/10 ML UDC PO SCH ×2 (08:42→20:06)
[2016-08-15] MEDS: PARoxetine HCL 20 MG TAB PO SCH (08:42)
--- NOTE | 2016-08-15 09:24 | HHI.CCPN ---
Subjective Remarks/Hospital Course Patient is a 70-year-old female with past medical history significant for hypertension, diabetes, chronic atrial fibrillation on Eliquis, depression who was admitted to the hospitalist service with metabolic encephalopathy and severe sepsis secondary to enterococcal bacteremia. Source of sepsis was UTI. Patient was placed on antibiotics per ID recommendation (penicillin G and Levaquin). CT of the abdomen and pelvis showed moderate to severe hydronephrosis on the left side, secondary to left UPJ obstruction. Patient also had mild troponin elevation for which Dr. morrissey was consulted. 2D Echo showed ef 50- 55%. Moderate aortic valve stenosis, mean gradient 31 mmHg, and Aortic valve area is 0.74 cm. plan was to get a myocardial perfusion study. In the interim patient continued to require more oxygen, was started on IV Lasix. Prior to OR today patient was on high flow nasal cannula. Patient underwent left ureteral stent placement by urology Dr. Lyon today. Apparently throughout the procedure patient was hypoxemic 80-85% on 100% oxygen. Critical care medicine was consulted for acute hypoxemic resp failure and I evaluated the patient postop in the CV ICU. At the time of my evaluation she was on 100% oxygen with a PEEP of 8, PaO2 was only 130 on ABG. Chest x-ray shows pulmonary edema, patient is received 20 mg IV Lasix and I have given additional IV 40mg. Schedule IV Lasix 40 mg every 12. Currently patient is receiving IV heparin metoprolol and lisinopril. Continue the same along with antibiotics per ID. Once sepsis is cleared we'll discuss with Dr. morrissey regarding cardiac catheterization to evaluate for CAD and . Subjective: 08/14: Afebrile. The patient diuresed well on the last 24 hours, with approximately 2 kg fluid loss. Patient well oxygenated, currently being weaned. Plan for CPAP trials this a.m. 08/15: CPAP trials initiated yesterday, however patient began to desaturate after 3 hours, sedation off. The patient was mechanically ventilated throughout the night CPAP trials were initiated at 6 AM this morning, with plans tentatively to extubate. The patient underwent ANGIE procedure yesterday of no valvular vegetations were noted, discussed with Dr. Morrissey. Objective Vital Signs Date Time Temp Pulse Resp B/P Pulse Ox O2 Delivery O2 Flow Rate FiO2 08/15/16 07:35 40 08/15/16 07:35 99 08/15/16 07:00 63 08/15/16 07:00 Mechanical Ventilator 08/15/16 07:00 98.9 14 101/53 127/49 08/13/16 08:30 30.00 Intake and Output 08/14/16 08/14/16 08/15/16 08:00 16:00 00:00 Intake Total 481 ml 609 ml Output Total 635 ml 2575 ml Balance -154 ml -1966 ml Result Diagram: 08/15/16 0404 08/15/16 0404 Other Results Microbiology Date/Time Procedure Status Source Growth 08/13/16 11:30 Gram Stain - Final Complete Sputum Oral Tracheal Aspirate 08/13/16 11:30 Sputum Culture - Final Complete Sputum Oral Tracheal Aspirate RARE GROWTH NORMAL RESPIRATORY URSZULA Imaging Chest x-ray 08/13/[address] abdomen pelvis 08/11/16 shows moderate to severe left hydronephrosis secondary to left UPJ obstruction Objective Remarks BP 164/60 Pulse 85 O2 saturation 98% on FiO2 of 40% GENERAL: Patient is a well-nourished, well-developed female who is intubated. Awake, sedation off for CPAP trials, following commands SKIN: Warm and dry. HEAD: Atraumatic. Normocephalic. EYES: Pupils equal, round and reactive to light. Extraocular movements full and intact. EARS, NOSE AND THROAT: Orotracheally intubated NECK: Trachea midline. Supple and not tender, no meningeal signs CARDIOVASCULAR: Regular rate and rhythm. Systolic murmur best heard in the right upper sternal border radiating to the carotids RESPIRATORY: Bibasilar crackles, no rhonchi or wheezes ABDOMEN: Soft, non-tender, nondistended. No organomegaly. OGTT to gravity EXTREMITIES: No clubbing, cyanosis, or edema. NEUROLOGICAL: Intubated sedated for ventilator synchrony. Following commands movement of extremities 4 Procedures 08/14TE Urinary Catheter: Yes Assessment to: Continue Llanos insert reason: Measure Accurate Output Date of Insertion: Aug 13, 2016 A/P Assessment and Plan ASSESSMENT Acute hypoxemic respiratory failure CHF/Pulmonary edema NSTEMI Moderate aortic stenosis Severe sepsis High-grade enterococcal bacteremia UTI Left hydronephrosis status post left ureteral stent today 08/13/16 History of atrial fibrillation on Eliquis Hypertension Diabetes PLAN: NEURO: - Propofol for sedation and ventilator synchrony. - GCS 11 T RESP: - Continue full ventilatory support ACV tidal volume 550, respiratory rate 14 PEEP 8, FIO2 .40 - DuoNeb every 6 hours and when necessary - Continue Lasix - Ventilator bundle - CPAP trials 5/5/0.40, obtain SBT parameters CV: - Currently receiving IV heparin metoprolol and lisinopril for NSTEMI - Continue IV heparin transition to Eliquis once more stable - Continue aspirin 81 mg daily - 08/11 2D Echo LVEF 50-55%, Moderate , mean gradient is 31 mmHg, and Aortic valve area is 0.74 cm. - Per Dr. Morrissey Adenosine myocardial perfusion study when stable - IV Lasix continue 40 mg IV q12 - Will discuss with Dr. Morrissey re: cardiac cath - 08/14 ANGIE-no valvular vegetations per discussion with Dr. Morrissey GI: - NPO, IV Protonix. Colace 100 mg BID - Will continue to feeds of failed CPAP /SBT trials : - Status post left ureteral stent by Dr. Lyon. - Monitor renal function closely. Monitor urine output closely, noted hematuria - IV Lasix as above ID: - High-grade enterococcal bacteremia, currently on penicillin G and Levaquin per ID - Source appears to be UTI - Status post left ureteral stent for hydronephrosis - Blood cx 08/10, 08/11 Enterococcus - Urine cx 08/10 Enterococcus - ID following- Dr. Mariscal HEME: - Monitor CBC, CMP, coags - Continue IV heparin transition to Eliquis once more stable ENDO: - Replace electrolytes per protocol PROPH: - Bilateral lower extremity SCDs. IV Heparin, Protonix 40 mg IV daily LINES: - Utilize peripheral IVs, central line if needed This patient remains critically ill with one or more organ systems which are or may become a threat to life. I have spent in excess of 30 minutes discontinuously in the care and management of this patient. This time is exclusive of procedures, and includes, but is not limited to, evaluation of the patient, review of the medical record, discussions with family, consultants, nursing staff, or respiratory therapy, and documentation in the medical record. Physician Leila Chavarria MD Aug 15, 2016 09:24
[2016-08-15 09:58] LABS: BLOOD GAS CARBOXYHEMOGLOBIN 1.1 % (0-4); BLOOD GAS HCO3 26 mmol/L (22-26); BLOOD GAS METHEMOGLOBIN 1.2 % (0-2); BLOOD GAS O2 HGB SATURATION 95 % (90-100); BLOOD GAS OXYGEN CONTENT 21.6 Vol % (12.0-20.0); BLOOD GAS PCO2 42 mmHg (38-42); BLOOD GAS PO2 99 mmHg (61-120); BLOOD GAS TOTAL HGB 16.1 G/DL (12.0-16.0); TEMP CORR TO 98.6
[2016-08-15 09:59] LABS: CRITICAL VALUE NO; DRAW SITE ART LINE; FIO2 40 %; OXYGEN DEVICE VENTILATOR; STAT NO; VENT SETTINGS CPAP5/PS5
[2016-08-15] MEDS: LEVOFLOXACIN 750 MG PREMIX INJ 150 ML IV SCH (11:17)
--- NOTE | 2016-08-15 12:36 | HHI.PR ---
Subjective Patient symptoms today Postoperative day #2 Extubated this morning Denies pain Objective Vital Signs Vital Signs Date Time Temp Pulse Resp B/P Pulse Ox O2 Delivery O2 Flow Rate FiO2 08/15/16 11:00 98.7 82 18 127/65 91 129/46 08/15/16 11:00 91 Nasal Cannula 5.00 08/15/16 11:00 76 08/15/16 10:18 90 Nasal Cannula 5.00 08/15/16 10:15 90 Nasal Cannula 5 08/15/16 08:05 98 40 08/15/16 07:35 40 08/15/16 07:35 99 40 08/15/16 07:10 98 40 08/15/16 07:00 40 08/15/16 07:00 63 08/15/16 07:00 98 Mechanical Ventilator 40 08/15/16 07:00 98.9 63 14 101/53 98 127/49 08/15/16 04:06 96 40 08/15/16 03:00 72 08/15/16 03:00 40 08/15/16 03:00 95 Mechanical Ventilator 40 08/15/16 03:00 98.9 76 14 144/76 95 155/63 08/14/16 23:08 60 08/14/16 23:05 45 08/14/16 23:05 97 Mechanical Ventilator 45 08/14/16 23:05 98.9 62 14 132/66 97 124/51 08/14/16 19:45 45 08/14/16 19:30 96 Mechanical Ventilator 45 08/14/16 19:30 45 08/14/16 19:07 45 08/14/16 19:07 99.0 76 12 125/65 95 112/42 08/14/16 19:07 45 08/14/16 19:00 76 08/14/16 15:37 95 45 08/14/16 15:22 99 100 08/14/16 15:00 99.4 80 19 145/72 92 137/72 08/14/16 15:00 40 08/14/16 15:00 95 Mechanical Ventilator 40 08/14/16 15:00 80 08/14/16 13:44 92 40 Intake & Output 08/15/16 08/15/16 07:00 19:00 Intake Total 625 ml Output Total 950 ml Balance -325 ml IV Total 408 ml Tube Feeding 217 ml Output Urine Total 950 ml # Bowel Movements 0 Result Diagram: 08/15/16 0404 08/15/16 0404 Imaging Last 24 hours Impressions Chest X-Ray 08/15/16 0600 Signed Impressions: Service Date/Time: Monday, August 15, 2016 04:47 - CONCLUSION: Stable left lower lobe consolidation. Andre Garcia MD Objective Remarks Llanos catheter in place draining blood tinged urine with excellent output Medications and IVs Current Medications Medications (Trade) Dose Ordered Sig/Leila Route Start Time Stop Time Status Last Admin (NS Flush) 2 ml UNSCH PRN IV FLUSH 08/10/16 19:00 (NS Flush) 2 ml BID IV FLUSH 08/10/16 21:00 08/14/16 20:55 (Tylenol) 650 mg Q4H PRN PO 08/10/16 19:00 08/12/16 23:04 (Tylenol) 650 mg Q6H PRN PO 08/10/16 19:00 (Narcan Inj) 0.4 mg UNSCH PRN IV 08/10/16 19:00 (Norvasc) 10 mg DAILY PO 08/11/16 09:00 08/15/16 08:42 (Lopressor) 25 mg BID PO 08/10/16 21:30 08/15/16 08:41 (Paxil) 20 mg DAILY PO 08/11/16 09:00 08/15/16 08:42 (D50w (Vial) Inj) 50 ml UNSCH PRN IV 08/10/16 21:30 (Glucagon Inj) 1 mg UNSCH PRN OTHER 08/10/16 21:30 (Detrol La) 2 mg DAILY PO 08/11/16 09:00 08/15/16 08:41 Pravastatin Sodium 10 mg 10 mg DAILY@18 PO 08/11/16 18:00 08/14/16 18:35 Penicillin G Potassium 1006126 units/Sodium Chloride 100 ml @ 100 mls/hr Q4H IV 08/12/16 12:00 08/15/16 12:27 (Levaquin 750 Mg Premix Inj) 150 ml @ 100 mls/hr Q24H IV 08/12/16 11:00 08/15/16 11:17 (Prinivil) 40 mg DAILY PO 08/13/16 09:00 08/15/16 08:41 (Aspirin Chew) 81 mg DAILY CHEW 08/13/16 11:45 08/15/16 08:41 Chlorhexidine Gluconate 15 ml 15 ml BID@08,20 .XX 08/13/16 20:00 08/15/16 08:00 (fentaNYL DRIP) 250 ml @ 0 mls/hr TITRATE IV 08/13/16 11:45 08/13/16 12:08 (Lasix Inj) 40 mg BID@09,18 IV PUSH 08/13/16 18:00 08/15/16 08:41 Potassium Bicarb/ Potassium Chloride 25 meq 25 meq DAILY PO 08/13/16 12:00 08/15/16 08:42 Potassium Chloride 100 ml @ 50 mls/hr Q2H PRN IV 08/13/16 12:00 (KCl 20 Meq Premix Inj) 100 ml @ 50 mls/hr Q2H PRN IV 08/13/16 12:00 Potassium Bicarb/ Potassium Chloride 50 meq 50 meq UNSCH PRN PO 08/13/16 12:00 Potassium Chloride 100 ml @ 25 mls/hr UNSCH PRN IV 08/13/16 12:00 Potassium Chloride 100 ml @ 50 mls/hr Q2H PRN IV 08/13/16 12:00 Propofol 100 ml @ 0 mls/hr TITRATE IV 08/13/16 12:00 08/14/16 21:59 (Magnesium Sulfate Inj/NS Inj) 100 ml @ 50 mls/hr UNSCH PRN IV 08/13/16 12:00 Magnesium Oxide 800 mg 800 mg UNSCH PRN PO 08/13/16 12:00 (Magnesium Sulfate Inj/NS Inj) 100 ml @ 50 mls/hr UNSCH PRN IV 08/13/16 12:00 Potassium Phosphate 2000 mg 2,000 mg Q4H PRN PO 08/13/16 12:00 (Sodium Phosphate Inj/NS 250 ml Inj) 250 ml @ 42 mls/hr UNSCH PRN IV 08/13/16 12:00 08/15/16 06:46 Potassium Phosphate 2000 mg 2,000 mg UNSCH PRN PO/TUBE 08/13/16 12:00 (Potassium Phosphate Inj/NS 250 ml Inj) 260 ml @ 42 mls/hr UNSCH PRN IV 08/13/16 12:00 (K-Lyte Cl Eff) 25 meq DAILY PO 08/14/16 09:00 08/14/16 09:02 (Protonix Inj) 40 mg DAILY IV PUSH 08/13/16 12:00 08/15/16 08:41 Docusate Sodium 100 mg 100 mg Q12HR PO 08/13/16 12:00 08/15/16 08:42 (Heparin-D5W Inj) 250 ml @ 0 mls/hr TITRATE IV 08/13/16 14:00 08/14/16 23:16 Assessment and Plan Assessment and Plan Urologic impression: #1 urosepsis responding to antibiotic therapy #2 left hydronephrosis secondary to ureteropelvic junction obstruction of indeterminate etiology and status post placement of a terminal make up operator left sided ureteral stent. #3 nonobstructing 1.5 cm right renal calculus Plan: #1 continue with Llanos catheter to gravity drainage #2 may DC Llanos catheter once hematuria resolves and patient ambulatory #3 patient will require urologic follow up with her established urologist after hospital discharge. Murali Lyon MD Aug 15, 2016 12:36
--- NOTE | 2016-08-15 14:01 | HHI.IDPN ---
Subjective Subjective Remarks Patient is a 70-year-old female, brought into the hospital for evaluation of altered mental status. She was apparently not responding appropriately to some questions and at times not answering. She has been noted to be not moving much at home which is not her usual. There is mention that she was having fevers and shortness of breath. She was initially admitted to [facility], and had some shortness of breath and transferred to the intensive care unit. Currently she is on nasal O2. She denies any congestion or cough. No chest pain. She said she's not had any nausea or vomiting or abdominal pain. Denies any back pain. There is some mention that she had some dysuria, but patient denies any hematuria. Patient is not sure whether she has had kidney stones. She apparently has seen a urologist, and I can't really get a detailed history as to why she saw a urologist as an outpatient. During my exam, patient is awake and alert, and she is able to answer most of my questions although a little bit slow to respond. She seems to be oriented. Patient had an abnormal urinalysis. All her blood cultures are growing enterococcus. CT of the abdomen and pelvis is showing some stones in the kidney on the right with no obstruction, and she has significant hydronephrosis on the left side. Notes reviewed D/W RN Extubated this morning Per RN, ANGIE done yesterday, no vegetation Last (+) BC so far 08/13 S/P urologic procedure 08/13 Llanos has blood tinged urine BC 08/10, 08/11 with Enterococcus, Gent synergy R; Strep synergy S First UC with E faecalis Repeat UC done after cysto - pending Antibiotics IV PCN Levaquin Lines PIV Past Medical History Hypertension Hyperlipidemia Diabetes mellitus Coronary artery disease CVA with residual dysarthria Atrial Fibrillation Polio 3 pregnancies and normal delivery Past Surgical History Oral surgery Allergies: Uncoded Allergies: MOTREL (Adverse Reaction, Severe, Rash, 06/06/16) . Objective . Vital Signs Date Time Temp Pulse Resp B/P Pulse Ox O2 Delivery O2 Flow Rate FiO2 08/15/16 11:00 98.7 82 18 127/65 91 129/46 08/15/16 11:00 91 Nasal Cannula 5.00 08/15/16 11:00 76 08/15/16 10:18 90 Nasal Cannula 5.00 08/15/16 10:15 90 Nasal Cannula 5 6/27/17 08:05 98 40 08/15/16 07:35 40 08/15/16 07:35 99 40 08/15/16 07:10 98 40 08/15/16 07:00 40 08/15/16 07:00 63 08/15/16 07:00 98 Mechanical Ventilator 40 08/15/16 07:00 98.9 63 14 101/53 98 127/49 08/15/16 04:06 96 40 08/15/16 03:00 72 08/15/16 03:00 40 08/15/16 03:00 95 Mechanical Ventilator 40 08/15/16 03:00 98.9 76 14 144/76 95 155/63 08/14/16 23:08 60 08/14/16 23:05 45 08/14/16 23:05 97 Mechanical Ventilator 45 08/14/16 23:05 98.9 62 14 132/66 97 124/51 08/14/16 19:45 45 08/14/16 19:30 96 Mechanical Ventilator 45 08/14/16 19:30 45 08/14/16 19:07 45 08/14/16 19:07 99.0 76 12 125/65 95 112/42 08/14/16 19:07 45 08/14/16 19:00 76 08/14/16 15:37 95 45 08/14/16 15:22 99 100 08/14/16 15:00 99.4 80 19 145/72 92 137/72 08/14/16 15:00 40 08/14/16 15:00 95 Mechanical Ventilator 40 08/14/16 15:00 80 08/14/16 08/14/16 08/15/16 15:00 23:00 07:00 Intake Total 609 ml 625 ml Output Total 2575 ml 950 ml Balance -1966 ml -325 ml IV Total 599 ml 408 ml Tube Feeding 10 ml 217 ml Output Urine Total 2375 ml 950 ml Gastric Drainage Total 200 ml # Bowel Movements 0 0 . Laboratory Tests Test 08/15/16 04:04 White Blood Count 5.4 TH/MM3 Red Blood Count 2.92 MIL/MM3 Hemoglobin 8.8 GM/DL Hematocrit 25.0 % Mean Corpuscular Volume 85.7 FL Mean Corpuscular Hemoglobin 30.1 PG Mean Corpuscular Hemoglobin 35.2 % Concent Red Cell Distribution Width 13.7 % Platelet Count 191 TH/MM3 Mean Platelet Volume 8.2 FL Laboratory Tests Test 08/14/16 08/15/16 06:54 04:04 Sodium Level 136 MEQ/L 139 MEQ/L Potassium Level 3.7 MEQ/L 3.9 MEQ/L Chloride Level 102 MEQ/L 103 MEQ/L Carbon Dioxide Level 24.9 MEQ/L 28.2 MEQ/L Anion Gap 9 MEQ/L 8 MEQ/L Blood Urea Nitrogen 18 MG/DL 16 MG/DL Creatinine 0.86 MG/DL 0.95 MG/DL Estimat Glomerular Filtration 65 ML/MIN 58 ML/MIN Rate Random Glucose 159 MG/DL 224 MG/DL Calcium Level 8.1 MG/DL 8.2 MG/DL Phosphorus Level 2.2 MG/DL 2.3 MG/DL Magnesium Level 1.9 MG/DL 1.8 MG/DL B-Type Natriuretic Peptide 217 PG/ML Microbiology Date/Time Procedure Status Source Growth 08/13/16 05:00 Aerobic Blood Culture - Preliminary Resulted Blood Peripheral Enterococcus Faecalis 08/13/16 05:00 Anaerobic Blood Culture - Preliminary Resulted Blood Peripheral NO GROWTH IN 2 DAYS 08/13/16 10:00 Urine Culture - Preliminary Resulted Urine Other IMMATURE GROWTH - REINCUBATE 08/13/16 11:30 Gram Stain - Final Complete Sputum Oral Tracheal Aspirate 08/13/16 11:30 Sputum Culture - Final Complete Sputum Oral Tracheal Aspirate RARE GROWTH NORMAL RESPIRATORY URSZULA 08/14/16 05:50 Aerobic Blood Culture - Preliminary Resulted Blood Peripheral NO GROWTH IN 1 DAY 08/14/16 05:50 Anaerobic Blood Culture - Preliminary Resulted Blood Peripheral NO GROWTH IN 1 DAY 08/15/16 05:49 Aerobic Blood Culture Received Blood Peripheral Pending 08/15/16 05:49 Anaerobic Blood Culture Received Blood Peripheral Pending Imaging Chest X-Ray 08/13/16 0000 Signed Impressions: Service Date/Time: Saturday, August 13, 2016 10:58 - CONCLUSION: The endotracheal tube and NG tube appear to be in good position. No pneumothorax. David Walker MD Aorta Ultrasound 08/11/16 0000 Signed Impressions: Service Date/Time: Thursday, August 11, 2016 08:00 - CONCLUSION: 1. No abdominal aortic aneurysm identified. Johnnie Bains MD Abdomen/Pelvis CT 08/11/16 0000 Signed Impressions: Service Date/Time: Thursday, August 11, 2016 11:55 - CONCLUSION: 1. Moderate to severe left-sided hydronephrosis probably secondary to a left UPJ obstruction. Left ureter has normal caliber. 2. Nonobstructing 16mm by 11 mm calculus in the right renal pelvis. Perinephric stranding present bilaterally. 3. Trace bilateral pleural effusions. No bowel obstruction or free air. Arthur Tirado MD Lower Extremity Ultrasound 08/10/16 0000 Signed Impressions: Service Date/Time: July 21:54 - CONCLUSION: Negative exam with no evidence of deep venous thrombosis. Cheko Villanueva MD Head CT 08/10/16 0000 Signed Impressions: Service Date/Time: July 22:26 - CONCLUSION: 1. No acute hemorrhage, mass or infarction. 2. Chronic encephalomalacia Cheko Villanueva MD Physical Exam GENERAL: Awake, alert, responding, NAD SKIN: Warm and dry. No generalized rash, no ecchymoses and no evidence of embolic lesions. HEAD: Atraumatic. Normocephalic. No temporal wasting, or tenderness. EYES: [place] conjunctiva. No petechia or hemorrhage. Pupils equal, round and reactive to light. No scleral icterus. No injection or drainage. EARS, NOSE AND THROAT: Nose without bleeding or purulent nasal discharge. No sinus tenderness. Moist mucosa NECK: Trachea midline. Supple and not tender, no meningeal signs CARDIOVASCULAR: Regular rate and rhythm. Has systolic murmur at base of the heart. No rub RESPIRATORY: Breath sounds equal bilaterally. Decreased BS at bases ABDOMEN: Soft, non-tender, nondistended. Bowel sounds present and normoactive. No guarding. No rebound. No organomegaly. EXTREMITIES: No clubbing, cyanosis, or edema. No joint effusion, has good ROM. No calf tenderness. Well perfused and warm. RLE larger compared to L NEUROLOGICAL: Following commands PSYCHIATRIC: Unable to assess : Llanos in place, urine is blood tinged LINE: No evidence of infection Assessment & Plan Remarks IMPRESSION High grade Enterococcal bacteremia, has UTI with L hydronephrosis - concern with seeding of her valve, has valvular heart disease, has mod on echo - BC still (+) from 08/13, that is date of her urologic procedure SOB, due to ?pulmonary edema Previous Hx CVA RECOMMENDATION Continue IV PCN for Enterococcus Continue Levaquin - change to Follow C/S Cath being planned by cardiology Monitor temriya Monitor progress D/W Janette Kincaid MD Aug 15, 2016 14:00
--- NOTE | 2016-08-15 14:10 | PD.CARD.PN ---
Subjective Subjective Remarks No CP or SOB, weaned off the vent Objective Medications Current Medications Medications (Trade) Dose Ordered Sig/Leila Route Start Time Stop Time Status Last Admin (NS Flush) 2 ml UNSCH PRN IV FLUSH 08/10/16 19:00 (NS Flush) 2 ml BID IV FLUSH 08/10/16 21:00 08/14/16 20:55 (Tylenol) 650 mg Q4H PRN PO 08/10/16 19:00 08/12/16 23:04 (Tylenol) 650 mg Q6H PRN PO 08/10/16 19:00 (Narcan Inj) 0.4 mg UNSCH PRN IV 08/10/16 19:00 (Norvasc) 10 mg DAILY PO 08/11/16 09:00 08/15/16 08:42 (Lopressor) 25 mg BID PO 08/10/16 21:30 08/15/16 08:41 (Paxil) 20 mg DAILY PO 08/11/16 09:00 08/15/16 08:42 (D50w (Vial) Inj) 50 ml UNSCH PRN IV 08/10/16 21:30 (Glucagon Inj) 1 mg UNSCH PRN OTHER 08/10/16 21:30 (Detrol La) 2 mg DAILY PO 08/11/16 09:00 08/15/16 08:41 Pravastatin Sodium 10 mg 10 mg DAILY@18 PO 08/11/16 18:00 08/14/16 18:35 Penicillin G Potassium [id number] units/Sodium Chloride 100 ml @ 100 mls/hr Q4H IV 08/12/16 12:00 08/15/16 12:27 (Levaquin 750 Mg Premix Inj) 150 ml @ 100 mls/hr Q24H IV 08/12/16 11:00 08/15/16 11:17 (Prinivil) 40 mg DAILY PO 08/13/16 09:00 08/15/16 08:41 (Aspirin Chew) 81 mg DAILY CHEW 08/13/16 11:45 08/15/16 08:41 Chlorhexidine Gluconate 15 ml 15 ml BID@08,20 .XX 08/13/16 20:00 08/15/16 08:00 (fentaNYL DRIP) 250 ml @ 0 mls/hr TITRATE IV 08/13/16 11:45 08/13/16 12:08 (Lasix Inj) 40 mg BID@09,18 IV PUSH 08/13/16 18:00 08/15/16 08:41 Potassium Bicarb/ Potassium Chloride 25 meq 25 meq DAILY PO 08/13/16 12:00 08/15/16 08:42 Potassium Chloride 100 ml @ 50 mls/hr Q2H PRN IV 08/13/16 12:00 (KCl 20 Meq Premix Inj) 100 ml @ 50 mls/hr Q2H PRN IV 08/13/16 12:00 Potassium Bicarb/ Potassium Chloride 50 meq 50 meq UNSCH PRN PO 08/13/16 12:00 Potassium Chloride 100 ml @ 25 mls/hr UNSCH PRN IV 08/13/16 12:00 Potassium Chloride 100 ml @ 50 mls/hr Q2H PRN IV 08/13/16 12:00 Propofol 100 ml @ 0 mls/hr TITRATE IV 08/13/16 12:00 08/14/16 21:59 (Magnesium Sulfate Inj/NS Inj) 100 ml @ 50 mls/hr UNSCH PRN IV 08/13/16 12:00 Magnesium Oxide 800 mg 800 mg UNSCH PRN PO 08/13/16 12:00 (Magnesium Sulfate Inj/NS Inj) 100 ml @ 50 mls/hr UNSCH PRN IV 08/13/16 12:00 Potassium Phosphate 2000 mg 2,000 mg Q4H PRN PO 08/13/16 12:00 (Sodium Phosphate Inj/NS 250 ml Inj) 250 ml @ 42 mls/hr UNSCH PRN IV 08/13/16 12:00 08/15/16 06:46 Potassium Phosphate 2000 mg 2,000 mg UNSCH PRN PO/TUBE 08/13/16 12:00 (Potassium Phosphate Inj/NS 250 ml Inj) 260 ml @ 42 mls/hr UNSCH PRN IV 08/13/16 12:00 (K-Lyte Cl Eff) 25 meq DAILY PO 08/14/16 09:00 08/14/16 09:02 (Protonix Inj) 40 mg DAILY IV PUSH 08/13/16 12:00 08/15/16 08:41 Docusate Sodium 100 mg 100 mg Q12HR PO 08/13/16 12:00 08/15/16 08:42 (Heparin-D5W Inj) 250 ml @ 0 mls/hr TITRATE IV 08/13/16 14:00 08/14/16 23:16 Vital Signs / I&O Vital Signs Date Time Temp Pulse Resp B/P Pulse Ox O2 Delivery O2 Flow Rate FiO2 08/15/16 11:00 98.7 82 18 127/65 91 129/46 08/15/16 11:00 91 Nasal Cannula 5.00 08/15/16 11:00 76 08/15/16 10:18 90 Nasal Cannula 5.00 08/15/16 10:15 90 Nasal Cannula 5 08/15/16 08:05 98 40 08/15/16 07:35 40 08/15/16 07:35 99 40 08/15/16 07:10 98 40 08/15/16 07:00 40 08/15/16 07:00 63 08/15/16 07:00 98 Mechanical Ventilator 40 08/15/16 07:00 98.9 63 14 101/53 98 127/49 08/15/16 04:06 96 40 08/15/16 03:00 72 08/15/16 03:00 40 08/15/16 03:00 95 Mechanical Ventilator 40 08/15/16 03:00 98.9 76 14 144/76 95 155/63 08/14/16 23:08 60 08/14/16 23:05 45 08/14/16 23:05 97 Mechanical Ventilator 45 08/14/16 23:05 98.9 62 14 132/66 97 124/51 08/14/16 19:45 45 08/14/16 19:30 96 Mechanical Ventilator 45 08/14/16 19:30 45 08/14/16 19:07 45 08/14/16 19:07 99.0 76 12 125/65 95 112/42 08/14/16 19:07 45 08/14/16 19:00 76 08/14/16 15:37 95 45 08/14/16 15:22 99 100 08/14/16 15:00 99.4 80 19 145/72 92 137/72 08/14/16 15:00 40 08/14/16 15:00 95 Mechanical Ventilator 40 08/14/16 15:00 80 I/O 08/14/16 08/14/16 08/14/16 08/15/16 08/15/16 08/15/16 07:00 15:00 23:00 07:00 15:00 23:00 Intake Total 481 ml 609 ml 625 ml Output Total 635 ml 2575 ml 950 ml Balance -154 ml -1966 ml -325 ml IV Total 481 ml 599 ml 408 ml Tube Feeding 10 ml 217 ml Output Urine Total 585 ml 2375 ml 950 ml Gastric Drainage Total 50 ml 200 ml # Bowel Movements 1 0 0 Physical Exam GENERAL: Intubated, comfortable SKIN: Warm and dry. HEAD: Normocephalic. EYES: No scleral icterus. No injection or drainage. NECK: Supple, trachea midline. No JVD or lymphadenopathy. CARDIOVASCULAR: Regular rate and rhythm without murmurs, gallops, or rubs. RESPIRATORY: Breath sounds equal bilaterally. No accessory muscle use. GASTROINTESTINAL: Abdomen soft, non-tender, nondistended. MUSCULOSKELETAL: No cyanosis, or edema. Laboratory Laboratory Tests Test 08/15/16 08/15/16 04:04 09:40 White Blood Count 5.4 TH/MM3 Red Blood Count 2.92 MIL/MM3 Hemoglobin 8.8 GM/DL Hematocrit 25.0 % Mean Corpuscular Volume 85.7 FL Mean Corpuscular Hemoglobin 30.1 PG Mean Corpuscular Hemoglobin 35.2 % Concent Red Cell Distribution Width 13.7 % Platelet Count 191 TH/MM3 Mean Platelet Volume 8.2 FL Activated Partial 43.2 SEC Thromboplast Time Sodium Level 139 MEQ/L Potassium Level 3.9 MEQ/L Chloride Level 103 MEQ/L Carbon Dioxide Level 28.2 MEQ/L Anion Gap 8 MEQ/L Blood Urea Nitrogen 16 MG/DL Creatinine 0.95 MG/DL Estimat Glomerular Filtration 58 ML/MIN Rate Random Glucose 224 MG/DL Calcium Level 8.2 MG/DL Phosphorus Level 2.3 MG/DL Magnesium Level 1.8 MG/DL Blood Gas Puncture Site ART LINE Blood Gas Patient Temperature 98.6 Blood Gas HCO3 26 mmol/L Blood Gas Base Excess 2.0 mmol/L Blood Gas Oxygen Saturation 95 % Arterial Blood pH 7.41 Arterial Blood Partial 42 mmHg Pressure CO2 Arterial Blood Partial 99 mmHg Pressure O2 Arterial Blood Oxygen Content 21.6 Vol % Arterial Blood 1.1 % Carboxyhemoglobin Arterial Blood Methemoglobin 1.2 % Blood Gas Hemoglobin 16.1 G/DL Oxygen Delivery Device VENTILATOR Blood Gas Ventilator Setting CPAP5/PS5 Blood Gas Inspired Oxygen 40 % Imaging Last Impressions Chest X-Ray 08/15/16 0600 Signed Impressions: Service Date/Time: Monday, August 15, 2016 04:47 - CONCLUSION: Stable left lower lobe consolidation. Andre Garcia MD Aorta Ultrasound 08/11/16 0000 Signed Impressions: Service Date/Time: Thursday, August 11, 2016 08:00 - CONCLUSION: 1. No abdominal aortic aneurysm identified. Johnnie Bains MD Abdomen/Pelvis CT 08/11/16 0000 Signed Impressions: Service Date/Time: Thursday, August 11, 2016 11:55 - CONCLUSION: 1. Moderate to severe left-sided hydronephrosis probably secondary to a left UPJ obstruction. Left ureter has normal caliber. 2. Nonobstructing 16mm by 11 mm calculus in the right renal pelvis. Perinephric stranding present bilaterally. 3. Trace bilateral pleural effusions. No bowel obstruction or free air. Arthur Tirado MD Lower Extremity Ultrasound 08/10/16 0000 Signed Impressions: Service Date/Time: July 21:54 - CONCLUSION: Negative exam with no evidence of deep venous thrombosis. Cheko Villanueva MD Head CT 08/10/16 0000 Signed Impressions: Service Date/Time: July 22:26 - CONCLUSION: 1. No acute hemorrhage, mass or infarction. 2. Chronic encephalomalacia Cheko Villanueva MD Assessment and Plan Problem List: (1) Elevated troponin (2) Aortic stenosis, moderate (3) Hypertension (4) Sepsis (5) Metabolic encephalopathy (6) Hydronephrosis (7) Hypokalemia Assessment and Plan No angina or CHF. ANGIE with no evidence of endocarditis. Continue ICU care. Wean ventilator as tolerated, hopefully extubate today. Continue tx for sepsis. Nuclear stress test later once pt extubated and stable. Claudia Morrissey MD Aug 15, 2016 14:10
--- NOTE | 2016-08-15 17:18 | EKG ---
Date Performed: 08/14/2016 Time Performed: 17:38:58 PTAGE: 70 years EKG: Sinus rhythm Normal ECG PREVIOUS TRACING : 08/11/2016 10.16 Compared to prior tracing no significant change DOCTOR: Seth Watson Interpretating Date/Time 08/15/2016 17:17:03
[2016-08-15] MEDS: PRAVASTATIN SOD 40 MG TAB PO SCH (18:17)
[2016-08-16] VITALS (11 sets, daily range): BP systolic 115–170; BP diastolic 43–82; PULSE 57–84; RESP 15–16; TEMP 98.8–99.1; O2SAT 90–96
[2016-08-16] MEDS: RESP: ALBUTEROL 2.5 MG/IPRATROPIUM 0.5 MG NEB (SCH) NEB ×4 (04:46→19:15)
[2016-08-16] MEDS: PENICILLIN G POTASSIUM INJ 3,000,000 UNITS in SODIUM CHLORIDE 0.9% INJ 100 ML IV SCH ×5 (05:04→20:52)
[2016-08-16 05:17] LABS: HEMATOCRIT 26.3 % (35.0-46.0); MEAN CELL VOLUME 86.1 FL (80.0-100.0); MEAN CORPUSCULAR HEMOGLOBIN 30.6 PG (27.0-34.0); MEAN CORPUSCULAR HGB CONC 35.6 % (32.0-36.0); PLATELET COUNT 261 TH/MM3 (150-450); RED BLOOD COUNT 3.06 MIL/MM3 (4.00-5.30); RED CELL DISTRIBUTION WIDTH 13.4 % (11.6-17.2); REVIEW FLAG FINAL; WHITE BLOOD COUNT 7.4 TH/MM3 (4.0-11.0)
[2016-08-16 05:25] LABS: APTT (PATIENT) 39.5 SEC (24.3-30.1)
[2016-08-16] MEDS: INSULIN ASPART SUPPLEMENTAL SCALE SQ SCH ×4 (06:41→20:59)
[2016-08-16] MEDS: CHLORHEXIDINE GLUCONATE 0.12% 15 ML CUP SCH ×2 (08:00→20:00)
[2016-08-16] MEDS ORDERED: DEXTROSE 50% IN WATER 50 ML VIAL(D50) IV PRN (08:30)
[2016-08-16] MEDS ORDERED: GLUCAGON 1 MG/ML VIAL OTHER PRN (08:30)
--- NOTE | 2016-08-16 08:30 | HHI.CCPN ---
Subjective Remarks/Hospital Course Patient is a 70-year-old female with past medical history significant for hypertension, diabetes, chronic atrial fibrillation on Eliquis, depression who was admitted to the hospitalist service with metabolic encephalopathy and severe sepsis secondary to enterococcal bacteremia. Source of sepsis was UTI. Patient was placed on antibiotics per ID recommendation (penicillin G and Levaquin). CT of the abdomen and pelvis showed moderate to severe hydronephrosis on the left side, secondary to left UPJ obstruction. Patient also had mild troponin elevation for which Dr. morrissey was consulted. 2D Echo showed ef 50- 55%. Moderate aortic valve stenosis, mean gradient 31 mmHg, and Aortic valve area is 0.74 cm. plan was to get a myocardial perfusion study. In the interim patient continued to require more oxygen, was started on IV Lasix. Prior to OR today patient was on high flow nasal cannula. Patient underwent left ureteral stent placement by urology Dr. Lyon today. Apparently throughout the procedure patient was hypoxemic 80-85% on 100% oxygen. Critical care medicine was consulted for acute hypoxemic resp failure and I evaluated the patient postop in the CV ICU. At the time of my evaluation she was on 100% oxygen with a PEEP of 8, PaO2 was only 130 on ABG. Chest x-ray shows pulmonary edema, patient is received 20 mg IV Lasix and I have given additional IV 40mg. Schedule IV Lasix 40 mg every 12. Currently patient is receiving IV heparin metoprolol and lisinopril. Continue the same along with antibiotics per ID. Once sepsis is cleared we'll discuss with Dr. morrissey regarding cardiac catheterization to evaluate for CAD and . Subjective: 08/14: Afebrile. The patient diuresed well on the last 24 hours, with approximately 2 kg fluid loss. Patient well oxygenated, currently being weaned. Plan for CPAP trials this a.m. 08/15: CPAP trials initiated yesterday, however patient began to desaturate after 3 hours, sedation off. The patient was mechanically ventilated throughout the night CPAP trials were initiated at 6 AM this morning, with plans tentatively to extubate. The patient underwent ANGIE procedure yesterday of no valvular vegetations were noted, discussed with Dr. Morrissey. 08/16: The patient has been extubated for approximately 24 hours, progressing well. The patient's tolerating a PO diet. Oxygen requirements decreasing from 6 L nasal cannula to 4 L nasal cannula. Plans for PT evaluation and treatment out of bed today, with plan transfer to [facility]. The patient continues on heparin with plans for in the near future per Dr. Morrissey, nuclear scan. Objective Vital Signs Date Time Temp Pulse Resp B/P Pulse Ox O2 Delivery O2 Flow Rate FiO2 08/16/16 07:00 95 Nasal Cannula 4.00 Humidified 08/16/16 07:00 98.9 63 16 152/65 143/43 08/15/16 08:05 40 Intake and Output 08/15/16 08/15/16 08/16/16 08:00 16:00 00:00 Intake Total 625 ml 1659 ml Output Total 950 ml 1325 ml Balance -325 ml 334 ml Result Diagram: 08/16/16 0414 08/15/16 0404 Other Results Microbiology Date/Time Procedure Status Source Growth 08/13/16 10:00 Urine Culture - Final Complete Urine Other Enterococcus Faecalis 08/13/16 11:30 Gram Stain - Final Complete Sputum Oral Tracheal Aspirate 08/13/16 11:30 Sputum Culture - Final Complete Sputum Oral Tracheal Aspirate RARE GROWTH NORMAL RESPIRATORY URSZULA Laboratory Tests Test 08/15/16 09:40 Blood Gas Puncture Site ART LINE Blood Gas Patient Temperature 98.6 Blood Gas HCO3 26 mmol/L (22-26) Blood Gas Base Excess 2.0 mmol/L (-2-2) Blood Gas Oxygen Saturation 95 % (90-100) Arterial Blood pH 7.41 (7.380-7.420) Arterial Blood Partial 42 mmHg (38-42) Pressure CO2 Arterial Blood Partial 99 mmHg Pressure O2 (61-120) Arterial Blood Oxygen Content 21.6 Vol % (12.0-20.0) Arterial Blood 1.1 % (0-4) Carboxyhemoglobin Arterial Blood Methemoglobin 1.2 % (0-2) Blood Gas Hemoglobin 16.1 G/DL (12.0-16.0) Oxygen Delivery Device VENTILATOR Blood Gas Ventilator Setting CPAP5/PS5 Blood Gas Inspired Oxygen 40 % Imaging Chest x-ray 08/13/[address] abdomen pelvis 08/11/16 shows moderate to severe left hydronephrosis secondary to left UPJ obstruction Objective Remarks BP 164/60 Pulse 85 O2 saturation 98% on FiO2 of 40% GENERAL: Patient is a well-nourished, well-developed female who is intubated. Awake, sedation off for CPAP trials, following commands SKIN: Warm and dry. HEAD: Atraumatic. Normocephalic. EYES: Pupils equal, round and reactive to light. Extraocular movements full and intact. EARS, NOSE AND THROAT: Orotracheally intubated NECK: Trachea midline. Supple and not tender, no meningeal signs CARDIOVASCULAR: Regular rate and rhythm. Systolic murmur best heard in the right upper sternal border radiating to the carotids RESPIRATORY: Bibasilar crackles, no rhonchi or wheezes ABDOMEN: Soft, non-tender, nondistended. No organomegaly. OGTT to gravity EXTREMITIES: No clubbing, cyanosis, or edema. NEUROLOGICAL: Intubated sedated for ventilator synchrony. Following commands movement of extremities 4 Procedures 08/14TEE Urinary Catheter: Yes Assessment to: Continue Llanos insert reason: ICU Pt Getting Diuretics Date of Insertion: Aug 13, 2016 A/P Assessment and Plan ASSESSMENT Acute hypoxemic respiratory failure CHF/Pulmonary edema NSTEMI Moderate aortic stenosis Severe sepsis High-grade enterococcal bacteremia UTI Left hydronephrosis status post left ureteral stent today 08/13/16 History of atrial fibrillation on Eliquis Hypertension Diabetes PLAN: NEURO: - Tylenol 650 mg every 6 hours when necessary for pain - GCS 15 RESP: - Continue aggressive pulmonary toileting -Nasal cannula 4 L/m to maintain O2 sat greater than 92% - Continue DuoNeb every 6 hours scheduled and every 2 hours when necessary - Continue Lasix 40mg BID - Extubated 08/15 CV: - Currently receiving IV heparin metoprolol and lisinopril for NSTEMI - Continue IV heparin transition to Eliquis once more stable - Continue aspirin 81 mg daily - 08/11 2D Echo LVEF 50-55%, Moderate , mean gradient is 31 mmHg, and Aortic valve area is 0.74 cm. - Per Dr. Morrissey Adenosine myocardial perfusion study when stable - IV Lasix continue 40 mg IV q12 - Will discuss with Dr. Morrissey re: cardiac cath - 08/14 ANGIE-no valvular vegetations per discussion with Dr. Morrissey GI: - 1800-calorie ADA heart healthy diet - IV Protonix, consider discontinuation of tolerating by mouth diet -Bowel regimen Colace 100 mg BID : - Status post left ureteral stent by Dr. Lyon. - Monitor renal function closely. - Monitor urine output closely, noted hematuria resolving - IV Lasix as above ID: - High-grade enterococcal bacteremia, currently on penicillin G and Levaquin per ID - Source appears to be UTI - Status post left ureteral stent for hydronephrosis - Blood cx 08/10, 08/11 Enterococcus - Urine cx 08/10 Enterococcus - ID following- Dr. Mariscal HEME: - Monitor CBC, CMP, coags - Continue IV heparin transition to Eliquis once more stable ENDO: - Replace electrolytes per protocol PROPH: - Bilateral lower extremity SCDs. PT to evaluate and treat out of bed. IV Heparin, Protonix 40 mg IV daily LINES: - Utilize peripheral IVs, central line if needed Dispo: Discussed with patient, HYPNOTHERAPIST at bedside. Plan transfer this a.m. to [facility]. Plan transfer to [facility]. Critical care medicine will sign off. Level 2 Physician Leila Chavarria MD Aug 16, 2016 08:30
[2016-08-16] MEDS: POTASSIUM CHLORIDE 25 MEQ EFFERVESCENT TAB PO SCH ×2 (09:00→09:35)
[2016-08-16] MEDS: TOLTERODINE TARTRATE 2 MG CAP LA PO SCH (09:34)
[2016-08-16] MEDS: DOCUSATE SODIUM 100 MG/10 ML UDC PO SCH ×2 (09:34→20:51)
[2016-08-16] MEDS: ASPIRIN 81 MG CHEW TAB CHEW SCH (09:34)
[2016-08-16] MEDS: PARoxetine HCL 20 MG TAB PO SCH (09:35)
[2016-08-16] MEDS: METOPROLOL TARTRATE 25 MG TAB PO SCH ×2 (09:35→20:52)
[2016-08-16] MEDS: PANTOPRAZOLE SODIUM 40 MG VIAL IV PUSH SCH (09:36)
[2016-08-16] MEDS: FUROSEMIDE 40 MG/4 ML VIAL IV PUSH SCH ×2 (09:36→17:37)
[2016-08-16] MEDS: LISINOPRIL 20 MG TAB PO SCH (09:36)
[2016-08-16] MEDS: SODIUM CHLORIDE 0.9% FLUSH 10 ML FLUSH IV FLUSH SCH ×2 (09:37→20:52)
[2016-08-16] MEDS: LEVOFLOXACIN 750 MG PREMIX INJ 150 ML IV SCH (11:02)
--- NOTE | 2016-08-16 14:52 | HHI.IDPN ---
Subjective Subjective Remarks Patient is a 70-year-old female, brought into the hospital for evaluation of altered mental status. She was apparently not responding appropriately to some questions and at times not answering. She has been noted to be not moving much at home which is not her usual. There is mention that she was having fevers and shortness of breath. She was initially admitted to [facility], and had some shortness of breath and transferred to the intensive care unit. Currently she is on nasal O2. She denies any congestion or cough. No chest pain. She said she's not had any nausea or vomiting or abdominal pain. Denies any back pain. There is some mention that she had some dysuria, but patient denies any hematuria. Patient is not sure whether she has had kidney stones. She apparently has seen a urologist, and I can't really get a detailed history as to why she saw a urologist as an outpatient. During my exam, patient is awake and alert, and she is able to answer most of my questions although a little bit slow to respond. She seems to be oriented. Patient had an abnormal urinalysis. All her blood cultures are growing enterococcus. CT of the abdomen and pelvis is showing some stones in the kidney on the right with no obstruction, and she has significant hydronephrosis on the left side. Notes reviewed Doing well post extubation Out of ICU ANGIE negative for vegetation Urine still blood tinged UC 08/13 with Enterococcus Last (+) BC so far 08/13 S/P urologic procedure 08/13 BC 08/10, 08/11 with Enterococcus, Gent synergy R; Strep synergy S First UC with E faecalis Repeat UC done after cysto - pending Antibiotics IV PCN Levaquin Lines PIV Past Medical History Hypertension Hyperlipidemia Diabetes mellitus Coronary artery disease CVA with residual dysarthria Atrial Fibrillation Polio 3 pregnancies and normal delivery Past Surgical History Oral surgery Allergies: Uncoded Allergies: MOTREL (Adverse Reaction, Severe, Rash, 06/06/16) . Objective . Vital Signs Date Time Temp Pulse Resp B/P Pulse Ox O2 Delivery O2 Flow Rate FiO2 08/16/16 11:00 70 08/16/16 11:00 93 Nasal Cannula 4.00 Humidified 08/16/16 11:00 98.9 80 16 170/79 94 08/16/16 08:47 90 Nasal Cannula 4.00 08/16/16 07:00 95 Nasal Cannula 4.00 Humidified 08/16/16 07:00 98.9 63 16 152/65 95 143/43 08/16/16 07:00 63 08/16/16 03:30 66 08/16/16 03:30 93 Nasal Cannula 6.00 Humidified 08/16/16 03:30 99.1 72 15 159/50 93 151/49 08/15/16 23:48 94 Nasal Cannula 6.00 Humidified 08/15/16 23:48 98.9 86 15 121/57 94 119/41 08/15/16 23:48 93 08/15/16 21:13 94 Nasal Cannula 5.00 08/15/16 19:17 92 Nasal Cannula 6.00 Humidified 08/15/16 19:17 98.6 101 16 110/60 92 114/45 08/15/16 19:00 100 08/15/16 15:00 91 Nasal Cannula 6.00 Humidified 08/15/16 15:00 77 08/15/16 15:00 97.9 77 16 140/67 91 138/50 08/15/16 08/15/16 08/16/16 15:00 23:00 07:00 Intake Total 1659 ml 797 ml Output Total 1325 ml 1900 ml Balance 334 ml -1103 ml Intake Oral 720 ml 480 ml IV Total 819 ml 317 ml Tube Irrigant 120 ml Output Urine Total 1325 ml 1900 ml Gastric Drainage Total 0 ml # Bowel Movements 0 0 . Laboratory Tests Test 08/15/16 08/16/16 04:04 04:14 White Blood Count 5.4 TH/MM3 7.4 TH/MM3 Red Blood Count 2.92 MIL/MM3 3.06 MIL/MM3 Hemoglobin 8.8 GM/DL 9.4 GM/DL Hematocrit 25.0 % 26.3 % Mean Corpuscular Volume 85.7 FL 86.1 FL Mean Corpuscular Hemoglobin 30.1 PG 30.6 PG Mean Corpuscular Hemoglobin 35.2 % 35.6 % Concent Red Cell Distribution Width 13.7 % 13.4 % Platelet Count 191 TH/MM3 261 TH/MM3 Mean Platelet Volume 8.2 FL 8.0 FL Laboratory Tests Test 08/15/16 04:04 Sodium Level 139 MEQ/L Potassium Level 3.9 MEQ/L Chloride Level 103 MEQ/L Carbon Dioxide Level 28.2 MEQ/L Anion Gap 8 MEQ/L Blood Urea Nitrogen 16 MG/DL Creatinine 0.95 MG/DL Estimat Glomerular Filtration 58 ML/MIN Rate Random Glucose 224 MG/DL Calcium Level 8.2 MG/DL Phosphorus Level 2.3 MG/DL Magnesium Level 1.8 MG/DL Microbiology Date/Time Procedure Status Source Growth 08/14/16 05:50 Aerobic Blood Culture - Preliminary Resulted Blood Peripheral NO GROWTH IN 2 DAYS 08/14/16 05:50 Anaerobic Blood Culture - Preliminary Resulted Blood Peripheral NO GROWTH IN 2 DAYS 08/15/16 05:49 Aerobic Blood Culture - Preliminary Resulted Blood Peripheral NO GROWTH IN 1 DAY 08/15/16 05:49 Anaerobic Blood Culture - Preliminary Resulted Blood Peripheral NO GROWTH IN 1 DAY Imaging Chest X-Ray 08/13/16 0000 Signed Impressions: Service Date/Time: Saturday, August 13, 2016 10:58 - CONCLUSION: The endotracheal tube and NG tube appear to be in good position. No pneumothorax. David Walker MD Aorta Ultrasound 08/11/16 0000 Signed Impressions: Service Date/Time: Thursday, August 11, 2016 08:00 - CONCLUSION: 1. No abdominal aortic aneurysm identified. Johnnie Bains MD Abdomen/Pelvis CT 08/11/16 0000 Signed Impressions: Service Date/Time: Thursday, August 11, 2016 11:55 - CONCLUSION: 1. Moderate to severe left-sided hydronephrosis probably secondary to a left UPJ obstruction. Left ureter has normal caliber. 2. Nonobstructing 16mm by 11 mm calculus in the right renal pelvis. Perinephric stranding present bilaterally. 3. Trace bilateral pleural effusions. No bowel obstruction or free air. Arthur Tirado MD Lower Extremity Ultrasound 08/10/16 0000 Signed Impressions: Service Date/Time: July 21:54 - CONCLUSION: Negative exam with no evidence of deep venous thrombosis. Cheko Villanueva MD Head CT 08/10/16 0000 Signed Impressions: Service Date/Time: July 22:26 - CONCLUSION: 1. No acute hemorrhage, mass or infarction. 2. Chronic encephalomalacia Cheko Villanueva MD Physical Exam GENERAL: Awake, alert, responding, NAD SKIN: Warm and dry. No generalized rash, no ecchymoses and no evidence of embolic lesions. HEAD: Atraumatic. Normocephalic. No temporal wasting, or tenderness. EYES: [place] conjunctiva. No petechia or hemorrhage. Pupils equal, round and reactive to light. No scleral icterus. No injection or drainage. EARS, NOSE AND THROAT: Nose without bleeding or purulent nasal discharge. No sinus tenderness. Moist mucosa NECK: Trachea midline. Supple and not tender, no meningeal signs CARDIOVASCULAR: Regular rate and rhythm. Has systolic murmur at base of the heart. No rub RESPIRATORY: Breath sounds equal bilaterally. Decreased BS at bases ABDOMEN: Soft, non-tender, nondistended. Bowel sounds present and normoactive. No guarding. No rebound. No organomegaly. EXTREMITIES: No clubbing, cyanosis, or edema. No joint effusion, has good ROM. No calf tenderness. Well perfused and warm. RLE larger compared to L NEUROLOGICAL: Following commands PSYCHIATRIC: Unable to assess : Llanos in place, urine is blood tinged LINE: No evidence of infection Assessment & Plan Remarks IMPRESSION High grade Enterococcal bacteremia, has UTI with L hydronephrosis, BC (+) 08/10 -08/13 - concern with seeding of her valve, has valvular heart disease, has mod on echo - BC still (+) from 08/13, that is date of her urologic procedure SOB, due to ?pulmonary edema Previous Hx CVA RECOMMENDATION Continue IV PCN for Enterococcus - will need long course IV because of high grade bacteremia Continue Levaquin for lung coverage - change to po Follow C/S Monitor temps Monitor progress If BC remain negative, will order PICC Janette Mariscal MD Aug 16, 2016 14:52 Janette Mariscal MD Aug 16, 2016 14:52
--- NOTE | 2016-08-16 17:24 | PD.CARD.PN ---
Subjective Subjective Remarks No CP or SOB, c/o RUQ pain Objective Medications Current Medications Medications (Trade) Dose Ordered Sig/Leila Route Start Time Stop Time Status Last Admin (NS Flush) 2 ml UNSCH PRN IV FLUSH 08/10/16 19:00 (NS Flush) 2 ml BID IV FLUSH 08/10/16 21:00 08/16/16 09:37 (Tylenol) 650 mg Q4H PRN PO 08/10/16 19:00 08/12/16 23:04 (Tylenol) 650 mg Q6H PRN PO 08/10/16 19:00 (Narcan Inj) 0.4 mg UNSCH PRN IV 08/10/16 19:00 (Norvasc) 10 mg DAILY PO 08/11/16 09:00 08/16/16 09:34 (Lopressor) 25 mg BID PO 08/10/16 21:30 08/16/16 09:35 (Paxil) 20 mg DAILY PO 08/11/16 09:00 08/16/16 09:35 (Detrol La) 2 mg DAILY PO 08/11/16 09:00 08/16/16 09:34 Pravastatin Sodium 10 mg 10 mg DAILY@18 PO 08/11/16 18:00 08/15/16 18:17 (Pfizerpen-G Inj/ NS Inj) 100 ml @ 100 mls/hr Q4H IV 08/12/16 12:00 08/16/16 16:32 (Prinivil) 40 mg DAILY PO 08/13/16 09:00 08/16/16 09:36 (Aspirin Chew) 81 mg DAILY CHEW 08/13/16 11:45 08/16/16 09:34 (Peridex 0.12% Liq) 15 ml BID@08,20 .XX 08/13/16 20:00 08/15/16 08:00 (Lasix Inj) 40 mg BID@09,18 IV PUSH 08/13/16 18:00 08/16/16 09:36 (K-Lyte Cl Eff) 25 meq DAILY PO 08/13/16 12:00 08/16/16 09:35 (K-Lyte Cl Eff) 25 meq DAILY PO 08/14/16 09:00 08/14/16 09:02 (Protonix Inj) 40 mg DAILY IV PUSH 08/13/16 12:00 08/16/16 09:36 Docusate Sodium 100 mg 100 mg Q12HR PO 08/13/16 12:00 08/16/16 09:34 (Heparin-D5W Inj) 250 ml @ 0 mls/hr TITRATE IV 08/13/16 14:00 08/14/16 23:16 (D50w (Vial) Inj) 50 ml UNSCH PRN IV 08/16/16 08:30 (Glucagon Inj) 1 mg UNSCH PRN OTHER 08/16/16 08:30 (Levaquin) 750 mg DAILY PO 08/17/16 09:00 08/21/16 08:59 Vital Signs / I&O Vital Signs Date Time Temp Pulse Resp B/P Pulse Ox O2 Delivery O2 Flow Rate FiO2 08/16/16 15:19 74 08/16/16 15:19 98.8 70 16 115/53 95 08/16/16 15:19 95 Nasal Cannula 4.00 Humidified 08/16/16 11:00 70 08/16/16 11:00 93 Nasal Cannula 4.00 Humidified 08/16/16 11:00 98.9 80 16 170/79 94 08/16/16 08:47 90 Nasal Cannula 4.00 08/16/16 07:00 95 Nasal Cannula 4.00 Humidified 08/16/16 07:00 98.9 63 16 152/65 95 143/43 08/16/16 07:00 63 08/16/16 03:30 66 08/16/16 03:30 93 Nasal Cannula 6.00 Humidified 08/16/16 03:30 99.1 72 15 159/50 93 151/49 08/15/16 23:48 94 Nasal Cannula 6.00 Humidified 08/15/16 23:48 98.9 86 15 121/57 94 119/41 08/15/16 23:48 93 08/15/16 21:13 94 Nasal Cannula 5.00 08/15/16 19:17 92 Nasal Cannula 6.00 Humidified 08/15/16 19:17 98.6 101 16 110/60 92 114/45 08/15/16 19:00 100 I/O 08/15/16 08/15/16 08/15/16 08/16/16 08/16/16 08/16/16 07:00 15:00 23:00 07:00 15:00 23:00 Intake Total 625 ml 1659 ml 797 ml Output Total 950 ml 1325 ml 1900 ml Balance -325 ml 334 ml -1103 ml Intake Oral 720 ml 480 ml IV Total 408 ml 819 ml 317 ml Tube Feeding 217 ml Tube Irrigant 120 ml Output Urine Total 950 ml 1325 ml 1900 ml Gastric Drainage Total 0 ml # Bowel Movements 0 0 0 Physical Exam GENERAL:In NAD, extubated this AM SKIN: Warm and dry. HEAD: Normocephalic. EYES: No scleral icterus. No injection or drainage. NECK: Supple, trachea midline. No JVD or lymphadenopathy. CARDIOVASCULAR: Regular rate and rhythm without murmurs, gallops, or rubs. RESPIRATORY: Breath sounds equal bilaterally. No accessory muscle use. GASTROINTESTINAL: Abdomen soft, non-tender, nondistended. MUSCULOSKELETAL: No cyanosis, or edema. Laboratory Laboratory Tests Test 08/16/16 04:14 White Blood Count 7.4 TH/MM3 Red Blood Count 3.06 MIL/MM3 Hemoglobin 9.4 GM/DL Hematocrit 26.3 % Mean Corpuscular Volume 86.1 FL Mean Corpuscular Hemoglobin 30.6 PG Mean Corpuscular Hemoglobin 35.6 % Concent Red Cell Distribution Width 13.4 % Platelet Count 261 TH/MM3 Mean Platelet Volume 8.0 FL Activated Partial 39.5 SEC Thromboplast Time Imaging Last Impressions Chest X-Ray 08/15/16 0600 Signed Impressions: Service Date/Time: Monday, August 15, 2016 04:47 - CONCLUSION: Stable left lower lobe consolidation. Andre Garcia MD Aorta Ultrasound 08/11/16 0000 Signed Impressions: Service Date/Time: Thursday, August 11, 2016 08:00 - CONCLUSION: 1. No abdominal aortic aneurysm identified. Johnnie Bains MD Abdomen/Pelvis CT 08/11/16 0000 Signed Impressions: Service Date/Time: Thursday, August 11, 2016 11:55 - CONCLUSION: 1. Moderate to severe left-sided hydronephrosis probably secondary to a left UPJ obstruction. Left ureter has normal caliber. 2. Nonobstructing 16mm by 11 mm calculus in the right renal pelvis. Perinephric stranding present bilaterally. 3. Trace bilateral pleural effusions. No bowel obstruction or free air. Arthur Tirado MD Lower Extremity Ultrasound 08/10/16 0000 Signed Impressions: Service Date/Time: July 21:54 - CONCLUSION: Negative exam with no evidence of deep venous thrombosis. Cheko Villanueva MD Head CT 08/10/16 0000 Signed Impressions: Service Date/Time: July 22:26 - CONCLUSION: 1. No acute hemorrhage, mass or infarction. 2. Chronic encephalomalacia Cheko Villanueva MD Assessment and Plan Problem List: (1) Elevated troponin (2) Aortic stenosis, moderate (3) Hypertension (4) Sepsis (5) Metabolic encephalopathy (6) Hydronephrosis (7) Hypokalemia Assessment and Plan No new cardiac issues. No angina or CHF. ANGIE with no evidence of endocarditis. Successfully extubated. Increase activity. Nuclear stress test later as outpatient.. Claudia Morrissey MD Aug 16, 2016 17:24
[2016-08-16] MEDS: PRAVASTATIN SOD 40 MG TAB PO SCH (17:36)
[2016-08-17] VITALS (18 sets, daily range): BP systolic 130–151; BP diastolic 64–76; PULSE 54–101; RESP 16–20; TEMP 96.5–99.1; O2SAT 92–97
[2016-08-17] MEDS: PENICILLIN G POTASSIUM INJ 3,000,000 UNITS in SODIUM CHLORIDE 0.9% INJ 100 ML IV SCH ×7 (00:16→23:25)
[2016-08-17] MEDS: RESP: ALBUTEROL 2.5 MG/IPRATROPIUM 0.5 MG NEB (SCH) NEB ×2 (04:27→10:04)
[2016-08-17] MEDS: INSULIN ASPART SUPPLEMENTAL SCALE SQ SCH ×4 (06:15→20:14)
[2016-08-17] MEDS: CHLORHEXIDINE GLUCONATE 0.12% 15 ML CUP SCH ×2 (08:00→20:00)
[2016-08-17 08:09] LABS: APTT (PATIENT) 35.4 SEC (24.3-30.1)
[2016-08-17] MEDS ORDERED: LEVOFLOXACIN 750 MG TAB PO SCH (09:00)
[2016-08-17] MEDS: POTASSIUM CHLORIDE 25 MEQ EFFERVESCENT TAB PO SCH ×2 (09:00→10:35)
--- NOTE | 2016-08-17 09:52 | HHI.PR ---
Subjective Remarks Follow-up bacteremia, respiratory failure, CT. The patient has no complaints at this time. Denies pain currently. No shortness of breath, nausea, vomiting. States that she is feeling better. Objective Vitals Vital Signs Date Time Temp Pulse Resp B/P Pulse Ox O2 Delivery O2 Flow Rate FiO2 08/17/16 08:00 99.1 70 20 151/76 08/17/16 08:00 92 Nasal Cannula 3.00 08/17/16 07:00 58 08/17/16 05:00 64 08/17/16 04:30 92 Nasal Cannula 3.00 08/17/16 04:00 62 08/17/16 03:23 95 Nasal Cannula 3.00 Humidified 08/17/16 03:20 98.7 67 18 133/69 96 08/17/16 03:00 67 08/17/16 02:00 56 08/17/16 01:00 54 08/17/16 00:00 56 08/16/16 23:20 96 Nasal Cannula 4.00 Humidified 08/16/16 23:20 98.8 59 16 157/82 96 08/16/16 23:00 57 08/16/16 21:00 74 08/16/16 20:00 66 08/16/16 19:25 95 Nasal Cannula 4.00 Humidified 08/16/16 19:25 98.8 76 16 144/65 95 08/16/16 19:00 84 08/16/16 15:19 74 08/16/16 15:19 98.8 70 16 115/53 95 08/16/16 15:19 95 Nasal Cannula 4.00 Humidified 08/16/16 11:00 70 08/16/16 11:00 93 Nasal Cannula 4.00 Humidified 08/16/16 11:00 98.9 80 16 170/79 94 I/O 08/16/16 08/16/16 08/16/16 08/17/16 08/17/16 08/17/16 07:00 15:00 23:00 07:00 15:00 23:00 Intake Total 797 ml 480 ml Output Total 1900 ml 1650 ml Balance -1103 ml -1170 ml Intake Oral 480 ml 480 ml IV Total 317 ml Output Urine Total 1900 ml 1650 ml # Bowel Movements 0 0 Result Diagram: 08/16/16 0414 08/15/16 0404 Imaging Last Impressions Chest X-Ray 08/15/16 0600 Signed Impressions: Service Date/Time: Monday, August 15, 2016 04:47 - CONCLUSION: Stable left lower lobe consolidation. Andre Garcia MD Aorta Ultrasound 08/11/16 0000 Signed Impressions: Service Date/Time: Thursday, August 11, 2016 08:00 - CONCLUSION: 1. No abdominal aortic aneurysm identified. Johnnie Bains MD Abdomen/Pelvis CT 08/11/16 0000 Signed Impressions: Service Date/Time: Thursday, August 11, 2016 11:55 - CONCLUSION: 1. Moderate to severe left-sided hydronephrosis probably secondary to a left UPJ obstruction. Left ureter has normal caliber. 2. Nonobstructing 16mm by 11 mm calculus in the right renal pelvis. Perinephric stranding present bilaterally. 3. Trace bilateral pleural effusions. No bowel obstruction or free air. Arthur Tirado MD Lower Extremity Ultrasound 08/10/16 0000 Signed Impressions: Service Date/Time: July 21:54 - CONCLUSION: Negative exam with no evidence of deep venous thrombosis. Cheko Villanueva MD Head CT 08/10/16 0000 Signed Impressions: Service Date/Time: July 22:26 - CONCLUSION: 1. No acute hemorrhage, mass or infarction. 2. Chronic encephalomalacia Cheko Villanueva MD Objective Remarks General: Elderly female in no acute distress. Heart: Regular rate and rhythm. 2/6 systolic murmur noted. Lungs: Mild crackles in both bases. Breathing is nonlabored. Abdomen: Soft, nontender, nondistended. Extremities: No lower extremity edema. No calf tenderness. Psych: Sleeping, but awakens easily and answers questions appropriately. Procedures 08/13/16 cystoscopy, left retrograde pyelogram, left long-term ureteral stent placement 08/14/16 ANGIE Urinary Catheter: Yes Assessment to: Continue Llanos insert reason: Obstruction/Retention Date of Insertion: Aug 13, 2016 Vascular Central Line Catheter: No A/P Problem List: (1) Sepsis ICD Code: A41.9 Status: Resolved (2) Metabolic encephalopathy ICD Code: G93.41 Status: Acute (3) UTI (urinary tract infection) ICD Code: N39.0 Status: Acute (4) Dehydration ICD Code: E86.0 Status: Acute (5) Generalized weakness ICD Code: R53.1 Status: Acute (6) Ureteropelvic junction (UPJ) obstruction ICD Code: N13.5 Status: Acute (7) Hydronephrosis ICD Code: N13.30 Status: Acute (8) Hypertension ICD Code: I10 Status: Chronic (9) Aortic stenosis, moderate ICD Code: I35.0 Status: Chronic (10) Type 2 diabetes mellitus ICD Code: E11.9 Status: Chronic (11) Acute hypoxemic respiratory failure ICD Code: J96.01 Status: Resolved (12) Atrial fibrillation ICD Code: I48.91 Status: Chronic (13) Bacteremia due to Enterococcus ICD Code: R78.81 Status: Acute Assessment and Plan 1. Acute hypoxemic respiratory failure: Resolved. Now tolerating oxygen per nasal cannula. Continue DuoNeb, Lasix. Patient was extubated on 08/15/16. 2. Bacteremia: Blood cultures positive for enterococcus. Appreciate infectious disease recommendations. Continue antibiotics. Will need long-term IV antibiotics secondary to high-grade bacteremia. Follow repeat blood cultures. 3. UTI, hydronephrosis: Appreciate urology recommendations. Llanos catheter in place. Status post cystoscopy with left ureteral stent placement. 4. Atrial fibrillation: Currently on heparin. Will transition to Eliquis when stable. Appreciate cardiology recommendations. 5. Aortic stenosis: Murmur noted on exam. Echocardiogram from 08/11/16 shows ejection fraction 50-55% with moderate aortic stenosis. 6. Non-ST elevation CT: Appreciate cardiology recommendations. Patient will need nuclear stress test when stable. 7. GI prophylaxis: Protonix. 8. DVT prophylaxis: Heparin, SCDs. Wil Onofre MD Aug 17, 2016 09:52
[2016-08-17] MEDS: PARoxetine HCL 20 MG TAB PO SCH (10:34)
[2016-08-17] MEDS: LISINOPRIL 20 MG TAB PO SCH (10:34)
[2016-08-17] MEDS: ASPIRIN 81 MG CHEW TAB CHEW SCH (10:35)
[2016-08-17] MEDS: PANTOPRAZOLE SODIUM 40 MG VIAL IV PUSH SCH (10:35)
[2016-08-17] MEDS: FUROSEMIDE 40 MG/4 ML VIAL IV PUSH SCH ×2 (10:35→17:28)
[2016-08-17] MEDS: METOPROLOL TARTRATE 25 MG TAB PO SCH ×2 (10:35→20:00)
[2016-08-17] MEDS: TOLTERODINE TARTRATE 2 MG CAP LA PO SCH (10:36)
[2016-08-17] MEDS: DOCUSATE SODIUM 100 MG/10 ML UDC PO SCH ×2 (10:36→20:00)
[2016-08-17] MEDS: SODIUM CHLORIDE 0.9% FLUSH 10 ML FLUSH IV FLUSH SCH ×2 (10:36→20:04)
--- NOTE | 2016-08-17 13:29 | CF ---
cc: THEODORA ROBISON PROCEDURE PERFORMED Transesophageal echocardiogram. INDICATION Sepsis, evaluation for endocarditis, aortic stenosis. PROCEDURE After the consent was signed and the patient was sedated, transesophageal probe was placed without difficulty. Tomographic images were obtained. The left ventricular function was preserved. Mitral valve was structurally normal. There is no evidence of mitral stenosis. There was evidence of mild mitral regurgitation. There was no evidence of mitral valve vegetations. Tricuspid valve was structurally normal. <<2:04>> evidence of tricuspid valve regurgitation. There was no evidence of tricuspid stenosis. There was evidence of trace tricuspid regurgitation. The aortic valve was thickened <<2:12>> and calcified. There was limited aortic valve motion. There was evidence of aortic stenosis. There was no evidence of aortic insufficiency. There was no evidence of aortic valve vegetations. The left atrial appendage was visualized and there was no evidence of left atrial thrombus. Bubble study was performed and there was no evidence of right to left shunt. Descending thoracic aorta had small plauqe. DIAGNOSIS 1. No evidence of valvular vegetations. 2. No evidence of patent foramen ovale. 3. Preserved left ventricular systolic function. 4. Aortic sclerosis with moderate stenosis. 5. Mild mitral regurgitation. 6. Trace tricuspid regurgitation. IMPRESSION No evidence of endocarditis. MD ONESIMO Medeirso/TLL /3:41 PM /1:01 PM
--- NOTE | 2016-08-17 13:51 | HHI.IDPN ---
Subjective Subjective Remarks Patient is a 70-year-old female, brought into the hospital for evaluation of altered mental status. She was apparently not responding appropriately to some questions and at times not answering. She has been noted to be not moving much at home which is not her usual. There is mention that she was having fevers and shortness of breath. She was initially admitted to [facility], and had some shortness of breath and transferred to the intensive care unit. Currently she is on nasal O2. She denies any congestion or cough. No chest pain. She said she's not had any nausea or vomiting or abdominal pain. Denies any back pain. There is some mention that she had some dysuria, but patient denies any hematuria. Patient is not sure whether she has had kidney stones. She apparently has seen a urologist, and I can't really get a detailed history as to why she saw a urologist as an outpatient. During my exam, patient is awake and alert, and she is able to answer most of my questions although a little bit slow to respond. She seems to be oriented. Patient had an abnormal urinalysis. All her blood cultures are growing enterococcus. CT of the abdomen and pelvis is showing some stones in the kidney on the right with no obstruction, and she has significant hydronephrosis on the left side. Notes reviewed Doing well No fever No new (+) BC ANGIE negative for vegetation Urine still blood tinged UC 08/13 with Enterococcus Last (+) BC so far 08/13 S/P urologic procedure 08/13 BC 08/10, 08/11 with Enterococcus, Gent synergy R; Strep synergy S Antibiotics IV PCN Levaquin Lines PIV Past Medical History Hypertension Hyperlipidemia Diabetes mellitus Coronary artery disease CVA with residual dysarthria Atrial Fibrillation Polio 3 pregnancies and normal delivery Past Surgical History Oral surgery Allergies: Uncoded Allergies: MOTREL (Adverse Reaction, Severe, Rash, 06/06/16) . Objective . Vital Signs Date Time Temp Pulse Resp B/P Pulse Ox O2 Delivery O2 Flow Rate FiO2 08/17/16 13:00 98.8 75 16 142/75 96 Arterial Line 08/17/16 12:00 76 08/17/16 11:00 97 Nasal Cannula 3.00 08/17/16 11:00 98.9 91 20 130/76 97 08/17/16 11:00 101 08/17/16 10:06 95 Nasal Cannula 3.00 08/17/16 10:00 60 08/17/16 09:00 58 08/17/16 08:00 60 08/17/16 08:00 99.1 70 20 151/76 08/17/16 08:00 92 Nasal Cannula 3.00 08/17/16 07:00 58 08/17/16 05:00 64 08/17/16 04:30 92 Nasal Cannula 3.00 08/17/16 04:00 62 08/17/16 03:23 95 Nasal Cannula 3.00 Humidified 08/17/16 03:20 98.7 67 18 133/69 96 08/17/16 03:00 67 08/17/16 02:00 56 08/17/16 01:00 54 08/17/16 00:00 56 08/16/16 23:20 96 Nasal Cannula 4.00 Humidified 08/16/16 23:20 98.8 59 16 157/82 96 08/16/16 23:00 57 08/16/16 21:00 74 08/16/16 20:00 66 08/16/16 19:25 95 Nasal Cannula 4.00 Humidified 08/16/16 19:25 98.8 76 16 144/65 95 08/16/16 19:00 84 08/16/16 15:19 74 08/16/16 15:19 98.8 70 16 115/53 95 08/16/16 15:19 95 Nasal Cannula 4.00 Humidified 08/16/16 08/16/16 08/17/16 14:59 22:59 06:59 Intake Total 480 ml Output Total 1650 ml Balance -1170 ml Intake Oral 480 ml Output Urine Total 1650 ml # Bowel Movements 0 . Laboratory Tests Test 08/16/16 04:14 White Blood Count 7.4 TH/MM3 Red Blood Count 3.06 MIL/MM3 Hemoglobin 9.4 GM/DL Hematocrit 26.3 % Mean Corpuscular Volume 86.1 FL Mean Corpuscular Hemoglobin 30.6 PG Mean Corpuscular Hemoglobin 35.6 % Concent Red Cell Distribution Width 13.4 % Platelet Count 261 TH/MM3 Mean Platelet Volume 8.0 FL Microbiology Date/Time Procedure Status Source Growth 08/15/16 05:49 Aerobic Blood Culture - Preliminary Resulted Blood Peripheral NO GROWTH IN 2 DAYS 08/15/16 05:49 Anaerobic Blood Culture - Preliminary Resulted Blood Peripheral NO GROWTH IN 2 DAYS Imaging Chest X-Ray 08/13/16 Signed Impressions: Service Date/Time: Saturday, August 13, 2016 10:58 - CONCLUSION: The endotracheal tube and NG tube appear to be in good position. No pneumothorax. David Walker MD Aorta Ultrasound 08/11/16 Signed Impressions: Service Date/Time: Thursday, August 11, 2016 08:00 - CONCLUSION: 1. No abdominal aortic aneurysm identified. Johnnie Bains MD Abdomen/Pelvis CT 08/11/16 Signed Impressions: Service Date/Time: Thursday, August 11, 2016 11:55 - CONCLUSION: 1. Moderate to severe left-sided hydronephrosis probably secondary to a left UPJ obstruction. Left ureter has normal caliber. 2. Nonobstructing 16mm by 11 mm calculus in the right renal pelvis. Perinephric stranding present bilaterally. 3. Trace bilateral pleural effusions. No bowel obstruction or free air. Arthur Tirado MD Lower Extremity Ultrasound 08/10/16 Signed Impressions: Service Date/Time: July 21:54 - CONCLUSION: Negative exam with no evidence of deep venous thrombosis. Cheko Villanueva MD Head CT 08/10/16 Signed Impressions: Service Date/Time: July 22:26 - CONCLUSION: 1. No acute hemorrhage, mass or infarction. 2. Chronic encephalomalacia Cheko Villanueva MD Physical Exam GENERAL: Awake, alert, responding, NAD SKIN: Warm and dry. No generalized rash, no ecchymoses and no evidence of embolic lesions. HEAD: Atraumatic. Normocephalic. No temporal wasting, or tenderness. EYES: [place] conjunctiva. No petechia or hemorrhage. Pupils equal, round and reactive to light. No scleral icterus. No injection or drainage. EARS, NOSE AND THROAT: Nose without bleeding or purulent nasal discharge. No sinus tenderness. Moist mucosa NECK: Trachea midline. Supple and not tender, no meningeal signs CARDIOVASCULAR: Regular rate and rhythm. Has systolic murmur at base of the heart. No rub RESPIRATORY: Breath sounds equal bilaterally. Decreased BS at bases ABDOMEN: Soft, non-tender, nondistended. Bowel sounds present and normoactive. No guarding. No rebound. No organomegaly. EXTREMITIES: No clubbing, cyanosis, or edema. No joint effusion, has good ROM. No calf tenderness. Well perfused and warm. RLE larger compared to L NEUROLOGICAL: Following commands PSYCHIATRIC: Unable to assess : Llanos in place, urine is blood tinged LINE: No evidence of infection Assessment & Plan Remarks IMPRESSION High grade Enterococcal bacteremia, has UTI with L hydronephrosis, BC (+) 08/10 -08/13 - concern with seeding of her valve, has valvular heart disease, has mod on echo - BC still (+) from 08/13, that is date of her urologic procedure - ANGIE negative - stioll worrisome for endocarditis due to very long bacteremia SOB, due to ?pulmonary edema Previous Hx CVA RECOMMENDATION Continue IV PCN for Enterococcus - will need long course IV because of high grade bacteremia Add Rocephin for synergy vs Enterococcus Follow C/S Monitor temps Monitor progress If BC remain negative, will order PICC Janette Mariscal MD Aug 17, 2016 13:51 Janette Mariscal MD Aug 17, 2016 13:51
[2016-08-17 15:06] LABS: APTT (PATIENT) 38.1 SEC (24.3-30.1)
[2016-08-17] MEDS: cefTRIAXone INJ 2,000 MG in SODIUM CHLORIDE 0.9% INJ 100 ML IV SCH (16:00)
[2016-08-17] MEDS: PRAVASTATIN SOD 40 MG TAB PO SCH (17:29)
--- NOTE | 2016-08-17 18:48 | PD.CARD.PN ---
Subjective Subjective Remarks No CP, mild YAO, rehab initiated Objective Medications Current Medications Medications (Trade) Dose Ordered Sig/Leila Route Start Time Stop Time Status Last Admin (NS Flush) 2 ml UNSCH PRN IV FLUSH 08/10/16 19:00 (NS Flush) 2 ml BID IV FLUSH 08/10/16 21:00 08/17/16 10:36 (Tylenol) 650 mg Q4H PRN PO 08/10/16 19:00 08/12/16 23:04 (Tylenol) 650 mg Q6H PRN PO 08/10/16 19:00 (Narcan Inj) 0.4 mg UNSCH PRN IV 08/10/16 19:00 (Norvasc) 10 mg DAILY PO 08/11/16 09:00 08/17/16 10:49 (Lopressor) 25 mg BID PO 08/10/16 21:30 08/17/16 10:35 (Paxil) 20 mg DAILY PO 08/11/16 09:00 08/17/16 10:34 (Detrol La) 2 mg DAILY PO 08/11/16 09:00 08/17/16 10:36 Pravastatin Sodium 10 mg 10 mg DAILY@18 PO 08/11/16 18:00 08/17/16 17:29 (Pfizerpen-G Inj/ NS Inj) 100 ml @ 100 mls/hr Q4H IV 08/12/16 12:00 08/17/16 17:43 (Prinivil) 40 mg DAILY PO 08/13/16 09:00 08/17/16 10:34 (Aspirin Chew) 81 mg DAILY CHEW 08/13/16 11:45 08/17/16 10:35 (Peridex 0.12% Liq) 15 ml BID@08,20 .XX 08/13/16 20:00 08/15/16 08:00 (Lasix Inj) 40 mg BID@09,18 IV PUSH 08/13/16 18:00 08/17/16 17:28 (K-Lyte Cl Eff) 25 meq DAILY PO 08/13/16 12:00 08/17/16 10:35 (K-Lyte Cl Eff) 25 meq DAILY PO 08/14/16 09:00 08/14/16 09:02 (Protonix Inj) 40 mg DAILY IV PUSH 08/13/16 12:00 08/17/16 10:35 Docusate Sodium 100 mg 100 mg Q12HR PO 08/13/16 12:00 08/17/16 10:36 (Heparin-D5W Inj) 250 ml @ 0 mls/hr TITRATE IV 08/13/16 14:00 08/14/16 23:16 (D50w (Vial) Inj) 50 ml UNSCH PRN IV 08/16/16 08:30 Glucagon 1 mg 1 mg UNSCH PRN OTHER 08/16/16 08:30 (Rocephin Inj/NS Inj) 100 ml @ 200 mls/hr Q24H IV 08/17/16 15:00 08/17/16 16:00 Vital Signs / I&O Vital Signs Date Time Temp Pulse Resp B/P Pulse Ox O2 Delivery O2 Flow Rate FiO2 08/17/16 16:00 97.9 77 18 138/66 95 08/17/16 15:40 Nasal Cannula 3.00 40 08/17/16 13:00 98.8 75 16 142/75 96 Arterial Line 08/17/16 12:00 76 08/17/16 11:00 97 Nasal Cannula 3.00 08/17/16 11:00 98.9 91 20 130/76 97 08/17/16 11:00 101 08/17/16 10:06 95 Nasal Cannula 3.00 08/17/16 10:00 60 08/17/16 09:00 58 08/17/16 08:00 60 08/17/16 08:00 99.1 70 20 151/76 08/17/16 08:00 92 Nasal Cannula 3.00 08/17/16 07:00 58 08/17/16 05:00 64 08/17/16 04:30 92 Nasal Cannula 3.00 08/17/16 04:00 62 08/17/16 03:23 95 Nasal Cannula 3.00 Humidified 08/17/16 03:20 98.7 67 18 133/69 96 08/17/16 03:00 67 08/17/16 02:00 56 08/17/16 01:00 54 08/17/16 00:00 56 08/16/16 23:20 96 Nasal Cannula 4.00 Humidified 08/16/16 23:20 98.8 59 16 157/82 96 08/16/16 23:00 57 08/16/16 21:00 74 08/16/16 20:00 66 08/16/16 19:25 95 Nasal Cannula 4.00 Humidified 08/16/16 19:25 98.8 76 16 144/65 95 08/16/16 19:00 84 I/O 08/16/16 08/16/16 08/16/16 08/17/16 08/17/16 08/17/16 07:00 15:00 23:00 07:00 15:00 23:00 Intake Total 797 ml 480 ml 1060 ml Output Total 1900 ml 1650 ml 1650 ml Balance -1103 ml -1170 ml -590 ml Intake Oral 480 ml 480 ml 960 ml IV Total 317 ml 100 ml Output Urine Total 1900 ml 1650 ml 1650 ml # Bowel Movements 0 0 0 Physical Exam GENERAL:In NAD, PT starting SKIN: Warm and dry. HEAD: Normocephalic. EYES: No scleral icterus. No injection or drainage. NECK: Supple, trachea midline. No JVD or lymphadenopathy. CARDIOVASCULAR: Regular rate and rhythm without murmurs, gallops, or rubs. RESPIRATORY: Breath sounds equal bilaterally. No accessory muscle use. GASTROINTESTINAL: Abdomen soft, non-tender, nondistended. MUSCULOSKELETAL: No cyanosis, or edema. Laboratory Laboratory Tests Test 08/17/16 08/17/16 07:38 14:44 Activated Partial 35.4 SEC 38.1 SEC Thromboplast Time Imaging Last Impressions Chest X-Ray 08/15/16 0600 Signed Impressions: Service Date/Time: Monday, August 15, 2016 04:47 - CONCLUSION: Stable left lower lobe consolidation. Andre Garcia MD Aorta Ultrasound 08/11/16 0000 Signed Impressions: Service Date/Time: Thursday, August 11, 2016 08:00 - CONCLUSION: 1. No abdominal aortic aneurysm identified. Johnnie Bains MD Abdomen/Pelvis CT 08/11/16 0000 Signed Impressions: Service Date/Time: Thursday, August 11, 2016 11:55 - CONCLUSION: 1. Moderate to severe left-sided hydronephrosis probably secondary to a left UPJ obstruction. Left ureter has normal caliber. 2. Nonobstructing 16mm by 11 mm calculus in the right renal pelvis. Perinephric stranding present bilaterally. 3. Trace bilateral pleural effusions. No bowel obstruction or free air. Arthur Tirado MD Lower Extremity Ultrasound 08/10/16 0000 Signed Impressions: Service Date/Time: July 21:54 - CONCLUSION: Negative exam with no evidence of deep venous thrombosis. Cheko Villanueva MD Head CT 08/10/16 0000 Signed Impressions: Service Date/Time: July 22:26 - CONCLUSION: 1. No acute hemorrhage, mass or infarction. 2. Chronic encephalomalacia Cheko Villanueva MD Assessment and Plan Problem List: (1) Elevated troponin (2) Aortic stenosis, moderate (3) Hypertension (4) Sepsis (5) Metabolic encephalopathy (6) Hydronephrosis (7) Hypokalemia Assessment and Plan No new cardiac issues. No angina or CHF. ANGIE with no evidence of endocarditis. PT started. Increase activity. Nuclear stress test later as outpatient. Claudia Morrissey MD Aug 17, 2016 18:47
[2016-08-17] MEDS: HEPARIN-D5W INJ 250 ML IV SCH (19:48)
[2016-08-18] VITALS (8 sets, daily range): BP systolic 123–154; BP diastolic 60–81; PULSE 51–73; RESP 14–18; TEMP 96.6–97.7; O2SAT 94–99
[2016-08-18 03:26] LABS: AUTOMATED NEUTROPHIL # 8.2 TH/MM3 (1.8-7.7); BASOPHIL # 0.1 TH/MM3 (0-0.2); BASOPHIL % 1.1 % (0.0-2.0); EOSINOPHIL # 0.7 TH/MM3 (0-0.4); EOSINOPHIL % 5.7 % (0.0-4.0); HEMATOCRIT 29.5 % (35.0-46.0); LYMPHOCYTE # 1.7 TH/MM3 (1.0-4.8); MEAN CELL VOLUME 86.8 FL (80.0-100.0); MEAN CORPUSCULAR HEMOGLOBIN 29.9 PG (27.0-34.0); MEAN CORPUSCULAR HGB CONC 34.5 % (32.0-36.0); MONO % 10.5 % (0.0-8.0); NEUT % 68.7 % (16.0-70.0); PLATELET COUNT 369 TH/MM3 (150-450); RED CELL DISTRIBUTION WIDTH 13.4 % (11.6-17.2)
[2016-08-18] MEDS: PENICILLIN G POTASSIUM INJ 3,000,000 UNITS in SODIUM CHLORIDE 0.9% INJ 100 ML IV SCH ×5 (03:28→21:43)
[2016-08-18 03:32] LABS: APTT (PATIENT) 43.1 SEC (24.3-30.1)
[2016-08-18 03:35] LABS: HEMO FLAGS AUTO DIFF
[2016-08-18 03:52] LABS: BICARBONATE 30.8 MEQ/L (21.0-32.0)
[2016-08-18] MEDS: INSULIN ASPART SUPPLEMENTAL SCALE SQ SCH ×4 (04:11→21:50)
[2016-08-18 08:01] LABS: BANDS 7 % (0-6); BASOPHILS 1 % (0-2); EOSINOPHILS 3 % (0-4); METAMYELOCYTES 1 % (0-1); MYELOCYTES 1 % (0-0); NEUTROPHIL # MANUAL DIFF 9.6 TH/MM3 (1.8-7.7); POLYS (SEG NEUTROPHILS) 71 % (16-70); WBC DIFF SAMPLE 100
[2016-08-18 08:02] LABS: PLATELET ESTIMATE SMEAR NORMAL (NORMAL); PLATELET MORPHOLOGY NORMAL (NORMAL); SCAN/DIFF FINAL DIFF MANUAL
[2016-08-18] MEDS: ASPIRIN 81 MG CHEW TAB CHEW SCH (08:38)
[2016-08-18] MEDS: DOCUSATE SODIUM 100 MG/10 ML UDC PO SCH ×2 (08:38→21:44)
[2016-08-18] MEDS: CHLORHEXIDINE GLUCONATE 0.12% 15 ML CUP SCH ×2 (08:38→21:51)
[2016-08-18] MEDS: LISINOPRIL 20 MG TAB PO SCH (08:39)
[2016-08-18] MEDS: PANTOPRAZOLE SODIUM 40 MG VIAL IV PUSH SCH (08:39)
[2016-08-18] MEDS: POTASSIUM CHLORIDE 25 MEQ EFFERVESCENT TAB PO SCH ×2 (08:39→08:40)
[2016-08-18] MEDS: METOPROLOL TARTRATE 25 MG TAB PO SCH ×2 (08:39→21:44)
[2016-08-18] MEDS: TOLTERODINE TARTRATE 2 MG CAP LA PO SCH (08:39)
[2016-08-18] MEDS: FUROSEMIDE 40 MG/4 ML VIAL IV PUSH SCH ×2 (08:39→18:16)
[2016-08-18] MEDS: PARoxetine HCL 20 MG TAB PO SCH (08:40)
[2016-08-18] MEDS: SODIUM CHLORIDE 0.9% FLUSH 10 ML FLUSH IV FLUSH SCH ×2 (09:09→21:42)
--- NOTE | 2016-08-18 09:47 | HHI.PR ---
Subjective Remarks Follow up bacteremia, respiratory failure. Patient reports no pain. No complaints at this time. Working with PT. Objective Vitals Vital Signs Date Time Temp Pulse Resp B/P Pulse Ox O2 Delivery O2 Flow Rate FiO2 08/18/16 09:01 Nasal Cannula 3.00 08/18/16 08:00 97.0 64 16 154/81 99 08/18/16 04:01 97.7 62 18 123/60 94 08/18/16 00:00 96.9 73 16 144/67 94 08/17/16 21:00 94 Nasal Cannula 3.00 40 08/17/16 20:08 96.5 77 18 138/64 94 08/17/16 16:00 97.9 77 18 138/66 95 08/17/16 15:40 Nasal Cannula 3.00 40 08/17/16 13:00 98.8 75 16 142/75 96 Arterial Line 08/17/16 12:00 76 08/17/16 11:00 97 Nasal Cannula 3.00 08/17/16 11:00 98.9 91 20 130/76 97 08/17/16 11:00 101 08/17/16 10:06 95 Nasal Cannula 3.00 08/17/16 10:00 60 I/O 08/17/16 08/17/16 08/17/16 08/18/16 08/18/16 08/18/16 06:59 14:59 22:59 06:59 14:59 22:59 Intake Total 1060 ml 755 ml 328 ml Output Total 1650 ml 1425 ml 450 ml Balance -590 ml -670 ml -122 ml Intake Oral 960 ml 120 ml IV Total 100 ml 635 ml 328 ml Output Urine Total 1650 ml 1425 ml 450 ml # Bowel Movements 0 Result Diagram: 08/18/16 0233 08/18/16 0233 Imaging Last Impressions Chest X-Ray 08/15/16 0600 Signed Impressions: Service Date/Time: Monday, August 15, 2016 04:47 - CONCLUSION: Stable left lower lobe consolidation. Andre Garcia MD Aorta Ultrasound 08/11/16 0000 Signed Impressions: Service Date/Time: Thursday, August 11, 2016 08:00 - CONCLUSION: 1. No abdominal aortic aneurysm identified. Johnnie Bains MD Abdomen/Pelvis CT 08/11/16 0000 Signed Impressions: Service Date/Time: Thursday, August 11, 2016 11:55 - CONCLUSION: 1. Moderate to severe left-sided hydronephrosis probably secondary to a left UPJ obstruction. Left ureter has normal caliber. 2. Nonobstructing 16mm by 11 mm calculus in the right renal pelvis. Perinephric stranding present bilaterally. 3. Trace bilateral pleural effusions. No bowel obstruction or free air. Arthur Tirado MD Lower Extremity Ultrasound 08/10/16 0000 Signed Impressions: Service Date/Time: July 21:54 - CONCLUSION: Negative exam with no evidence of deep venous thrombosis. Cheko Villanueva MD Head CT 08/10/16 0000 Signed Impressions: Service Date/Time: July 22:26 - CONCLUSION: 1. No acute hemorrhage, mass or infarction. 2. Chronic encephalomalacia Cheko Villanueva MD Objective Remarks General: Elderly female in no acute distress. Heart: Regular rate and rhythm. 2/6 systolic murmur noted. Lungs: Mild crackles in both bases. Breathing is nonlabored. Abdomen: Soft, nontender, nondistended. Extremities: No lower extremity edema. No calf tenderness. Psych: Alert, answers questions appropriately. Procedures 08/13/16 cystoscopy, left retrograde pyelogram, left long-term ureteral stent placement 08/14/16 ANGIE Urinary Catheter: Yes Assessment to: Continue Llanos insert reason: Obstruction/Retention Date of Insertion: Aug 13, 2016 Vascular Central Line Catheter: No A/P Problem List: (1) Sepsis ICD Code: A41.9 Status: Resolved (2) Metabolic encephalopathy ICD Code: G93.41 Status: Acute (3) UTI (urinary tract infection) ICD Code: N39.0 Status: Acute (4) Dehydration ICD Code: E86.0 Status: Acute (5) Generalized weakness ICD Code: R53.1 Status: Acute (6) Ureteropelvic junction (UPJ) obstruction ICD Code: N13.5 Status: Acute (7) Hydronephrosis ICD Code: N13.30 Status: Acute (8) Hypertension ICD Code: I10 Status: Chronic (9) Aortic stenosis, moderate ICD Code: I35.0 Status: Chronic (10) Type 2 diabetes mellitus ICD Code: E11.9 Status: Chronic (11) Acute hypoxemic respiratory failure ICD Code: J96.01 Status: Resolved (12) Atrial fibrillation ICD Code: I48.91 Status: Chronic (13) Bacteremia due to Enterococcus ICD Code: R78.81 Status: Acute Assessment and Plan 1. Acute hypoxemic respiratory failure: Resolved. Now tolerating oxygen per nasal cannula. Continue DuoNeb, Lasix. Patient was extubated on 08/15/16. 2. Bacteremia: Blood cultures positive for enterococcus. Appreciate infectious disease recommendations. Continue antibiotics. Will need long-term IV antibiotics secondary to high-grade bacteremia. Follow repeat blood cultures. 3. UTI, hydronephrosis: Appreciate urology recommendations. Llanos catheter in place. Status post cystoscopy with left ureteral stent placement. 4. Atrial fibrillation: Currently on heparin. Will transition to Eliquis when stable. Appreciate cardiology recommendations. 5. Aortic stenosis: Murmur noted on exam. Echocardiogram from 08/11/16 shows ejection fraction 50-55% with moderate aortic stenosis. 6. Non-ST elevation HI: Appreciate cardiology recommendations. Patient will need nuclear stress test when stable. 7. GI prophylaxis: Protonix. 8. DVT prophylaxis: Heparin, SCDs. Discharge Planning When cleared by ID. Awaiting final report on blood cultures prior to PICC placement. Wil Onofre MD Aug 18, 2016 09:47
--- NOTE | 2016-08-18 10:13 | HHI.IDPN ---
Subjective Subjective Remarks Patient is a 70-year-old female, brought into the hospital for evaluation of altered mental status. She was apparently not responding appropriately to some questions and at times not answering. She has been noted to be not moving much at home which is not her usual. There is mention that she was having fevers and shortness of breath. She was [facility], and had some shortness of breath and transferred to the intensive care unit. Currently she is on nasal O2. She denies any congestion or cough. No chest pain. She said she's not had any nausea or vomiting or abdominal pain. Denies any back pain. There is some mention that she had some dysuria, but patient denies any hematuria. Patient is not sure whether she has had kidney stones. She apparently has seen a urologist, and I can't really get a detailed history as to why she saw a urologist as an outpatient. During my exam, patient is awake and alert, and she is able to answer most of my questions although a little bit slow to respond. She seems to be oriented. Patient had an abnormal urinalysis. All her blood cultures are growing enterococcus. CT of the abdomen and pelvis is showing some stones in the kidney on the right with no obstruction, and she has significant hydronephrosis on the left side. Notes reviewed Doing well No fever No new (+) BC ANGIE negative for vegetation UC 08/13 with Enterococcus Last (+) BC so far 08/13 S/P urologic procedure 08/13 BC 08/10, 08/11 with Enterococcus, Gent synergy R; Strep synergy S Working with PT Antibiotics IV PCN Rocephin Lines PIV Past Medical History Hypertension Hyperlipidemia Diabetes mellitus Coronary artery disease CVA with residual dysarthria Atrial Fibrillation [place] 3 pregnancies and normal delivery Past Surgical History Oral surgery Allergies: Uncoded Allergies: MOTREL (Adverse Reaction, Severe, Rash, 06/06/16) . Objective . Vital Signs Date Time Temp Pulse Resp B/P Pulse Ox O2 Delivery O2 Flow Rate FiO2 08/18/16 09:01 Nasal Cannula 3.00 08/18/16 08:00 97.0 64 16 154/81 99 08/18/16 04:01 97.7 62 18 123/60 94 08/18/16 00:00 96.9 73 16 144/67 94 08/17/16 21:00 94 Nasal Cannula 3.00 40 08/17/16 20:08 96.5 77 18 138/64 94 08/17/16 16:00 97.9 77 18 138/66 95 08/17/16 15:40 Nasal Cannula 3.00 40 08/17/16 13:00 98.8 75 16 142/75 96 Arterial Line 08/17/16 12:00 76 08/17/16 11:00 97 Nasal Cannula 3.00 08/17/16 11:00 98.9 91 20 130/76 97 08/17/16 11:00 101 08/17/16 08/17/16 08/18/16 15:00 23:00 07:00 Intake Total 1060 ml 755 ml 328 ml Output Total 1650 ml 1425 ml 450 ml Balance -590 ml -670 ml -122 ml Intake Oral 960 ml 120 ml IV Total 100 ml 635 ml 328 ml Output Urine Total 1650 ml 1425 ml 450 ml # Bowel Movements 0 . Laboratory Tests Test 08/18/16 02:33 White Blood Count 12.0 TH/MM3 Red Blood Count 3.40 MIL/MM3 Hemoglobin 10.2 GM/DL Hematocrit 29.5 % Mean Corpuscular Volume 86.8 FL Mean Corpuscular Hemoglobin 29.9 PG Mean Corpuscular Hemoglobin 34.5 % Concent Red Cell Distribution Width 13.4 % Platelet Count 369 TH/MM3 Mean Platelet Volume 7.8 FL Neutrophils (%) (Auto) 68.7 % Lymphocytes (%) (Auto) 14.0 % Monocytes (%) (Auto) 10.5 % Eosinophils (%) (Auto) 5.7 % Basophils (%) (Auto) 1.1 % Neutrophils # (Auto) 8.2 TH/MM3 Lymphocytes # (Auto) 1.7 TH/MM3 Monocytes # (Auto) 1.3 TH/MM3 Eosinophils # (Auto) 0.7 TH/MM3 Basophils # (Auto) 0.1 TH/MM3 CBC Comment AUTO DIFF Differential Total Cells 100 Counted Neutrophils % (Manual) 71 % Band Neutrophils % 7 % Lymphocytes % 13 % Monocytes % 3 % Eosinophils % 3 % Basophils % 1 % Neutrophils # (Manual) 9.6 TH/MM3 Metamyelocytes 1 % Myelocytes 1 % Differential Comment FINAL DIFF MANUAL Platelet Estimate NORMAL Platelet Morphology Comment NORMAL Red Cell Morphology Comment NORMAL Laboratory Tests Test 08/18/16 02:33 Sodium Level 139 MEQ/L Potassium Level 4.0 MEQ/L Chloride Level 99 MEQ/L Carbon Dioxide Level 30.8 MEQ/L Anion Gap 9 MEQ/L Blood Urea Nitrogen 28 MG/DL Creatinine 1.17 MG/DL Estimat Glomerular Filtration 46 ML/MIN Rate Random Glucose 224 MG/DL Calcium Level 9.0 MG/DL Imaging Chest X-Ray 08/13/16 Signed Impressions: Service Date/Time: Saturday, August 13, 2016 10:58 - CONCLUSION: The endotracheal tube and NG tube appear to be in good position. No pneumothorax. David Walker MD Aorta Ultrasound 08/11/16 Signed Impressions: Service Date/Time: Thursday, August 11, 2016 08:00 - CONCLUSION: 1. No abdominal aortic aneurysm identified. Johnnie Bains MD Abdomen/Pelvis CT 08/11/16 Signed Impressions: Service Date/Time: Thursday, August 11, 2016 11:55 - CONCLUSION: 1. Moderate to severe left-sided hydronephrosis probably secondary to a left UPJ obstruction. Left ureter has normal caliber. 2. Nonobstructing 16mm by 11 mm calculus in the right renal pelvis. Perinephric stranding present bilaterally. 3. Trace bilateral pleural effusions. No bowel obstruction or free air. Arthur Tirado MD Lower Extremity Ultrasound 08/10/16 Signed Impressions: Service Date/Time: July 21:54 - CONCLUSION: Negative exam with no evidence of deep venous thrombosis. Cheko Villanueva MD Head CT 08/10/16 Signed Impressions: Service Date/Time: July 22:26 - CONCLUSION: 1. No acute hemorrhage, mass or infarction. 2. Chronic encephalomalacia Cheko Villanueva MD Physical Exam GENERAL: Awake, alert, responding, NAD SKIN: Warm and dry. No generalized rash, no ecchymoses and no evidence of embolic lesions. HEAD: Atraumatic. Normocephalic. No temporal wasting, or tenderness. EYES: [place] conjunctiva. No petechia or hemorrhage. Pupils equal, round and reactive to light. No scleral icterus. No injection or drainage. EARS, NOSE AND THROAT: Nose without bleeding or purulent nasal discharge. No sinus tenderness. Moist mucosa NECK: Trachea midline. Supple and not tender, no meningeal signs CARDIOVASCULAR: Regular rate and rhythm. Has systolic murmur at base of the heart. No rub RESPIRATORY: Breath sounds equal bilaterally. Decreased BS at bases ABDOMEN: Soft, non-tender, nondistended. Bowel sounds present and normoactive. No guarding. No rebound. No organomegaly. EXTREMITIES: No clubbing, cyanosis, or edema. No calf tenderness. Well perfused and warm. RLE larger compared to L NEUROLOGICAL: Following commands PSYCHIATRIC: Unable to assess : Llanos in place, urine is blood tinged LINE: No evidence of infection Assessment & Plan Remarks IMPRESSION High grade Enterococcal bacteremia, has UTI with L hydronephrosis, BC (+) 08/10 -08/13 - concern with seeding of her valve, has valvular heart disease, has mod on echo - BC still (+) from 08/13, that is date of her urologic procedure - ANGIE negative - still worrisome for endocarditis due to very long bacteremia SOB, due to ?pulmonary edema Previous Hx CVA RECOMMENDATION Continue IV PCN for Enterococcus - will need long course IV because of high grade bacteremia Continue Rocephin for synergy vs Enterococcus PICC I will fill out Abx form Labs weekly while on IV Abx Patient is clinically doing well from ID standpoint She can be D/C from ID standpoint once placement arranged I will be OOT 08/19-08/27 Other ID covering in my absence if needed Janette Mariscal MD Aug 18, 2016 10:13
--- NOTE | 2016-08-18 10:22 | HHI.FF ---
Infusion Therapy Location of Infusion Therapy: [facility] Infusion Therapy Order Patient Information Patient Weight 63.7 kg Diagnosis: Diagnosis High grade Enterococcal sepsis Has moderate aortic stenosis Uncoded Allergies: MOTREL (Adverse Reaction, Severe, Rash, 06/06/16) . Administer Medication Penicillin G Potassium Continuous with pump IV PCN G Na 18 million units daily continuous infusion Stop Treatment: Sep 23, 2016 Administer Medication Ceftriaxone 2 grams IV q 24 hours Stop Treatment: Sep 23, 2016 Additional Information Venous access: PICC Line Additional Instructions [x] Peripheral flush and dressing changes per protocol [x] Implanted port and central online facilitator: * Implanted port: 10 ml Normal Saline followed by 5 ml Heparin 100 units/ml Heparin flush after each use and monthly to maintain. [] May leave port accessed during therapy. [] May leave peripheral site accessed for duration of therapy. [x] If patient has SOB or respiratory distress, check oxygen saturation. If less than 90% or clinical signs of respiratory distress, administer oxygen at 2 L/min. via nasal cannula and notify physician. [x] Anaphylaxis/Reaction orders: * Stop infusion. * Keep IV line open with saline flush. * Notify physician. * Monitor vital signs every 15 minutes until symptoms resolve. * Check Oxygen saturation; Oxygen at 2 L/min. via nasal cannula if less than 90% or clinical signs of respiratory distress. * Administer diphenhydramine (Benadryl) 25 mg IV STAT, (unless patient has received as pre-med). May repeat once, if necessary. * Solu-Cortef 250 mg IVP over 30-60 seconds, use 100 mg vials for each dissolution. * Epinephrine (1mg/1 ml) 0.3 mg subcutaneously or IVP now with any signs of respiratory distress. * Check with physician for new additional pre-med orders if patient is re- challenged or re-treated. [x] May remove PICC line when treatment complete, after confirming with Physician. [x] If the patient is admitted to the hospital, the ED, or transferred via [facility] , complete transfer form including medication reconciliation order sheet. Laboratory Tests Weekly Labs: CBC w/diff, Creatinine, LFT's (Hepatic function test) (Labs every Sunday - copy to me) Janette Mariscal MD Aug 18, 2016 10:22
[2016-08-18 12:14] LABS: APTT (PATIENT) 44.3 SEC (24.3-30.1)
[2016-08-18 13:50] LABS: BACTERIA, URINE FEW /hpf; BLOOD, URINE LARGE (NEG); GLUCOSE,URINE TRACE mg/dL (NEG); HYALINE CAST, URINE 14 /lpf (RARE); KETONE, URINE NEG (NEG); MUCUS URINE FEW /lpf (OCC); NITRITE,URINE NEG (NEG); SQUAMOUS EPITHELIAL CELL URINE 3 /hpf (0-5)
[2016-08-18 13:56] LABS: COMMENT (UR) CATH-CULTURE IND; CULTURE IF INDICATED CATH CULTURE IND; URINE COLOR RED (YELLW/STRAW)
--- NOTE | 2016-08-18 16:14 | RADRPT ---
EXAM DATE/TIME: 08/18/2016 15:44 [facility] COMPARISON: CHEST SINGLE AP, August 15, 2016, 4:47. INDICATIONS : PICC line placement. MEDICAL HISTORY : Myocardial infarction. Hypercholesterolemia. Diabetes mellitus type 2.CVA. Facial numbness. Sleep language asst ea. HTN. Osteoporosis. Anticoagulant therapy. SURGICAL HISTORY : None. ENCOUNTER: Subsequent ACUITY: 3 weeks PAIN SCORE: 0/10 LOCATION: Bilateral chest FINDINGS: The right side of the PICC line has its tip in the right atrium. The heart is stable. The pulmonary vascular pattern is stable. The lungs are clear. Degenerative changes are noted throughout the tho racic spine. CONCLUSION: 1. Right-sided PICC line has its tip in the right atrium. 2. No acute cardiopulmonary disease. 3. Degenerative changes are noted throughout the thoracic spine. Brennen Gonzalez MD on August 18, 2016 at 16:08 Board Certified Radiologist. This report was verified electronically.
[2016-08-18] MEDS: cefTRIAXone INJ 2,000 MG in SODIUM CHLORIDE 0.9% INJ 100 ML IV SCH (16:47)
[2016-08-18] MEDS ORDERED: SODIUM CHLORIDE 0.9% FLUSH 10 ML FLUSH IV FLUSH PRN (17:00)
[2016-08-18] MEDS: SODIUM CHLOR 0.9% 1000 ML INJ 1,000 ML IV SCH (18:12)
[2016-08-18] MEDS: PRAVASTATIN SOD 40 MG TAB PO SCH (18:17)
--- NOTE | 2016-08-18 19:02 | RADRPT ---
EXAM DATE/TIME: 08/18/2016 18:07 [facility] COMPARISON: CHEST SINGLE AP, August 18, 2016, 15:44. INDICATIONS : PICC line placement. MEDICAL HISTORY : Myocardial infarction. Hypercholesterolemia. Diabetes mellitus type 2.CVA. Facial numbness. Sleep state's attorney ea. HTN. Osteoporosis. Anticoagulant therapy. SURGICAL HISTORY : None. ENCOUNTER: Subsequent ACUITY: 3 weeks PAIN SCORE: 0/10 LOCATION: Bilateral chest FINDINGS: A single view of the chest demonstrates the lungs to be symmetrically aerated without evidence of mas s, infiltrate or effusion. The cardiomediastinal contours are unremarkable. Osseous structures are intact. There is a right-sided PICC line noted with the tip projected over the superior vena cava. Th ere are multiple overlying electrocardiogram leads. Atherosclerotic changes are present in the aorta with calcification. CONCLUSION: 1. Right-sided PICC line. 2. No acute cardiopulmonary disease. Cheko Villanueva MD on August 18, 2016 at 18:59 Board Certified Radiologist. This report was verified electronically.
[2016-08-19] VITALS (7 sets, daily range): BP systolic 123–144; BP diastolic 58–67; PULSE 50–69; RESP 15–16; TEMP 96.3–97.8; O2SAT 96–100
[2016-08-19] MEDS: PENICILLIN G POTASSIUM INJ 3,000,000 UNITS in SODIUM CHLORIDE 0.9% INJ 100 ML IV SCH ×6 (01:16→20:00)
[2016-08-19 06:05] LABS: HEMATOCRIT 28.8 % (35.0-46.0); MEAN CELL VOLUME 88.1 FL (80.0-100.0); MEAN CORPUSCULAR HEMOGLOBIN 29.9 PG (27.0-34.0); MEAN CORPUSCULAR HGB CONC 33.9 % (32.0-36.0); PLATELET COUNT 355 TH/MM3 (150-450); RED BLOOD COUNT 3.27 MIL/MM3 (4.00-5.30); RED CELL DISTRIBUTION WIDTH 13.6 % (11.6-17.2); REVIEW FLAG FINAL; WHITE BLOOD COUNT 10.2 TH/MM3 (4.0-11.0)
[2016-08-19] MEDS: INSULIN ASPART SUPPLEMENTAL SCALE SQ SCH ×4 (06:06→20:33)
[2016-08-19 07:07] LABS: APTT (PATIENT) 29.4 SEC (24.3-30.1)
[2016-08-19] MEDS: CHLORHEXIDINE GLUCONATE 0.12% 15 ML CUP SCH ×2 (08:00→20:00)
[2016-08-19] MEDS: DOCUSATE SODIUM 100 MG/10 ML UDC PO SCH ×2 (08:26→20:00)
[2016-08-19] MEDS: ASPIRIN 81 MG CHEW TAB CHEW SCH (08:26)
[2016-08-19] MEDS: PARoxetine HCL 20 MG TAB PO SCH (08:26)
[2016-08-19] MEDS: METOPROLOL TARTRATE 25 MG TAB PO SCH ×2 (08:26→20:01)
[2016-08-19] MEDS: PANTOPRAZOLE SODIUM 40 MG VIAL IV PUSH SCH (08:26)
[2016-08-19] MEDS: LISINOPRIL 20 MG TAB PO SCH (08:26)
[2016-08-19] MEDS: POTASSIUM CHLORIDE 25 MEQ EFFERVESCENT TAB PO SCH ×2 (08:27→08:28)
[2016-08-19] MEDS: TOLTERODINE TARTRATE 2 MG CAP LA PO SCH (08:27)
[2016-08-19] MEDS: FUROSEMIDE 40 MG/4 ML VIAL IV PUSH SCH ×2 (08:27→17:22)
[2016-08-19] MEDS: SODIUM CHLORIDE 0.9% FLUSH 10 ML FLUSH IV FLUSH SCH ×3 (08:28→20:00)
--- NOTE | 2016-08-19 09:21 | HHI.PR ---
Subjective Remarks Follow up bacteremia. Patient has no complaints at this time. Denies chest pain , dyspnea. She is sitting on the edge of the bed eating breakfast. Objective Vitals Vital Signs Date Time Temp Pulse Resp B/P Pulse Ox O2 Delivery O2 Flow Rate FiO2 08/19/16 08:00 Nasal Cannula 3.00 08/19/16 04:00 96.9 56 15 139/67 96 08/19/16 00:00 96.3 53 15 130/62 98 08/18/16 21:30 96 Nasal Cannula 3.00 08/18/16 20:08 60 08/18/16 20:00 96.7 66 16 136/65 96 08/18/16 16:00 Nasal Cannula 2.00 08/18/16 16:00 97.1 62 16 148/71 99 08/18/16 13:00 56 08/18/16 12:00 96.6 51 14 144/60 98 I/O 08/18/16 08/18/16 08/18/16 08/19/16 08/19/16 08/19/16 07:00 15:00 23:00 07:00 15:00 23:00 Intake Total 328 ml 1440 ml 456 ml 336 ml Output Total 450 ml 300 ml 1400 ml 350 ml Balance -122 ml 1140 ml -944 ml -14 ml Intake Oral 1440 ml 120 ml IV Total 328 ml 336 ml 336 ml Output Urine Total 450 ml 300 ml 1400 ml 350 ml # Bowel Movements 0 Result Diagram: 08/19/16 0510 08/18/16 0233 Imaging Last Impressions Chest X-Ray 08/18/16 0000 Signed Impressions: Service Date/Time: Thursday, August 18, 2016 18:07 - CONCLUSION: 1. Right-sided PICC line. 2. No acute cardiopulmonary disease. Cheko Villanueva MD Aorta Ultrasound 08/11/16 0000 Signed Impressions: Service Date/Time: Thursday, August 11, 2016 08:00 - CONCLUSION: 1. No abdominal aortic aneurysm identified. Johnnie Bains MD Abdomen/Pelvis CT 08/11/16 0000 Signed Impressions: Service Date/Time: Thursday, August 11, 2016 11:55 - CONCLUSION: 1. Moderate to severe left-sided hydronephrosis probably secondary to a left UPJ obstruction. Left ureter has normal caliber. 2. Nonobstructing 16mm by 11 mm calculus in the right renal pelvis. Perinephric stranding present bilaterally. 3. Trace bilateral pleural effusions. No bowel obstruction or free air. Arthur Tirado MD Lower Extremity Ultrasound 08/10/16 0000 Signed Impressions: Service Date/Time: July 21:54 - CONCLUSION: Negative exam with no evidence of deep venous thrombosis. Cheko Villanueva MD Head CT 08/10/16 0000 Signed Impressions: Service Date/Time: July 22:26 - CONCLUSION: 1. No acute hemorrhage, mass or infarction. 2. Chronic encephalomalacia Cehko Villanueva MD Objective Remarks General: Elderly female in no acute distress. Heart: Regular rate and rhythm. 03/27 systolic murmur noted. Lungs: Clear to auscultation. Breathing is nonlabored. Abdomen: Soft, nontender, nondistended. Extremities: No lower extremity edema. No calf tenderness. Psych: Alert, answers questions appropriately. Procedures 08/13/16 cystoscopy, left retrograde pyelogram, left long-term ureteral stent placement 08/14/16 ANGIE Urinary Catheter: Yes Assessment to: Continue Date of Insertion: Aug 13, 2016 Vascular Central Line Catheter: No A/P Problem List: (1) Sepsis ICD Code: A41.9 Status: Resolved (2) Metabolic encephalopathy ICD Code: G93.41 Status: Acute (3) UTI (urinary tract infection) ICD Code: N39.0 Status: Acute (4) Dehydration ICD Code: E86.0 Status: Acute (5) Generalized weakness ICD Code: R53.1 Status: Acute (6) Ureteropelvic junction (UPJ) obstruction ICD Code: N13.5 Status: Acute (7) Hydronephrosis ICD Code: N13.30 Status: Acute (8) Hypertension ICD Code: I10 Status: Chronic (9) Aortic stenosis, moderate ICD Code: I35.0 Status: Chronic (10) Type 2 diabetes mellitus ICD Code: E11.9 Status: Chronic (11) Acute hypoxemic respiratory failure ICD Code: J96.01 Status: Resolved (12) Atrial fibrillation ICD Code: I48.91 Status: Chronic (13) Bacteremia due to Enterococcus ICD Code: R78.81 Status: Acute Assessment and Plan 1. Acute hypoxemic respiratory failure: Resolved. Now tolerating oxygen per nasal cannula. Continue DuoNeb, Lasix. Patient was extubated on 08/15/16. 2. Bacteremia: Blood cultures positive for enterococcus. Appreciate infectious disease recommendations. Continue Penicillin, Rocephin. Will need long-term IV antibiotics secondary to high-grade bacteremia. Repeat blood cultures are negative so far. 3. UTI, hydronephrosis: Appreciate urology recommendations. Llanos catheter in place. Status post cystoscopy with left ureteral stent placement. 4. Atrial fibrillation: Heparin drip discontinued. Start Eliquis. Appreciate cardiology recommendations. 5. Aortic stenosis: Murmur noted on exam. Echocardiogram from 08/11/16 shows ejection fraction 50-55% with moderate aortic stenosis. 6. Non-ST elevation [place]: Appreciate cardiology recommendations. Patient will need nuclear stress test when stable - can be done as outpatient per cardiology. 7. GI prophylaxis: Protonix. 8. DVT prophylaxis: Heparin, SCDs. Discharge Planning Anticipate discharge to SNF soon, when arrangements are made. Wil Onofre MD Aug 19, 2016 09:21
[2016-08-19] MEDS: APIXABAN 5 MG TABLET PO SCH ×2 (09:52→20:01)
[2016-08-19 16:14] LABS: BICARBONATE 31.3 MEQ/L (21.0-32.0); POTASSIUM 4.3 MEQ/L (3.5-5.1)
[2016-08-19] MEDS: PRAVASTATIN SOD 40 MG TAB PO SCH (17:22)
[2016-08-19] MEDS: cefTRIAXone INJ 2,000 MG in SODIUM CHLORIDE 0.9% INJ 100 ML IV SCH (17:29)
[2016-08-20] VITALS (9 sets, daily range): BP systolic 114–176; BP diastolic 54–73; PULSE 48–69; RESP 15–18; TEMP 96.2–97.6; O2SAT 94–97
[2016-08-20] MEDS: PENICILLIN G POTASSIUM INJ 3,000,000 UNITS in SODIUM CHLORIDE 0.9% INJ 100 ML IV SCH ×6 (00:15→20:46)
[2016-08-20] MEDS: SODIUM CHLOR 0.9% 1000 ML INJ 1,000 ML IV SCH (03:37)
[2016-08-20 06:06] LABS: BASOPHIL # 0.1 TH/MM3 (0-0.2); EOSINOPHIL # 0.5 TH/MM3 (0-0.4); EOSINOPHIL % 4.3 % (0.0-4.0); HEMATOCRIT 27.8 % (35.0-46.0); LYMPH % 14.7 % (9.0-44.0); LYMPHOCYTE # 1.7 TH/MM3 (1.0-4.8); MEAN CELL VOLUME 87.9 FL (80.0-100.0); MEAN CORPUSCULAR HEMOGLOBIN 29.7 PG (27.0-34.0); MEAN CORPUSCULAR HGB CONC 33.8 % (32.0-36.0); MONO % 10.2 % (0.0-8.0); NEUT % 69.8 % (16.0-70.0); PLATELET COUNT 384 TH/MM3 (150-450); RED BLOOD COUNT 3.16 MIL/MM3 (4.00-5.30); RED CELL DISTRIBUTION WIDTH 13.7 % (11.6-17.2); WHITE BLOOD COUNT 11.5 TH/MM3 (4.0-11.0)
[2016-08-20 06:20] LABS: HEMO FLAGS AUTO DIFF
[2016-08-20] MEDS: INSULIN ASPART SUPPLEMENTAL SCALE SQ SCH ×4 (06:30→20:56)
[2016-08-20 06:31] LABS: POTASSIUM 4.2 MEQ/L (3.5-5.1)
[2016-08-20] MEDS: CHLORHEXIDINE GLUCONATE 0.12% 15 ML CUP SCH ×2 (08:00→20:00)
[2016-08-20] MEDS: ASPIRIN 81 MG CHEW TAB CHEW SCH (08:57)
[2016-08-20] MEDS: APIXABAN 5 MG TABLET PO SCH ×2 (08:57→20:49)
[2016-08-20] MEDS: LISINOPRIL 20 MG TAB PO SCH (08:57)
[2016-08-20] MEDS: PARoxetine HCL 20 MG TAB PO SCH (08:57)
[2016-08-20] MEDS: METOPROLOL TARTRATE 25 MG TAB PO SCH ×2 (08:58→20:49)
[2016-08-20] MEDS: POTASSIUM CHLORIDE 25 MEQ EFFERVESCENT TAB PO SCH (08:58)
[2016-08-20] MEDS: DOCUSATE SODIUM 100 MG/10 ML UDC PO SCH ×2 (08:59→20:46)
[2016-08-20] MEDS: SODIUM CHLORIDE 0.9% FLUSH 10 ML FLUSH IV FLUSH SCH ×3 (08:59→20:47)
[2016-08-20] MEDS: TOLTERODINE TARTRATE 2 MG CAP LA PO SCH (08:59)
[2016-08-20] MEDS ORDERED: DETR2CAP PO (09:08)
[2016-08-20] MEDS ORDERED: KLYTECL PO (09:08)
[2016-08-20] MEDS ORDERED: LISI-515 PO (09:08)
[2016-08-20] MEDS ORDERED: PRAV40TA PO (09:08)
--- NOTE | 2016-08-20 09:52 | HHI.DCPOC ---
Discharge Care Plan Diagnosis: (1) Acute hypoxemic respiratory failure (2) Bacteremia due to Enterococcus (3) Type 2 diabetes mellitus (4) Atrial fibrillation (5) Sepsis (6) Hydronephrosis (7) Ureteropelvic junction (UPJ) obstruction (8) Hypokalemia (9) Aortic stenosis, moderate (10) Elevated troponin (11) Hypertension (12) Metabolic encephalopathy (13) UTI (urinary tract infection) (14) GERD (gastroesophageal reflux disease) Goals to Promote Your Health * To prevent worsening of your condition and complications * To maintain your health at the optimal level Directions to Meet Your Goals Take your medications as prescribed Follow your dietary instruction Follow activity as directed Keep your appointments as scheduled Take your immunizations and boosters as scheduled If your symptoms worsen call your PCP, if no PCP go to Urgent Care Center or Emergency Room Smoking is Dangerous to Your Health. Avoid second hand smoke Call the 24-hour hour crisis hotline for domestic abuse at Wil Onofre MD Aug 20, 2016 09:52
[2016-08-20] MEDS: PANTOPRAZOLE SOD 40 MG DELAYED RELEASE TAB PO SCH (10:00)
[2016-08-20 10:16] LABS: BANDS 11 % (0-6); EOSINOPHILS 5 % (0-4); METAMYELOCYTES 5 % (0-1); NEUTROPHIL # MANUAL DIFF 8.9 TH/MM3 (1.8-7.7); PLATELET ESTIMATE SMEAR NORMAL (NORMAL); PLATELET MORPHOLOGY NORMAL (NORMAL); POLYS (SEG NEUTROPHILS) 61 % (16-70); SCAN/DIFF FINAL DIFF MANUAL; WBC DIFF SAMPLE 100
[2016-08-20] MEDS: cefTRIAXone INJ 2,000 MG in SODIUM CHLORIDE 0.9% INJ 100 ML IV SCH (15:14)
[2016-08-20] MEDS: FUROSEMIDE 40 MG TAB PO SCH (17:14)
[2016-08-20] MEDS: PRAVASTATIN SOD 40 MG TAB PO SCH (17:15)
[2016-08-21] VITALS (11 sets, daily range): BP systolic 130–191; BP diastolic 58–86; PULSE 48–68; RESP 15–20; TEMP 96.1–97; O2SAT 95–100
[2016-08-21] MEDS: PENICILLIN G POTASSIUM INJ 3,000,000 UNITS in SODIUM CHLORIDE 0.9% INJ 100 ML IV SCH ×6 (00:35→20:44)
[2016-08-21] MEDS: INSULIN ASPART SUPPLEMENTAL SCALE SQ SCH ×4 (05:10→22:44)
[2016-08-21] MEDS: CHLORHEXIDINE GLUCONATE 0.12% 15 ML CUP SCH ×2 (08:00→20:00)
[2016-08-21] MEDS: DOCUSATE SODIUM 100 MG/10 ML UDC PO SCH ×2 (09:22→20:46)
[2016-08-21] MEDS: POTASSIUM CHLORIDE 25 MEQ EFFERVESCENT TAB PO SCH (09:22)
[2016-08-21] MEDS: APIXABAN 5 MG TABLET PO SCH ×2 (09:22→20:45)
[2016-08-21] MEDS: ASPIRIN 81 MG CHEW TAB CHEW SCH (09:22)
[2016-08-21] MEDS: FUROSEMIDE 40 MG TAB PO SCH ×2 (09:22→18:32)
[2016-08-21] MEDS: PANTOPRAZOLE SOD 40 MG DELAYED RELEASE TAB PO SCH (09:22)
[2016-08-21] MEDS: TOLTERODINE TARTRATE 2 MG CAP LA PO SCH (09:22)
[2016-08-21] MEDS: LISINOPRIL 20 MG TAB PO SCH (09:22)
[2016-08-21] MEDS: PARoxetine HCL 20 MG TAB PO SCH (09:22)
[2016-08-21] MEDS: SODIUM CHLORIDE 0.9% FLUSH 10 ML FLUSH IV FLUSH SCH ×3 (09:23→20:46)
[2016-08-21] MEDS: METOPROLOL TARTRATE 25 MG TAB PO SCH ×2 (09:26→20:45)
[2016-08-21] MEDS: SODIUM CHLOR 0.9% 1000 ML INJ 1,000 ML IV SCH (09:28)
--- NOTE | 2016-08-21 11:28 | HHI.PR ---
Subjective Remarks In the chair, eating. No fevr or chills overnight. Feels tired. Not able to ambulate much , using a walker. Not much cough. No pain in her abdomen. Able to eat , no n.v.d.c Objective Vitals Vital Signs Date Time Temp Pulse Resp B/P Pulse Ox O2 Delivery O2 Flow Rate FiO2 08/21/16 09:20 Nasal Cannula 2.00 08/21/16 08:00 96.1 58 18 191/86 100 08/21/16 04:00 96.7 63 16 141/71 97 08/21/16 03:53 55 08/21/16 00:14 48 08/21/16 00:00 97.0 50 15 130/64 99 08/20/16 21:07 Nasal Cannula 2.00 08/20/16 20:48 61 08/20/16 20:39 69 08/20/16 20:00 Nasal Cannula 1.50 08/20/16 20:00 97.4 58 16 129/63 95 08/20/16 16:00 96.6 65 18 114/54 94 08/20/16 12:00 97.5 55 18 131/65 94 I/O 08/20/16 08/20/16 08/20/16 08/21/16 08/21/16 08/21/16 07:00 15:00 23:00 07:00 15:00 23:00 Intake Total 954 ml 1280 ml 585 ml Output Total 700 ml 900 ml 1650 ml 850 ml Balance 254 ml 380 ml -1650 ml -265 ml Intake Oral 60 ml 760 ml IV Total 894 ml 520 ml 585 ml Output Urine Total 700 ml 900 ml 1650 ml 850 ml # Bowel Movements 1 Result Diagram: 08/20/16 0507 08/20/16 0507 Imaging Last Impressions Chest X-Ray 08/18/16 0000 Signed Impressions: Service Date/Time: Thursday, August 18, 2016 18:07 - CONCLUSION: 1. Right-sided PICC line. 2. No acute cardiopulmonary disease. Cheko Villanueva MD Aorta Ultrasound 08/11/16 0000 Signed Impressions: Service Date/Time: Thursday, August 11, 2016 08:00 - CONCLUSION: 1. No abdominal aortic aneurysm identified. Johnnie Bains MD Abdomen/Pelvis CT 08/11/16 0000 Signed Impressions: Service Date/Time: Thursday, August 11, 2016 11:55 - CONCLUSION: 1. Moderate to severe left-sided hydronephrosis probably secondary to a left UPJ obstruction. Left ureter has normal caliber. 2. Nonobstructing 16mm by 11 mm calculus in the right renal pelvis. Perinephric stranding present bilaterally. 3. Trace bilateral pleural effusions. No bowel obstruction or free air. Arthur Tirado MD Lower Extremity Ultrasound 08/10/16 0000 Signed Impressions: Service Date/Time: July 21:54 - CONCLUSION: Negative exam with no evidence of deep venous thrombosis. Cheko Villanueva MD Head CT 08/10/16 0000 Signed Impressions: Service Date/Time: July 22:26 - CONCLUSION: 1. No acute hemorrhage, mass or infarction. 2. Chronic encephalomalacia Cheko Villanueva MD Objective Remarks General: Elderly female in no acute distress. Cardiovascular: Regular rate and rhythm. 2/6 systolic murmur noted. Respiratory: Clear to auscultation. Breathing is nonlabored. Abdomen: Soft, nontender, nondistended. Extremities: No lower extremity edema. No calf tenderness. Psych: Alert, answers questions appropriately. Procedures 08/13/16 cystoscopy, left retrograde pyelogram, left long-term ureteral stent placement 08/14/16 ANGIE Date of Insertion: Aug 13, 2016 A/P Problem List: (1) Sepsis ICD Code: A41.9 Status: Resolved (2) Metabolic encephalopathy ICD Code: G93.41 Status: Acute (3) UTI (urinary tract infection) ICD Code: N39.0 Status: Acute (4) Dehydration ICD Code: E86.0 Status: Acute (5) Generalized weakness ICD Code: R53.1 Status: Acute (6) Ureteropelvic junction (UPJ) obstruction ICD Code: N13.5 Status: Acute (7) Hydronephrosis ICD Code: N13.30 Status: Acute (8) Hypertension ICD Code: I10 Status: Chronic (9) Aortic stenosis, moderate ICD Code: I35.0 Status: Chronic (10) Type 2 diabetes mellitus ICD Code: E11.9 Status: Chronic (11) Acute hypoxemic respiratory failure ICD Code: J96.01 Status: Resolved (12) Atrial fibrillation ICD Code: I48.91 Status: Chronic (13) Bacteremia due to Enterococcus ICD Code: R78.81 Status: Acute Assessment and Plan Acute hypoxemic respiratory failure: Resolved. Now tolerating oxygen per nasal cannula. Continue DuoNeb, Lasix. Patient was extubated on 08/15/16. Bacteremia: Blood cultures positive for enterococcus. Appreciate infectious disease recommendations. Continue Penicillin, Rocephin. Will need long-term IV antibiotics secondary to high-grade bacteremia. Repeat blood cultures are negative so far. UTI, hydronephrosis: Appreciate urology recommendations. Llanos catheter in place. Status post cystoscopy with left ureteral stent placement. Atrial fibrillation: Heparin drip discontinued. Start Eliquis. Appreciate cardiology recommendations. Aortic stenosis: Murmur noted on exam. Echocardiogram from 08/11/16 shows ejection fraction 50-55% with moderate aortic stenosis. Non-ST elevation [place]: Appreciate cardiology recommendations. Patient will need nuclear stress test when stable - can be done as outpatient per cardiology. GI prophylaxis: Protonix. DVT prophylaxis: Heparin, SCDs. Discharge Planning Anticipate discharge to SNF soon, when arrangements are made. Case management following for DC plan Cynthia Pringle MD Aug 21, 2016 11:28
[2016-08-21] MEDS: cefTRIAXone INJ 2,000 MG in SODIUM CHLORIDE 0.9% INJ 100 ML IV SCH (14:30)
[2016-08-21] MEDS: PRAVASTATIN SOD 40 MG TAB PO SCH (18:32)
[2016-08-21] MEDS ORDERED: ACETAMINOPHEN 325 MG TAB PO ONE (19:30)
[2016-08-22] VITALS (12 sets, daily range): BP systolic 122–171; BP diastolic 60–99; PULSE 49–92; RESP 16–20; TEMP 96.5–97.3; O2SAT 92–100
[2016-08-22] MEDS: PENICILLIN G POTASSIUM INJ 3,000,000 UNITS in SODIUM CHLORIDE 0.9% INJ 100 ML IV SCH ×6 (00:26→20:44)
[2016-08-22] MEDS: INSULIN ASPART SUPPLEMENTAL SCALE SQ SCH ×4 (06:00→21:56)
[2016-08-22] MEDS: TOLTERODINE TARTRATE 2 MG CAP LA PO SCH (08:37)
[2016-08-22] MEDS: LISINOPRIL 20 MG TAB PO SCH (08:37)
[2016-08-22] MEDS: FUROSEMIDE 40 MG TAB PO SCH ×2 (08:38→17:05)
[2016-08-22] MEDS: ASPIRIN 81 MG CHEW TAB CHEW SCH (08:38)
[2016-08-22] MEDS: PARoxetine HCL 20 MG TAB PO SCH (08:38)
[2016-08-22] MEDS: DOCUSATE SODIUM 100 MG/10 ML UDC PO SCH ×2 (08:39→20:44)
[2016-08-22] MEDS: SODIUM CHLORIDE 0.9% FLUSH 10 ML FLUSH IV FLUSH SCH ×3 (08:39→20:45)
[2016-08-22] MEDS: APIXABAN 5 MG TABLET PO SCH ×2 (08:39→20:44)
[2016-08-22] MEDS: PANTOPRAZOLE SOD 40 MG DELAYED RELEASE TAB PO SCH (08:39)
--- NOTE | 2016-08-22 09:07 | HHI.PR ---
Objective Vitals Result Diagram: 08/20/16 0507 08/20/16 0507 Date of Insertion: Aug 13, 2016 Chitra Knowles MD Aug 22, 2016 09:07 08/22/16 04:16 49 08/22/16 04:00 96.6 53 16 171/76 98 08/22/16 00:39 97.2 65 16 126/61 98 08/22/16 00:16 50 08/21/16 21:28 96.4 68 16 131/61 97 08/21/16 20:44 Nasal Cannula 2.00 08/21/16 20:16 59 08/21/16 18:12 95 Nasal Cannula 2.00 08/21/16 18:10 95 Nasal Cannula 2.00 08/21/16 16:00 96.8 60 18 133/64 95 08/21/16 12:00 96.6 51 20 137/58 99 08/21/16 09:20 Nasal Cannula 2.00 I/O 08/21/16 08/21/16 08/21/16 08/22/16 08/22/16 08/22/16 07:00 15:00 23:00 07:00 15:00 23:00 Intake Total 585 ml 1247 ml 900 ml 370 ml Output Total 850 ml 1850 ml 950 ml Balance -265 ml -603 ml -50 ml 370 ml Intake Oral 360 ml 350 ml IV Total 585 ml 887 ml 550 ml 370 ml Output Urine Total 850 ml 1850 ml 950 ml # Bowel Movements 0 Result Diagram: 08/20/16 0507 08/20/16 0507 Date of Insertion: Aug 13, 2016 Chitra Knowles MD Aug 22, 2016 09:07 Date of Insertion: Aug 13, 2016 Chitra Knowles MD Aug 22, 2016 09:07 (1) Sepsis ICD Code: A41.9 Status: Resolved (2) Metabolic encephalopathy ICD Code: G93.41 Status: Acute (3) UTI (urinary tract infection) ICD Code: N39.0 Status: Acute (4) Dehydration ICD Code: E86.0 Status: Acute (5) Generalized weakness ICD Code: R53.1 Status: Acute (6) Ureteropelvic junction (UPJ) obstruction ICD Code: N13.5 Status: Acute (7) Hydronephrosis ICD Code: N13.30 Status: Acute (8) Hypertension ICD Code: I10 Status: Chronic (9) Aortic stenosis, moderate ICD Code: I35.0 Status: Chronic (10) Type 2 diabetes mellitus ICD Code: E11.9 Status: Chronic (11) Acute hypoxemic respiratory failure ICD Code: J96.01 Status: Resolved (12) Atrial fibrillation ICD Code: I48.91 Status: Chronic (13) Bacteremia due to Enterococcus ICD Code: R78.81 Status: Acute Assessment and Plan Acute hypoxemic respiratory failure: Resolved. Now tolerating oxygen per nasal cannula. Continue DuoNeb, Lasix. Patient was extubated on 08/15/16. Bacteremia: Blood cultures positive for enterococcus. Appreciate infectious disease recommendations. Continue Penicillin, Rocephin. Will need long-term IV antibiotics secondary to high-grade bacteremia. Repeat blood cultures are negative so far. UTI, hydronephrosis: Appreciate urology recommendations. Llanos catheter in place. Status post cystoscopy with left ureteral stent placement. Atrial fibrillation: Heparin drip discontinued. Start Eliquis. Appreciate cardiology recommendations. Aortic stenosis: Murmur noted on exam. Echocardiogram from 08/11/16 shows ejection fraction 50-55% with moderate aortic stenosis. Non-ST elevation [place]: Appreciate cardiology recommendations. Patient will need nuclear stress test when stable - can be done as outpatient per cardiology. GI prophylaxis: Protonix. DVT prophylaxis: Heparin, SCDs. Discharge Planning Anticipate discharge to SNF soon, when arrangements are made. Case management following for DC plan Chitra Knowles MD Aug 22, 2016 09:07
--- NOTE | 2016-08-22 11:09 | HHI.PR ---
Subjective Remarks Noted bradycardic, however patient is asymptomatic. Will decrease metoprolol. Doesn't appear in acute distress. no fever or chills. Not much cough. No urinary complaints. Eating well. No n/v/d/c. Objective Vitals Vital Signs Date Time Temp Pulse Resp B/P Pulse Ox O2 Delivery O2 Flow Rate FiO2 08/22/16 09:21 Nasal Cannula 1.00 08/22/16 08:49 98 Nasal Cannula 2.00 08/22/16 08:00 96.6 52 18 147/60 92 08/22/16 04:33 49 131/71 08/22/16 04:16 49 08/22/16 04:00 96.6 53 16 171/76 98 08/22/16 00:39 97.2 65 16 126/61 98 08/22/16 00:16 50 08/21/16 21:28 96.4 68 16 131/61 97 08/21/16 20:44 Nasal Cannula 2.00 08/21/16 20:16 59 08/21/16 18:12 95 Nasal Cannula 2.00 08/21/16 18:10 95 Nasal Cannula 2.00 08/21/16 16:00 96.8 60 18 133/64 95 08/21/16 12:00 96.6 51 20 137/58 99 I/O 08/21/16 08/21/16 08/21/16 08/22/16 08/22/16 08/22/16 07:00 15:00 23:00 07:00 15:00 23:00 Intake Total 585 ml 1247 ml 900 ml 370 ml Output Total 850 ml 1850 ml 950 ml Balance -265 ml -603 ml -50 ml 370 ml Intake Oral 360 ml 350 ml IV Total 585 ml 887 ml 550 ml 370 ml Output Urine Total 850 ml 1850 ml 950 ml # Bowel Movements 0 Result Diagram: 08/20/16 0507 08/20/16 0507 Imaging Last Impressions Chest X-Ray 08/18/16 0000 Signed Impressions: Service Date/Time: Thursday, August 18, 2016 18:07 - CONCLUSION: 1. Right-sided PICC line. 2. No acute cardiopulmonary disease. Cheko Villanueva MD Aorta Ultrasound 08/11/16 0000 Signed Impressions: Service Date/Time: Thursday, August 11, 2016 08:00 - CONCLUSION: 1. No abdominal aortic aneurysm identified. Johnnie Bains MD Abdomen/Pelvis CT 08/11/16 0000 Signed Impressions: Service Date/Time: Thursday, August 11, 2016 11:55 - CONCLUSION: 1. Moderate to severe left-sided hydronephrosis probably secondary to a left UPJ obstruction. Left ureter has normal caliber. 2. Nonobstructing 16mm by 11 mm calculus in the right renal pelvis. Perinephric stranding present bilaterally. 3. Trace bilateral pleural effusions. No bowel obstruction or free air. Arthur Tirado MD Lower Extremity Ultrasound 08/10/16 0000 Signed Impressions: Service Date/Time: July 21:54 - CONCLUSION: Negative exam with no evidence of deep venous thrombosis. Cheko Villanueva MD Head CT 08/10/16 0000 Signed Impressions: Service Date/Time: July 22:26 - CONCLUSION: 1. No acute hemorrhage, mass or infarction. 2. Chronic encephalomalacia Cheko Villanueva MD Objective Remarks General: Elderly female in no acute distress. Cardiovascular: Regular rate and rhythm. 2/6 systolic murmur noted. Respiratory: Clear to auscultation. Breathing is nonlabored. Abdomen: Soft, nontender, nondistended. Extremities: No lower extremity edema. No calf tenderness. Psych: Alert, answers questions appropriately. Date of Insertion: Aug 13, 2016 A/P Problem List: (1) Sepsis ICD Code: A41.9 Status: Resolved (2) Metabolic encephalopathy ICD Code: G93.41 Status: Acute (3) UTI (urinary tract infection) ICD Code: N39.0 Status: Acute (4) Dehydration ICD Code: E86.0 Status: Acute (5) Generalized weakness ICD Code: R53.1 Status: Acute (6) Ureteropelvic junction (UPJ) obstruction ICD Code: N13.5 Status: Acute (7) Hydronephrosis ICD Code: N13.30 Status: Acute (8) Hypertension ICD Code: I10 Status: Chronic (9) Aortic stenosis, moderate ICD Code: I35.0 Status: Chronic (10) Type 2 diabetes mellitus ICD Code: E11.9 Status: Chronic (11) Acute hypoxemic respiratory failure ICD Code: J96.01 Status: Resolved (12) Atrial fibrillation ICD Code: I48.91 Status: Chronic (13) Bacteremia due to Enterococcus ICD Code: R78.81 Status: Acute Assessment and Plan Acute hypoxemic respiratory failure: Resolved. Now tolerating oxygen per nasal cannula. Continue DuoNeb, Lasix. Patient was extubated on 08/15/16. Bacteremia: Blood cultures positive for enterococcus. Appreciate infectious disease recommendations. Continue Penicillin, Rocephin. Will need long-term IV antibiotics secondary to high-grade bacteremia. Repeat blood cultures are negative so far. UTI, hydronephrosis: Appreciate urology recommendations. Llanos catheter in place. Status post cystoscopy with left ureteral stent placement. Atrial fibrillation: Heparin drip discontinued. Starte metoprolo, dereased to 12.5 mg po bid as noted HRin 50s. Start Eliquis. Appreciate cardiology recommendations. Aortic stenosis: Murmur noted on exam. Echocardiogram from 08/11/16 shows ejection fraction 50-55% with moderate aortic stenosis. Non-ST elevation [place]: Appreciate cardiology recommendations. Patient will need nuclear stress test when stable - can be done as outpatient per cardiology. GI prophylaxis: Protonix. DVT prophylaxis: Heparin, SCDs. Discharge Planning Anticipate discharge to SNF soon, when arrangements are made. Case management following for DC plan Cynthia Pringle MD Aug 22, 2016 11:09
[2016-08-22] MEDS: CHLORHEXIDINE GLUCONATE 0.12% 15 ML CUP SCH ×2 (11:30→20:00)
[2016-08-22] MEDS: cefTRIAXone INJ 2,000 MG in SODIUM CHLORIDE 0.9% INJ 100 ML IV SCH (14:22)
[2016-08-22] MEDS: POTASSIUM CHLORIDE 25 MEQ EFFERVESCENT TAB PO SCH (14:22)
[2016-08-22] MEDS ORDERED: PILL SPLITTER OTHER PRN (14:30)
[2016-08-22] MEDS: SODIUM CHLOR 0.9% 1000 ML INJ 1,000 ML IV SCH (17:04)
[2016-08-22] MEDS: PRAVASTATIN SOD 40 MG TAB PO SCH (17:05)
[2016-08-22] MEDS: METOPROLOL TARTRATE 25 MG TAB PO SCH (20:44)
[2016-08-23] VITALS (9 sets, daily range): BP systolic 119–186; BP diastolic 57–82; PULSE 50–64; RESP 16–17; TEMP 96.6–97.7; O2SAT 93–98
[2016-08-23] MEDS: PENICILLIN G POTASSIUM INJ 3,000,000 UNITS in SODIUM CHLORIDE 0.9% INJ 100 ML IV SCH ×4 (00:53→13:51)
[2016-08-23] MEDS: INSULIN ASPART SUPPLEMENTAL SCALE SQ SCH ×2 (05:33→11:25)
[2016-08-23] MEDS: SODIUM CHLOR 0.9% 1000 ML INJ 1,000 ML IV SCH (05:34)
[2016-08-23] MEDS: CHLORHEXIDINE GLUCONATE 0.12% 15 ML CUP SCH (08:00)
[2016-08-23] MEDS ORDERED: POTASSIUM CHLORIDE 10 MEQ CONTROLLED RELEASE TAB PO SCH (09:00)
[2016-08-23] MEDS: TOLTERODINE TARTRATE 2 MG CAP LA PO SCH (10:19)
[2016-08-23] MEDS: LISINOPRIL 20 MG TAB PO SCH (10:19)
[2016-08-23] MEDS: ASPIRIN 81 MG CHEW TAB CHEW SCH (10:19)
[2016-08-23] MEDS: METOPROLOL TARTRATE 25 MG TAB PO SCH (10:20)
[2016-08-23] MEDS: PARoxetine HCL 20 MG TAB PO SCH (10:20)
[2016-08-23] MEDS: APIXABAN 5 MG TABLET PO SCH (10:20)
[2016-08-23] MEDS: FUROSEMIDE 40 MG TAB PO SCH (10:20)
[2016-08-23] MEDS: DOCUSATE SODIUM 100 MG/10 ML UDC PO SCH (10:21)
[2016-08-23] MEDS: PANTOPRAZOLE SOD 40 MG DELAYED RELEASE TAB PO SCH (10:21)
[2016-08-23] MEDS: SODIUM CHLORIDE 0.9% FLUSH 10 ML FLUSH IV FLUSH SCH ×2 (10:21)
[2016-08-23] MEDS ORDERED: cloNIDine HCL 0.1 MG TAB PO PRN (12:15)
--- NOTE | 2016-08-23 12:35 | HHI.DS ---
Discharge Summary Admission Date Aug 10, 2016 at 6:33 pm Discharge Date: Aug 23, 2016 Admitting Diagnosis SEPSIS, uti, dehydration (1) Sepsis ICD Code: A41.9 (2) Metabolic encephalopathy ICD Code: G93.41 (3) UTI (urinary tract infection) ICD Code: N39.0 (4) Dehydration ICD Code: E86.0 (5) Generalized weakness ICD Code: R53.1 (6) Ureteropelvic junction (UPJ) obstruction ICD Code: N13.5 (7) Hydronephrosis ICD Code: N13.30 (8) Hypertension ICD Code: I10 (9) Aortic stenosis, moderate ICD Code: I35.0 (10) Type 2 diabetes mellitus ICD Code: E11.9 (11) Acute hypoxemic respiratory failure ICD Code: J96.01 (12) Atrial fibrillation ICD Code: I48.91 (13) Bacteremia due to Enterococcus ICD Code: R78.81 Brief History - From Admission Written by Mary Carmen Bush, acting as scribe for Dr. Terrell on 08/10/16 at 21: 04. 70-year-old female with a past medical history of CVA with dysarthria, DM, CAD, HTN, HLD, Atrial fibrillation. Patient appears weak and slow to answer questions. Patient is A&O to person, place and month also able to tell that Annalise is the president. The patient has a history of CVA with residual dysarthria which limited ability to communicate, information gathered from patient and prior charting. Patient's family member called 911 because patient was lethargic at home. Patient is currently able to awake to voice noted to be slow to respond but does appear oriented. Patient endorses fevers and shortness of breath. Patient unable to elaborate on further details Patient denies N/V, abdominal pain, black tarry stool, red blood per rectum, or recent travel. Upon arrival patient noted to have temp 101.3, HR 95, RR24, WBC 22.0, blood glucose 190 Additional history was obtained from patient's daughter over the phone. Daughter reported that patient was at her baseline in the morning and had her breakfast. At lunchtime, when daughter came back from work, she stated that her mom was up and making plans for herself and had her lunch. She was also walking around and was socializing with patient's daughter and her friend. When patient's daughter was ready to go back to work, patient told the daughter that she doesn't think she would be able to walk around. When the daughter pointed to her that she has been walking around the whole afternoon with them, patient seems to not and distended. The daughter advised her to walk with a walker and did not think much about it and had to return back to work. This was around 12:45 PM. However the daughter stated she was monitoring her mom through video camera, while at work. She stated that through the video camera, she noted her mom was not moving at all from her couch for the next 2-1/2 hours. Daughter's was also back to the house by then and he noted that mom was not getting out of the couch and when he tries talking to her, she was not answering back appropriately or engaging in conversation. The daughter therefore came back to the house immediately. This was around 3 PM. She then called 911 and arrived hospital. Daughter reported that patient has been weak since Sunday. She has had CT of the abdomen with contrast as an outpatient on Sunday. Reportedly this was for kidney stones. Patient has had chronic significant hematuria. [facility] and had CT done on Sunday. Daughter also stated patient was found to have Hemoccult positive as outpatient and since she was on anticoagulation, she has had some kind of barium studies as an outpatient and was planned for colonoscopy a week from tomorrow. She states on July 30, 2016, she did bring the patient to ER for some generalized weakness and lethargy and was discharged from here. Review of medical records shows patient was not lethargic on examination and found to have mild UTI for which ER physician had prescribed Bactrim. However daughter stated that they never knew she was prescribed Bactrim and did not receive any prescriptions upon discharge. Patient was not on any antibiotics at home. The last time she ever received antibiotics was while she was in hospital as an inpatient. This was back around June 07, 2016 Hospital stay. Patient also had episodes of falls at home. Daughter stated this happened on a Sunday last week, and then on Sunday and Sunday. Most of the falls were not witnessed although daughter immediately came into the room when she fell. Once was in the shower. Unknown whether she had her head or not. The daughter as for as she knows, patient was not complaining of any symptoms in the past few days to weeks. She did not have any fever/nausea/vomiting/ diarrhea/blood in stool or urine/chest pain/shortness of breath/syncopal episodes. She states mom is incontinent and wears a brief period CBC/BMP: 08/20/16 0507 08/20/16 0507 Imaging Last Impressions Chest X-Ray 08/18/16 0000 Signed Impressions: Service Date/Time: Thursday, August 18, 2016 18:07 - CONCLUSION: 1. Right-sided PICC line. 2. No acute cardiopulmonary disease. Cheko Villanueva MD Aorta Ultrasound 08/11/16 0000 Signed Impressions: Service Date/Time: Thursday, August 11, 2016 08:00 - CONCLUSION: 1. No abdominal aortic aneurysm identified. Johnnie Bains MD Abdomen/Pelvis CT 08/11/16 0000 Signed Impressions: Service Date/Time: Thursday, August 11, 2016 11:55 - CONCLUSION: 1. Moderate to severe left-sided hydronephrosis probably secondary to a left UPJ obstruction. Left ureter has normal caliber. 2. Nonobstructing 16mm by 11 mm calculus in the right renal pelvis. Perinephric stranding present bilaterally. 3. Trace bilateral pleural effusions. No bowel obstruction or free air. Arthur Tirado MD Lower Extremity Ultrasound 08/10/16 0000 Signed Impressions: Service Date/Time: July 21:54 - CONCLUSION: Negative exam with no evidence of deep venous thrombosis. Cheko Villanueva MD Head CT 08/10/16 0000 Signed Impressions: Service Date/Time: July 22:26 - CONCLUSION: 1. No acute hemorrhage, mass or infarction. 2. Chronic encephalomalacia Cheko Villanueva MD PE at Discharge General: Elderly female in no acute distress. Cardiovascular: Regular rate and rhythm. 2/6 systolic murmur noted. Respiratory: Clear to auscultation. Breathing is nonlabored. Abdomen: Soft, nontender, nondistended. Extremities: No lower extremity edema. No calf tenderness. Psych: Alert, answers questions appropriately. Pt update on day of discharge Ms. Villa is doing well. Denies any chest pain, shortness of breath, fever, chills. Hospital Course Acute hypoxemic respiratory failure: Resolved. Now tolerating oxygen per nasal cannula. Continue DuoNeb, Lasix. Patient was extubated on 08/15/16. Bacteremia: Blood cultures positive for enterococcus. Appreciate infectious disease recommendations. Continue Penicillin, Rocephin. Will need long-term IV antibiotics secondary to high-grade bacteremia. Repeat blood cultures are negative so far. UTI, hydronephrosis: Appreciate urology recommendations. Llanos catheter in place. Status post cystoscopy with left ureteral stent placement. Atrial fibrillation: Heparin drip discontinued. Starte metoprolo, dereased to 12.5 mg po bid as noted HRin 50s. Start Eliquis. Appreciate cardiology recommendations. Aortic stenosis: Murmur noted on exam. Echocardiogram from 08/11/16 shows ejection fraction 50-55% with moderate aortic stenosis. Non-ST elevation [place]: Appreciate cardiology recommendations. Patient will need nuclear stress test when stable - can be done as outpatient per cardiology. Pt Condition on Discharge: Stable Discharge Disposition: Discharge to SNF Discharge Instructions DIET: Follow Instructions for: Heart Healthy Diet, Diabetic Diet Activities you can perform: Regular-No Restrictions Follow up Referrals: Cardiology - 1 Week with Claudia Morrissey MD Infectious Disease - 1 Week PCP Follow-up - 1 Week New Medications: Hydralazine HCl (Hydralazine HCl) 25 Mg Tablet 25 MG PO TID PRN SBP>160, DBP>90 #90 Ref 0 TAB Lisinopril (Lisinopril) 20 Mg Tab 40 MG PO DAILY Blood Pressure Management #30 TAB Potassium Bicarb-Chloride Effervescent (Effervescent Potassium Chloride 25 Meq) 25 Meq Tab 25 MEQ PO DAILY Nutritional Supplement #30 TAB Pravastatin (Pravachol) 40 Mg Tab 10 MG PO DAILY@18 Cholesterol Management #30 TAB Tolterodine ER (Detrol LA) 2 Mg Cap 2 MG PO DAILY urinary #30 CAP Continued Medications: Amlodipine (Amlodipine) 10 Mg Tab 10 MG PO DAILY Blood Pressure Management #30 Ref 0 TAB Apixaban (Eliquis) 5 Mg Tab 5 MG PO BID Blood Clot Prevention #60 Ref 0 TAB Insulin Lispro (Human) Inj (Humalog Inj) 1,000 Unit/10 Ml Vial 2 UNITS SQ TIDAC Max dose at bedtime:( )units; sugars< 70,(0)units; sugars 150- 199,(1)unit; sugars 200-249,(3)units; sugars 250-299,(5)units; sugars 300-349,(7 )units; sugars more than 349,(9)units. Blood Sugar Management #1 Ref 0 VIAL Metformin (Metformin) 1,000 Mg Tab 1000 MG PO BID With meals Blood Sugar Management #60 Ref 0 TAB Metoprolol Tartrate (Metoprolol Tartrate) 25 Mg Tab 25 MG PO BID #60 Ref 0 TAB Paroxetine (Paroxetine) 20 Mg Tab 20 MG PO DAILY #30 Ref 0 TAB Discontinued Medications: Lisinopril (Lisinopril) 20 Mg Tab 20 MG PO DAILY #30 Ref 0 TAB Mirabegron (Myrbetriq) 25 Mg Tab 25 MG PO DAILY Urinary Symptom Managemen #30 Ref 0 TAB Estephania Hunter DO Aug 23, 2016 12:35 pm
[2016-08-23] MEDS ORDERED: HYDR-3799 PO (12:36)
== END 2016-08-23 16:08 | DRG 871 ==
LOC: NEPE 16:34 → NEDA 18:33 → N05A 20:27 → HCIN 08-11 00:10 → HCVR 08-12 03:19 → HCIS 08-16 11:16 → HOCA 08-17 12:57
PROVIDERS: ADMIT Hospitalist; ATTEND Hospitalist
PROC: 5A1945Z Respiratory Ventilation, 24-96 Consecutive Hours (ICD-10-PCS; 2016-08-13)
PROC: BT1F1ZZ Fluoroscopy of Left Kidney, Ureter and Bladder using Low Osmolar Contrast (ICD-10-PCS; 2016-08-13)
PROC: 0T9B70Z Drainage of Bladder with Drainage Device, Via Natural or Artificial Opening (ICD-10-PCS; 2016-08-13)
PROC: 0T778DZ Dilation of Left Ureter with Intraluminal Device, Via Natural or Artificial Opening Endoscopic (ICD-10-PCS; principal; 2016-08-13 09:16)
PROC: B246ZZ4 Ultrasonography of Right and Left Heart, Transesophageal (ICD-10-PCS; 2016-08-14)
DX: A41.9 Sepsis, unspecified organism (principal); G93.41 Metabolic encephalopathy; I21.4 Non-ST elevation (NSTEMI) myocardial infarction; J96.01 Acute respiratory failure with hypoxia; I48.0 Paroxysmal atrial fibrillation; N17.9 Acute kidney failure, unspecified; E87.3 Alkalosis; R00.1 Bradycardia, unspecified; E86.0 Dehydration; N13.2 Hydronephrosis with renal and ureteral calculous obstruction; N39.0 Urinary tract infection, site not specified; I10 Essential (primary) hypertension; R65.20 Severe sepsis without septic shock; E11.9 Type 2 diabetes mellitus without complications; I08.0 Rheumatic disorders of both mitral and aortic valves; E78.5 Hyperlipidemia, unspecified; I69.392 Facial weakness following cerebral infarction; G47.30 Sleep apnea, unspecified; Z79.4 Long term (current) use of insulin; E78.00 Pure hypercholesterolemia, unspecified; I25.10 Atherosclerotic heart disease of native coronary artery without angina pectoris; I69.322 Dysarthria following cerebral infarction; Z79.02 Long term (current) use of antithrombotics/antiplatelets; Z86.12 Personal history of poliomyelitis; R29.6 Repeated falls; Z87.891 Personal history of nicotine dependence; E87.6 Hypokalemia; E87.70 Fluid overload, unspecified; K21.9 Gastro-esophageal reflux disease without esophagitis; I50.9 Heart failure, unspecified; R31.0 Gross hematuria; B95.2 Enterococcus as the cause of diseases classified elsewhere
CPT/HCPCS: 36569; 36600; 70450; 71010; 74176; 74420; 76775; 76937; 80048; 80053; 80061; 81001; 82550; 82805; 82948; 83605; 83735; 83880; 84100; 84484; 85007; 85025; 85027; 85610; 85730; 87040; 87070; 87077; 87086; 87149; 87186; 87205; 93005; 93306; 93312; 93320; 93325; 93970; 94002; 94003; 94150; 94640; 94664; 99285; C1769; C9113; J0696; J1642; J1644; J1815; J1940; J1956; J2370; J2540; J2543; J3010; J3370; J3475; J3480; J7030; J7040; J7050; Q9967

== ENCOUNTER 2017-04-30 07:26 | Observation (INO) | payer MEDICARE, MEDICAID ==
[~2017-04-30] VITALS: Ht 157.5 cm; Wt 75.6 kg
[~2017-04-30 07:26] MED LIST changes: -BACT800T5 PO; +DETR2CAP PO; +DULC10SU3 RECTAL; -HUMALOG SQ; +HYDR-3799 PO; +LANTUS2P SQ; +MEMA28CA PO; +METF1000 PO; -METF500T PO; +MILKSUS PO; -MIRA25TA PO; +NOVOLOGP2 SQ; +POTA-163 PO; +PRAV40TA2 PO; +TYLE325T PO
[2017-04-30] MEDS ORDERED: LACTATED RINGER'S 1000 ML IV PRN (08:30)
[2017-04-30] MEDS ORDERED: METOPROLOL TARTRATE 25 MG TAB PO PRN (08:30)
[2017-04-30] MEDS ORDERED: INSULIN HUMAN REGULAR 1,000 UNITS/10 ML VIAL SQ PRN (08:30)
[2017-04-30] MEDS ORDERED: SODIUM CHLORID 0.9% 500 ML IV PRN (08:30)
[2017-04-30] MEDS ORDERED: POVIDONE IODINE 5% (ANTISEPSIS KIT) 4 APPLICATIONS EACH NARE PRN (08:30)
[2017-04-30] MEDS ORDERED: ceFAZolin 1,000 MG/NS 100 ML IV SCH ×2 (08:30)
[2017-04-30] MEDS ORDERED: CHLORHEXIDINE GLUCONATE 2 % 1 PACK (2 CLOTHS) TOPICAL PRN (08:30)
[2017-04-30 08:34] LABS: BASOPHIL # 0.1 TH/MM3 (0-0.2); BASOPHIL % 1.4 % (0.0-2.0); EOSINOPHIL # 0.2 TH/MM3 (0-0.4); EOSINOPHIL % 2.3 % (0.0-4.0); HEMOGLOBIN 11.4 GM/DL (11.6-15.3); LYMPHOCYTE # 1.2 TH/MM3 (1.0-4.8); MEAN CELL VOLUME 90.6 FL (80.0-100.0); MEAN CORPUSCULAR HEMOGLOBIN 31.4 PG (27.0-34.0); MEAN CORPUSCULAR HGB CONC 34.7 % (32.0-36.0); MEAN PLATELET VOLUME 7.7 FL (7.0-11.0); MONO % 9.4 % (0.0-8.0); MONOCYTE # 0.8 TH/MM3 (0-0.9); NEUT % 72.9 % (16.0-70.0); PLATELET COUNT 290 TH/MM3 (150-450); RED BLOOD COUNT 3.64 MIL/MM3 (4.00-5.30); RED CELL DISTRIBUTION WIDTH 13.1 % (11.6-17.2); WHITE BLOOD COUNT 8.3 TH/MM3 (4.0-11.0)
--- NOTE | 2017-04-30 11:32 | PD.OP ---
Operative Report Date of Surgery: Apr 30, 2017 Preoperative Diagnosis: (1) Hydronephrosis, left (2) Renal calculus, right Postoperative Diagnosis: (1) Ureteropelvic junction (UPJ) obstruction (2) Hydronephrosis, left (3) Renal calculus, right Procedure: Cystoscopy, right retrograde pyelogram, right ureteral stent placement, left retrograde pyelogram, left ureteroscopy, balloon dilation left ureteropelvic junction obstruction and left ureteral stent exchange Anesthesia: General Surgeon: Murali Lyon Live In Housekeeper Nanny(s): None Operation and Findings: Indication for procedures: Case of a pleasant 71-year-old female with history left hydronephrosis status post left stent insertion and a large right renal pelvis calculus. Patient presents today for right stent placement and to further investigate etiology of the left ureteropelvic junction obstruction. Operative procedures in detail: Patient was brought to the operating room suite and placed supine on the OR table. She was then placed under general anesthesia. She was then repositioned in the dorsolithotomy position and prepped and draped in normal sterile fashion. After an appropriate timeout was undertaken I proceeded with cystoscopic evaluation utilizing the rigid cystoscope with the 20 English sheath and the 30 lens. The previously placed left ureteral stent could be seen protruding from the left ureteral orifice. There was clear drainage from the right ureteral orifice. I then proceeded to perform a right retrograde pyelogram utilizing a 6 English open-ended ureteral catheter. There was prompt filling and drainage of the collecting system. The greater than 1 cm right renal pelvis stone was clearly visualized and nonobstructing. I then proceeded to pass a sensor 0.035 wire of the patient's right ureter and into the right renal pelvis. A long-term 6 English 22 cm double -J stent was then easily placed on the both cystoscopic and fluoroscopic guidance without difficulty. Once the stent was in proper position the trailing string was removed. I then focused on the left side. The same sensor wire was then advanced alongside the previously passed left stent. The stent was then removed endoscopically with flexible forceps. The cystoscope was withdrawn and the flexible ureteroscope was then advanced over the guidewire without difficulty. I was able to advance the flexible scope up to the point of the left ureteropelvic junction and the scope would not further pass. There was significant narrowing noted and edema. No mass lesions were seen nor were there any calculi seen. I then withdrew the ureteroscope and backloaded cystoscope. A UroMax 18 English 4 cm ureteral balloon dilation catheter was then advanced over the wire and the UPJ obstruction was balloon dilated at 20 xin of pressure for 60 seconds. The balloon was then deflated and the catheter withdrawn. A 6 English 24 cm correction stent was then passed over the wire under both cystoscopic and fluoroscopic guidance without difficulty. Once the stent was in proper position the trailing string was removed. The bladder was drained of all irrigant fluid and the cystoscope was withdrawn. A 16 English 10 cc Llanos catheter was then placed and connected to gravity drainage. The patient tolerated the procedures without complications and was transferred to the PACU in satisfactory condition. Murali Lyon MD Apr 30, 2017 11:32
[2017-04-30] MEDS ORDERED: CEPH-459 PO (11:37)
[2017-04-30] MEDS ORDERED: PERC5TAB12 PO (11:37)
[2017-04-30] MEDS ORDERED: DO NOT ADM ANY ANTICOAGULANT DRUGS PRN (11:40)
[2017-04-30] MEDS ORDERED: oxyCODONE/ACETAMINOPHEN 5 MG/325 MG TAB PO PRN (11:45)
[2017-04-30] MEDS ORDERED: ONDANSETRON HCL 4 MG/2 ML VIAL IV PUSH PRN (11:45)
[2017-04-30] MEDS ORDERED: DEXAMETHASONE SOD PHOS 4 MG/ML VIAL IV ONE (12:00)
[2017-04-30] MEDS ORDERED: ePHEDrine/NS 25 MG/5 ML SYRINGE IV ONE (12:00)
[2017-04-30] MEDS ORDERED: LACTATED RINGER'S 1000 ML INJ 2,000 ML IV ONE (12:00)
[2017-04-30] MEDS ORDERED: PHENYLEPH/NS 1000 MCG/10 ML SYR IV ONE (12:00)
[2017-04-30] MEDS ORDERED: LIDOCAINE HCL 1% PF 5 ML SYRINGE OTHER ONE (12:00)
[2017-04-30] MEDS ORDERED: PROPOFOL 200 MG/20 ML AMP IV ONE (12:00)
[2017-04-30] MEDS ORDERED: ONDANSETRON HCL 4 MG/2 ML VIAL IV PUSH ONE (12:00)
[2017-04-30] MEDS ORDERED: *RESP: ALBUTEROL 2.5 MG/3 ML NEB (PRN) PERIprocedural Use ONLY NEB ONE (12:06)
[2017-04-30 13:30] VITALS: O2SAT 97
[2017-04-30] MEDS ORDERED: FUROSEMIDE 20 MG/2 ML VIAL ONE (14:33)
--- NOTE | 2017-04-30 14:47 | RADRPT ---
EXAM DATE/TIME: 04/30/2017 14:17 [facility] COMPARISON: CHEST SINGLE AP, August 18, 2016, 18:07. INDICATIONS : Low oxygen saturation. MEDICAL HISTORY : Diabetes mellitus type II. SURGICAL HISTORY : None. ENCOUNTER: Initial ACUITY: 1 day PAIN SCORE: 0/10 LOCATION: chest FINDINGS: A single view of the chest demonstrates the lungs to be symmetrically aerated without evidence of mas s, infiltrate or effusion. The cardiomediastinal contours are unremarkable. Osseous structures are intact. CONCLUSION: 1. No acute cardiopulmonary findings. Johnnie Bains MD on April 30, 2017 at 14:44 Board Certified Radiologist. This report was verified electronically.
[2017-04-30] MEDS ORDERED: INSULIN ASPART SUPPLEMENTAL SCALE ONE (16:03)
[2017-04-30] MEDS ORDERED: FUROSEMIDE 20 MG/2 ML VIAL IV ONE (16:30)
[2017-04-30] MEDS ORDERED: INSULIN ASPART 1,000 UNITS/10 ML VIAL SQ ONE (16:30)
[2017-04-30] MEDS ORDERED: MAGNESIUM HYDROXIDE SUSP 30 ML CUP PO PRN (17:15)
[2017-04-30] MEDS ORDERED: ACETAMINOPHEN 325 MG TAB PO PRN (17:15)
--- NOTE | 2017-04-30 17:32 | PD.CONS ---
[facility] By Dr. Lyon Reason for Consult Medical management Primary Care Physician Howie Powell DO Diagnoses: History of Present Illness The patient is a 71-year-old female with a past medical history of hydronephrosis status post stent placement on the left who is presenting to the hospital for elective right-sided stent placement. The patient is status post cystoscopy, right retrograde pyelogram, right ureteral stent placement, left retrograde pyelogram, left ureteroscopy, balloon dilation left ureteropelvic junction obstruction and left ureteral stent exchange 04/30/17. Following the procedure the patient had low oxygen saturations. She received IV Lasix and was started on BiPAP. Her chest x-ray was unremarkable. The patient denied any chest pain or shortness of breath. When she was seen she was on 4 L of nasal cannula. She said she was recently on home oxygen and that was discontinued in March. She denies any recent fevers or cough. She says she has been eating well. She says she does not ambulate with a cane or a walker. Discussed with nursing at the bedside. Review of Systems ROS Limitations: Poor Historian Except as stated in HPI: all other systems reviewed are Neg Past Family Social History Allergies: Coded Allergies: ibuprofen (Verified Adverse Reaction, Unknown, RASH, 04/30/17) Past Medical History Hypertension Hyperlipidemia Diabetes mellitus Coronary artery disease CVA with residual dysarthria Atrial Fibrillation Polio Past Surgical History Oral surgery Active Ordered Medications Current Medications Medications (Trade) Dose Ordered Sig/Leila Route Start Time Stop Time Status Last Admin Lactated Ringer's 1,000 ml @ 30 mls/hr Q24H PRN IV 04/30/17 08:30 05/03/17 08:29 04/30/17 08:00 Sodium Chloride 500 ml @ 30 mls/hr [id number] PRN IV 04/30/17 08:30 05/03/17 08:29 (Lopressor) 25 mg SOUND TESTER PRN PO 04/30/17 08:30 05/03/17 08:29 04/30/17 08:23 (Betadine 5% Antisepsis Kit) 1 applic SOUND TESTER PRN EACH NARE 04/30/17 08:30 05/03/17 08:29 04/30/17 08:00 (Chlorhexidine 2% Cloth) 3 pack SOUND TESTER PRN TOPICAL 04/30/17 08:30 05/03/17 08:29 04/28/17 07:45 Cefazolin Sodium 1000 mg/Sodium Chloride 100 ml @ 200 mls/hr SOUND TESTER IV 04/30/17 08:30 05/03/17 08:29 04/30/17 09:28 (Zofran Inj) 4 mg Q6HR PRN IV PUSH 04/30/17 11:45 (Percocet 5-325 Mg) 1 tab Q4H PRN PO 04/30/17 11:45 Miscellaneous Information ALL NURSING DEPARTME... UNSCH PRN .XX 04/30/17 11:40 05/01/17 11:39 (Tylenol) 650 mg Q4H PRN PO 04/30/17 17:15 UNV (Norvasc) 10 mg DAILY PO 05/01/17 09:00 UNV (Lantus Inj) 10 units HS SQ 04/30/17 21:00 UNV (Prinivil) 40 mg DAILY PO 05/01/17 09:00 UNV (Milk Of Magnesia Liq) 30 ml Q6H PRN PO 04/30/17 17:15 UNV (Lopressor) 25 mg BID PO 04/30/17 21:00 UNV (Paxil) 20 mg DAILY PO 05/01/17 09:00 UNV (KCl) 20 meq DAILY PO 05/01/17 09:00 UNV (Pravachol) 40 mg DAILY PO 05/01/17 09:00 UNV (Detrol La) 2 mg DAILY PO 05/01/17 09:00 UNV Non-Formulary Medication 28 mg DAILY PO 05/01/17 09:00 UNV Family History The patient denies pertinent family history Social History The patient denies smoking or drinking. Physical Exam Vital Signs Vital Signs Date Time Temp Pulse Resp B/P (MAP) Pulse Ox O2 Delivery O2 Flow Rate FiO2 04/30/17 16:10 97.8 81 18 120/78 (92) 99 Room Air 04/30/17 13:45 72 15 150/67 (94) 96 Bi-Pap 40 04/30/17 13:30 97 40 04/30/17 13:15 72 15 146/65 (92) 92 Nasal Cannula 4 04/30/17 12:45 75 15 165/67 (99) 93 Nasal Cannula 3 04/30/17 12:30 72 15 155/65 (95) 93 Nasal Cannula 3 04/30/17 12:15 74 15 178/70 (106) 92 Room Air 04/30/17 12:00 72 15 129/58 (81) 92 Room Air 04/30/17 11:45 70 14 156/67 (96) 95 Nasal Cannula 3 04/30/17 11:35 98.3 70 14 163/61 (95) 98 Simple Mask 6 04/30/17 08:03 98.4 57 20 134/70 (91) 97 Physical Exam GENERAL: This is a well-nourished, well-developed patient, in no apparent distress. SKIN: No rashes, ecchymoses or lesions. Cool and dry. HEAD: Atraumatic. Normocephalic. No temporal or scalp tenderness. EYES: Pupils equal round and reactive. Extraocular motions intact. No scleral icterus. No injection or drainage. ENT: Nose without bleeding, purulent drainage or septal hematoma. Throat without erythema, tonsillar hypertrophy or exudate. Uvula midline. Airway patent. NECK: Trachea midline. No JVD or lymphadenopathy. Supple, nontender, no meningeal signs. CARDIOVASCULAR: Irregularly irregular with a grade 3 systolic murmur appreciated. RESPIRATORY: Diminished breath sounds. No wheezes, rales, or rhonchi. GASTROINTESTINAL: Abdomen soft, non-tender, nondistended. No hepato-splenomegaly , or palpable masses. No guarding. MUSCULOSKELETAL: Extremities without clubbing, cyanosis, or edema. No joint tenderness, effusion, or edema noted. NEUROLOGICAL: Awake and alert. Mild tremors. Motor and sensory grossly within normal limits. PSYCH: Calm. Laboratory Laboratory Tests Test 04/30/17 08:05 White Blood Count 8.3 Red Blood Count 3.64 Hemoglobin 11.4 Hematocrit 33.0 Mean Corpuscular Volume 90.6 Mean Corpuscular Hemoglobin 31.4 Mean Corpuscular Hemoglobin Concent 34.7 Red Cell Distribution Width 13.1 Platelet Count 290 Mean Platelet Volume 7.7 Neutrophils (%) (Auto) 72.9 Lymphocytes (%) (Auto) 14.0 Monocytes (%) (Auto) 9.4 Eosinophils (%) (Auto) 2.3 Basophils (%) (Auto) 1.4 Neutrophils # (Auto) 6.0 Lymphocytes # (Auto) 1.2 Monocytes # (Auto) 0.8 Eosinophils # (Auto) 0.2 Basophils # (Auto) 0.1 CBC Comment DIFF FINAL Differential Comment Result Diagram: 04/30/17 0805 Imaging Last Impressions Chest X-Ray 04/30/17 0000 Signed Impressions: Service Date/Time: Sunday, April 30, 2017 14:17 - CONCLUSION: 1. No acute cardiopulmonary findings. Johnnie Bains MD Assessment and Plan Assessment and Plan Acute respiratory failure The patient's oxygen saturation decreased acutely following surgery. She received IV Lasix and BiPAP with improvement. She does have a history of CHF with aortic stenosis which may be a factor. Unlikely to have pulmonary embolism as the patient is on Eliquis. X-ray was unremarkable. - Pulmonology consult pending. - Check a BNP. - Chest x-ray PA and lateral in the morning. - Incentive spirometry. - Encourage ambulation. Add physical therapy. - limited echo. - oxygen and nebs as needed. Hydronephrosis The patient is status post cystoscopy, right retrograde pyelogram, right ureteral stent placement, left retrograde pyelogram, left ureteroscopy, balloon dilation left ureteropelvic junction obstruction and left ureteral stent exchange 04/30. - management per urology. - pain control with a bowel regimen. Hypertension Likely exacerbated by respiratory distress. - Resume home regimen. - Clonidine as needed. PPx: SCDs Discussed Condition With Pt, nurse Cheko Olivas DO Apr 30, 2017 17:32
[2017-04-30] MEDS ORDERED: cloNIDine HCL 0.1 MG TAB PO PRN (17:45)
[2017-04-30] MEDS ORDERED: DEXTROSE 50% IN WATER 50 ML VIAL(D50) IV PUSH PRN (18:00)
[2017-04-30] MEDS ORDERED: GLUCAGON 1 MG/ML VIAL OTHER PRN (18:00)
[2017-04-30 20:00] VITALS: BP 159/92; PULSE 89; RESP 20; TEMP 97.4; O2SAT 93
[2017-04-30 20:35] VITALS: O2SAT 93
[2017-04-30] MEDS ORDERED: INSULIN DETEMIR 100 UNITS/ML VIAL SQ SCH (21:00)
[2017-04-30] MEDS: INSULIN ASPART SUPPLEMENTAL SCALE SQ SCH (22:14)
[2017-04-30] MEDS: METOPROLOL TARTRATE 25 MG TAB PO SCH (22:14)
[2017-05-01] VITALS: BP 153/70; PULSE 77; RESP 19; TEMP 97.5; O2SAT 94
[2017-05-01 04:00] VITALS: BP 195/89; PULSE 80; RESP 20; TEMP 97.5; O2SAT 93
[2017-05-01 08:00] VITALS: BP 152/65; PULSE 56; RESP 20; TEMP 97.5; O2SAT 96
[2017-05-01 08:53] LABS: HEMATOCRIT 31.2 % (35.0-46.0); HEMOGLOBIN 10.9 GM/DL (11.6-15.3); MEAN CELL VOLUME 90.5 FL (80.0-100.0); MEAN CORPUSCULAR HEMOGLOBIN 31.7 PG (27.0-34.0); MEAN CORPUSCULAR HGB CONC 35.1 % (32.0-36.0); MEAN PLATELET VOLUME 7.7 FL (7.0-11.0); PLATELET COUNT 282 TH/MM3 (150-450); RED BLOOD COUNT 3.45 MIL/MM3 (4.00-5.30); WHITE BLOOD COUNT 12.7 TH/MM3 (4.0-11.0)
[2017-05-01] MEDS ORDERED: POTASSIUM CHLORIDE 25 MEQ EFFERVESCENT TAB PO SCH (09:00)
[2017-05-01] MEDS ORDERED: LISINOPRIL 20 MG TAB PO SCH (09:00)
[2017-05-01] MEDS ORDERED: TOLTERODINE TARTRATE 2 MG CAP LA PO SCH (09:00)
[2017-05-01] MEDS ORDERED: PARoxetine HCL 20 MG TAB PO SCH (09:00)
[2017-05-01] MEDS ORDERED: MEMANTINE HCL 10 MG TAB PO SCH (09:00)
[2017-05-01] MEDS ORDERED: PRAVASTATIN SOD 40 MG TAB PO SCH (09:00)
[2017-05-01 09:07] LABS: ALBUMIN 3.2 GM/DL (3.4-5.0); AST (GOT) 12 U/L (15-37); BICARBONATE 25.2 MEQ/L (21.0-32.0); BLOOD UREA NITROGEN 18 MG/DL (7-18); CALCIUM 9.1 MG/DL (8.5-10.1); CHLORIDE 103 MEQ/L (98-107); CREATININE 0.84 MG/DL (0.50-1.00); GLOMERULAR FILTRATION RATE 67 ML/MIN (>89); GLUCOSE,RANDOM 164 MG/DL (74-106); MAGNESIUM 1.7 MG/DL (1.5-2.5); SODIUM (NA) 140 MEQ/L (136-145)
[2017-05-01 09:08] LABS: ALT (GPT) 15 U/L (10-53)
[2017-05-01] MEDS: METOPROLOL TARTRATE 25 MG TAB PO SCH (09:09)
[2017-05-01] MEDS: INSULIN ASPART SUPPLEMENTAL SCALE SQ SCH ×2 (09:10→13:06)
[2017-05-01 09:18] LABS: ALKALINE PHOSPHATASE 59 U/L (45-117); TOTAL BILIRUBIN ADULT 0.3 MG/DL (0.2-1.0); TOTAL PROTEIN 6.6 GM/DL (6.4-8.2)
--- NOTE | 2017-05-01 09:47 | RADRPT ---
EXAM DATE/TIME: 05/01/2017 08:38 [facility] COMPARISON: CHEST SINGLE AP, April 30, 2017, 14:17. INDICATIONS : Dyspnea. MEDICAL HISTORY : Myocardial infarction. Hypercholesterolemia. Diabetes mellitus type 2. CVA. Facial numbness. Sleep ap yulissa. HTN. Osteoporosis. Anticoagulant therpay, Eliquis. SURGICAL HISTORY : Oral surgery, teeth extractions. ENCOUNTER: Initial ACUITY: 2 days PAIN SCORE: 0/10 LOCATION: chest FINDINGS: The heart is mildly enlarged. There are small bilateral effusions. These are new compared to previous dated 04/30/17. There is mild interstitial prominence. In the appropriate clinical setting, this coul d suggest early congestive failure. No pneumonia seen. The osseous structures are grossly intact. CONCLUSION: 1. Small bilateral effusions and interstitial prominence suggesting possible mild congestive failure. 2. The chest appears mildly worsened when compared to previous of 04/30/17. Johnnie Bains MD on May 01, 2017 at 9:44 Board Certified Radiologist. This report was verified electronically.
--- NOTE | 2017-05-01 11:01 | HHI.PR ---
Subjective Remarks YOWF with HTN, resp insuff Breathing better Weaned to RA Denies sob no CP Objective Vital Signs Vital Signs Date Time Temp Pulse Resp B/P (MAP) Pulse Ox O2 Delivery O2 Flow Rate FiO2 05/01/17 08:00 97.5 56 20 152/65 (94) 96 05/01/17 04:00 97.5 80 20 195/89 (124) 93 05/01/17 00:00 97.5 77 19 153/70 (97) 94 04/30/17 20:35 93 Nasal Cannula 1.50 04/30/17 20:00 98.5 82 16 155/72 (99) 94 04/30/17 20:00 97.4 89 20 159/92 (114) 93 04/30/17 19:00 97.5 81 18 139/65 (89) 95 Nasal Cannula 2 04/30/17 18:36 97.6 85 18 136/63 (87) 96 Nasal Cannula 4 04/30/17 17:45 97.9 80 15 129/60 (83) 96 Nasal Cannula 4 04/30/17 16:45 72 17 130/64 (86) 98 Nasal Cannula 4 04/30/17 15:45 72 17 129/60 (83) 98 Nasal Cannula 4 04/30/17 15:15 67 15 151/65 (93) 98 Nasal Cannula 6 04/30/17 14:45 67 15 151/65 (93) 98 Bi-Pap 40 04/30/17 13:45 72 15 150/67 (94) 96 Bi-Pap 40 04/30/17 13:30 97 40 04/30/17 13:15 72 15 146/65 (92) 92 Nasal Cannula 4 04/30/17 12:45 75 15 165/67 (99) 93 Nasal Cannula 3 04/30/17 12:30 72 15 155/65 (95) 93 Nasal Cannula 3 04/30/17 12:15 74 15 178/70 (106) 92 Room Air 04/30/17 12:00 72 15 129/58 (81) 92 Room Air 04/30/17 11:45 70 14 156/67 (96) 95 Nasal Cannula 3 04/30/17 11:35 98.3 70 14 163/61 (95) 98 Simple Mask 6 I/O 04/30/17 04/30/17 04/30/17 05/01/1718 3/13/18 07:00 15:00 23:00 07:00 15:00 23:00 Intake Total 1200 ml 480 ml 480 ml Output Total 1150 ml 1200 ml Balance 1200 ml -670 ml -720 ml Intake Oral 480 ml 480 ml IV Total 1200 ml Output Urine Total 1150 ml 1200 ml # Bowel Movements 0 Result Diagram: 05/01/17 0738 05/01/17737 Objective Remarks GENERAL: MBMN WF not in distress SKIN: Warm and dry. HEAD: Normocephalic. EYES: No scleral icterus. No injection or drainage. NECK: Supple, trachea midline. No JVD or lymphadenopathy. CARDIOVASCULAR: Regular rate and rhythm without murmurs, gallops, or rubs. RESPIRATORY: Breath sounds equal bilaterally. No accessory muscle use. GASTROINTESTINAL: Abdomen soft, non-tender, nondistended. MUSCULOSKELETAL: No cyanosis, or edema. BACK: Nontender without obvious deformity. No CVA tenderness. A/P Assessment and Plan Resp insuff improved Hypoxia resolved S/P Urological procedure HTN PLAN: Monitor BP Stable on RA DC plans for Ariel Hinkle MD May 01, 2017 11:01
--- NOTE | 2017-05-01 11:26 | HHI.PR ---
Subjective Patient symptoms today Postoperative day #1 Denies shortness of breath Denies pain Objective Vital Signs Vital Signs Date Time Temp Pulse Resp B/P (MAP) Pulse Ox O2 Delivery O2 Flow Rate FiO2 05/01/17 08:00 97.5 56 20 152/65 (94) 96 05/01/17 04:00 97.5 80 20 195/89 (124) 93 05/01/17 00:00 97.5 77 19 153/70 (97) 94 04/30/17 20:35 93 Nasal Cannula 1.50 04/30/17 20:00 98.5 82 16 155/72 (99) 94 04/30/17 20:00 97.4 89 20 159/92 (114) 93 04/30/17 19:00 97.5 81 18 139/65 (89) 95 Nasal Cannula 2 04/30/17 18:36 97.6 85 18 136/63 (87) 96 Nasal Cannula 4 04/30/17 17:45 97.9 80 15 129/60 (83) 96 Nasal Cannula 4 04/30/17 16:45 72 17 130/64 (86) 98 Nasal Cannula 4 04/30/17 15:45 72 17 129/60 (83) 98 Nasal Cannula 4 04/30/17 15:15 67 15 151/65 (93) 98 Nasal Cannula 6 04/30/17 14:45 67 15 151/65 (93) 98 Bi-Pap 40 04/30/17 13:45 72 15 150/67 (94) 96 Bi-Pap 40 04/30/17 13:30 97 40 04/30/17 13:15 72 15 146/65 (92) 92 Nasal Cannula 4 04/30/17 12:45 75 15 165/67 (99) 93 Nasal Cannula 3 04/30/17 12:30 72 15 155/65 (95) 93 Nasal Cannula 3 04/30/17 12:15 74 15 178/70 (106) 92 Room Air 04/30/17 12:00 72 15 129/58 (81) 92 Room Air 04/30/17 11:45 70 14 156/67 (96) 95 Nasal Cannula 3 04/30/17 11:35 98.3 70 14 163/61 (95) 98 Simple Mask 6 Intake & Output 05/01/17 05/01/17 07:00 19:00 Intake Total 480 ml Output Total 1200 ml Balance -720 ml Intake Oral 480 ml Output Urine Total 1200 ml # Bowel Movements 0 Result Diagram: 05/01/17 0738 05/01/17 0738 Imaging Last 24 hours Impressions Chest X-Ray 05/01/17 0600 Signed Impressions: Service Date/Time: Monday, May 01, 2017 08:38 - CONCLUSION: 1. Small bilateral effusions and interstitial prominence suggesting possible mild congestive failure. 2. The chest appears mildly worsened when compared to previous of 04/30/17. Johnnie Bains MD Objective Remarks Breathing comfortably on room air Abdomen soft, nondistended, nontender No CVA tenderness Extremities well-perfused, nontender Medications and IVs Current Medications Medications (Trade) Dose Ordered Sig/Leila Route Start Time Stop Time Status Last Admin Lactated Ringer's 1,000 ml @ 30 mls/hr Q24H PRN IV 04/30/17 08:30 05/03/17 08:29 04/30/17 08:00 Sodium Chloride 500 ml @ 30 mls/hr [id number] PRN IV 04/30/17 08:30 05/03/17 08:29 (Lopressor) 25 mg ECHOCARDIOGRAPHER PRN PO 04/30/17 08:30 05/03/17 08:29 04/30/17 08:23 (Betadine 5% Antisepsis Kit) 1 applic ECHOCARDIOGRAPHER PRN EACH NARE 04/30/17 08:30 05/03/17 08:29 04/30/17 08:00 (Chlorhexidine 2% Cloth) 3 pack ECHOCARDIOGRAPHER PRN TOPICAL 04/30/17 08:30 05/03/17 08:29 04/28/17 07:45 Cefazolin Sodium 1000 mg/Sodium Chloride 100 ml @ 200 mls/hr ECHOCARDIOGRAPHER IV 04/30/17 08:30 05/03/17 08:29 04/30/17 09:28 (Zofran Inj) 4 mg Q6HR PRN IV PUSH 04/30/17 11:45 (Percocet 5-325 Mg) 1 tab Q4H PRN PO 04/30/17 11:45 Miscellaneous Information ALL NURSING DEPARTME... UNSCH PRN .XX 04/30/17 11:40 05/01/17 11:39 (Tylenol) 650 mg Q4H PRN PO 04/30/17 17:15 (Norvasc) 10 mg DAILY PO 05/01/17 09:00 05/01/17 09:09 (Levemir Inj) 10 units HS SQ 04/30/17 21:00 04/30/17 22:15 (Prinivil) 40 mg DAILY PO 05/01/17 09:00 05/01/17 09:08 (Milk Of Magnesia Liq) 30 ml Q6H PRN PO 04/30/17 17:15 (Lopressor) 25 mg BID PO 04/30/17 21:00 05/01/17 09:09 (Paxil) 20 mg DAILY PO 05/01/17 09:00 05/01/17 09:09 (K-Lyte Cl Eff) 25 meq DAILY PO 05/01/17 09:00 05/01/17 09:07 (Pravachol) 40 mg DAILY PO 05/01/17 09:00 05/01/17 09:09 (Detrol La) 2 mg DAILY PO 05/01/17 09:00 05/01/17 09:09 (Namenda) 10 mg BID PO 05/01/17 09:00 05/01/17 09:08 (NovoLOG SUPPLEMENTAL SCALE) 1 ACHS SLIDING SCALE SQ 04/30/17 21:00 05/01/17 09:10 (Catapres) 0.1 mg Q6H PRN PO 04/30/17 17:45 05/01/17 04:32 (D50w (Vial) Inj) 50 ml UNSCH PRN IV PUSH 04/30/17 18:00 (Glucagon Inj) 1 mg UNSCH PRN OTHER 04/30/17 18:00 Assessment and Plan Assessment and Plan Urologic impression: 1. Status post bilateral ureteral stent placement with balloon dilation of left ureteropelvic junction obstruction 2. No present respiratory issues 3. Appreciate assistance from medicine service Plan: 1. Discontinue Llanos catheter and discharge patient home 2. Follow-up at my office as previously arranged 3. Will eventually require outpatient shockwave lithotripsy of the right renal calculus 4. Discussed the possibility of managing the left ureteropelvic junction obstruction with a long-term stent changed on an annual basis Murali Lyon MD May 01, 2017 11:26
--- NOTE | 2017-05-01 11:56 | HHI.PR ---
Subjective Remarks Follow-up acute respiratory failure. Patient denies shortness of breath or chest pain today. States that she feels much better. She is currently ambulating in her room. Objective Vitals Vital Signs Date Time Temp Pulse Resp B/P (MAP) Pulse Ox O2 Delivery O2 Flow Rate FiO2 05/01/17 08:00 97.5 56 20 152/65 (94) 96 05/01/17 04:00 97.5 80 20 195/89 (124) 93 05/01/17 00:00 97.5 77 19 153/70 (97) 94 04/30/17 20:35 93 Nasal Cannula 1.50 04/30/17 20:00 98.5 82 16 155/72 (99) 94 04/30/17 20:00 97.4 89 20 159/92 (114) 93 04/30/17 19:00 97.5 81 18 139/65 (89) 95 Nasal Cannula 2 04/30/17 18:36 97.6 85 18 136/63 (87) 96 Nasal Cannula 4 04/30/17 17:45 97.9 80 15 129/60 (83) 96 Nasal Cannula 4 04/30/17 16:45 72 17 130/64 (86) 98 Nasal Cannula 4 04/30/17 15:45 72 17 129/60 (83) 98 Nasal Cannula 4 04/30/17 15:15 67 15 151/65 (93) 98 Nasal Cannula 6 04/30/17 14:45 67 15 151/65 (93) 98 Bi-Pap 40 04/30/17 13:45 72 15 150/67 (94) 96 Bi-Pap 40 04/30/17 13:30 97 40 04/30/17 13:15 72 15 146/65 (92) 92 Nasal Cannula 4 04/30/17 12:45 75 15 165/67 (99) 93 Nasal Cannula 3 04/30/17 12:30 72 15 155/65 (95) 93 Nasal Cannula 3 04/30/17 12:15 74 15 178/70 (106) 92 Room Air 04/30/17 12:00 72 15 129/58 (81) 92 Room Air I/O 04/30/17 04/30/17 04/30/17 05/01/17 05/01/17 05/01/17 07:00 15:00 23:00 07:00 15:00 23:00 Intake Total 1200 ml 480 ml 480 ml Output Total 1150 ml 1200 ml Balance 1200 ml -670 ml -720 ml Intake Oral 480 ml 480 ml IV Total 1200 ml Output Urine Total 1150 ml 1200 ml # Bowel Movements 0 Result Diagram: 05/01/17 0738 05/01/17 0738 Imaging Last Impressions Chest X-Ray 05/01/17 0600 Signed Impressions: Service Date/Time: Monday, May 01, 2017 08:38 - CONCLUSION: 1. Small bilateral effusions and interstitial prominence suggesting possible mild congestive failure. 2. The chest appears mildly worsened when compared to previous of 04/30/17. Johnnie Bains MD Objective Remarks General: Elderly female in no acute distress. Heart: Regular rate and rhythm. No murmur. Lungs: Clear to auscultation bilaterally. No wheezes, rales, or rhonchi. Breathing is nonlabored. Abdomen: Soft, nontender, nondistended. Extremities: No lower extremity edema. Psych: Alert and oriented. Urinary Catheter: No Vascular Central Line Catheter: No A/P Assessment and Plan 1. Acute respiratory failure: The patient's oxygen saturation decreased following surgery. She was given Lasix and placed on BiPAP. Respiratory status improved. Appreciate pulmonology recommendations. Now stable on room air. Symptoms have resolved. 2. Hydronephrosis: Status post cystoscopy, right retrograde pyelogram, right ureteral stent placement, left retrograde pyelogram, left ureteroscopy, balloon dilatation of the left ureteropelvic junction obstruction and left ureteral stent exchange. Management per urology. 3. Hypertension: Continue home antihypertensive regimen. 4. DVT prophylaxis: SCDs. Discharge Planning Discharge back to nursing facility today per urology. Wil Onofre MD May 01, 2017 11:56
[2017-05-01 12:00] VITALS: BP 152/68; PULSE 62; RESP 20; TEMP 97.2; O2SAT 96
[2017-05-01 12:05] VITALS: O2SAT 96
--- NOTE | 2017-05-01 13:10 | MB ---
cc: Ariel Rosenbaum MD DATE OF CONSULT: 04/30/2017 REQUESTING PHYSICIAN: Dr. Stacy. REASON FOR CONSULTATION: Pulmonary management and hypoxia. HISTORY OF PRESENT ILLNESS: Ms. Villa is a 71-year-old female with hypertension, diabetes mellitus, chronic atrial fibrillation, history of CVA. She is wheelchair bound, lives in a fpc. Patient was brought over here by Dr. Lyon, and she underwent urological procedures. She had cystoscopy with right retrograde pyelogram, right ureteral stent placement and left retrograde pyelogram, left ureteroscopy, balloon dilation of the left ureteropelvic junction obstruction, and left ureteral stent exchange. Postop, patient was somewhat hypoxic. It was noted that in the preop area, her saturation was around 88%. She was given Lasix. She is diuresing well. Now she is on 4 L nasal cannula. Saturation is 98%. She denies any chest pain. No fevers, chills. No night sweats. PAST MEDICAL HISTORY: Hypertension, diabetes mellitus, ureteral obstruction, chronic renal failure, CVA. MEDICATIONS: She is currently taking insulin, oxycodone for pain, metoprolol 25 mg. ALLERGIES: SHE IS ALLERGIC TO IBUPROFEN. 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 She does not smoke, no alcohol abuse. FAMILY HISTORY: She has 4 children; 1 . REVIEW OF SYSTEMS: She is wheelchair bound because of stroke. No DVT or pulmonary embolism. No malignancy. PHYSICAL EXAMINATION: Pleasant elderly female, not in any acute distress. Her blood pressure 120/78, heart rate 81, respiration 18, temperature 97.8. HEENT: Her pupils are equal and react to light. Oral mucosa, nasal mucosa normal. NECK: Supple. JVD not raised. CHEST: Equal air entry bilaterally, a few basilar rales. CARDIOVASCULAR SYSTEM: S1, S2 normal. ABDOMEN: Benign. EXTREMITIES: No edema. IMPRESSION: 1. Mild hypoxia, possible from atelectasis or fluid overload. She is being diuresed. Oxygen is improving. Since she had 2 L, she feels better. 2. Status post urological procedure. 3. Diabetes mellitus. 4. Hypertension. 5. History of cerebrovascular accident. PLAN: I discussed with patient and the nurse at the bedside, encourage they are using incentive spirometry. She has Llanos catheter, monitor her urine output. Decrease oxygen 2 L nasal cannula, wean to keep her saturation greater than 90%. Further treatment will depend on the course in hospital. Thank you, Dr. Stacy, for this consult. MD WANDA Elam/LAMONT , 05:11 PM , 06:16 PM MELVA
== END 2017-05-01 14:40 ==
LOC: HSDC 07:26 → HSDI 16:29 → N04A 20:31
PROVIDERS: ADMIT Urology; ATTEND Urology
DX: N13.2 Hydronephrosis with renal and ureteral calculous obstruction (principal); N13.5 Crossing vessel and stricture of ureter without hydronephrosis; J96.01 Acute respiratory failure with hypoxia; I25.10 Atherosclerotic heart disease of native coronary artery without angina pectoris; I13.0 Hypertensive heart and chronic kidney disease with heart failure and stage 1 through stage 4 chronic kidney disease, or unspecified chronic kidney disease; I50.9 Heart failure, unspecified; N18.9 Chronic kidney disease, unspecified; E11.22 Type 2 diabetes mellitus with diabetic chronic kidney disease; I48.2 Chronic atrial fibrillation; E78.5 Hyperlipidemia, unspecified; I69.322 Dysarthria following cerebral infarction; G47.30 Sleep apnea, unspecified; M19.90 Unspecified osteoarthritis, unspecified site; Z99.3 Dependence on wheelchair; Z79.01 Long term (current) use of anticoagulants
CPT/HCPCS: 00910; 52332; 52345; 71045; 71046; 74420; 80053; 82948; 83735; 83880; 84443; 85025; 85027; 94002; 94664; 96372; C1726; C1769; G0378; J0690; J1100; J1815; J2370; J2405; J3010; J7120; J7613; J1940

== ENCOUNTER → 2017-05-30 | Day surgery (SDC) | payer MEDICARE, MEDICAID ==
[~2017-05-30] VITALS: Ht 157.5 cm; Wt 72.5 kg
[~2017-05-30] MED LIST changes: +CEPH-459 PO; +CHLORHEXIDINE GLUCONATE 2 % 1 PACK (2 CLOTHS) TOPICAL PRN; +DEXTROSE 50% IN WATER 50 ML SYRINGE ONE; +DO NOT ADM ANY ANTICOAGULANT DRUGS PRN; +LACTATED RINGER'S 1000 ML IV PRN; +LIDOCAINE HCL 1% PF 5 ML SYRINGE OTHER ONE; +LISI40TA PO; +METOPROLOL TARTRATE 25 MG TAB PO PRN; +ONDANSETRON HCL 4 MG/2 ML VIAL IV ONE; +ONDANSETRON HCL 4 MG/2 ML VIAL IV PUSH PRN; +PERC5TAB12 PO; +PHENYLEPH/NS 1000 MCG/10 ML SYR IV ONE; +POVIDONE IODINE 5% (ANTISEPSIS KIT) 4 APPLICATIONS EACH NARE PRN; +PROPOFOL 200 MG/20 ML AMP IV ONE; +SODIUM CHLORID 0.9% 500 ML IV PRN; +ePHEDrine/NS 25 MG/5 ML SYRINGE IV ONE; +oxyCODONE/ACETAMINOPHEN 5 MG/325 MG TAB PO PRN
--- NOTE | 2017-05-30 07:57 | RADRPT ---
EXAM DATE/TIME: 05/30/2017 07:29 [facility] COMPARISON: No previous studies available for comparison. INDICATIONS : Pre-op ESWL. MEDICAL HISTORY : kidney stones.Myocardial infarction. Hypercholesterolemia.CVA. Facial numbness. Sleep apnea. HTN. Os teoporosis. Anticoagulant therapy. Diabetes mellitus type 2, SURGICAL HISTORY : Bilateral stents.Oral surgery, teeth extractions. ENCOUNTER: Initial ACUITY: 1 day PAIN SCORE: 0/10 LOCATION: Bilateral kidneys. FINDINGS: Double-J stent in place. Large 1.9 symmetr stone pelvis right kidney. No calcifications left kidney Possible 6 mm bladder stone adjacent to right stent. Nonspecific bowel gas pattern. The portion of the bony skeleton visualized is unremarkable. . CONCLUSION: Stones as above. José Bains MD FACR on May 30, 2017 at 7:53 Board Certified Radiologist. This report was verified electronically.
[2017-05-30 08:37] LABS: AUTOMATED NEUTROPHIL # 7.7 TH/MM3 (1.8-7.7); BASOPHIL # 0.1 TH/MM3 (0-0.2); BASOPHIL % 0.9 % (0.0-2.0); EOSINOPHIL # 0.2 TH/MM3 (0-0.4); EOSINOPHIL % 2.1 % (0.0-4.0); HEMATOCRIT 31.1 % (35.0-46.0); HEMOGLOBIN 10.5 GM/DL (11.6-15.3); LYMPH % 12.1 % (9.0-44.0); LYMPHOCYTE # 1.3 TH/MM3 (1.0-4.8); MEAN CELL VOLUME 88.9 FL (80.0-100.0); MEAN CORPUSCULAR HEMOGLOBIN 30.1 PG (27.0-34.0); MEAN CORPUSCULAR HGB CONC 33.9 % (32.0-36.0); MEAN PLATELET VOLUME 7.3 FL (7.0-11.0); MONO % 11.2 % (0.0-8.0); MONOCYTE # 1.2 TH/MM3 (0-0.9); NEUT % 73.7 % (16.0-70.0); PLATELET COUNT 305 TH/MM3 (150-450); RED CELL DISTRIBUTION WIDTH 12.9 % (11.6-17.2); WHITE BLOOD COUNT 10.5 TH/MM3 (4.0-11.0)
--- NOTE | 2017-05-30 10:02 | PD.OP ---
Operative Report Date of Surgery: May 30, 2017 Preoperative Diagnosis: (1) Renal calculus, right Postoperative Diagnosis: (1) Renal calculus, right Procedure: Extracorporeal shockwave lithotripsy right renal calculus patient Anesthesia: General Surgeon: Murali Lyon Copier Operator(s): None Operation and Findings: Indication for procedure: Case of a pleasant 71-year-old female with a large right sided renal calculus status post recent right stent placement who presents today to undergo extracorporeal shockwave lithotripsy of the right renal calculus. Patient is also status post recent balloon dilation of left UPJ obstruction and long-term stent placement as well. Operative procedure in detail: Patient was brought to the operating suite and placed supine on the OR table. She was then placed under general anesthesia. Her right renal calculus was then localized with fluoroscopy and she subsequently received extracorporeal shockwave lithotripsy utilizing the [employer]ier mobile lithotripsy unit. The patient received a total of 3000 shocks with a maximum power level setting of 6. At the conclusion of the procedure the stone was spread out considerably consistent with fragmentation. The patient tolerated the procedure without complications and was transferred to the PACU in satisfactory condition. Murali Lyon MD May 30, 2017 10:02
[2017-05-30 12:15] VITALS: BP 148/63; PULSE 64; RESP 18; TEMP 98; O2SAT 93
== END | disposition home or self-care (01) ==
LOC: HSDC 06:53
PROVIDERS: ATTEND Urology
DX: N20.0 Calculus of kidney (principal); E11.9 Type 2 diabetes mellitus without complications; E87.6 Hypokalemia; G93.41 Metabolic encephalopathy; I48.91 Unspecified atrial fibrillation; I35.0 Nonrheumatic aortic (valve) stenosis; K21.9 Gastro-esophageal reflux disease without esophagitis; E86.0 Dehydration; R78.81 Bacteremia; G31.84 Mild cognitive impairment of uncertain or unknown etiology; B95.2 Enterococcus as the cause of diseases classified elsewhere
CPT/HCPCS: 00872; 50590; 74018; 82948; 85025; J2370; J2405; J3010; J7120